=== PATIENT | female | born 1930 | race Caucasian/White ===

== ENCOUNTER 2016-11-25 15:43 | Inpatient (IN) | payer MEDICARE, OTHER ==
[2016-11-25 15:44] VITALS: BMI 23.8
--- NOTE | 2016-11-25 17:04 | C.PDOC ---
History Of Present Illness 86 y/o female wit PMHx of Anemia, HTN, DM, Myelodysplastic disease and mild dementia presents to ED sent by Dr. Kayla Hernández for blood transfusion. Last blood transfusion for patient was on 08/2016. At ED Patient complaints of onset general weakness and difficulty walking for 2 days. Patient denies fever, sob, N /V/D or any other complaints at this time. REFERRED DR Kayla HERNÁNDEZ FOR TRANSFUSION. HO PRIOR ANEMIA, LAST TRANSFUSION 08/2016. + GEN WEAKNESS, DIFF WALKING X 2 DAYS. NO OTHER ASSOC SX PMH of HTN, DM, myelodysplastic disease, mild dementia EXAM MILD DIST NONTOXIC +PALLOR REMAINDER NEG Time Seen by Provider: 11/25/16 16:51 Chief Complaint (Nursing): Abnormal Labs History Per: Patient History/Exam Limitations: no limitations Onset/Duration Of Symptoms: Days Current Symptoms Are (Timing): Still Present Past Medical History Vital Signs: Last Vital Signs Temp 98 F 11/25/16 15:57 Pulse 82 11/25/16 15:57 Resp 20 11/25/16 15:57 BP 111/70 11/25/16 15:57 Pulse Ox 100 11/25/16 17:30 - Medical History PMH: Alzheimer's Disease, Anemia, Bronchitis, Dementia Surgical History: Tonsillectomy - [facility] Procedures INTRODUCE OF OTH THERAP SUBST INTO RESP TRACT, VIA OPENING (08/14/16) TRANSFUSE NONAUT RED BLOOD CELLS IN PERIPH VEIN, PERC (08/14/16) Family History: States: No Known Family Hx - Social History Hx Alcohol Use: No Hx Substance Use: No - Immunization History Hx Tetanus Toxoid Vaccination: No Hx Influenza Vaccination: No Hx Pneumococcal Vaccination: No Review Of Systems Except As Marked, All Systems Reviewed And Found Negative. Constitutional: Negative for: Fever, Chills Cardiovascular: Negative for: Chest Pain Gastrointestinal: Negative for: Nausea, Vomiting, Diarrhea Neurological: Positive for: Weakness Physical Exam - Physical Exam Appears: Non-toxic, Other (Mild Distress) Skin: Pale Head: Atraumatic, Normacephalic Oral Mucosa: Moist Neck: Normal ROM Cardiovascular: Rhythm Regular, No Murmur Respiratory: Normal Breath Sounds, No Rales, No Rhonchi, No Wheezing Gastrointestinal/Abdominal: Soft, No Tenderness, No Guarding, No Rebound Extremity: Normal ROM Neurological/Psych: Oriented x3, Normal Speech, Normal Cognition ED Course And Treatment - Laboratory Results Result Diagrams: 11/25/16 17:28 11/25/16 17:28 O2 Sat by Pulse Oximetry: 100 (RA) Pulse Ox Interpretation: Normal - Radiology CXR: Interpreted by Me CXR Interpretation: Yes: Other (VASC COLIN VS INTERSTIT INFIL) Progress - Re-Evaluation Re-evaluation Note: 11/25/16 17:59 D/W PMD WILL ADMIT - Data Reviewed Data Reviewed: Lab, Diagnostic imaging, EKG, Old records - Continuity of Care Discussed patient case with:: Patient, Family-HIPPA compliant, PMD Disposition Counseled Patient/Family Regarding: Studies Performed, Diagnosis - Disposition Disposition: HOSPITALIZED Disposition Time: 17:59 Condition: STABLE - POA Present On Arrival: None - Clinical Impression Clinical Impression: Symptomatic anemia, Myelodysplastic syndrome - 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 MD/DO has examined the patient and agrees with the treatment plan. - Scribe Statement The provider has reviewed the documentation as recorded by the Keaton Justice All medical record entries made by the Keaton were at my direction and personally dictated by me. I have reviewed the chart and agree that the record accurately reflects my personal performance of the history, physical exam, medical decision making, and the department course for this patient. I have also personally directed, reviewed, and agree with the discharge instructions and disposition. Decision To Admit - Pt Status Changed To: Hospital Disposition Of: Observation - . Bed Request Type: Regular Admitting Physician: Gamal Ly Patient Diagnosis: Symptomatic anemia, Myelodysplastic syndrome
[2016-11-25 17:40] LABS: BASO # 0.2 K/uL (0.0-0.2); BASO % 2.1 % (0.0-2.0); EOS # 0.5 K/uL (0.0-0.7); EOS % 6.5 % (0.0-4.0); LYMPH # 1.4 K/uL (1.0-4.3); MEAN CELL VOLUME 123.1 fL (81.0-99.0); MEAN CORPUSCULAR HEMOGLOBIN 41.8 pg (27.0-31.0); MEAN CORPUSCULAR HGB CONC 33.9 g/dL (33.0-37.0); MEAN PLATELET VOLUME 9.5 fL (7.2-11.7); MONO # 0.5 K/uL (0.0-0.8); MONO % 6.2 % (0.0-10.0); RED CELL DISTRIBUTION WIDTH 13.8 % (11.5-14.5); WHITE BLOOD COUNT 7.9 K/uL (4.8-10.8)
[2016-11-25 17:47] LABS: POTASSIUM 4.9 mmol/L (3.6-5.2)
[2016-11-25 17:51] LABS: CALCIUM 8.8 mg/dl (8.6-10.4)
--- NOTE | 2016-11-25 18:54 | RAD ---
HISTORY: ANEMIA COMPARISON: None available. TECHNIQUE: Chest, one view. FINDINGS: Examination limited by habitus and patient obliquity. LUNGS: Interstitial prominence may reflect infection or edema. Biapical pleural thickening. Please note that chest x-ray has limited sensitivity for the detection of pulmonary masses. PLEURA: No significant pleural effusion identified. No definite pneumothorax . CARDIOVASCULAR: Cardiomegaly. Atherosclerotic calcifications. OSSEOUS STRUCTURES: Degenerative changes. Evidence of calcific tendinitis, right shoulder. VISUALIZED UPPER ABDOMEN: Unremarkable. OTHER FINDINGS: None. IMPRESSION: Prominent interstitial markings may reflect infection or edema.
[2016-11-25] MEDS ORDERED: Insulin Detemir 100 units/ml Vial (Levemir) SC ONE (22:14)
[2016-11-25] MEDS ORDERED: (Novolog) Insulin Aspart, Recombinant 100 u/ml 10 ml vial ONE (22:16)
[2016-11-25] MEDS: (Novolog) Insulin Aspart, Recombinant 100 u/ml 10 ml vial SC SCH (22:21)
[2016-11-26 06:17] LABS: HEMATOCRIT 22.7 % (34.0-47.0); MEAN CELL VOLUME 110.8 fL (81.0-99.0); MEAN CORPUSCULAR HEMOGLOBIN 39.9 pg (27.0-31.0); MEAN CORPUSCULAR HGB CONC 36.1 g/dL (33.0-37.0); MEAN PLATELET VOLUME 9.5 fL (7.2-11.7); RED CELL DISTRIBUTION WIDTH 24.6 % (11.5-14.5); WHITE BLOOD COUNT 6.8 K/uL (4.8-10.8)
[2016-11-26 06:34] LABS: POTASSIUM 4.2 mmol/L (3.6-5.2)
[2016-11-26 06:37] LABS: BILIRUBIN,TOTAL 1.3 mg/dL (0.2-1.3); TOTAL PROTEIN 6.9 g/dL (6.3-8.3)
[2016-11-26 06:38] LABS: CALCIUM 8.4 mg/dl (8.6-10.4)
[2016-11-26] MEDS: (Novolog) Insulin Aspart, Recombinant 100 u/ml 10 ml vial SC SCH ×4 (08:22→21:57)
[2016-11-26] MEDS ORDERED: Home Med 1 UNIT (Ferrous Sulfate [Iron] 325 MG) PO SCH (10:00)
--- NOTE | 2016-11-26 10:26 | CP.PCM.PN ---
Subjective - Date & Time of Evaluation Date of Evaluation: 11/26/16 Time of Evaluation: 10:24 - Subjective Subjective: Medicine Progress Note- Dr Ly's service Patient seen and examined. Patient states that she feels well with no complaints. Patient received 1u pRBCs yesterday and is scheduled to receive another unit today per Dr Ly's request. Denies fever, chills, nausea, vomiting, abdominal pain, chest pain, and shortness of breath. Objective - Vital Signs/Intake and Output Vital Signs (last 24 hours): Temp Pulse Resp BP Pulse Ox 97.9 F 79 20 166/73 H 98 11/26/16 07:38 11/26/16 07:38 11/26/16 07:38 11/26/16 07:38 11/26/16 07:38 Intake and Output: 11/26/16 11/26/16 06:59 18:59 Intake Total 565 Balance 565 - Medications Medications: Current Medications Aspirin (Aspirin Chewable) 81 mg PO DAILY [facility] Ferrous Sulfate (Feosol) 325 mg PO DAILY [facility] Insulin Aspart (Novolog) 0 unit SC ACHS [facility] PRN Reason: Protocol Last Admin: 11/26/16 08:22 Dose: Not Given Insulin Detemir (Levemir) 10 unit SC [facility] Last Admin: 11/25/16 22:21 Dose: 10 unit Lisinopril (Zestril) 2.5 mg PO DAILY [facility] Pneumococcal Polyvalent Vaccine (Pneumovax 23 Vaccine) 0.5 ml IM .ONCE ONE Stop: 11/28/16 10:01 - Labs Labs: 11/26/16 06:06 11/26/16 06:06 - Constitutional Appears: Non-toxic, No Acute Distress - Head Exam Head Exam: ATRAUMATIC, NORMOCEPHALIC - Eye Exam Eye Exam: EOMI, Normal appearance Pupil Exam: NORMAL ACCOMODATION - ENT Exam ENT Exam: Mucous Membranes Moist - Neck Exam Neck Exam: Normal Inspection - Respiratory Exam Respiratory Exam: Clear to Ausculation Bilateral, NORMAL BREATHING PATTERN. absent: Rhonchi, Wheezes - Cardiovascular Exam Cardiovascular Exam: REGULAR RHYTHM, +S1, +S2 - GI/Abdominal Exam GI & Abdominal Exam: Soft, Normal Bowel Sounds. absent: Tenderness - Extremities Exam Extremities Exam: Normal Inspection. absent: Pedal Edema - Neurological Exam Neurological Exam: Alert, Awake, Oriented x3 - Psychiatric Exam Psychiatric exam: Normal Affect, Normal Mood - Skin Skin Exam: Dry, Intact, Normal Color, Warm Assessment and Plan - Assessment and Plan (Free Text) Assessment: (1) Myelodysplastic disease Hgb 7.1 on admission Sent in by Dr Adames for transfusion s/p 1u pRBCs yday --> Hgb 8.2 Transfuse another 1 unit today (2) DM Levemir 10u SC HS on hold due to hypoglycemia this morning ISS Accuchecks f/u HgA1C (3) Prophylactic measures SCD Discussed with Dr Ly
--- NOTE | 2016-11-26 12:09 | CP.PCM.CON ---
History of Present Illness - History of Present Illness History of Present Illness: 86 year old female with a history of untreated MDS admitted with anemia. The patient was seen in my office Tuesday for discussion of treatment options for her MDS. Her daughter noted she was more fatigued and was concerned she was anemic. She has required PRBC transfusion support in the past. Yesterday she was found to have a hgb of 7 and I told her daughter to bring her to the ER for PRBC transfusion. She is currently s/p 1 unit of PRBC and reports to feeling better. She denies abnormal bleeding and bruising. Past medical history: MDS Past surgical history: None Family history: Denies hematologic and oncologic problems Social history: Denies tobacco, alcohol, and illicit drug use. Allergies: Amoxicillin Review of systems: All remaining review of systems including HEENT, cardiovascular, respiratory, gastrointestinal, genitourinary, musculoskeletal, dermatologic, neurologic, and psychiatric are negative unless mentioned in the HPI. Past Patient History - Infectious Disease Hx of Infectious Diseases: None - Tetanus Immunizations Tetanus Immunization: Unknown - Past Medical History & Family History Past Medical History?: Yes - Past Social History Smoking Status: Never Smoked - CARDIAC Hx Cardiac Disorders: No Hx Hypertension: No - PULMONARY Hx Respiratory Disorders: Yes Hx Bronchitis: Yes - NEUROLOGICAL Hx Neurological Disorder: Yes Hx Alzheimer's Disease: Yes Hx Dementia: Yes - HEENT Hx HEENT Problems: Yes Hx Cataracts: Yes (had surgery. doesn't remember what eye) - RENAL Hx Chronic Kidney Disease: No - ENDOCRINE/METABOLIC Hx Endocrine Disorders: Yes Hx Diabetes Mellitus Type 2: Yes (IDDM) - HEMATOLOGICAL/ONCOLOGICAL Hx Blood Disorders: Yes Hx Anemia: Yes - INTEGUMENTARY Hx Dermatological Problems: No - MUSCULOSKELETAL/RHEUMATOLOGICAL Hx Musculoskeletal Disorders: No Hx Falls: No - GASTROINTESTINAL Hx Gastrointestinal Disorders: No - GENITOURINARY/GYNECOLOGICAL Hx Genitourinary Disorders: No - PSYCHIATRIC Hx Substance Use: No - SURGICAL HISTORY Hx Surgeries: Yes Hx Tonsillectomy: Yes - ANESTHESIA Hx Anesthesia: Yes Hx Anesthesia Reactions: No Hx Malignant Hyperthermia: No Meds Allergies/Adverse Reactions: Allergies Allergy/AdvReac Type Severity Reaction Status Date / Time amoxicillin Allergy RASH Verified 11/25/16 21:59 - Medications Medications: Current Medications Aspirin (Aspirin Chewable) 81 mg PO DAILY [facility] Last Admin: 11/26/16 10:44 Dose: 81 mg Ferrous Sulfate (Feosol) 325 mg PO DAILY [facility] Last Admin: 11/26/16 10:44 Dose: 325 mg Insulin Aspart (Novolog) [address] [facility] PRN Reason: Protocol Last Admin: 11/26/16 08:22 Dose: Not Given Insulin Detemir (Levemir) 10 unit SC [facility] Last Admin: 11/25/16 22:21 Dose: 10 unit Lisinopril (Zestril) 2.5 mg PO DAILY [facility] Last Admin: 11/26/16 10:44 Dose: 2.5 mg Pneumococcal Polyvalent Vaccine (Pneumovax 23 Vaccine) 0.5 ml IM .ONCE ONE Stop: 11/28/16 10:01 Physical Exam - Head Exam Head Exam: ATRAUMATIC - Eye Exam Eye Exam: Normal appearance - ENT Exam ENT Exam: Mucous Membranes Dry - Respiratory Exam Respiratory Exam: NORMAL BREATHING PATTERN - Cardiovascular Exam Cardiovascular Exam: +S1, +S2 - GI/Abdominal Exam GI & Abdominal Exam: Normal Bowel Sounds - Extremities Exam Extremities exam: Positive for: normal inspection - Neurological Exam Neurological exam: Oriented x3 - Psychiatric Exam Psychiatric exam: Normal Affect, Normal Mood - Skin Skin Exam: Warm Results - Vital Signs Recent Vital Signs: Last Vital Signs Temp 97.9 F 11/26/16 07:38 Pulse 79 11/26/16 07:38 Resp 20 11/26/16 07:38 BP 166/73 H 11/26/16 07:38 Pulse Ox 98 11/26/16 07:38 - Labs Result Diagrams: 11/26/16 19:48 11/26/16 06:06 Labs: Laboratory Results - last 24 hr 11/25/16 11/26/16 11/26/16 22:09 06:06 06:06 WBC 6.8 RBC 2.05 L Hgb 8.2 L Hct 22.7 L MCV 110.8 H D MCH 39.9 H MCHC 36.1 RDW 24.6 H Plt Count 251 MPV 9.5 Sodium 137 Potassium 4.2 Chloride 103 Carbon Dioxide 25 Anion Gap 13 BUN 26 H Creatinine 1.1 Est GFR ( Amer) 57 Est GFR (Non-Af Amer) 47 POC Glucose (mg/dL) 306 H Random Glucose 58 L Calcium 8.4 L Total Bilirubin 1.3 AST 27 ALT 16 Alkaline Phosphatase 73 Total Protein 6.9 Albumin 3.5 Globulin 3.4 Albumin/Globulin Ratio 1.0 11/26/16 11/26/16 11/26/16 07:08 07:38 11:22 WBC RBC Hgb Hct MCV MCH MCHC RDW Plt Count MPV Sodium Potassium Chloride Carbon Dioxide Anion Gap BUN Creatinine Est GFR ( Amer) Est GFR (Non-Af Amer) POC Glucose (mg/dL) 65 104 315 H Random Glucose Calcium Total Bilirubin AST ALT Alkaline Phosphatase Total Protein Albumin Globulin Albumin/Globulin Ratio Assessment & Plan (1) Myelodysplastic syndrome Assessment and Plan: diagnosed in [place] and untreated she is 5q- s/p 1 unit PRBC and for 1 additional unit today she has poor IV access and may require future transfusions and IV treatments; I will consult surgery for portacath placement Thank you for this interesting consult. Status: Acute
--- NOTE | 2016-11-26 13:41 | CP.PCM.CON ---
History of Present Illness - History of Present Illness History of Present Illness: for porttuesday Past Patient History - Infectious Disease Hx of Infectious Diseases: None - Tetanus Immunizations Tetanus Immunization: Unknown - Past Medical History & Family History Past Medical History?: Yes - Past Social History Smoking Status: Never Smoked - CARDIAC Hx Cardiac Disorders: No Hx Hypertension: No - PULMONARY Hx Respiratory Disorders: Yes Hx Bronchitis: Yes - NEUROLOGICAL Hx Neurological Disorder: Yes Hx Alzheimer's Disease: Yes Hx Dementia: Yes - HEENT Hx HEENT Problems: Yes Hx Cataracts: Yes (had surgery. doesn't remember what eye) - RENAL Hx Chronic Kidney Disease: No - ENDOCRINE/METABOLIC Hx Endocrine Disorders: Yes Hx Diabetes Mellitus Type 2: Yes (IDDM) - HEMATOLOGICAL/ONCOLOGICAL Hx Blood Disorders: Yes Hx Anemia: Yes - INTEGUMENTARY Hx Dermatological Problems: No - MUSCULOSKELETAL/RHEUMATOLOGICAL Hx Musculoskeletal Disorders: No Hx Falls: No - GASTROINTESTINAL Hx Gastrointestinal Disorders: No - GENITOURINARY/GYNECOLOGICAL Hx Genitourinary Disorders: No - PSYCHIATRIC Hx Substance Use: No - SURGICAL HISTORY Hx Surgeries: Yes Hx Tonsillectomy: Yes - ANESTHESIA Hx Anesthesia: Yes Hx Anesthesia Reactions: No Hx Malignant Hyperthermia: No Meds Allergies/Adverse Reactions: Allergies Allergy/AdvReac Type Severity Reaction Status Date / Time amoxicillin Allergy RASH Verified 11/25/16 21:59 - Medications Medications: Current Medications Aspirin (Aspirin Chewable) 81 mg PO DAILY [facility] Last Admin: 11/26/16 10:44 Dose: 81 mg Ferrous Sulfate (Feosol) 325 mg PO DAILY [facility] Last Admin: 11/26/16 10:44 Dose: 325 mg Insulin Aspart (Novolog) 0 unit SC [facility] PRN Reason: Protocol Last Admin: 11/26/16 12:28 Dose: 4 unit Insulin Detemir (Levemir) 10 unit SC [facility] Last Admin: 11/25/16 22:21 Dose: 10 unit Lisinopril (Zestril) 2.5 mg PO DAILY [facility] Last Admin: 11/26/16 10:44 Dose: 2.5 mg Pneumococcal Polyvalent Vaccine (Pneumovax 23 Vaccine) 0.5 ml IM .ONCE ONE Stop: 11/28/16 10:01 Results - Vital Signs Recent Vital Signs: Last Vital Signs Temp 97.9 F 11/26/16 07:38 Pulse 79 11/26/16 07:38 Resp 20 11/26/16 07:38 BP 166/73 H 11/26/16 07:38 Pulse Ox 98 11/26/16 07:38 - Labs Result Diagrams: 11/26/16 06:06 11/26/16 06:06 Labs: Laboratory Results - last 24 hr 11/25/16 11/26/16 11/26/16 22:09 06:06 06:06 WBC 6.8 RBC 2.05 L Hgb 8.2 L Hct 22.7 L MCV 110.8 H D MCH 39.9 H MCHC 36.1 RDW 24.6 H Plt Count 251 MPV 9.5 Sodium 137 Potassium 4.2 Chloride 103 Carbon Dioxide 25 Anion Gap 13 BUN 26 H Creatinine 1.1 Est GFR ( Amer) 57 Est GFR (Non-Af Amer) 47 POC Glucose (mg/dL) 306 H Random Glucose 58 L Calcium 8.4 L Total Bilirubin 1.3 AST 27 ALT 16 Alkaline Phosphatase 73 Total Protein 6.9 Albumin 3.5 Globulin 3.4 Albumin/Globulin Ratio 1.0 11/26/16 11/26/16 11/26/16 07:08 07:38 11:22 WBC RBC Hgb Hct MCV MCH MCHC RDW Plt Count MPV Sodium Potassium Chloride Carbon Dioxide Anion Gap BUN Creatinine Est GFR ( Amer) Est GFR (Non-Af Amer) POC Glucose (mg/dL) 65 104 315 H Random Glucose Calcium Total Bilirubin AST ALT Alkaline Phosphatase Total Protein Albumin Globulin Albumin/Globulin Ratio
--- NOTE | 2016-11-26 17:32 | CARD ---
APPROVED REPORT EKG Measurement Heart [id number] <Conclusion> Normal sinus rhythm ST & T wave abnormality, consider lateral ischemia Abnormal ECG
[2016-11-26 20:08] LABS: MEAN CELL VOLUME 105.2 fL (81.0-99.0); MEAN CORPUSCULAR HEMOGLOBIN 36.4 pg (27.0-31.0); MEAN CORPUSCULAR HGB CONC 34.6 g/dL (33.0-37.0); MEAN PLATELET VOLUME 10.1 fL (7.2-11.7); RED CELL DISTRIBUTION WIDTH 27.8 % (11.5-14.5); WHITE BLOOD COUNT 10.7 K/uL (4.8-10.8)
[2016-11-26] MEDS ORDERED: Insulin Detemir 100 units/ml Vial (Levemir) SC SCH (22:00)
[2016-11-27] MEDS: (Novolog) Insulin Aspart, Recombinant 100 u/ml 10 ml vial SC SCH ×4 (08:31→22:01)
--- NOTE | 2016-11-27 20:28 | CP.PCM.PN ---
Subjective - Date & Time of Evaluation Date of Evaluation: 11/27/16 Time of Evaluation: 19:10 - Subjective Subjective: Feeling better s/p 2U PRBC for tuesday Objective - Vital Signs/Intake and Output Vital Signs (last 24 hours): Temp Pulse Resp BP Pulse Ox 98.6 F 81 20 111/62 97 11/27/16 15:00 11/27/16 15:00 11/27/16 15:00 11/27/16 15:00 11/27/16 15:00 Intake and Output: 11/27/16 11/28/16 18:59 06:59 Intake Total 240 Balance 240 - Medications Medications: Current Medications Aspirin (Aspirin Chewable) 81 mg PO DAILY [facility] Last Admin: 11/27/16 10:49 Dose: 81 mg Ferrous Sulfate (Feosol) 325 mg PO DAILY [facility] Last Admin: 11/27/16 10:49 Dose: 325 mg Insulin Aspart (Novolog) 0 unit SC ACHS [facility] PRN Reason: Protocol Last Admin: 11/27/16 16:30 Dose: 3 unit Insulin Detemir (Levemir) 10 unit SC HS [facility] Last Admin: 11/25/16 22:21 Dose: 10 unit Lisinopril (Zestril) 2.5 mg PO DAILY [facility] Last Admin: 11/27/16 10:49 Dose: 2.5 mg Pneumococcal Polyvalent Vaccine (Pneumovax 23 Vaccine) 0.5 ml IM .ONCE ONE Stop: 11/28/16 10:01 - Labs Labs: 11/26/16 19:48 11/26/16 06:06 - Head Exam Head Exam: ATRAUMATIC - Eye Exam Eye Exam: Normal appearance - ENT Exam ENT Exam: Mucous Membranes Dry - Respiratory Exam Respiratory Exam: NORMAL BREATHING PATTERN - Cardiovascular Exam Cardiovascular Exam: +S1, +S2 - GI/Abdominal Exam GI & Abdominal Exam: Normal Bowel Sounds Assessment and Plan (1) Myelodysplastic syndrome Status: Acute
--- NOTE | 2016-11-28 07:43 | CP.PCM.PN ---
Subjective - Date & Time of Evaluation Date of Evaluation: 11/28/16 Time of Evaluation: 07:41 - Subjective Subjective: Vasx Sx: Dr Peralta Pt S&E. NAEO. No complaints. For soraya-cath tomorrow. NPO @[facility] Objective - Vital Signs/Intake and Output Vital Signs (last 24 hours): Temp Pulse Resp BP Pulse Ox 99.1 F 82 20 131/64 94 L 11/28/16 00:00 11/28/16 00:00 11/28/16 00:00 11/28/16 00:00 11/28/16 00:00 Intake and Output: 11/28/16 11/28/16 06:59 18:59 Intake Total 340 Balance 340 - Medications Medications: Current Medications Aspirin (Aspirin Chewable) 81 mg PO DAILY [facility] Last Admin: 11/27/16 10:49 Dose: 81 mg Ferrous Sulfate (Feosol) 325 mg PO DAILY [facility] Last Admin: 11/27/16 10:49 Dose: 325 mg Insulin Aspart (Novolog) 0 unit SC [facility] PRN Reason: Protocol Last Admin: 11/27/16 22:01 Dose: Not Given Insulin Detemir (Levemir) 10 unit SC HS [facility] Last Admin: 11/25/16 22:21 Dose: 10 unit Lisinopril (Zestril) 2.5 mg PO DAILY [facility] Last Admin: 11/27/16 10:49 Dose: 2.5 mg Pneumococcal Polyvalent Vaccine (Pneumovax 23 Vaccine) 0.5 ml IM .ONCE ONE Stop: 11/28/16 10:01 - Labs Labs: 11/26/16 19:48 11/26/16 06:06 - Constitutional Appears: Non-toxic, No Acute Distress - Respiratory Exam Respiratory Exam: absent: Accessory Muscle Use, Respiratory Distress - Cardiovascular Exam Cardiovascular Exam: REGULAR RHYTHM. absent: Tachycardia - GI/Abdominal Exam GI & Abdominal Exam: Soft. absent: Distended - Neurological Exam Neurological Exam: Awake - Psychiatric Exam Psychiatric exam: Normal Affect, Normal Mood - Skin Skin Exam: Normal Color, Warm Assessment and Plan - Assessment and Plan (Free Text) Assessment: 86F with myelodysplastic anemia Plan: For soraya-cath tomorrow w/ Dr Peralta NPO @ [facility] Bob Mckeon, PGY2
[2016-11-28] MEDS: (Novolog) Insulin Aspart, Recombinant 100 u/ml 10 ml vial SC SCH ×4 (08:28→21:00)
[2016-11-28] MEDS ORDERED: Pneumococcal 23-Valent Vaccine IM ONE (10:00)
[2016-11-28] MEDS ORDERED: Insulin Detemir 100 units/ml Vial (Levemir) SC ONE (11:40)
[2016-11-28] MEDS ORDERED: (Novolog) Insulin Aspart, Recombinant 100 u/ml 10 ml vial SC ONE (11:40)
[2016-11-29] MEDS: (Novolog) Insulin Aspart, Recombinant 100 u/ml 10 ml vial SC SCH ×4 (07:41→21:16)
--- NOTE | 2016-11-29 08:46 | PN ---
DATE: 11/27/2016 She is improving, hemoglobin improved. Port-A-Cath Tuesday. Gamal Peterson MD cc: [id number] TT: 11/27/2016 18:26:54 Confirmation # [id number] Dictation # [id number] 11/29/2016 07:45:35
--- NOTE | 2016-11-29 09:29 | CP.PCM.PN ---
Subjective - Date & Time of Evaluation Date of Evaluation: 11/29/16 Time of Evaluation: 11:00 - Subjective Subjective: Dr. Ly's service: Patient seen in room. She has no complaints of pain fatigue, weakness, shortness of breath, chest pain, diarrhea, blood in stool, nausea, vomiting, or dysuria. Objective - Vital Signs/Intake and Output Vital Signs (last 24 hours): Temp Pulse Resp BP Pulse Ox 99.2 F 68 20 100/52 L 97 11/29/16 07:59 11/29/16 07:59 11/29/16 07:59 11/29/16 07:59 11/29/16 07:59 - Medications Medications: Current Medications Aspirin (Aspirin Chewable) 81 mg PO DAILY [facility] Last Admin: 11/29/16 08:57 Dose: 81 mg Ferrous Sulfate (Feosol) 325 mg PO DAILY [facility] Last Admin: 11/29/16 08:58 Dose: 325 mg Insulin Aspart (Novolog) 0 unit SC ACHS [facility] PRN Reason: Protocol Last Admin: 11/29/16 07:41 Dose: Not Given Insulin Detemir (Levemir) 10 unit SC [facility] Last Admin: 11/25/16 22:21 Dose: 10 unit Lisinopril (Zestril) 2.5 mg PO DAILY [facility] Last Admin: 11/29/16 08:51 Dose: 2.5 mg - Labs Labs: 11/26/16 19:48 11/26/16 06:06 - Constitutional Appears: Non-toxic, No Acute Distress - Head Exam Head Exam: NORMAL INSPECTION - Eye Exam Eye Exam: Normal appearance Pupil Exam: NORMAL ACCOMODATION Additional comments: conjunctival pallor - ENT Exam ENT Exam: Normal Exam - Respiratory Exam Respiratory Exam: Clear to Ausculation Bilateral. absent: Rales, Rhonchi, Wheezes - Cardiovascular Exam Cardiovascular Exam: REGULAR RHYTHM, RRR, +S1, +S2. absent: Gallop, Rubs - GI/Abdominal Exam GI & Abdominal Exam: Soft, Normal Bowel Sounds. absent: Tenderness - Extremities Exam Extremities Exam: Normal Inspection. absent: Pedal Edema - Back Exam Back Exam: NORMAL INSPECTION - Psychiatric Exam Psychiatric exam: Normal Affect, Normal Mood - Skin Skin Exam: Normal Color, Warm Assessment and Plan - Assessment and Plan (Free Text) Assessment: (1) Myelodysplastic disease 11/29: Hbg today is 11.1, she went today for soraya cath with Dr. Saini. Hgb 7.1 on admission Sent in by Dr Adames for transfusion s/p 1u pRBCs yday --> Hgb 8.2 Transfuse another 1 unit today (2) DM Levemir 10u SC HS on hold due to hypoglycemia this morning ISS Accuchecks f/u HgA1C (3) Prophylactic measures SCD Discussed with Dr Ly
[2016-11-29 14:01] LABS: BASO # 0.1 K/uL (0.0-0.2); BASO % 1.8 % (0.0-2.0); EOS # 0.5 K/uL (0.0-0.7); EOS % 6.5 % (0.0-4.0); HEMATOCRIT 32.5 % (34.0-47.0); LYMPH # 1.1 K/uL (1.0-4.3); LYMPH % 16.1 % (20.0-40.0); MEAN CELL VOLUME 106.9 fL (81.0-99.0); MEAN CORPUSCULAR HEMOGLOBIN 36.4 pg (27.0-31.0); MEAN CORPUSCULAR HGB CONC 34.1 g/dL (33.0-37.0); MEAN PLATELET VOLUME 9.8 fL (7.2-11.7); MONO # 0.4 K/uL (0.0-0.8); MONO % 5.9 % (0.0-10.0); RED CELL DISTRIBUTION WIDTH 25.8 % (11.5-14.5)
[2016-11-29 14:10] LABS: POTASSIUM 4.8 mmol/L (3.6-5.2)
[2016-11-29 14:12] LABS: BILIRUBIN,TOTAL 0.8 mg/dL (0.2-1.3)
[2016-11-29 14:13] LABS: CALCIUM 9.4 mg/dl (8.6-10.4)
[2016-11-29] MEDS ORDERED: Lidocaine 1% Inj (20ml) ONE (14:21)
[2016-11-29] MEDS ORDERED: HEPARIN-NS 5,000 UNITS/500 ML 5,000 UNIT/500 ML BAG IV ONE (14:21)
[2016-11-29] MEDS ORDERED: ceFAZolin IV 1 gm in Dextrose 0 GM/0 ML BAG IVPB ONE (14:21)
[2016-11-29] MEDS ORDERED: Sodium Chloride 0.9% 500 ML IV ONE (14:30)
[2016-11-29] MEDS ORDERED: Lactated Ringer's 1,000 ML IV ONE (14:30)
[2016-11-29] MEDS ORDERED: Midazolam 2 MG/2 ML VIAL ONE (14:48)
[2016-11-29] MEDS ORDERED: Propofol 10 mg/ml Inj (20 ML) ONE (14:48)
[2016-11-29] MEDS ORDERED: Sodium Chloride 0.9% 1,000 ML IV ONE (15:34)
[2016-11-29] MEDS ORDERED: HYDROmorphone 0.5 mg/0.5 ml ISec IVP PRN (15:34)
--- NOTE | 2016-11-29 15:35 | PCM.SURG1 ---
Surgeon's Initial Post Op Note - Surgeon's Notes Surgeon: tisha Vacuum Plastic Forming Machine Operator: samantha Type of Anesthesia: IV Sedation Anesthesia Administered By: diego Pre-Operative Diagnosis: avenia Operative Findings: to svc Post-Operative Diagnosis: " Operation Performed: portacath right jugular Specimen/Specimens Removed: 0 Estimated Blood Loss: EBL {In ML}: 50 Blood Products Given: N/A Drains Used: No Drains Post-Op Condition: Good Date of Surgery/Procedure: 11/29/16 Time of Surgery/Procedure: 15:35
[2016-11-29] MEDS ORDERED: Sodium Chloride 0.9% 1,000 ML IV SCH (15:45)
--- NOTE | 2016-11-29 16:13 | RAD ---
HISTORY: portacath COMPARISON: 11/23/2016 FINDINGS: The right Port-A-Cath terminates at the cavoatrial junction. LUNGS: There is mild pulmonary venous congestion. No lobar pneumonia. PLEURA: No significant pleural effusion identified, no pneumothorax apparent. CARDIOVASCULAR: Normal. OSSEOUS STRUCTURES: No significant abnormalities. VISUALIZED UPPER ABDOMEN: Normal. OTHER FINDINGS: None. IMPRESSION: The right Port-A-Cath terminates at the cavoatrial junction. Mild pulmonary venous congestion. No acute findings
--- NOTE | 2016-11-29 20:04 | OP ---
PROCEDURE DATE: 11/29/2016 PREOPERATIVE DIAGNOSIS: Myeloproliferative disease. PROCEDURE CARRIED OUT: Placement of Port-A-Cath, right jugular vein with C-arm fluoroscopy and ultra sound-guided puncture. SURGEON: Hao Peralta Jr., MD CHEMICAL LAB SUPERVISOR: Dr. Ochoa. ANESTHESIOLOGIST: Dr. Alberto. ANESTHESIA: General anesthesia. INDICATIONS: The patient is an elderly woman with a variety of medical problems, who requires a port for administration of medications, treatments, and transfusions. PROCEDURE: The patient was given local anesthesia. Using ultrasound guidance and micropuncture tech nique, the right jugular vein was cannulated. Under fluoroscopic control, the guidewire was advanced . A sheath dilator was passed over this and the catheter was positioned in the appropriate location with excellent return. It was subsequently exchanged for a larger wire, found to be in good position . The catheter was then brought out on the chest wall and tunneled and placed in the pocket on the c hest wall. Blood loss of the procedure was less than 50 mL. OPERATION CARRIED OUT: Placement of Port-A-Cath, right jugular vein with C-arm fluoroscopy and ultra sound-guided puncture. Ultrasound image of the neck showed the vein was 13 mm in diameter with normal compressibility and no evidence of intraluminal thrombosis. The catheter was flushed with heparinized saline at the end of the procedure. Hao Peralta Jr., MD cc: 56 TT: 11/29/2016 20:04:33 tn
[2016-11-29 20:39] VITALS: RESP 20
--- NOTE | 2016-11-30 07:17 | CP.PCM.PN ---
Subjective - Date & Time of Evaluation Date of Evaluation: 11/30/16 Time of Evaluation: 07:14 - Subjective Subjective: SURGERY PROGRESS NOTE FOR DR. MADISON 86F seen and examined at bedside. No pain at site of portacath. dressing CDI. Objective - Vital Signs/Intake and Output Vital Signs (last 24 hours): Temp Pulse Resp BP Pulse Ox 98.3 F 86 20 130/71 98 11/30/16 00:00 11/30/16 00:00 11/30/16 00:00 11/30/16 00:00 11/30/16 00:00 - Medications Medications: Current Medications Aspirin (Aspirin Chewable) 81 mg PO DAILY [facility] Last Admin: 11/29/16 12:00 Dose: Not Given Ferrous Sulfate (Feosol) 325 mg PO DAILY [facility] Last Admin: 11/29/16 12:01 Dose: Not Given Insulin Aspart (Novolog) 0 unit SC ACHS [facility] PRN Reason: Protocol Last Admin: 11/29/16 21:16 Dose: Not Given Insulin Detemir (Levemir) 10 unit SC HS [facility] Last Admin: 11/25/16 22:21 Dose: 10 unit Lisinopril (Zestril) 2.5 mg PO DAILY [facility] Last Admin: 11/29/16 12:02 Dose: Not Given - Labs Labs: 11/29/16 13:57 11/29/16 13:50 - Constitutional Appears: Non-toxic, No Acute Distress - Neck Exam Additional comments: catheter in place. Dressing CDI - Respiratory Exam Respiratory Exam: Clear to Ausculation Bilateral, NORMAL BREATHING PATTERN - Cardiovascular Exam Cardiovascular Exam: REGULAR RHYTHM, +S1, +S2 - Neurological Exam Neurological Exam: Alert, Awake Assessment and Plan - Assessment and Plan (Free Text) Assessment: 86F s/p right IJ portacath POD1 - dressing management - no further surgical intervention at this time Further recs discuss with Dr. Fabian East, PGY1
[2016-11-30] MEDS: (Novolog) Insulin Aspart, Recombinant 100 u/ml 10 ml vial SC SCH ×2 (08:08→12:32)
[2016-11-30 08:39] VITALS: BP 119/66; PULSE 76; TEMP 98.1
[2016-11-30 09:25] VITALS: O2SAT 98
[2016-11-30] MEDS ORDERED: Pneumococcal 23-Valent Vaccine IM ONE (11:51)
--- NOTE | 2016-11-30 17:36 | RAD ---
PROCEDURE: Intraoperative Fluoroscopy. HISTORY: PORTACATH INSERT FINDINGS: Fluoroscopic assistance was provided. Approximately 36.1 seconds fluoroscopy time utilized for this procedure. Radiation dose = 6.3 mGy
--- NOTE | 2016-11-30 20:02 | CP.PCM.PN ---
Subjective - Date & Time of Evaluation Date of Evaluation: 11/30/16 Time of Evaluation: 09:00 - Subjective Subjective: Dr. Ly service: Patient is seen in room. She has no complaints of pain, fever, chills, nausea, vomiting. Objective - Vital Signs/Intake and Output Vital Signs (last 24 hours): Temp Pulse Resp BP Pulse Ox 98.1 F 76 20 119/66 98 11/30/16 08:35 11/30/16 08:35 11/30/16 08:35 11/30/16 08:35 11/30/16 08:35 - Labs Labs: 11/29/16 13:57 11/29/16 13:50 - Constitutional Appears: Non-toxic, No Acute Distress - Head Exam Head Exam: NORMAL INSPECTION - Eye Exam Eye Exam: Normal appearance - Respiratory Exam Respiratory Exam: Clear to Ausculation Bilateral. absent: Rales, Rhonchi, Wheezes - Cardiovascular Exam Cardiovascular Exam: REGULAR RHYTHM, RRR, +S1, +S2. absent: Gallop, Rubs - GI/Abdominal Exam GI & Abdominal Exam: Soft, Normal Bowel Sounds. absent: Tenderness - Extremities Exam Extremities Exam: Normal Inspection. absent: Pedal Edema - Back Exam Back Exam: NORMAL INSPECTION - Psychiatric Exam Psychiatric exam: Normal Affect, Normal Mood - Skin Skin Exam: Normal Color Assessment and Plan - Assessment and Plan (Free Text) Assessment: Patient discharged home with home health and home PT and walking cane.
== END 2016-11-30 13:30 | disposition home health service (06) | DRG 812 ==
LOC: C.ER 15:43 → C.9E 17:59 → C.3T 22:14
PROVIDERS: ADMIT Internal Medicine Pulmonary Disease; ATTEND Internal Medicine Pulmonary Disease
PROC: 30233N1 Transfusion of Nonautologous Red Blood Cells into Peripheral Vein, Percutaneous Approach (ICD-10-PCS; 2016-11-25)
PROC: 05HM33Z Insertion of Infusion Device into Right Internal Jugular Vein, Percutaneous Approach (ICD-10-PCS; 2016-11-29)
PROC: 0JH60XZ Insertion of Tunneled Vascular Access Device into Chest Subcutaneous Tissue and Fascia, Open Approach (ICD-10-PCS; principal; 2016-11-29 14:30)
DX: D46.9 Myelodysplastic syndrome, unspecified (principal); E11.649 Type 2 diabetes mellitus with hypoglycemia without coma; G30.9 Alzheimer's disease, unspecified; F02.80 Dementia in other diseases classified elsewhere, unspecified severity, without behavioral disturbance, psychotic disturbance, mood disturbance, and anxiety; E11.9 Type 2 diabetes mellitus without complications; I10 Essential (primary) hypertension; Z79.4 Long term (current) use of insulin; Z98.49 Cataract extraction status, unspecified eye

== ENCOUNTER 2016-12-24 20:18 | Observation (INO) | payer MEDICARE ==
[2016-12-24 20:18] VITALS: BMI 23.8
--- NOTE | 2016-12-24 20:59 | C.PDOC ---
History Of Present Illness 86 yo female, hx of anemia, myelodyspastic syndrome, presetns after syncope. as per daughter bedside. pt was at [facility], where pt "lost consciousness for a short time". as per daughter, during episode, pt vomited and had non bloody bowel movement. as per daughter, pt gets transfusions for myelodyspastic syndrome. pt denies any pain upon inital assessment. no fevers, cough, n/v/d, urinary changes. Time Seen by Provider: 12/24/16 20:26 Chief Complaint (Nursing): Syncope Past Medical History Reviewed: Historical Data, Nursing Documentation, Vital Signs Vital Signs: Last Vital Signs Temp 97.8 F 12/24/16 20:36 Pulse 74 12/24/16 20:36 Resp 20 12/24/16 20:36 BP 110/75 12/24/16 20:36 Pulse Ox 96 12/24/16 21:09 - Medical History PMH: Alzheimer's Disease, Anemia, Bronchitis, Dementia, Pneumonia Denies: HTN, Chronic Kidney Disease Surgical History: Tonsillectomy - [facility] Procedures INSERT INFUSION DEV IN R INT JUGULAR VEIN, PERC (11/25/16) INSERTION OF VAD INTO CHEST SUBCU/FASCIA, OPEN APPROACH (11/25/16) INTRODUCE OF OTH THERAP SUBST INTO RESP TRACT, VIA OPENING (08/14/16) TRANSFUSE NONAUT RED BLOOD CELLS IN PERIPH VEIN, PERC (11/25/16) Family History: States: Unknown Family Hx - Social History Hx Alcohol Use: No Hx Substance Use: No - Immunization History Hx Tetanus Toxoid Vaccination: Yes Hx Influenza Vaccination: Yes Hx Pneumococcal Vaccination: Yes Review Of Systems Except As Marked, All Systems Reviewed And Found Negative. Physical Exam - Physical Exam Appears: Well, No Acute Distress, Other (smiling in nad) Skin: Warm, Dry, Pale Eye(s): bilateral: Normal Inspection, PERRL, EOMI Nose: Normal Throat: Normal Neck: Normal Cardiovascular: Rhythm Regular Respiratory: Normal Breath Sounds Gastrointestinal/Abdominal: Normal Exam Back: Normal Inspection Extremity: Normal ROM Neurological/Psych: Oriented x3, Normal Speech, Normal Cognition, Normal Cranial Nerves, No Cerebellar Signs, Normal Motor, Normal Sensation, Other ( steady gait) Gait: Steady ED Course And Treatment - Laboratory Results Result Diagrams: 12/24/16 21:27 12/24/16 21:27 O2 Sat by Pulse Oximetry: 96 Medical Decision Making Medical Decision Making: r/o anemia, cardiac, metabolic, intracranial etiology - labs imaging pendign. [id number] [address] t wave chagne lateral. no interval changes from 12/04 cxr neg as read by me Disposition - Disposition Disposition: HOSPITALIZED Disposition Time: 23:00 Condition: FAIR - Clinical Impression Clinical Impression: Syncope, Anemia Decision To Admit - Pt Status Changed To: Hospital Disposition Of: Inpatient - Admit Certification Admit to Inpatient:: After my assessment, the patient will require hospitalization for at least two midnights. This is because of the severity of symptoms shown, intensity of services needed, and/or the medical risk in this patient being treated as an outpatient. - InPatient: Physician Admission Certification: I certify that this patient requires 2 or more midnights of care for the following reason:: pt with symptomatic anemia and syncope - . Bed Request Type: Telemetry Admitting Physician: Gamal Ly Patient Diagnosis: Syncope, Anemia
[2016-12-24 21:32] LABS: BASO % 0.7 % (0.0-2.0); EOS # 0.3 K/uL (0.0-0.7); EOS % 5.5 % (0.0-4.0); HEMATOCRIT 24.1 % (34.0-47.0); LYMPH # 0.9 K/uL (1.0-4.3); LYMPH % 18.2 % (20.0-40.0); MEAN CELL VOLUME 107.4 fL (81.0-99.0); MEAN CORPUSCULAR HEMOGLOBIN 36.6 pg (27.0-31.0); MEAN CORPUSCULAR HGB CONC 34.1 g/dL (33.0-37.0); MEAN PLATELET VOLUME 10.2 fL (7.2-11.7); MONO # 0.1 K/uL (0.0-0.8); MONO % 2.8 % (0.0-10.0); RED CELL DISTRIBUTION WIDTH 23.3 % (11.5-14.5)
[2016-12-24 21:40] LABS: CHLORIDE 102 mmol/L (98-107); POTASSIUM 3.8 mmol/L (3.6-5.2); SODIUM 135 mmol/L (132-148)
[2016-12-24 21:42] LABS: ALB/GLOB RATIO 1.1 (1.0-2.1); ALKALINE PHOSPHATASE 77 U/L (38-126); AST/SGOT 18 U/L (14-36); BILIRUBIN,TOTAL 0.7 mg/dL (0.2-1.3); CARBON DIOXIDE 24 mmol/L (22-30); GFR AFRICAN-AMERICAN 51; TOTAL PROTEIN 7.2 g/dL (6.3-8.3)
[2016-12-24 21:43] LABS: ALT/SGPT 22 U/L (9-52); BLOOD UREA NITROGEN 35 mg/dL (7-17); CALCIUM 8.9 mg/dl (8.6-10.4); GLUCOSE,RANDOM 98 mg/dL (65-105)
[2016-12-24 21:44] LABS: INR 1.1
--- NOTE | 2016-12-24 22:07 | CT ---
EXAM: CT Head Without Intravenous Contrast CLINICAL HISTORY: 86 years old, female; Signs and symptoms; Syncope and collapse TECHNIQUE: Axial computed tomography images of the head/brain without intravenous contrast. This CT exam was performed using one or more of the following dose reduction techniques: automated exposure control, adjustment of the mA and/or kV according to patient size, and/or use of iterative reconstruction technique. COMPARISON: No relevant prior studies available. FINDINGS: Brain: Hypodensity in the white matter consistent with chronic small vessel disease. Atrophy. No intracranial mass, mass effect, or midline shift. No hemorrhage. Ventricles: No hydrocephalus. Bones/joints: Unremarkable. No acute fracture. Soft tissues: Unremarkable. Sinuses: Unremarkable as visualized. No acute sinusitis. Mastoid air cells: Unremarkable as visualized. No mastoid effusion. IMPRESSION: No acute intracranial abnormality.
--- NOTE | 2016-12-25 08:22 | RAD ---
PROCEDURE: CHEST RADIOGRAPH, 1 VIEW HISTORY: chest pain COMPARISON: 11/25/2016 FINDINGS: LUNGS: Right central venous catheter tip extending to the cavoatrial junction. Diffuse increased interstitial lung markings. Patchy increased markings at the lung bases. Some nodular areas of consolidation at the lung bases with more focal consolidative opacity at the lateral aspect of the right lower lung zone. Biapical pleural thickening with upper lobe granulomatous changes. PLEURA: As above. CARDIOVASCULAR: Calcification at the aortic knob. Tortuous aorta. Mild cardiomegaly. OSSEOUS STRUCTURES: Degenerative changes in the spine and shoulders. VISUALIZED UPPER ABDOMEN: Normal. OTHER FINDINGS: None. IMPRESSION: Right central venous catheter tip extending to the cavoatrial junction. Diffuse increased interstitial lung markings. Patchy increased markings at the lung bases. Some nodular areas of consolidation at the lung bases with more focal consolidative opacity at the lateral aspect of the right lower lung zone. Biapical pleural thickening with upper lobe granulomatous changes.
[2016-12-25] MEDS: (Novolog) Insulin Aspart, Recombinant 100 u/ml 10 ml vial SC SCH ×4 (08:30→22:04)
[2016-12-25] MEDS ORDERED: Home Med 1 UNIT (Ferrous Sulfate [Iron] 325 MG) PO SCH (10:00)
[2016-12-25 10:12] LABS: BASO # 0.1 K/uL (0.0-0.2); EOS # 0.2 K/uL (0.0-0.7); LYMPH # 1.1 K/uL (1.0-4.3); MONO # 0.1 K/uL (0.0-0.8); NRBC % 0.1 % (0.0-2.0); WHITE BLOOD COUNT 4.1 K/uL (4.8-10.8)
[2016-12-25 10:20] LABS: BASO % 1.3 % (0.0-2.0); EOS % 4.3 % (0.0-4.0); LYMPH % 27.6 % (20.0-40.0); MEAN CORPUSCULAR HEMOGLOBIN 36.1 pg (27.0-31.0); MEAN CORPUSCULAR HGB CONC 34.6 g/dL (33.0-37.0); MEAN PLATELET VOLUME 10.7 fL (7.2-11.7); MONO % 2.9 % (0.0-10.0)
[2016-12-25 10:24] LABS: MEAN CELL VOLUME 104.3 fL (81.0-99.0)
[2016-12-25] MEDS: Insulin Detemir 100 units/ml Vial (Levemir) SC SCH (22:04)
[2016-12-26] MEDS: (Novolog) Insulin Aspart, Recombinant 100 u/ml 10 ml vial SC SCH ×4 (07:40→22:16)
[2016-12-26 20:44] LABS: RBC URINE 1 /hpf (0-3); URINE BACTERIA RARE (<OCC); URINE BILIRUBIN NEGATIVE (NEGATIVE); URINE BLOOD NEGATIVE (NEGATIVE); URINE COLOR Yellow (YELLOW); URINE GLUCOSE (UA) NORMAL (Normal); URINE KETONE NEGATIVE (NEGATIVE); URINE LEUKOCYTE ESTERASE TRACE Leu/uL (Negative); URINE PROTEIN NEGATIVE (NEGATIVE); URINE UROBILINOGEN NORMAL mg/dL (0.2-1.0); WBC URINE 4 /hpf (0-5)
[2016-12-26] MEDS: Insulin Detemir 100 units/ml Vial (Levemir) SC SCH (22:19)
[2016-12-27 01:33] VITALS: RESP 20
--- NOTE | 2016-12-27 07:59 | CP.PCM.PN ---
Subjective - Date & Time of Evaluation Date of Evaluation: 12/27/16 Time of Evaluation: 08:55 - Subjective Subjective: PGY 2 Medicine Note- Dr. Ly's service Pt seen and examined in no acute distress. Patient states that she was at [employer] with daughter when she felt lightheaded and dizzy. Patient was thus brought to the hospital for further evaluation. Pt denies headaches, subjective fevers or chills, nausea, vomiting, diarrhea at this time. Objective - Vital Signs/Intake and Output Vital Signs (last 24 hours): Temp Pulse Resp BP Pulse Ox 98.1 F 71 20 99/51 L 95 12/27/16 00:00 12/27/16 00:00 12/27/16 00:00 12/27/16 00:00 12/27/16 00:00 - Medications Medications: Current Medications Aspirin (Aspirin Chewable) 81 mg PO DAILY [facility] Last Admin: 12/26/16 11:50 Dose: 81 mg Ferrous Sulfate (Feosol) 325 mg PO DAILY [facility] Last Admin: 12/26/16 11:50 Dose: 325 mg Insulin Aspart (Novolog) 0 unit SC [facility] PRN Reason: Protocol Last Admin: 12/26/16 22:16 Dose: Not Given Insulin Detemir (Levemir) 10 unit SC HS [facility] Last Admin: 12/26/16 22:19 Dose: 10 unit Lisinopril (Zestril) 2.5 mg PO DAILY [facility] Last Admin: 12/26/16 14:17 Dose: 2.5 mg - Labs Labs: 12/25/16 09:52 PT 12.7 SECONDS (9.7-12.2) H 12/24/16 21:27 INR 1.1 12/24/16 21:27 APTT 22 SECONDS (21-34) 12/24/16 21:27 - Constitutional Appears: Non-toxic, No Acute Distress - Head Exam Head Exam: ATRAUMATIC, NORMAL INSPECTION, NORMOCEPHALIC - Eye Exam Eye Exam: EOMI Additional comments: conjunctival pallor - ENT Exam ENT Exam: Mucous Membranes Moist - Neck Exam Neck Exam: Full ROM - Respiratory Exam Respiratory Exam: Clear to Ausculation Bilateral, NORMAL BREATHING PATTERN - Cardiovascular Exam Cardiovascular Exam: +S1, +S2 - GI/Abdominal Exam GI & Abdominal Exam: Soft, Normal Bowel Sounds - Extremities Exam Extremities Exam: Full ROM, Normal Capillary Refill - Back Exam Back Exam: Full ROM - Neurological Exam Neurological Exam: Alert, Awake, CN II-XII Intact, Oriented x3 - Psychiatric Exam Psychiatric exam: Normal Affect, Normal Mood - Skin Skin Exam: Pallor Assessment and Plan - Assessment and Plan (Free Text) Assessment: 1) Myelodysplastic syndrome Hgb 8.2 on admission but increased to 9.2 s/p one unit PRBC administered on 12/25 Patient improved Continue to monitor 2) Prophylactic measures SCDs Patient to follow up with primary medical doctor within one week. If symptoms return, go to emergency room. Instructions explained to patient who is aware. Management per Dr Ly
[2016-12-27] MEDS: (Novolog) Insulin Aspart, Recombinant 100 u/ml 10 ml vial SC SCH ×3 (08:41→16:51)
[2016-12-27 10:13] LABS: BASO # 0.1 K/uL (0.0-0.2); BASO % 2.2 % (0.0-2.0); EOS # 0.2 K/uL (0.0-0.7); HEMATOCRIT 26.8 % (34.0-47.0); LYMPH # 1.2 K/uL (1.0-4.3); LYMPH % 36.9 % (20.0-40.0); MEAN CORPUSCULAR HEMOGLOBIN 35.8 pg (27.0-31.0); MEAN CORPUSCULAR HGB CONC 34.4 g/dL (33.0-37.0); MEAN PLATELET VOLUME 9.8 fL (7.2-11.7); MONO # 0.1 K/uL (0.0-0.8); MONO % 3.8 % (0.0-10.0); RED CELL DISTRIBUTION WIDTH 23.5 % (11.5-14.5); WHITE BLOOD COUNT 3.3 K/uL (4.8-10.8)
[2016-12-27 10:22] LABS: POTASSIUM 4.2 mmol/L (3.6-5.2)
[2016-12-27 10:25] LABS: CALCIUM 8.8 mg/dl (8.6-10.4)
--- NOTE | 2016-12-27 10:47 | CARD ---
APPROVED REPORT EKG Measurement Heart [id number] [id number] <Conclusion> Normal sinus rhythm Right axis deviation Nonspecific T wave abnormality Abnormal ECG
[2016-12-27 16:05] VITALS: BP 113/62; PULSE 71; TEMP 98.2; O2SAT 95
--- NOTE | 2017-01-08 03:51 | HP ---
HISTORY OF PRESENT ILLNESS: The patient complaints of weakness, fatigue, tiredness. The patient came to the hospital for admission. PHYSICAL EXAMINATION: GENERAL: Patient is awake, alert and oriented. VITAL SIGNS: Temperature 98, pulse 90. HEENT: Within normal limits. NECK: Supple. CHEST: Symmetrical. HEART: Regular. ABDOMEN: Soft. EXTREMITIES: No edema. IMPRESSION. The patient advised supportive care. Gamal Ly MD
--- NOTE | 2017-01-08 03:53 | DS ---
HISTORY OF PRESENT ILLNESS: The patient advised supportive care, IV fluid. The patient improved and discharged to follow up as outpatient. Gamal Ly MD
== END 2016-12-27 17:10 | disposition home or self-care (01) ==
LOC: C.ER 20:18 → INTOOBSV 22:10 → C.9E 22:10 → C.5T 22:10
PROVIDERS: ADMIT Internal Medicine Pulmonary Disease; ATTEND Internal Medicine Pulmonary Disease
PROC: 30233N1 Transfusion of Nonautologous Red Blood Cells into Peripheral Vein, Percutaneous Approach (ICD-10-PCS; principal; 2016-12-25)
DX: D46.9 Myelodysplastic syndrome, unspecified (principal); R55 Syncope and collapse; E11.9 Type 2 diabetes mellitus without complications; G30.9 Alzheimer's disease, unspecified; D64.9 Anemia, unspecified; F02.80 Dementia in other diseases classified elsewhere, unspecified severity, without behavioral disturbance, psychotic disturbance, mood disturbance, and anxiety; Z87.01 Personal history of pneumonia (recurrent); Z79.4 Long term (current) use of insulin
CPT/HCPCS: 36415; 36430; 70450; 71010; 80048; 80053; 81001; 82948; 84484; 85025; 85610; 85730; 86850; 86870; 86880; 86900; 86905; 86920; 86922; 93005; 97116; 97161; 99285; G0378; G8978; G8979; P9051

== ENCOUNTER 2017-01-11 14:00 | Observation (INO) | payer MEDICARE ==
[2017-01-11 14:00] VITALS: BMI 23.8
--- NOTE | 2017-01-11 15:41 | C.PDOC ---
History Of Present Illness Pt was sent in by Dr. Dann Adames for blood transfusion due to anemia that developed while on chemotherapy. Time Seen by Provider: 01/11/17 14:43 Chief Complaint (Nursing): Abnormal Labs History Per: Patient, Family Onset/Duration Of Symptoms: Days (few) Current Symptoms Are (Timing): Still Present Severity: Moderate Context: On chemotherapy for Myelodysplastic syndrome Quality: Anemia Reports Recently: Seen In ED, Treated By A Physician Additional History Per: Prior Records Past Medical History Reviewed: Historical Data, Nursing Documentation, Vital Signs Vital Signs: Last Vital Signs Temp 97.3 F L 01/11/17 14:04 Pulse 79 01/11/17 14:04 Resp 20 01/11/17 14:04 BP 100/61 01/11/17 14:04 Pulse Ox 98 01/11/17 15:41 - Medical History PMH: Alzheimer's Disease, Anemia, Bronchitis, Dementia, Malignancy ( Myelodysplastic), Pneumonia Surgical History: Tonsillectomy - [facility] Procedures INSERT INFUSION DEV IN R INT JUGULAR VEIN, PERC (11/25/16) INSERTION OF VAD INTO CHEST SUBCU/FASCIA, OPEN APPROACH (11/25/16) INTRODUCE OF OTH THERAP SUBST INTO RESP TRACT, VIA OPENING (08/14/16) TRANSFUSE NONAUT RED BLOOD CELLS IN PERIPH VEIN, PERC (12/24/16) Family History: States: Unknown Family Hx - Social History Hx Alcohol Use: No Hx Substance Use: No - Immunization History Hx Tetanus Toxoid Vaccination: Yes Hx Influenza Vaccination: Yes Hx Pneumococcal Vaccination: Yes Review Of Systems Except As Marked, All Systems Reviewed And Found Negative. Constitutional: Positive for: Malaise. Negative for: Fever Cardiovascular: Negative for: Chest Pain Respiratory: Negative for: Shortness of Breath Gastrointestinal: Negative for: Vomiting, Abdominal Pain, Melena, Hematochezia, Hematemesis Genitourinary: Negative for: Vaginal Bleeding Musculoskeletal: Negative for: Neck Pain Neurological: Negative for: Weakness, Numbness, Seizures, Altered Mental Status Physical Exam - Physical Exam Appears: No Acute Distress, Chronically Ill Skin: Warm, Dry, Pale Head: Atraumatic, Normacephalic Eye(s): bilateral: PERRL, EOMI, Conjunctiva Pale Neck: Normal ROM, Supple Cardiovascular: Rhythm Regular Respiratory: Normal Breath Sounds, No Accessory Muscle Use Gastrointestinal/Abdominal: Soft, No Tenderness Back: No CVA Tenderness Extremity: Normal ROM Neurological/Psych: Oriented x3, Normal Motor, Normal Sensation ED Course And Treatment - Laboratory Results Result Diagrams: 01/11/17 15:46 01/11/17 15:46 Lab Interpretation: Abnormal Interpretation Of Abnormal: Anemia O2 Sat by Pulse Oximetry: 98 Pulse Ox Interpretation: Normal - Radiology CXR: Viewed By Me, Read By Radiologist CXR Interpretation: Yes: No Acute Disease - Physician Consult Information Physician Contacted: Dann Adames (Heme/Onc.) Outcome Of Conversation: He wants pt to be placed on Dr. Ly's service and transfused 2 units of pRBCs. Progress - Interventions Interventions:: Observation - Data Reviewed Data Reviewed: Lab, Diagnostic imaging, Old records - Continuity of Care Discussed patient case with:: Patient, Family-HIPPA compliant, ED Nurse, PMD Discussed pt. case with python consultant/specialty: Hematology, Oncology Disposition Discussed With : Gamal Ly Comment: He accepted pt on his service. Doctor Will See Patient In The: Hospital Counseled Patient/Family Regarding: Studies Performed, Diagnosis - Disposition Disposition: HOSPITALIZED Disposition Time: 17:28 Condition: FAIR - Clinical Impression Clinical Impression: Anemia, Myelodysplastic syndrome
[2017-01-11 16:03] LABS: RBC URINE 1 /hpf (0-3); URINE BILIRUBIN NEGATIVE (NEGATIVE); URINE BLOOD NEGATIVE (NEGATIVE); URINE COLOR Yellow (YELLOW); URINE GLUCOSE (UA) 3+ mg/dL (Normal); URINE KETONE NEGATIVE (NEGATIVE); URINE LEUKOCYTE ESTERASE TRACE Leu/uL (Negative); URINE PROTEIN NEGATIVE (NEGATIVE); URINE UROBILINOGEN NORMAL mg/dL (0.2-1.0); WBC URINE 29 /hpf (0-5)
[2017-01-11 16:06] LABS: BASO % 0.5 % (0.0-2.0); EOS % 0.5 % (0.0-4.0); HEMATOCRIT 22.1 % (34.0-47.0); LYMPH # 0.4 K/uL (1.0-4.3); LYMPH % 5.7 % (20.0-40.0); MEAN CORPUSCULAR HEMOGLOBIN 36.7 pg (27.0-31.0); MEAN CORPUSCULAR HGB CONC 33.9 g/dL (33.0-37.0); MEAN PLATELET VOLUME 9.8 fL (7.2-11.7); MONO # 0.3 K/uL (0.0-0.8); MONO % 3.8 % (0.0-10.0); NRBC % 0.1 % (0.0-2.0); RED CELL DISTRIBUTION WIDTH 23.9 % (11.5-14.5); WHITE BLOOD COUNT 7.8 K/uL (4.8-10.8)
[2017-01-11 16:13] LABS: ALB/GLOB RATIO 1.1 (1.0-2.1); BILIRUBIN,TOTAL 0.5 mg/dL (0.2-1.3); CALCIUM 8.3 mg/dl (8.6-10.4); MEAN CELL VOLUME 108.1 fL (81.0-99.0); PLATELET COUNT 440 K/uL (130-400); TOTAL PROTEIN 6.6 g/dL (6.3-8.3)
[2017-01-11 16:19] LABS: INR 1.2
--- NOTE | 2017-01-11 16:20 | RAD ---
PROCEDURE: CHEST RADIOGRAPH, 1 VIEW HISTORY: [place] COMPARISON: 12/24/2016 FINDINGS: LUNGS: Right chest wall port with tip extending into the right atrium. Mild venous congestion. Patchy increased markings at the lung bases with a somewhat nodular consolidative change in the right lung base. PLEURA: No pneumothorax or pleural fluid seen. CARDIOVASCULAR: Tortuous aorta. OSSEOUS STRUCTURES: Degenerative changes in the spine and shoulders. VISUALIZED UPPER ABDOMEN: Normal. OTHER FINDINGS: None. IMPRESSION: Right chest wall port with tip extending into the right atrium. Mild venous congestion. Patchy increased markings at the lung bases with a somewhat nodular consolidative change in the right lung base.
[2017-01-11 21:22] VITALS: RESP 20
[2017-01-11] MEDS ORDERED: Insulin Detemir 100 units/ml Vial (Levemir) SC SCH (22:00)
[2017-01-11] MEDS ORDERED: (Novolog) Insulin Aspart, Recombinant 100 u/ml 10 ml vial SC ONE (22:21)
[2017-01-11 23:08] LABS: NEUTROPHIL 83 % (50-75); TOTAL CELLS COUNTED 100
[2017-01-11 23:09] LABS: LARGE PLATELETS PRESENT; SMUDGE CELLS PRESENT
[2017-01-12] MEDS: (Novolog) Insulin Aspart, Recombinant 100 u/ml 10 ml vial SC SCH ×5 (08:17→17:01)
[2017-01-12 14:44] LABS: BASO # 0.1 K/uL (0.0-0.2); BASO % 0.9 % (0.0-2.0); EOS # 0.2 K/uL (0.0-0.7); EOS % 2.3 % (0.0-4.0); HEMATOCRIT 28.3 % (34.0-47.0); LYMPH % 14.5 % (20.0-40.0); MEAN CORPUSCULAR HEMOGLOBIN 33.9 pg (27.0-31.0); MEAN CORPUSCULAR HGB CONC 34.8 g/dL (33.0-37.0); MEAN PLATELET VOLUME 9.8 fL (7.2-11.7); MONO # 0.3 K/uL (0.0-0.8); MONO % 4.3 % (0.0-10.0); RED CELL DISTRIBUTION WIDTH 26.8 % (11.5-14.5); WHITE BLOOD COUNT 7.2 K/uL (4.8-10.8)
[2017-01-12 14:50] LABS: MEAN CELL VOLUME 97.4 fL (81.0-99.0)
--- NOTE | 2017-01-12 15:17 | CP.PCM.PN ---
Subjective - Date & Time of Evaluation Date of Evaluation: 01/12/17 Time of Evaluation: 15:14 - Subjective Subjective: PGY2 progress note per Dr. Ly 86 year old female with past medical history of IDDM, HTN, myelodysplastic syndrome daignosed in 04/2016 s/p previous 6 transfusions in last 8 weeks, HLD, dementia was sent to hospital by Heme/Onc doctor after developing anemia following chemo therapy. Pt is seen and examined at bedside. She is resting comfortably. Denies having any abd pain, N/V/D/C. Patient is s/p 2 units of PRBC transfusions. 12 point ROS are negative except for the above mentioned. Objective - Vital Signs/Intake and Output Vital Signs (last 24 hours): Temp Pulse Resp BP Pulse Ox 97.3 F L 73 20 131/66 95 01/12/17 09:26 01/12/17 09:26 01/12/17 09:26 01/12/17 09:26 01/12/17 09:26 Intake and Output: 01/12/17 01/12/17 06:59 18:59 Intake Total 790 240 Balance 790 240 - Medications Medications: Current Medications Aspirin (Ecotrin) 81 mg PO DAILY [facility] Last Admin: 01/12/17 11:14 Dose: 81 mg Ferrous Sulfate (Feosol) 325 mg PO DAILY [facility] Last Admin: 01/12/17 11:14 Dose: 325 mg Insulin Aspart (Novolog) 8 unit SC ACTID [facility] Last Admin: 01/12/17 12:40 Dose: 8 unit Insulin Aspart (Novolog) 0 unit SC ACHS [facility] PRN Reason: Protocol Last Admin: 01/12/17 12:41 Dose: 4 unit Insulin Detemir (Levemir) 10 unit SC HS [facility] Last Admin: 01/11/17 22:11 Dose: 10 unit Lisinopril (Zestril) 2.5 mg PO DAILY [facility] Last Admin: 01/12/17 11:14 Dose: 2.5 mg - Labs Labs: 01/12/17 14:29 PT 13.6 SECONDS (9.7-12.2) H 01/11/17 15:46 INR 1.2 01/11/17 15:46 APTT 26 SECONDS (21-34) 01/11/17 15:46 - Constitutional Appears: Non-toxic, No Acute Distress - Head Exam Head Exam: ATRAUMATIC - Eye Exam Eye Exam: EOMI - ENT Exam ENT Exam: Mucous Membranes Moist - Respiratory Exam Respiratory Exam: Clear to Ausculation Bilateral. absent: Accessory Muscle Use , Rales, Rhonchi, Wheezes, Respiratory Distress - Cardiovascular Exam Cardiovascular Exam: REGULAR RHYTHM, +S1, +S2 - GI/Abdominal Exam GI & Abdominal Exam: Soft, Normal Bowel Sounds. absent: Firm, Guarding, Rigid, Tenderness, Organomegaly - Extremities Exam Extremities Exam: absent: Pedal Edema, Tenderness - Neurological Exam Neurological Exam: Alert, Awake, Oriented x3 - Psychiatric Exam Psychiatric exam: Normal Affect, Normal Mood - Skin Skin Exam: Dry, Intact, Normal Color, Warm Assessment and Plan - Assessment and Plan (Free Text) Assessment: Anemia secondary to myelodysplastic syndrome - Currently on chemotherapy - Hgb on admission was 7.5 - Transfused 2 units and no Hgb is 9.8 - Feosol IDDM - Accuchecks - ISS - Novolog 8 units ACTID - Diabetic diet HTN - Zestril Prophylaxis - Pepcid - SCDs Orders and management per Dr. Ly Patient is stable for discharge home per Dr. Ly Patient is to follow up with PMD upon discharge Patient is to follow up with Heme/onc specialist, Dr. Adames tomorrow (01/13/17) to restart chemo therapy. Patient is to continue home medications as prescribed. Patient is given script for the following medications: Aspirin 81 mg po qd, Zestril 2.5 mg po qd, Levemir 10 units SC HS, Novolog Flexpen 8 units SC TID, Ferrous sulfate 325 mg po qd If symptoms worsen please return to ED.
[2017-01-12 15:19] LABS: POTASSIUM 4.8 mmol/L (3.6-5.2)
[2017-01-12 15:22] LABS: CALCIUM 8.2 mg/dl (8.6-10.4)
[2017-01-12 16:18] VITALS: BP 132/66; PULSE 69; TEMP 97.8; O2SAT 93
--- NOTE | 2017-02-22 08:40 | HP ---
HISTORY OF PRESENT ILLNESS: The patient received supportive care. The patient presented to the hospital complaining of . The patient comes to the ER, advised admission. PHYSICAL EXAMINATION: GENERAL: The patient is awake, alert, and oriented. VITAL SIGNS: Temperature 98 and pulse 90. HEENT: Within normal limits. NECK: Supple. CHEST: Symmetrical. HEART: Regular. ABDOMEN: Soft. EXTREMITIES: No edema. IMPRESSION: The patient advised bedrest, supportive care. Gamal Ly MD
== END 2017-01-12 20:00 | disposition home or self-care (01) ==
LOC: C.ER 14:00 → C.3T 17:29
PROVIDERS: ADMIT Internal Medicine Pulmonary Disease; ATTEND Internal Medicine Pulmonary Disease
DX: D46.9 Myelodysplastic syndrome, unspecified (principal); D63.8 Anemia in other chronic diseases classified elsewhere; E11.9 Type 2 diabetes mellitus without complications; Z79.4 Long term (current) use of insulin; E78.5 Hyperlipidemia, unspecified; I10 Essential (primary) hypertension; G30.9 Alzheimer's disease, unspecified; F02.80 Dementia in other diseases classified elsewhere, unspecified severity, without behavioral disturbance, psychotic disturbance, mood disturbance, and anxiety; Z87.01 Personal history of pneumonia (recurrent)
CPT/HCPCS: 36415; 36430; 71010; 80048; 80053; 81001; 82948; 83615; 85025; 85044; 85610; 85730; 86850; 86870; 86880; 86900; 86905; 86920; 86922; 99283; G0378; J1642; P9051

== ENCOUNTER 2017-03-31 06:44 | Inpatient (IN) | payer MEDICARE ==
[2017-03-31 06:44] VITALS: BMI 23.8
--- NOTE | 2017-03-31 08:04 | C.PDOC ---
History Of Present Illness 86 y/o female with hx iddm and leukemia, currently getting chemotherapy, brought to ED by daugter after pt fell out of bed this morning. Daughter sts pt felt lightheaded, and rolled out of bed onto floor, unclear if she hit head, with no loc. pt c/o mild neck pain. daughter sts pt lightheaded and feeling off balance for the last week, had hgb 8 last tues. pt has received multiple blood transfusions in the past. pt denies cp, sob. Time Seen by Provider: 03/31/17 07:14 Chief Complaint (Nursing): Dizziness/Lightheaded History Per: Patient, Family History/Exam Limitations: no limitations Onset/Duration Of Symptoms: Days Current Symptoms Are (Timing): Still Present Activity At Onset Of Symptoms: Other (getting out of bed) Associated Symptoms Preceding Syncopal Episode: Lightheadedness Seizure Or Post-ictal Symptoms: None Fall Associated With With Symptoms: Yes - Symptoms Of CVA Associated Symptoms: denies: Impaired Speech, Seizure Activity, Decreased Ability To Walk, New Confusion Past Medical History Reviewed: Historical Data, Nursing Documentation, Vital Signs Vital Signs: Last Vital Signs Temp 98.3 F 03/31/17 06:59 Pulse 80 03/31/17 06:59 Resp 16 03/31/17 06:59 BP 101/63 03/31/17 06:59 Pulse Ox 98 03/31/17 11:10 - Medical History PMH: Alzheimer's Disease, Anemia, Bronchitis, Dementia, Diabetes, Malignancy ( Myelodysplastic), Pneumonia Denies: HTN, Chronic Kidney Disease Surgical History: Tonsillectomy Other Surgeries: chemo port right chest wall - [facility] Procedures INSERT INFUSION DEV IN R INT JUGULAR VEIN, PERC (11/25/16) INSERTION OF VAD INTO CHEST SUBCU/FASCIA, OPEN APPROACH (11/25/16) INTRODUCE OF OTH THERAP SUBST INTO RESP TRACT, VIA OPENING (08/14/16) TRANSFUSE NONAUT RED BLOOD CELLS IN PERIPH VEIN, PERC (12/24/16) Family History: States: Unknown Family Hx - Social History Hx Alcohol Use: No Hx Substance Use: No - Immunization History Hx Tetanus Toxoid Vaccination: Yes Hx Influenza Vaccination: Yes Hx Pneumococcal Vaccination: Yes Review Of Systems Constitutional: Negative for: Fever, Chills Cardiovascular: Positive for: Light Headedness. Negative for: Chest Pain Respiratory: Negative for: Cough, Shortness of Breath Gastrointestinal: Negative for: Nausea, Vomiting, Abdominal Pain Musculoskeletal: Positive for: Neck Pain Skin: Positive for: Other (scabbed scratches to left forearm, 0. 5 mm pustule to left nipple) Neurological: Negative for: Weakness, Numbness, Headache Physical Exam - Physical Exam Appears: Non-toxic, No Acute Distress Skin: Pale, Other (0.5 cm pustule left nipple) Head: Atraumatic, Normacephalic, Other (no tony sign b/l) Eye(s): bilateral: Normal Inspection, PERRL, EOMI, Conjunctiva Pale Ear(s): Bilateral: Normal Oral Mucosa: Dry Neck: Paracervical Tenderness Chest: Symmetrical, No Deformity, No Tenderness, Other (chemo port right chest wall) Cardiovascular: Rhythm Regular, No Murmur Respiratory: Normal Breath Sounds, No Rales, No Rhonchi, No Stridor, No Wheezing Gastrointestinal/Abdominal: Bowel Sounds, Soft, No Tenderness Back: Normal Inspection, No Vertebral Tenderness Extremity: No Pedal Edema Neurological/Psych: Normal Speech, Normal Cranial Nerves, Normal Motor, Normal Sensation ED Course And Treatment - Laboratory Results Result Diagrams: 03/31/17 08:11 03/31/17 08:11 ECG: Interpreted By Dc ECG Rhythm: Sinus Rhythm Rate From EC (bpm) O2 Sat by Pulse Oximetry: 98 (RA) Pulse Ox Interpretation: Normal - CT Scan/US CT Head Other Rad Studies (CT/US): Read By Radiologist, Radiology Report Reviewed CT/US Interpretation: FINDINGS: HEMORRHAGE: No intracranial hemorrhage. BRAIN : No mass effect or edema. Scattered focal lucencies in the subcortical and periventricular white matter suggestive for chronic microvascular ischemic change. Persistent more confluent low attenuationin the posterior right parietal subcortical white matter suggestive for chronic ischemic change. Persistent scattered calcifications in the posterior cerebellum and transverse sinuses. Focal hypodensity in the right basal ganglia suggestive for a chronic lacunar infarct. VENTRICLES: Unremarkable. No hydrocephalus. CALVARIUM: Unremarkable. PARANASAL SINUSES: Unremarkable as visualized. No significant inflammatory changes. MASTOID AIR CELLS: Unremarkable as visualized. No inflammatory changes. OTHER FINDINGS: None. IMPRESSION: No acute intracranial abnormality. Chronic microvascular ischemic changes. Additional findings as above. If focal neurologic deficit persists, consider MRI. CT Cervical Spine Other Rad Studies (CT/US): Read By Radiologist, Radiology Report Reviewed CT/US Interpretation: Findings: Mild anterolisthesis of C7 on T1. Prominent disc space narrowing at the C5-6 and C6-7 levels with endplate sclerosis, subchondral cyst formation, and Schmorl's node formation. Large posterior disc osteophyte complex at the C6-7 level with moderate posterior disc osteophyte complexes at the C4-5 and C5-6 levels. Multilevel anterior osteophytosis from the C4 through T1 levels. Multilevel uncovertebral joint and facet hypertrophy. Horizontally oriented lucency through the left transverse process of the T4 vertebral body on series 3, image 79 which may represent streak artifact. Additional questionable lucency and or cortical productive change at the anterior cortex of the left transverse process of the T5 vertebral body. Clinical correlation. Correlation with MRI may be helpful if clinically indicated. No significant prevertebral soft tissue swelling. Partial opacification of the left mastoid air cells. Biapical pleural thickening in the lung bowen. 3 millimeter nodular density at the right lung apex. Calcification in the aorta. Left thyroid nodule. Impression: 1. Prominent disc space narrowing at the C5-6 and C6-7 levels with endplate sclerosis, subchondral cyst formation, and Schmorl's node formation. Large posterior disc osteophyte complex at the C6-7 level with moderate posterior disc osteophyte complexes at the C4-5 and C5-6 levels. Multilevel anterior osteophytosis from the C4 through T1 levels. 2. Mild anterolisthesis of C7 on T1. 3. Horizontally oriented lucency through the left transverse process of the T4 vertebral body on series 3, image 79 which may represent streak artifact. Additional questionable lucency and or cortical productive change at the anterior cortex of the left transverse process of the T5 vertebral body. Clinical correlation. Correlation with MRI may be helpful if clinically indicated. 4. Partial opacification of the left mastoid air cells. 5. Calcification in the aorta. 6. Left thyroid nodule. Correlation with thyroid ultrasound may be helpful if clinically indicated. Medical Decision Making Medical Decision Makin86 y/o female with leukemia on chemo, hx anemia in past, with lightheadedness x 1 week, fall out of bed to day 2.2 lightheaded, check labs, head and cervical spine ct, ekg, re-eval. 12 [address] Elamir; will admit pt for observation for lighteadedness, unsteadiness Disposition Discussed With : Gamal Ly - Disposition Disposition Time: 13:03 Condition: STABLE Forms: [facility] (Mexican) - Clinical Impression Clinical Impression: Lightheaded, Unsteady
[2017-03-31 08:19] LABS: BASO # 0.1 K/uL (0.0-0.2); BASO % 2.8 % (0.0-2.0); EOS # 0.2 K/uL (0.0-0.7); EOS % 6.2 % (0.0-4.0); HEMATOCRIT 25.5 % (34.0-47.0); LYMPH # 0.3 K/uL (1.0-4.3); LYMPH % 10.3 % (20.0-40.0); MEAN CORPUSCULAR HEMOGLOBIN 38.6 pg (27.0-31.0); MEAN CORPUSCULAR HGB CONC 34.9 g/dL (33.0-37.0); MEAN PLATELET VOLUME 9.6 fL (7.2-11.7); MONO # 0.1 K/uL (0.0-0.8); MONO % 4.3 % (0.0-10.0); RED CELL DISTRIBUTION WIDTH 21.2 % (11.5-14.5)
[2017-03-31 08:25] LABS: MEAN CELL VOLUME 110.8 fL (81.0-99.0); WHITE BLOOD COUNT 3.4 K/uL (4.8-10.8)
[2017-03-31 08:35] LABS: POTASSIUM 5.4 mmol/L (3.6-5.2)
[2017-03-31 08:37] LABS: ALB/GLOB RATIO 1.2 (1.0-2.1); BILIRUBIN,TOTAL 0.6 mg/dL (0.2-1.3); TOTAL PROTEIN 6.8 g/dL (6.3-8.3)
[2017-03-31 08:38] LABS: CALCIUM 8.5 mg/dl (8.6-10.4)
[2017-03-31 08:48] LABS: TROPONIN I 0.017 ng/mL (0.00-0.120)
[2017-03-31 09:06] LABS: RBC URINE 1 /hpf (0-3); URINE BILIRUBIN NEGATIVE (NEGATIVE); URINE BLOOD NEGATIVE (NEGATIVE); URINE COLOR Yellow (YELLOW); URINE GLUCOSE (UA) NORMAL (Normal); URINE KETONE NEGATIVE (NEGATIVE); URINE LEUKOCYTE ESTERASE NEG Leu/uL (Negative); URINE PROTEIN NEGATIVE (NEGATIVE); URINE UROBILINOGEN NORMAL mg/dL (0.2-1.0); WBC URINE < 1 /hpf (0-5)
--- NOTE | 2017-03-31 09:10 | CT ---
PROCEDURE: CT HEAD WITHOUT CONTRAST. HISTORY: Injury. Fall. Evaluate for hemorrhage. COMPARISON: 12/24/2016 TECHNIQUE: Axial computed tomography images were obtained through the head/brain without intravenous contrast. Radiation dose: Total exam DLP = 662 mGy-cm. This CT exam was performed using one or more of the following dose reduction techniques: Automated exposure control, adjustment of the mA and/or kV according to patient size, and/or use of iterative reconstruction technique. FINDINGS: HEMORRHAGE: No intracranial hemorrhage. BRAIN: No mass effect or edema. Scattered focal lucencies in the subcortical and periventricular white matter suggestive for chronic microvascular ischemic change. Persistent more confluent low attenuationin the posterior right parietal subcortical white matter suggestive for chronic ischemic change. Persistent scattered calcifications in the posterior cerebellum and transverse sinuses. Focal hypodensity in the right basal ganglia suggestive for a chronic lacunar infarct. VENTRICLES: Unremarkable. No hydrocephalus. CALVARIUM: Unremarkable. PARANASAL SINUSES: Unremarkable as visualized. No significant inflammatory changes. MASTOID AIR CELLS: Unremarkable as visualized. No inflammatory changes. OTHER FINDINGS: None. IMPRESSION: No acute intracranial abnormality. Chronic microvascular ischemic changes. Additional findings as above. If focal neurologic deficit persists, consider MRI.
--- NOTE | 2017-03-31 10:46 | CT ---
CT cervical spine History: Neck pain. Comparison: None available. Technique: Multiple contiguous axial images were performed through the cervical spine without the use of intravenous contrast. Subsequently, sagittal and coronal reformatted images were obtained. This CT exam was performed using one or more of the following dose reduction techniques: Automated exposure control, adjustment of the mA and/or kV according to patient size, and/or use of iterative reconstruction technique. Findings: Mild anterolisthesis of C7 on T1. Prominent disc space narrowing at the C5-6 and C6-7 levels with endplate sclerosis, subchondral cyst formation, and Schmorl's node formation. Large posterior disc osteophyte complex at the C6-7 level with moderate posterior disc osteophyte complexes at the C4-5 and C5-6 levels. Multilevel anterior osteophytosis from the C4 through T1 levels. Multilevel uncovertebral joint and facet hypertrophy. Horizontally oriented lucency through the left transverse process of the T4 vertebral body on series 3, image 79 which may represent streak artifact. Additional questionable lucency and or cortical productive change at the anterior cortex of the left transverse process of the T5 vertebral body. Clinical correlation. Correlation with MRI may be helpful if clinically indicated. No significant prevertebral soft tissue swelling. Partial opacification of the left mastoid air cells. Biapical pleural thickening in the lung bowen. 3 millimeter nodular density at the right lung apex. Calcification in the aorta. Left thyroid nodule. Impression: 1. Prominent disc space narrowing at the C5-6 and C6-7 levels with endplate sclerosis, subchondral cyst formation, and Schmorl's node formation. Large posterior disc osteophyte complex at the C6-7 level with moderate posterior disc osteophyte complexes at the C4-5 and C5-6 levels. Multilevel anterior osteophytosis from the C4 through T1 levels. 2. Mild anterolisthesis of C7 on T1. 3. Horizontally oriented lucency through the left transverse process of the T4 vertebral body on series 3, image 79 which may represent streak artifact. Additional questionable lucency and or cortical productive change at the anterior cortex of the left transverse process of the T5 vertebral body. Clinical correlation. Correlation with MRI may be helpful if clinically indicated. 4. Partial opacification of the left mastoid air cells. 5. Calcification in the aorta. 6. Left thyroid nodule. Correlation with thyroid ultrasound may be helpful if clinically indicated.
[2017-03-31] MEDS: (Novolin R) Insulin Human Regular 100 units/ml vial SC SCH ×2 (16:30→22:10)
[2017-03-31] MEDS: Sodium Chloride 0.9% 1,000 ML IV SCH (16:46)
[2017-04-01] MEDS: Sodium Chloride 0.9% 1,000 ML IV SCH ×3 (04:53→20:05)
[2017-04-01 07:52] VITALS: RESP 20
[2017-04-01] MEDS: (Novolin R) Insulin Human Regular 100 units/ml vial SC SCH ×4 (08:24→21:34)
[2017-04-01] MEDS ORDERED: Dextrose 50% SYRINGE Inj (50 ml) IV PRN (12:03)
[2017-04-01] MEDS ORDERED: Glucagon Recombinant 1 mg Inj IM PRN (12:03)
--- NOTE | 2017-04-01 12:05 | CP.PCM.PN ---
Subjective - Date & Time of Evaluation Date of Evaluation: 04/01/17 Time of Evaluation: 12:11 - Subjective Subjective: Patient seen and examined at bedside this AM; denies any acute complaints or overnight events; states she has no pain and slept well. Denies fevers/chills, BALLESTEROS, CP, SOB, abdominal pain, N/V/D, dysuria/freq/urg or lower extremity pain. Objective - Vital Signs/Intake and Output Vital Signs (last 24 hours): Temp Pulse Resp BP Pulse Ox 99.9 F H 89 20 126/63 95 04/01/17 07:50 04/01/17 07:50 04/01/17 07:50 04/01/17 07:50 04/01/17 07:50 Intake and Output: 04/01/17 04/01/17 06:59 18:59 Intake Total 1350 Balance 1350 - Medications Medications: Current Medications Acetaminophen (Tylenol 325mg Tab) 975 mg PO Q6 PRN PRN Reason: Fever >100.4 F Aspirin (Ecotrin) 81 mg PO DAILY [facility] Last Admin: 04/01/17 10:59 Dose: 81 mg Heparin Sodium (Porcine) (Heparin) 5,000 units SC Q12 [facility] Last Admin: 04/01/17 10:58 Dose: 5,000 units Sodium Chloride (Sodium Chloride 0.9%) 1,000 mls @ 80 mls/hr IV .[id number] [facility] Last Admin: 04/01/17 04:53 Dose: Not Given Insulin Human Regular (Novolin R) 0 unit SC ACHS [facility] PRN Reason: Protocol Last Admin: 04/01/17 08:24 Dose: 3 unit Lisinopril (Zestril) 2.5 mg PO DAILY [facility] Last Admin: 04/01/17 10:58 Dose: 2.5 mg Ondansetron HCl (Zofran Inj) 4 mg IVP Q6H PRN PRN Reason: Nausea/Vomiting - Labs Labs: 03/31/17 08:11 03/31/17 08:11 - Constitutional Appears: Non-toxic - Head Exam Head Exam: NORMAL INSPECTION - Eye Exam Eye Exam: EOMI - ENT Exam ENT Exam: Mucous Membranes Moist - Neck Exam Neck Exam: Full ROM - Respiratory Exam Respiratory Exam: Clear to Ausculation Bilateral - Cardiovascular Exam Cardiovascular Exam: REGULAR RHYTHM - GI/Abdominal Exam GI & Abdominal Exam: Soft - Rectal Exam Rectal Exam: Deferred - Extremities Exam Extremities Exam: Full ROM. absent: Calf Tenderness - Back Exam Back Exam: absent: CVA tenderness (L), CVA tenderness (R) - Neurological Exam Neurological Exam: Alert, Awake - Psychiatric Exam Psychiatric exam: Normal Affect - Skin Skin Exam: Warm Assessment and Plan - Assessment and Plan (Free Text) Assessment: 86yo F admitted for AMS/Fall AMS/Fall -Head CT negative for stroke or fracture -patient is comfortable; denies any pain -pending PT Eval/Treat; appreciate recs -patient is on 1:1 currently for fall precautions DM -RISS -Hypoglycemia protocol -c/w lisinopril CAD -aspirin Patient has myelodysplastic sydrome; currently undergoing chemotherapy and tx; if becomes neutropenic needs to be put on neutropenia precuations. Not currently neutropenic. -Goals of care; Palliative Care Consult Placed; appreciate recs Prophylaxis -Pepcid -Lovenox All management as per Dr. Ly
[2017-04-02] MEDS: Sodium Chloride 0.9% 1,000 ML IV SCH ×3 (06:29→17:30)
[2017-04-02 07:53] LABS: EOS # 0.2 K/uL (0.0-0.7); LYMPH # 0.6 K/uL (1.0-4.3); LYMPH % 20.9 % (20.0-40.0); MONO # 0.1 K/uL (0.0-0.8)
[2017-04-02 08:11] LABS: CHLORIDE 102 mmol/L (98-107)
[2017-04-02 08:12] LABS: POTASSIUM 4.4 mmol/L (3.6-5.2); SODIUM 130 mmol/L (132-148)
[2017-04-02 08:14] LABS: ALB/GLOB RATIO 0.9 (1.0-2.1); ALKALINE PHOSPHATASE 53 U/L (38-126); ALT/SGPT 39 U/L (9-52); AST/SGOT 20 U/L (14-36); BILIRUBIN,TOTAL 0.4 mg/dL (0.2-1.3); BLOOD UREA NITROGEN 16 mg/dL (7-17); CARBON DIOXIDE 18 mmol/L (22-30); GFR AFRICAN-AMERICAN > 60; TOTAL PROTEIN 6.1 g/dL (6.3-8.3)
[2017-04-02 08:15] LABS: GLUCOSE,RANDOM 177 mg/dL (65-105)
[2017-04-02 08:39] LABS: BASO % 1.5 % (0.0-2.0); EOS % 8.2 % (0.0-4.0); HEMATOCRIT 22.8 % (34.0-47.0); MEAN CELL VOLUME 112.1 fL (81.0-99.0); MEAN CORPUSCULAR HEMOGLOBIN 38.5 pg (27.0-31.0); MEAN CORPUSCULAR HGB CONC 34.3 g/dL (33.0-37.0); MEAN PLATELET VOLUME 10.2 fL (7.2-11.7); MONO % 3.3 % (0.0-10.0); NRBC % 0.2 % (0.0-2.0); RED CELL DISTRIBUTION WIDTH 20.7 % (11.5-14.5); WHITE BLOOD COUNT 2.8 K/uL (4.8-10.8)
[2017-04-02] MEDS: (Novolin R) Insulin Human Regular 100 units/ml vial SC SCH ×4 (08:54→22:19)
--- NOTE | 2017-04-02 21:47 | CP.PCM.CON ---
History of Present Illness - History of Present Illness History of Present Illness: 86 year old female with a history of MDS on decitabine, admitted after falling out of bed. The patient apparently became dizzy which led to her fall. She denies headaches. She notes she is no longer dizzy and feels well. She denies abnormal bleeding and bruising. Past medical history: MDS Past surgical history: None Family history: Denies hematologic and oncologic problems Social history: Denies tobacco, alcohol, and illicit drug use. Allergies: Amoxicillin Review of systems: All remaining review of systems including HEENT, cardiovascular, respiratory, gastrointestinal, genitourinary, musculoskeletal, dermatologic, neurologic, and psychiatric are negative unless mentioned in the HPI. Past Patient History - Infectious Disease Hx of Infectious Diseases: None - Tetanus Immunizations Tetanus Immunization: Unknown - Past Medical History & Family History Past Medical History?: Yes - Past Social History Smoking Status: Never Smoked - CARDIAC Hx Hypertension: No - PULMONARY Hx Bronchitis: Yes Hx Pneumonia: Yes - NEUROLOGICAL Hx Alzheimer's Disease: Yes Hx Dementia: Yes - HEENT Hx HEENT Problems: Yes Hx Cataracts: Yes (had surgery. doesn't remember what eye) - RENAL Hx Chronic Kidney Disease: No - ENDOCRINE/METABOLIC Hx Diabetes Mellitus Type 2: Yes (IDDM) - HEMATOLOGICAL/ONCOLOGICAL Hx Anemia: Yes - INTEGUMENTARY Hx Dermatological Problems: No - MUSCULOSKELETAL/RHEUMATOLOGICAL Hx Arthritis: Yes (KNEE; BACK PAIN) - GASTROINTESTINAL Hx Gastrointestinal Disorders: No - GENITOURINARY/GYNECOLOGICAL Hx Genitourinary Disorders: No - PSYCHIATRIC Hx Substance Use: No - SURGICAL HISTORY Hx Tonsillectomy: Yes - ANESTHESIA Hx Anesthesia: Yes Hx Anesthesia Reactions: No Hx Malignant Hyperthermia: No Meds Allergies/Adverse Reactions: Allergies Allergy/AdvReac Type Severity Reaction Status Date / Time amoxicillin Allergy RASH Verified 01/11/17 14:08 - Medications Medications: Current Medications Acetaminophen (Tylenol 325mg Tab) 975 mg PO Q6 PRN PRN Reason: Fever >100.4 F Aspirin (Ecotrin) 81 mg PO DAILY [facility] Last Admin: 04/02/17 09:57 Dose: 81 mg Dextrose (Dextrose 50% Inj) 0 ml IV STAT PRN; Protocol PRN Reason: Hyglycemia Protocol Dextrose (Glutose 15) 0 gm PO ONCE PRN; Protocol PRN Reason: Hypoglycemia Protocol Glucagon (Glucagen Diagnostic Kit) 0 mg IM STAT PRN; Protocol PRN Reason: Hypoglycemia Protocol Heparin Sodium (Porcine) (Heparin) 5,000 units SC Q12 [facility] Last Admin: 04/02/17 09:57 Dose: 5,000 units Sodium Chloride (Sodium Chloride 0.9%) 1,000 mls @ 80 mls/hr IV .[id number] [facility] Last Admin: 04/02/17 07:45 Dose: 80 mls/hr Dextrose (Dextrose 5% In Water 1000 Ml) 1,000 mls @ 0 mls/hr IV .Q0M PRN; Protocol; Per Protocol PRN Reason: Hypoglycemia Protocol Insulin Human Regular (Novolin R) 0 unit SC ACHS [facility] PRN Reason: Protocol Last Admin: 04/02/17 12:43 Dose: 4 unit Lisinopril (Zestril) 2.5 mg PO DAILY [facility] Last Admin: 04/02/17 09:57 Dose: 2.5 mg Ondansetron HCl (Zofran Inj) 4 mg IVP Q6H PRN PRN Reason: Nausea/Vomiting Physical Exam - Head Exam Head Exam: ATRAUMATIC - Eye Exam Eye Exam: Normal appearance - ENT Exam ENT Exam: Mucous Membranes Dry - Respiratory Exam Respiratory Exam: NORMAL BREATHING PATTERN - Cardiovascular Exam Cardiovascular Exam: +S1, +S2 - GI/Abdominal Exam GI & Abdominal Exam: Normal Bowel Sounds - Extremities Exam Extremities exam: Positive for: normal inspection Results - Vital Signs Recent Vital Signs: Last Vital Signs Temp 97.7 F 04/02/17 16:00 Pulse 78 04/02/17 16:00 Resp 20 04/02/17 16:00 BP 103/53 L 04/02/17 16:00 Pulse Ox 98 04/02/17 16:00 - Labs Result Diagrams: 04/02/17 07:43 04/02/17 07:43 Labs: Laboratory Results - last 24 hr 04/02/17 04/02/17 04/02/17 02:01 07:43 07:43 WBC 2.8 L RBC 2.04 L Hgb 7.8 L Hct 22.8 L MCV 112.1 H MCH 38.5 H MCHC 34.3 RDW 20.7 H Plt Count 171 D MPV 10.2 Neut % (Auto) 66.1 Lymph % (Auto) 20.9 Titus % (Auto) 3.3 Eos % (Auto) 8.2 H Baso % (Auto) 1.5 Neut # 1.8 Lymph # 0.6 L Titus # 0.1 Eos # 0.2 Baso # 0.0 Differential Comment Sodium 130 L Potassium 4.4 Chloride 102 Carbon Dioxide 18 L Anion Gap 14 BUN 16 Creatinine 1.0 Est GFR ( Amer) > 60 Est GFR (Non-Af Amer) 52 POC Glucose (mg/dL) 223 H Random Glucose 177 H Calcium 8.0 L Total Bilirubin 0.4 AST 20 ALT 39 Alkaline Phosphatase 53 Total Protein 6.1 L Albumin 2.9 L D Globulin 3.2 Albumin/Globulin Ratio 0.9 L 04/02/17 04/02/17 04/02/17 08:39 11:21 16:35 WBC RBC Hgb Hct MCV MCH MCHC RDW Plt Count MPV Neut % (Auto) Lymph % (Auto) Titus % (Auto) Eos % (Auto) Baso % (Auto) Neut # Lymph # Titus # Eos # Baso # Differential Comment Sodium Potassium Chloride Carbon Dioxide Anion Gap BUN Creatinine Est GFR ( Amer) Est GFR (Non-Af Amer) POC Glucose (mg/dL) 305 H 317 H 219 H Random Glucose Calcium Total Bilirubin AST ALT Alkaline Phosphatase Total Protein Albumin Globulin Albumin/Globulin Ratio 04/02/17 21:01 WBC RBC Hgb Hct MCV MCH MCHC RDW Plt Count MPV Neut % (Auto) Lymph % (Auto) Titus % (Auto) Eos % (Auto) Baso % (Auto) Neut # Lymph # Titus # Eos # Baso # Differential Comment Sodium Potassium Chloride Carbon Dioxide Anion Gap BUN Creatinine Est GFR ( Amer) Est GFR (Non-Af Amer) POC Glucose (mg/dL) 261 H Random Glucose Calcium Total Bilirubin AST ALT Alkaline Phosphatase Total Protein Albumin Globulin Albumin/Globulin Ratio Assessment & Plan (1) Myelodysplastic syndrome Assessment and Plan: 5q- MDS; deferred Revlimid due to potential clotting side effect on hypomethylating agent monthly doing well overall but does require intermittent PRBC transfusions recommend PRBC transfusion if hgb < 8 Status: Acute (2) Anemia Assessment and Plan: secondary to 5q- MDS transfusion support PRN Status: Acute (3) Leukopenia Assessment and Plan: mild no neutropenia Status: Acute
--- NOTE | 2017-04-02 21:50 | CP.PCM.PN ---
Subjective - Date & Time of Evaluation Date of Evaluation: 04/02/17 Time of Evaluation: 18:00 - Subjective Subjective: No complaints. Objective - Vital Signs/Intake and Output Vital Signs (last 24 hours): Temp Pulse Resp BP Pulse Ox 97.7 F 78 20 103/53 L 98 04/02/17 16:00 04/02/17 16:00 04/02/17 16:00 04/02/17 16:00 04/02/17 16:00 Intake and Output: 04/02/17 04/03/17 18:59 06:59 Intake Total 1390 Balance 1390 - Medications Medications: Current Medications Acetaminophen (Tylenol 325mg Tab) 975 mg PO Q6 PRN PRN Reason: Fever >100.4 F Aspirin (Ecotrin) 81 mg PO DAILY [facility] Last Admin: 04/02/17 09:57 Dose: 81 mg Dextrose (Dextrose 50% Inj) 0 ml IV STAT PRN; Protocol PRN Reason: Hyglycemia Protocol Dextrose (Glutose 15) 0 gm PO ONCE PRN; Protocol PRN Reason: Hypoglycemia Protocol Glucagon (Glucagen Diagnostic Kit) 0 mg IM STAT PRN; Protocol PRN Reason: Hypoglycemia Protocol Heparin Sodium (Porcine) (Heparin) 5,000 units SC Q12 [facility] Last Admin: 04/02/17 09:57 Dose: 5,000 units Sodium Chloride (Sodium Chloride 0.9%) 1,000 mls @ 80 mls/hr IV .[id number] [facility] Last Admin: 04/02/17 07:45 Dose: 80 mls/hr Dextrose (Dextrose 5% In Water 1000 Ml) 1,000 mls @ 0 mls/hr IV .Q0M PRN; Protocol; Per Protocol PRN Reason: Hypoglycemia Protocol Insulin Human Regular (Novolin R) 0 unit SC ACHS [facility] PRN Reason: Protocol Last Admin: 04/02/17 12:43 Dose: 4 unit Lisinopril (Zestril) 2.5 mg PO DAILY [facility] Last Admin: 04/02/17 09:57 Dose: 2.5 mg Ondansetron HCl (Zofran Inj) 4 mg IVP Q6H PRN PRN Reason: Nausea/Vomiting - Labs Labs: 04/02/17 07:43 04/02/17 07:43 - Head Exam Head Exam: ATRAUMATIC - Eye Exam Eye Exam: Normal appearance - ENT Exam ENT Exam: Mucous Membranes Dry - Respiratory Exam Respiratory Exam: NORMAL BREATHING PATTERN - Cardiovascular Exam Cardiovascular Exam: +S1, +S2 - GI/Abdominal Exam GI & Abdominal Exam: Normal Bowel Sounds - Extremities Exam Extremities Exam: Normal Inspection Assessment and Plan (1) Myelodysplastic syndrome Assessment & Plan: outpatient treatment transfuse if hgb < 8; will repeat CBC in AM Status: Acute (2) Anemia Status: Acute (3) Leukopenia Status: Acute
[2017-04-03] MEDS: Sodium Chloride 0.9% 1,000 ML IV SCH ×2 (07:02→08:24)
[2017-04-03 07:32] LABS: BASO % 1.9 % (0.0-2.0); EOS # 0.2 K/uL (0.0-0.7); EOS % 9.1 % (0.0-4.0); HEMATOCRIT 20.9 % (34.0-47.0); LYMPH # 0.8 K/uL (1.0-4.3); MEAN CELL VOLUME 111.8 fL (81.0-99.0); MEAN CORPUSCULAR HEMOGLOBIN 38.8 pg (27.0-31.0); MEAN CORPUSCULAR HGB CONC 34.7 g/dL (33.0-37.0); MEAN PLATELET VOLUME 10.1 fL (7.2-11.7); MONO # 0.1 K/uL (0.0-0.8); MONO % 4.3 % (0.0-10.0); NRBC % 0.2 % (0.0-2.0); WHITE BLOOD COUNT 2.3 K/uL (4.8-10.8)
[2017-04-03] MEDS: (Novolin R) Insulin Human Regular 100 units/ml vial SC SCH ×4 (08:20→22:14)
--- NOTE | 2017-04-03 18:38 | CARD ---
APPROVED REPORT EKG Measurement Heart [id number] <Conclusion> Normal sinus rhythm T wave abnormality, consider lateral ischemia Abnormal ECG
[2017-04-04] MEDS: (Novolin R) Insulin Human Regular 100 units/ml vial SC SCH ×4 (08:06→22:11)
--- NOTE | 2017-04-04 10:21 | HP ---
HISTORY OF PRESENT ILLNESS: Ms. Mccarty is an 86-year-old female with multiple complaints, possible fall at home. The patient has a history of myelodysplastic syndrome, was not getting treatment, diabetes, deconditioning, arthritis. The patient reports to the hospital for admission. PHYSICAL EXAMINATION: GENERAL: The patient is awake, alert, oriented, a bit weak. VITAL SIGNS: Temperature 98.6, pulse is 74, blood pressure 120/70. HEENT: Within normal limits. NECK: Supple. CHEST: Symmetrical. HEART: Regular. ABDOMEN: Soft. EXTREMITIES: No edema. IMPRESSION AND PLAN: Fall, deconditioning, myelodysplastic syndrome. The patient on bedrest. Neuro check. Gamal Ly MD
[2017-04-04 10:45] LABS: BASO # 0.1 K/uL (0.0-0.2); BASO % 2.1 % (0.0-2.0); EOS # 0.3 K/uL (0.0-0.7); EOS % 10.9 % (0.0-4.0); HEMATOCRIT 30.6 % (34.0-47.0); LYMPH # 0.5 K/uL (1.0-4.3); LYMPH % 19.2 % (20.0-40.0); MEAN CORPUSCULAR HEMOGLOBIN 33.9 pg (27.0-31.0); MEAN CORPUSCULAR HGB CONC 33.6 g/dL (33.0-37.0); MEAN PLATELET VOLUME 9.3 fL (7.2-11.7); MONO # 0.1 K/uL (0.0-0.8); MONO % 3.2 % (0.0-10.0); NRBC % 0.2 % (0.0-2.0); RED CELL DISTRIBUTION WIDTH 27.8 % (11.5-14.5); WHITE BLOOD COUNT 2.4 K/uL (4.8-10.8)
[2017-04-04 10:48] LABS: MEAN CELL VOLUME 101.1 fL (81.0-99.0)
--- NOTE | 2017-04-04 11:34 | CP.PCM.PN ---
Subjective - Date & Time of Evaluation Date of Evaluation: 04/04/17 Time of Evaluation: 11:33 - Subjective Subjective: The patient is stable for d/c as per Dr. Ly. She has no complaints today. She denies any fevers/chills, BALLESTEROS, CP, SOb, abdominal pain, N/V/D, dysuria/freq/ urg, or lower extremity pain/swelling. Objective - Vital Signs/Intake and Output Vital Signs (last 24 hours): Temp Pulse Resp BP Pulse Ox 98.4 F 76 20 154/67 H 97 04/04/17 08:28 04/04/17 08:28 04/04/17 08:28 04/04/17 08:28 04/04/17 08:28 Intake and Output: 04/04/17 04/04/17 06:59 18:59 Intake Total 2575 Balance 2575 - Medications Medications: Current Medications Acetaminophen (Tylenol 325mg Tab) 975 mg PO Q6 PRN PRN Reason: Fever >100.4 F Aspirin (Ecotrin) 81 mg PO DAILY [facility] Last Admin: 04/04/17 09:53 Dose: 81 mg Dextrose (Dextrose 50% Inj) 0 ml IV STAT PRN; Protocol PRN Reason: Hyglycemia Protocol Dextrose (Glutose 15) 0 gm PO ONCE PRN; Protocol PRN Reason: Hypoglycemia Protocol Glucagon (Glucagen Diagnostic Kit) 0 mg IM STAT PRN; Protocol PRN Reason: Hypoglycemia Protocol Dextrose (Dextrose 5% In Water 1000 Ml) 1,000 mls @ 0 mls/hr IV .Q0M PRN; Protocol; Per Protocol PRN Reason: Hypoglycemia Protocol Insulin Human Regular (Novolin R) 0 unit SC ACHS [facility] PRN Reason: Protocol Last Admin: 04/04/17 08:06 Dose: 1 unit Lisinopril (Zestril) 2.5 mg PO DAILY [facility] Last Admin: 04/04/17 09:53 Dose: 2.5 mg Ondansetron HCl (Zofran Inj) 4 mg IVP Q6H PRN PRN Reason: Nausea/Vomiting - Labs Labs: 04/04/17 10:27 04/02/17 07:43 - Constitutional Appears: Non-toxic - Head Exam Head Exam: NORMAL INSPECTION - Eye Exam Eye Exam: EOMI - ENT Exam ENT Exam: Mucous Membranes Moist - Neck Exam Neck Exam: Full ROM. absent: Lymphadenopathy - Respiratory Exam Respiratory Exam: Clear to Ausculation Bilateral - Cardiovascular Exam Cardiovascular Exam: REGULAR RHYTHM - GI/Abdominal Exam GI & Abdominal Exam: Soft, Normal Bowel Sounds - Back Exam Back Exam: NORMAL INSPECTION. absent: CVA tenderness (L), CVA tenderness (R) - Neurological Exam Neurological Exam: Alert, Awake - Psychiatric Exam Psychiatric exam: Normal Affect - Skin Skin Exam: Warm Assessment and Plan - Assessment and Plan (Free Text) Assessment: 86yo F admitted for AMS/Fall AMS/Fall -Head CT negative for stroke or fracture -patient is comfortable; denies any pain -pending PT Eval/Treat; appreciate recs -patient is on 1:1 currently for fall precautions -patient became acutely anemia; s/p hemoglobin tranfusion over the weekend with stabilized hgb the patient is stable for d/c as per Dr. Ly DM -RISS -Hypoglycemia protocol -c/w lisinopril CAD -aspirin Patient has myelodysplastic sydrome; currently undergoing chemotherapy and tx; if becomes neutropenic needs to be put on neutropenia precuations. Not currently neutropenic. -Goals of care; Palliative Care Consult Placed; appreciate recs Prophylaxis -Pepcid -Lovenox All management as per Dr. Ly
--- NOTE | 2017-04-05 07:38 | CP.PCM.PN ---
Objective - Vital Signs/Intake and Output Vital Signs (last 24 hours): Temp Pulse Resp BP Pulse Ox 98.3 F 75 20 135/64 95 04/04/17 23:34 04/04/17 23:34 04/04/17 23:34 04/04/17 23:34 04/04/17 23:34 Intake and Output: 04/05/17 04/05/17 06:59 18:59 Intake Total 650 Balance 650 - Medications Medications: Current Medications Acetaminophen (Tylenol 325mg Tab) 975 mg PO Q6 PRN PRN Reason: Fever >100.4 F Aspirin (Ecotrin) 81 mg PO DAILY [facility] Last Admin: 04/04/17 09:53 Dose: 81 mg Dextrose (Dextrose 50% Inj) 0 ml IV STAT PRN; Protocol PRN Reason: Hyglycemia Protocol Dextrose (Glutose 15) 0 gm PO ONCE PRN; Protocol PRN Reason: Hypoglycemia Protocol Glucagon (Glucagen Diagnostic Kit) 0 mg IM STAT PRN; Protocol PRN Reason: Hypoglycemia Protocol Dextrose (Dextrose 5% In Water 1000 Ml) 1,000 mls @ 0 mls/hr IV .Q0M PRN; Protocol; Per Protocol PRN Reason: Hypoglycemia Protocol Insulin Human Regular (Novolin R) 0 unit SC ACHS [facility] PRN Reason: Protocol Last Admin: 04/04/17 22:11 Dose: Not Given Lisinopril (Zestril) 2.5 mg PO DAILY [facility] Last Admin: 04/04/17 09:53 Dose: 2.5 mg Ondansetron HCl (Zofran Inj) 4 mg IVP Q6H PRN PRN Reason: Nausea/Vomiting - Labs Labs: 04/04/17 10:27 04/02/17 07:43
--- NOTE | 2017-04-05 08:28 | CP.PCM.CON ---
History of Present Illness - History of Present Illness History of Present Illness: palliative consult Requested by Altagracia WILLSON Reason: Code status discussion Patient is a 86 yo admitted from home after fall. patient denied LOC. Patient had similar falls in the past. As per daughter, patient is anemic, secondary to leukemia and her Hb often drops low. patient gets ligh headed and falls. The same thing happened just prior to this admission. Patient complained being light headed for 3 days before the fall. Hb 8.0 on admission. Blood Tf administered. Head CT was negative acute findings, Doctor Rosangela, oncologist on board. Hb control was advised. PMH: Leukemia, on chemo Tx 7 days per month, Alzheimer's, Dementia, DM, pneumonia Soc. Hx: lives at home with daughter, , from some form of cancer fam. Hx: from cancer Review of Systems - Review of Systems All systems: reviewed and no additional remarkable complaints except (ROS obtained from daughter at bed side. As per daughter, patient did not have any acute events since the admission) Past Patient History - Infectious Disease Hx of Infectious Diseases: None - Tetanus Immunizations Tetanus Immunization: Unknown - Past Medical History & Family History Past Medical History?: Yes - Past Social History Smoking Status: Never Smoked - CARDIAC Hx Hypertension: No - PULMONARY Hx Bronchitis: Yes Hx Pneumonia: Yes - NEUROLOGICAL Hx Alzheimer's Disease: Yes Hx Dementia: Yes - HEENT Hx HEENT Problems: Yes Hx Cataracts: Yes (had surgery. doesn't remember what eye) - RENAL Hx Chronic Kidney Disease: No - ENDOCRINE/METABOLIC Hx Diabetes Mellitus Type 2: Yes (IDDM) - HEMATOLOGICAL/ONCOLOGICAL Hx Anemia: Yes - INTEGUMENTARY Hx Dermatological Problems: No - MUSCULOSKELETAL/RHEUMATOLOGICAL Hx Arthritis: Yes (KNEE; BACK PAIN) - GASTROINTESTINAL Hx Gastrointestinal Disorders: No - GENITOURINARY/GYNECOLOGICAL Hx Genitourinary Disorders: No - PSYCHIATRIC Hx Substance Use: No - SURGICAL HISTORY Hx Tonsillectomy: Yes - ANESTHESIA Hx Anesthesia: Yes Hx Anesthesia Reactions: No Hx Malignant Hyperthermia: No Meds Allergies/Adverse Reactions: Allergies Allergy/AdvReac Type Severity Reaction Status Date / Time amoxicillin Allergy RASH Verified 01/11/17 14:08 - Medications Medications: Current Medications Acetaminophen (Tylenol 325mg Tab) 975 mg PO Q6 PRN PRN Reason: Fever >100.4 F Aspirin (Ecotrin) 81 mg PO DAILY [facility] Last Admin: 04/04/17 09:53 Dose: 81 mg Dextrose (Dextrose 50% Inj) 0 ml IV STAT PRN; Protocol PRN Reason: Hyglycemia Protocol Dextrose (Glutose 15) 0 gm PO ONCE PRN; Protocol PRN Reason: Hypoglycemia Protocol Glucagon (Glucagen Diagnostic Kit) 0 mg IM STAT PRN; Protocol PRN Reason: Hypoglycemia Protocol Dextrose (Dextrose 5% In Water 1000 Ml) 1,000 mls @ 0 mls/hr IV .Q0M PRN; Protocol; Per Protocol PRN Reason: Hypoglycemia Protocol Insulin Human Regular (Novolin R) 0 unit SC ACHS [facility] PRN Reason: Protocol Last Admin: 04/04/17 22:11 Dose: Not Given Lisinopril (Zestril) 2.5 mg PO DAILY [facility] Last Admin: 04/04/17 09:53 Dose: 2.5 mg Ondansetron HCl (Zofran Inj) 4 mg IVP Q6H PRN PRN Reason: Nausea/Vomiting Physical Exam - Constitutional Appears: No Acute Distress - Head Exam Head Exam: ATRAUMATIC, NORMAL INSPECTION, NORMOCEPHALIC - Eye Exam Eye Exam: EOMI, Normal appearance, PERRL Pupil Exam: NORMAL ACCOMODATION, PERRL - ENT Exam ENT Exam: Mucous Membranes Moist, Normal Exam - Neck Exam Neck exam: Positive for: Normal Inspection - Respiratory Exam Respiratory Exam: Clear to Auscultation Bilateral, NORMAL BREATHING PATTERN - Cardiovascular Exam Cardiovascular Exam: REGULAR RHYTHM - GI/Abdominal Exam GI & Abdominal Exam: Normal Bowel Sounds, Soft - Rectal Exam Rectal Exam: Deferred - Exam Exam: NORMAL INSPECTION - Extremities Exam Extremities exam: Positive for: normal inspection - Back Exam Back exam: NORMAL INSPECTION - Neurological Exam Neurological exam: Alert, Altered - Psychiatric Exam Psychiatric exam: Flat Affect - Skin Skin Exam: Dry, Intact, Pallor, Warm Results - Vital Signs Recent Vital Signs: Last Vital Signs Temp 98.3 F 04/04/17 23:34 Pulse 75 04/04/17 23:34 Resp 20 04/04/17 23:34 BP 135/64 04/04/17 23:34 Pulse Ox 95 04/04/17 23:34 - Labs Result Diagrams: 04/04/17 10:27 04/02/17 07:43 Labs: Laboratory Results - last 24 hr 1004/04/17 04/04/17 07:12 10:27 11:24 WBC 2.4 L RBC 3.03 L Hgb 10.3 L D Hct 30.6 L MCV 101.1 H D MCH 33.9 H MCHC 33.6 RDW 27.8 H Plt Count 142 MPV 9.3 Neut % (Auto) 64.6 Lymph % (Auto) 19.2 L [place] % (Auto) 3.2 Eos % (Auto) 10.9 H Baso % (Auto) 2.1 H Neut # 1.5 L Lymph # 0.5 L [place] # 0.1 Eos # 0.3 Baso # 0.1 POC Glucose (mg/dL) 312 H Erythropoietin 251.7 H 04/04/17 04/04/17 04/05/17 16:25 21:01 07:17 WBC RBC Hgb Hct MCV MCH MCHC RDW Plt Count MPV Neut % (Auto) Lymph % (Auto) [place] % (Auto) Eos % (Auto) Baso % (Auto) Neut # Lymph # [place] # Eos # Baso # POC Glucose (mg/dL) 272 H 275 H 294 H Erythropoietin Assessment & Plan - Assessment and Plan (Free Text) Assessment: Palliative consult Code status prior consult was Full Code, no Advance Directive/Living Will on chart, PPS 20% I reviewed medical records, all diagnostic studies, examined patient in the bed and discussed goals of care with her daughter Alondra at bed side. Patient is alert, mildly confused in no acute distress. patient knew her daughter's name and that she was at the hospital, but was not sure what date it was. Skin pale, intact. Breath sounds normal. Abdomen soft with active bowel sounds. Extremities mobile. Denies pain. Asking to go home. Hb 7.3, WBC 2.3. BP 154/67, O2Sat 97 % RA, afebrile Goals of care discussed with daughter Alondra. She is a primary patient centered care specialist . I reviewed with Alondra patient's clinical presentation and most recent blood results. I elicited her perception of her mother's condition and values regarding quality of life. Alondra is very pleased with her mother responses to treatment and is looking forward to take her home. Alondra sees her mother as a very happy person with fulfilled life. Alondra would want her mother to have natural when it comes. Code status discussed. I review meaning and purpose of POLST. Alondra stated understanding and choose DNR/DNI. Alondra would like to continue chemo Tx for her mother and all necessary treatments to improve her mother's comfort level. If condition becomes terminal regardless of all prudent measures implemented, she would want her mother to be allowed natural . I shared this with Doctor O' Luther and he asked me to put DNR/DNI order in, what I did. Impression * This is chronically ill patient with acute drop in Hb due to Hx of Leukemia * Patient is with mild confusion and unable to advocate for her elf * Daughter Alondra, the primary patient centered care specialist advocates for patient * DNR/DNI chosen Suggestion * Monitor and correct Hb * DNR/DNI * Discharge home when stable Thank you for consulting Palliative Care
[2017-04-05] MEDS: (Novolin R) Insulin Human Regular 100 units/ml vial SC SCH ×2 (08:30→12:30)
[2017-04-05 08:40] VITALS: TEMP 97.4
[2017-04-05 15:23] VITALS: BP 139/78; PULSE 75; O2SAT 98
== END 2017-04-05 14:35 | disposition home or self-care (01) | DRG 811 ==
LOC: C.ER 06:44 → C.9E 12:58 → C.3T 13:21 → OBSVTOIN 04-02 14:24
PROVIDERS: ADMIT Internal Medicine Pulmonary Disease; ATTEND Internal Medicine Pulmonary Disease
DX: D46.C Myelodysplastic syndrome with isolated del(5q) chromosomal abnormality (principal); J18.9 Pneumonia, unspecified organism; E11.9 Type 2 diabetes mellitus without complications; G30.9 Alzheimer's disease, unspecified; E87.1 Hypo-osmolality and hyponatremia; F02.80 Dementia in other diseases classified elsewhere, unspecified severity, without behavioral disturbance, psychotic disturbance, mood disturbance, and anxiety; D72.819 Decreased white blood cell count, unspecified; C95.90 Leukemia, unspecified not having achieved remission; H26.9 Unspecified cataract; I25.10 Atherosclerotic heart disease of native coronary artery without angina pectoris; Z51.5 Encounter for palliative care; Z66 Do not resuscitate; Z79.4 Long term (current) use of insulin; Z87.01 Personal history of pneumonia (recurrent); M17.0 Bilateral primary osteoarthritis of knee; M54.2 Cervicalgia

== ENCOUNTER 2017-05-30 19:29 | Emergency (ER) | payer MEDICARE ==
[2017-05-30 19:29] VITALS: BMI 23.8
[2017-05-30 20:59] LABS: BASO # 0.1 K/uL (0.0-0.2); BASO % 2.1 % (0.0-2.0); EOS # 0.5 K/uL (0.0-0.7); EOS % 10.3 % (0.0-4.0); HEMATOCRIT 28.2 % (34.0-47.0); LYMPH # 1.5 K/uL (1.0-4.3); LYMPH % 27.7 % (20.0-40.0); MEAN CORPUSCULAR HEMOGLOBIN 36.4 pg (27.0-31.0); MEAN CORPUSCULAR HGB CONC 34.6 g/dL (33.0-37.0); MEAN PLATELET VOLUME 10.2 fL (7.2-11.7); MONO # 0.2 K/uL (0.0-0.8); MONO % 4.5 % (0.0-10.0); NRBC % 0.1 % (0.0-2.0); RED CELL DISTRIBUTION WIDTH 23.1 % (11.5-14.5)
[2017-05-30 21:03] LABS: INR 1.1
[2017-05-30 21:08] LABS: ALKALINE PHOSPHATASE 76 U/L (38-126); ALT/SGPT 38 U/L (9-52); AST/SGOT 20 U/L (14-36); BILIRUBIN,TOTAL 0.5 mg/dL (0.2-1.3); BLOOD UREA NITROGEN 38 mg/dL (7-17); CALCIUM 8.2 mg/dl (8.6-10.4); CARBON DIOXIDE 30 mmol/L (22-30); CHLORIDE 98 mmol/L (98-107); GFR AFRICAN-AMERICAN 51; GLUCOSE,RANDOM 106 mg/dL (65-105); MAGNESIUM 1.9 mg/dL (1.6-2.3); POTASSIUM 4.6 mmol/L (3.6-5.2); SODIUM 133 mmol/L (132-148); TOTAL PROTEIN 7.2 g/dL (6.3-8.3)
[2017-05-30 21:09] LABS: MEAN CELL VOLUME 105.2 fL (81.0-99.0); WHITE BLOOD COUNT 5.3 K/uL (4.8-10.8)
--- NOTE | 2017-05-30 21:22 | C.PDOC ---
History Of Present Illness 86 year old female with a Hx of myelodysplastic syndrome and leukemia presents to the ER after she syncopized at approximately 19:00 today while in the shower , as per daughter. Denies chest pain, SOB, or dizziness. Daughter states patient "started snoring" while she was bathing her and syncopized, daughter states she caught patient. Daughter reports patient has had 16 transfusion this past year, last one was approximately 1 month ago. Patient recently had chemo Tuesday-Tuesday. Patient was seen on 04/02/17 for anemia and was admitted for a blood transfusion and on 04/05/17 for a complaint of weakness, fatigue, and tiredness and was also admitted to the hospital at that time. Chief Complaint (Nursing): Medical Clearance History Per: Patient, Family History/Exam Limitations: no limitations Onset/Duration Of Symptoms: Hrs Current Symptoms Are (Timing): Still Present Severity: Mild Pain Scale Rating Of: 3 Recent travel outside of the [place]: No Past Medical History Reviewed: Historical Data, Nursing Documentation, Vital Signs Vital Signs: Last Vital Signs Temp 98.0 F 05/30/17 22:55 Pulse 75 05/30/17 22:55 Resp 18 05/30/17 22:55 BP 138/77 05/30/17 22:55 Pulse Ox 96 05/31/17 02:04 - Medical History PMH: Alzheimer's Disease, Anemia, Arthritis (KNEE; BACK PAIN), Bronchitis, Dementia, Diabetes, Malignancy (Myelodysplastic), Pneumonia Surgical History: Tonsillectomy - [facility] Procedures INSERT INFUSION DEV IN R INT JUGULAR VEIN, PERC (11/25/16) INSERTION OF VAD INTO CHEST SUBCU/FASCIA, OPEN APPROACH (11/25/16) INTRODUCE OF OTH THERAP SUBST INTO RESP TRACT, VIA OPENING (08/14/16) TRANSFUSE NONAUT RED BLOOD CELLS IN PERIPH VEIN, PERC (12/24/16) Family History: States: Unknown Family Hx - Social History Hx Alcohol Use: No Hx Substance Use: No - Immunization History Hx Tetanus Toxoid Vaccination: No Hx Influenza Vaccination: Yes Hx Pneumococcal Vaccination: No Review Of Systems Constitutional: Negative for: Fever, Chills Cardiovascular: Negative for: Chest Pain Respiratory: Negative for: Cough, Shortness of Breath Gastrointestinal: Negative for: Nausea, Vomiting Genitourinary: Negative for: Dysuria, Hematuria Musculoskeletal: Negative for: Neck Pain, Shoulder Pain, Back Pain Neurological: Positive for: Other (Syncope). Negative for: Weakness, Confusion , Dizziness Physical Exam - Physical Exam Appears: Non-toxic, No Acute Distress Skin: Warm, Dry Head: Atraumatic, Normacephalic Eye(s): bilateral: Conjunctiva Pale Oral Mucosa: Moist Tongue: Normal Appearing Lips: Normal Appearing Teeth: Edentulous Neck: Normal, Supple Chest: Symmetrical, No Tenderness Cardiovascular: Rhythm Regular Respiratory: Normal Breath Sounds, No Rales, No Rhonchi, No Wheezing Gastrointestinal/Abdominal: Soft, No Tenderness Extremity: Normal ROM Neurological/Psych: Oriented x3, Normal Speech ED Course And Treatment - Laboratory Results Result Diagrams: 05/30/17 20:51 05/30/17 20:51 ECG: Interpreted By Me, Viewed By Me ECG Rhythm: Sinus Rhythm ECG Interpretation: Normal Interpretation Of ECG: Nonspecific ST/T wave abnormality Rate From EC O2 Sat by Pulse Oximetry: 96 (Room air) Pulse Ox Interpretation: Normal Medical Decision Making Medical Decision Making: Plan: * EKG * BNP * CMP * Mag * Trop I * CBC * PTT * PT * CXR * UA * * ct head and ct cervical spine neg for acute pathology. * labs are unremarkable. * [facility] Disposition - Disposition Disposition: HOME/ ROUTINE Disposition Time: 12:00 Condition: STABLE Additional Instructions: follow up with pmd in am Instructions: Weakness (ED), Weakness (GEN), Near Syncope (ED) Forms: Gen Discharge Inst Hong [place]er, General Discharge Instructions, [facility] (Martiniquais) - Clinical Impression Clinical Impression: Fall, Head injury - Scribe Statement The provider has reviewed the documentation as recorded by the Scribjeanette Kline All medical record entries made by the Scribe were at my direction and personally dictated by me. I have reviewed the chart and agree that the record accurately reflects my personal performance of the history, physical exam, medical decision making, and the department course for this patient. I have also personally directed, reviewed, and agree with the discharge instructions and disposition.
[2017-05-30 21:25] LABS: RBC URINE < 1 /hpf (0-3); URINE BILIRUBIN NEGATIVE (NEGATIVE); URINE BLOOD NEGATIVE (NEGATIVE); URINE COLOR Yellow (YELLOW); URINE GLUCOSE (UA) NORMAL (Normal); URINE KETONE NEGATIVE (NEGATIVE); URINE LEUKOCYTE ESTERASE 1+ Leu/uL (Negative); URINE PROTEIN NEGATIVE (NEGATIVE); URINE UROBILINOGEN NORMAL mg/dL (0.2-1.0); WBC URINE 11 /hpf (0-5)
[2017-05-30 22:56] VITALS: BP 138/77; PULSE 75; RESP 18; TEMP 98
[2017-05-30 23:01] VITALS: O2SAT 96
--- NOTE | 2017-05-31 08:13 | RAD ---
PROCEDURE: CHEST RADIOGRAPH, 1 VIEW HISTORY: Shortness of breath COMPARISON: 01/11/2017 FINDINGS: LUNGS: Right central venous catheter tip extending to the cavoatrial junction. Biapical pleural thickening with upper lobe granulomatous changes. Nodular opacity projecting over the right midlung zone may represent external tubing. Mild patchy increased markings at the lung bases. Bibasilar breast and nipple shadows. PLEURA: No pneumothorax or pleural fluid seen. CARDIOVASCULAR: Calcification at the aortic knob. OSSEOUS STRUCTURES: No significant abnormalities. VISUALIZED UPPER ABDOMEN: Normal. OTHER FINDINGS: None. IMPRESSION: Right central venous catheter tip extending to the cavoatrial junction. Biapical pleural thickening with upper lobe granulomatous changes. Nodular opacity projecting over the right midlung zone may represent external tubing. Mild patchy increased markings at the lung bases. Bibasilar breast and nipple shadows.
--- NOTE | 2017-05-31 20:56 | CARD ---
APPROVED REPORT EKG Measurement Heart [id number] <Conclusion> Normal sinus rhythm Nonspecific ST and T wave abnormality Abnormal ECG
== END 2017-05-30 23:41 | disposition home or self-care (01) ==
LOC: C.ER 19:29
DX: S09.90XA Unspecified injury of head, initial encounter (principal); W18.39XA Other fall on same level, initial encounter; Y93.E1 Activity, personal bathing and showering; Y92.002 Bathroom of unspecified non-institutional (private) residence as the place of occurrence of the external cause; D46.9 Myelodysplastic syndrome, unspecified; G30.9 Alzheimer's disease, unspecified; F02.80 Dementia in other diseases classified elsewhere, unspecified severity, without behavioral disturbance, psychotic disturbance, mood disturbance, and anxiety; Z92.3 Personal history of irradiation

== ENCOUNTER 2017-06-18 12:34 | Observation (INO) | payer MEDICARE ==
[2017-06-18 12:36] VITALS: BMI 23.8
--- NOTE | 2017-06-18 13:05 | C.PDOC ---
History Of Present Illness Patient is an 86 y/o female with PMHx of myelodysplastic syndrome, leukemia, DM , HTN and "many" transfusions in the past year; presents to the ED with her daughter for low HGB. Patient reports to have seen Dr. Adames yesterday for weakness; patient had labs drawn and was given Iron. Daughter reports that her mother is weak and reports "snoring" and spitting up food. When asked, pt states she feels "good", has no complaints or pain. Time Seen by Provider: 06/18/17 12:57 Chief Complaint (Nursing): Abnormal Labs History Per: Patient, Family History/Exam Limitations: no limitations Onset/Duration Of Symptoms: Days Current Symptoms Are (Timing): Better Recent travel outside of the [place]: No Past Medical History Reviewed: Historical Data, Nursing Documentation, Vital Signs Vital Signs: Last Vital Signs Temp 97.8 F 06/18/17 12:39 Pulse 94 H 06/18/17 15:27 Resp 16 06/18/17 15:27 BP 116/50 L 06/18/17 15:27 Pulse Ox 100 06/18/17 15:27 - Medical History PMH: Alzheimer's Disease, Anemia, Arthritis (KNEE; BACK PAIN), Bronchitis, Dementia, Diabetes, Malignancy (Myelodysplastic), Pneumonia Denies: HTN, Chronic Kidney Disease Other PMH: Myelodysplastic syndrome, leukemia Surgical History: Tonsillectomy Other Surgeries: cataract - [facility] Procedures INSERT INFUSION DEV IN R INT JUGULAR VEIN, PERC (11/25/16) INSERTION OF VAD INTO CHEST SUBCU/FASCIA, OPEN APPROACH (11/25/16) INTRODUCE OF OTH THERAP SUBST INTO RESP TRACT, VIA OPENING (08/14/16) TRANSFUSE NONAUT RED BLOOD CELLS IN PERIPH VEIN, PERC (12/24/16) Family History: States: Unknown Family Hx - Social History Hx Alcohol Use: No Hx Substance Use: No - Immunization History Hx Tetanus Toxoid Vaccination: No Hx Influenza Vaccination: Yes Hx Pneumococcal Vaccination: No Review Of Systems Except As Marked, All Systems Reviewed And Found Negative. Constitutional: Positive for: Weakness Respiratory: Positive for: Cough Gastrointestinal: Positive for: Other ("spit up food") Physical Exam - Physical Exam Appears: Well, Non-toxic, No Acute Distress Skin: Warm, Dry, Pale Head: Atraumatic, Normacephalic Eye(s): bilateral: Conjunctiva Pale Nose: Normal Oral Mucosa: Moist Neck: Normal, Normal ROM, Supple Chest: Symmetrical Cardiovascular: Rhythm Regular Respiratory: Normal Breath Sounds, No Accessory Muscle Use Gastrointestinal/Abdominal: Soft, No Tenderness Neurological/Psych: Oriented x3, Normal Speech, Other (no focal deficits) Gait: Steady ED Course And Treatment - Laboratory Results Result Diagrams: 06/18/17 13:22 06/18/17 13:22 O2 Sat by Pulse Oximetry: 97 Progress Note: CXR, EKG, UA, and blood work ordered. Dr. Adames was consulted with at 2:07pm; instructs to type and cross 2 units and agrees to admission of patient. Dr. Jacob Peterson answering service called at 2:40pm; reported to be away and referred to Hospitalist. Dr. Rasheed called at 3:10 pm; agreed to admission of patient. Disposition - Disposition Disposition: HOSPITALIZED Disposition Time: 16:01 Condition: STABLE - Clinical Impression Clinical Impression: Anemia, Leukopenia - Scribe Statement The provider has reviewed the documentation as recorded by the Scribjeanette Perez All medical record entries made by the Amauriibjeanette were at my direction and personally dictated by me. I have reviewed the chart and agree that the record accurately reflects my personal performance of the history, physical exam, medical decision making, and the department course for this patient. I have also personally directed, reviewed, and agree with the discharge instructions and disposition.
[2017-06-18 13:41] LABS: BASO # 0.1 K/uL (0.0-0.2); EOS # 0.1 K/uL (0.0-0.7); HEMOGLOBIN 7.4 g/dL (11.0-16.0); LYMPH # 0.6 K/uL (1.0-4.3); LYMPH % 23.8 % (20.0-40.0); MEAN CELL VOLUME 109.8 fL (81.0-99.0); MEAN CORPUSCULAR HGB CONC 35.5 g/dL (33.0-37.0); MEAN PLATELET VOLUME 9.9 fL (7.2-11.7); MONO # 0.1 K/uL (0.0-0.8); MONO % 5.2 % (0.0-10.0); NEUT # 1.6 K/uL (1.8-7.0); NRBC % 0.2 % (0.0-2.0); RBC 1.91 Mil/uL (3.80-5.20); RED CELL DISTRIBUTION WIDTH 21.4 % (11.5-14.5); WHITE BLOOD COUNT 2.5 K/uL (4.8-10.8)
[2017-06-18 13:48] LABS: ALB/GLOB RATIO 1.1 (1.0-2.1); ALBUMIN 3.9 g/dL (3.5-5.0); ALT/SGPT 25 U/L (9-52); AST/SGOT 17 U/L (14-36); BLOOD UREA NITROGEN 17 mg/dL (7-17); CALCIUM 8.8 mg/dl (8.6-10.4); GFR AFRICAN-AMERICAN > 60; GFR NON-AFRICAN AMERICAN 52
[2017-06-18 13:51] LABS: INR 1.3; PROTHROMBIN TIME 14.6 SECONDS (9.7-12.2)
[2017-06-18 14:15] LABS: CK-MB < 0.22 ng/mL (0.0-3.38)
--- NOTE | 2017-06-18 15:37 | CP.PCM.HP ---
<Nery Altamirano - Last Filed: 06/18/17 16:43> History of Present Illness - History of Present Illness History of Present Illness: CC - "Low hemoglobin" HPI - Patient is 86 yo female with past medical history of IDDM, HTN, myelodysplastic disease, hypercholesterolemia, dementia presenting with chief complaint of low hemoglobin on her labs. She was seen by Dr. Adames yesterday, who suggested the patient go to the ER due to her hemoglobin level being 7. She was also given an epogen shot. Currently the patient is resting comfortably and she denies any fever, chills, chest pain, shortness of breath, N/V, diarrhea/ constipation. Per the family the patient had an episodes yesterday where she was awake but seemed to "zone out" for a bit which she has done before when her hemoglobin was low in the past. She has had blood transfusion in the past for anemia. Patient was due for her next round of chemo this Tuesday. She has been receiving chemo for about 4-5 months in the office of Dr. Dann Adames. PMHx - IDDM, HTN, myelodysplastic disease, hypercholesterolemia, dementia (early ), PRBC transfusions 6 in 8 weeks Surg - right eye cataract extraction, tonsillectomy Famhx - father (hepatitis), brother (myelodysplastic disease, 17 PRBC transfusions), sister (DM), Meds - Novolog Flexipen 8,8,10 units TID, Levemir 20 units HS, ASA 81 mg PO daily, Vasotec 2.5 mg PO daily Allergies - amoxicillin (rash) Social - no smoking, alcohol, or drug abuse history. of cancer as well. PMD: Dr. Ly Patient's family: Michelle [phone] Present on Admission - Present on Admission Any Indicators Present on Admission: No Review of Systems - Constitutional Constitutional: Frequent Falls, Weakness. absent: Chills, Fever - EENT Eyes: absent: Blurred Vision, Change in Vision - Cardiovascular Cardiovascular: absent: Chest Pain, Chest Pain at Rest, Diaphoresis - Respiratory Respiratory: Cough. absent: Dyspnea, Wheezing, Pain on Inspiration, Chest Congestion, Pain with Coughing - Gastrointestinal Gastrointestinal: absent: Abdominal Pain, Constipation, Diarrhea, Nausea, Vomiting - Genitourinary Genitourinary: absent: Change in Urinary Stream, Difficulty Urinating - Musculoskeletal Musculoskeletal: absent: Muscle Weakness, Numbness, Tingling - Neurological Neurological: Dizziness. absent: Numbness - Hematologic/Lymphatic Hematologic: absent: Easy Bleeding, Easy Bruising Past Patient History - Infectious Disease Hx of Infectious Diseases: None - Tetanus Immunizations Tetanus Immunization: Unknown - Past Medical History & Family History Past Medical History?: Yes - Past Social History Smoking Status: Never Smoked - CARDIAC Hx Hypertension: No - PULMONARY Hx Bronchitis: Yes Hx Pneumonia: Yes - NEUROLOGICAL Hx Alzheimer's Disease: Yes Hx Dementia: Yes - HEENT Hx HEENT Problems: Yes Hx Cataracts: Yes (BOTH EYES) - RENAL Hx Chronic Kidney Disease: No - ENDOCRINE/METABOLIC Hx Diabetes Mellitus Type 2: Yes (IDDM) - HEMATOLOGICAL/ONCOLOGICAL Hx Anemia: Yes - INTEGUMENTARY Hx Dermatological Problems: No - MUSCULOSKELETAL/RHEUMATOLOGICAL Hx Arthritis: Yes (KNEE; BACK PAIN) - GASTROINTESTINAL Hx Gastrointestinal Disorders: No - GENITOURINARY/GYNECOLOGICAL Hx Genitourinary Disorders: No - PSYCHIATRIC Hx Substance Use: No - SURGICAL HISTORY Hx Tonsillectomy: Yes - ANESTHESIA Hx Anesthesia: Yes Hx Anesthesia Reactions: No Hx Malignant Hyperthermia: No Meds Allergies/Adverse Reactions: Allergies Allergy/AdvReac Type Severity Reaction Status Date / Time amoxicillin Allergy RASH Verified 05/30/17 19:52 Physical Exam - Constitutional Appears: Non-toxic, No Acute Distress - Head Exam Head Exam: ATRAUMATIC, NORMAL INSPECTION - Eye Exam Eye Exam: EOMI - ENT Exam ENT Exam: Mucous Membranes Moist - Respiratory Exam Respiratory Exam: Clear to Auscultation Bilateral, NORMAL BREATHING PATTERN. absent: Respiratory Distress - Cardiovascular Exam Cardiovascular Exam: REGULAR RHYTHM, +S1, +S2 - GI/Abdominal Exam GI & Abdominal Exam: Normal Bowel Sounds, Soft. absent: Distended, Guarding, Tenderness - Extremities Exam Extremities exam: Positive for: normal inspection - Back Exam Back exam: NORMAL INSPECTION. absent: CVA tenderness (L), CVA tenderness (R), paraspinal tenderness - Neurological Exam Neurological exam: Alert, CN II-XII Intact, Oriented x3 - Psychiatric Exam Psychiatric exam: Normal Affect, Normal Mood - Skin Skin Exam: Dry, Intact, Normal Color, Warm Results - Vital Signs Recent Vital Signs: Last Vital Signs Temp 97.8 F 06/18/17 12:39 Pulse 94 H 06/18/17 15:27 Resp 16 06/18/17 15:27 BP 116/50 L 06/18/17 15:27 Pulse Ox 100 06/18/17 15:27 - Labs Result Diagrams: 06/18/17 13:22 06/18/17 13:22 Labs: Laboratory Results - last 24 hr 06/18/17 06/18/17 06/18/17 13:08 13:22 13:22 WBC 2.5 L D RBC 1.91 L Hgb 7.4 L D Hct 21.0 L MCV 109.8 H D MCH 39.0 H MCHC 35.5 RDW 21.4 H Plt Count 170 D MPV 9.9 Neut % (Auto) 64.0 Lymph % (Auto) 23.8 [place] % (Auto) 5.2 Eos % (Auto) 5.0 H Baso % (Auto) 2.0 Neut # 1.6 L Lymph # 0.6 L [place] # 0.1 Eos # 0.1 Baso # 0.1 Differential Comment PT 14.6 H INR 1.3 APTT 32 Sodium Potassium Chloride Carbon Dioxide Anion Gap BUN Creatinine Est GFR ( Amer) Est GFR (Non-Af Amer) POC Glucose (mg/dL) 75 Random Glucose Calcium Total Bilirubin AST ALT Alkaline Phosphatase Total Creatine Kinase CK-MB (Mass) Troponin I Total Protein Albumin Globulin Albumin/Globulin Ratio Blood Type Antibody Screen 06/18/17 06/18/17 13:22 13:22 WBC RBC Hgb Hct MCV MCH MCHC RDW Plt Count MPV Neut % (Auto) Lymph % (Auto) [place] % (Auto) Eos % (Auto) Baso % (Auto) Neut # Lymph # [place] # Eos # Baso # Differential Comment PT INR APTT Sodium 131 L Potassium 3.9 Chloride 95 L Carbon Dioxide 29 Anion Gap 11 BUN 17 Creatinine 1.0 Est GFR ( Amer) > 60 Est GFR (Non-Af Amer) 52 POC Glucose (mg/dL) Random Glucose 89 Calcium 8.8 Total Bilirubin 0.8 AST 17 ALT 25 Alkaline Phosphatase 77 Total Creatine Kinase 20 L CK-MB (Mass) < 0.22 Troponin I 0.0130 Total Protein 7.4 Albumin 3.9 Globulin 3.6 Albumin/Globulin Ratio 1.1 Blood Type O POSITIVE Antibody Screen Positive Assessment & Plan - Assessment and Plan (Free Text) Assessment: Symptomatic Anemia Hgb - 7.4 Will transfuse 2 U PRBC and recheck Hgb f/u type and screen EKG - NSR, nonspecific changes HR 88 Trop negative f/u am/repeat labs per family was given Iron yesterday in Dr. Adames's office MDS Following with Dr. Adames for chemo Dr. Adames consulted, help appreciated DM Lantus 10 U SC HS Novolog 3 U SC TID [facility] RISS Hypoglycemia protocol Lisionpril 2.5 mg PO daily CAD Aspirin 81 mg PO daily Prophylaxic Measures Pepcid Heparin 5000 U SC Q12 Consistent carb diet Admit to telemetry <RasheedPeter H - Last Filed: 06/19/17 07:41> Results - Vital Signs Recent Vital Signs: Last Vital Signs Temp 98.1 F 06/19/17 04:44 Pulse 87 06/19/17 04:44 Resp 20 06/19/17 04:44 BP 156/81 H 06/19/17 04:44 Pulse Ox 98 06/18/17 16:42 - Labs Result Diagrams: 06/18/17 13:22 06/18/17 13:22 Labs: Laboratory Results - last 24 hr 06/18/17 06/18/17 06/18/17 13:08 13:22 13:22 WBC 2.5 L D RBC 1.91 L Hgb 7.4 L D Hct 21.0 L MCV 109.8 H D MCH 39.0 H MCHC 35.5 RDW 21.4 H Plt Count 170 D MPV 9.9 Neut % (Auto) 64.0 Lymph % (Auto) 23.8 [place] % (Auto) 5.2 Eos % (Auto) 5.0 H Baso % (Auto) 2.0 Neut # 1.6 L Lymph # 0.6 L [place] # 0.1 Eos # 0.1 Baso # 0.1 Differential Comment PT 14.6 H INR 1.3 APTT 32 Sodium Potassium Chloride Carbon Dioxide Anion Gap BUN Creatinine Est GFR ( Amer) Est GFR (Non-Af Amer) POC Glucose (mg/dL) 75 Random Glucose Calcium Total Bilirubin AST ALT Alkaline Phosphatase Total Creatine Kinase CK-MB (Mass) Troponin I Total Protein Albumin Globulin Albumin/Globulin Ratio Urine Color Urine Clarity Urine pH Ur Specific [place] Urine Protein Urine Glucose (UA) Urine Ketones Urine Blood Urine Nitrate Urine Bilirubin Urine Urobilinogen Ur Leukocyte Esterase Urine WBC (Auto) Urine RBC (Auto) Ur Squamous Epith Cells Blood Type Antibody Screen Antibody Identification 06/18/17 06/18/17 06/18/17 13:22 13:22 15:47 WBC RBC Hgb Hct MCV MCH MCHC RDW Plt Count MPV Neut % (Auto) Lymph % (Auto) [place] % (Auto) Eos % (Auto) Baso % (Auto) Neut # Lymph # [place] # Eos # Baso # Differential Comment PT INR APTT Sodium 131 L Potassium 3.9 Chloride 95 L Carbon Dioxide 29 Anion Gap 11 BUN 17 Creatinine 1.0 Est GFR ( Amer) > 60 Est GFR (Non-Af Amer) 52 POC Glucose (mg/dL) Random Glucose 89 Calcium 8.8 Total Bilirubin 0.8 AST 17 ALT 25 Alkaline Phosphatase 77 Total Creatine Kinase 20 L CK-MB (Mass) < 0.22 Troponin I 0.0130 Total Protein 7.4 Albumin 3.9 Globulin 3.6 Albumin/Globulin Ratio 1.1 Urine Color Yellow Urine Clarity Clear Urine pH 6.0 Ur Specific [place] 1.012 Urine Protein Negative Urine Glucose (UA) Normal Urine Ketones Negative Urine Blood Negative Urine Nitrate Negative Urine Bilirubin Negative Urine Urobilinogen Normal Ur Leukocyte Esterase 1+ H Urine WBC (Auto) 4 Urine RBC (Auto) < 1 Ur Squamous Epith Cells 2 Blood Type O POSITIVE Antibody Screen Positive Antibody Identification Non Specific Antibody 06/18/17 06/18/17 06/19/17 17:58 21:32 06:20 WBC RBC Hgb Hct MCV MCH MCHC RDW Plt Count MPV Neut % (Auto) Lymph % (Auto) [place] % (Auto) Eos % (Auto) Baso % (Auto) Neut # Lymph # [place] # Eos # Baso # Differential Comment PT INR APTT Sodium Potassium Chloride Carbon Dioxide Anion Gap BUN Creatinine Est GFR ( Amer) Est GFR (Non-Af Amer) POC Glucose (mg/dL) 198 H 212 H 111 H Random Glucose Calcium Total Bilirubin AST ALT Alkaline Phosphatase Total Creatine Kinase CK-MB (Mass) Troponin I Total Protein Albumin Globulin Albumin/Globulin Ratio Urine Color Urine Clarity Urine pH Ur Specific [place] Urine Protein Urine Glucose (UA) Urine Ketones Urine Blood Urine Nitrate Urine Bilirubin Urine Urobilinogen Ur Leukocyte Esterase Urine WBC (Auto) Urine RBC (Auto) Ur Squamous Epith Cells Blood Type Antibody Screen Antibody Identification Attending/Attestation - Attestation I have personally seen and examined this patient.: Yes I have fully participated in the care of the patient.: Yes I have reviewed all pertinent clinical information: Yes Notes (Text): Medical Attending: Patient was seen and examined by me. Agree with the above note by the resident. The patient is a very pleasant 86 year old female with a history of MDS and maybe leukemia. The patient is getting chemo therapy and was told by her cash office worker/oncologist to come to the hospital after it was found out she has Hgb in 7.0, in the ER a recheck was done and was 7.3. The patient also has a history of DM as well as dementia. The patient has had multiple transfusion in the past. thank you Mio Rasheed
[2017-06-18 15:55] LABS: SQUAMOUS EPITHIAL 2 /hpf (0-5); URINE BILIRUBIN NEGATIVE (NEGATIVE); URINE BLOOD NEGATIVE (NEGATIVE); URINE CLARITY Clear (Clear); URINE COLOR Yellow (YELLOW); URINE GLUCOSE (UA) NORMAL (Normal); URINE LEUKOCYTE ESTERASE 1+ Leu/uL (Negative); URINE NITRATE NEGATIVE (NEGATIVE); URINE PROTEIN NEGATIVE (NEGATIVE); URINE UROBILINOGEN NORMAL mg/dL (0.2-1.0)
[2017-06-18] MEDS ORDERED: Glucagon Recombinant 1 mg Inj IM PRN (16:04)
[2017-06-18] MEDS ORDERED: Dextrose 50% SYRINGE Inj (50 ml) IVP PRN (16:04)
--- NOTE | 2017-06-18 16:58 | RAD ---
PROCEDURE: CHEST RADIOGRAPH, 1 VIEW HISTORY: SOB COMPARISON: Comparison is made to 05/30/2017 FINDINGS: LUNGS: No significant interval change in the lungs noted since the previous exam. PLEURA: No pneumothorax or pleural fluid seen. CARDIOVASCULAR: Normal. OSSEOUS STRUCTURES: No significant abnormalities. VISUALIZED UPPER ABDOMEN: Normal. OTHER FINDINGS: Right-sided Infusaport is seen in place. IMPRESSION: No active disease.
[2017-06-18] MEDS ORDERED: (Novolog) Insulin Aspart, Recombinant 100 u/ml 10 ml vial SC SCH (18:00)
--- NOTE | 2017-06-18 19:11 | CP.PCM.CON ---
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 The patient was brought to my office yesterday by her daughter for increasing fatigue and falling asleep. We abram blood work which revealed a hgb of 7 and told her to come to the hospital for a blood transfusion. She denies abnormal bleeding and bruising She does admit to some fatigue but states she feels okay. Past medical history: MDS Past surgical history: None Family history: Denies hematologic and oncologic problems Social history: Denies tobacco, alcohol, and illicit drug use. Allergies: Amoxicillin Review of systems: All remaining review of systems including HEENT, cardiovascular, respiratory, gastrointestinal, genitourinary, musculoskeletal, dermatologic, neurologic, and psychiatric are negative unless mentioned in the HPI. Past Patient History - Infectious Disease Hx of Infectious Diseases: None - Tetanus Immunizations Tetanus Immunization: Unknown - Past Medical History & Family History Past Medical History?: Yes - Past Social History Smoking Status: Never Smoked - CARDIAC Hx Hypertension: No - PULMONARY Hx Bronchitis: Yes Hx Pneumonia: Yes - NEUROLOGICAL Hx Alzheimer's Disease: Yes Hx Dementia: Yes - HEENT Hx HEENT Problems: Yes Hx Cataracts: Yes (BOTH EYES) - RENAL Hx Chronic Kidney Disease: No - ENDOCRINE/METABOLIC Hx Diabetes Mellitus Type 2: Yes (IDDM) - HEMATOLOGICAL/ONCOLOGICAL Hx Anemia: Yes - INTEGUMENTARY Hx Dermatological Problems: No - MUSCULOSKELETAL/RHEUMATOLOGICAL Hx Arthritis: Yes (KNEE; BACK PAIN) Hx Falls: Yes - GASTROINTESTINAL Hx Gastrointestinal Disorders: No - GENITOURINARY/GYNECOLOGICAL Hx Genitourinary Disorders: No - PSYCHIATRIC Hx Substance Use: No - SURGICAL HISTORY Hx Tonsillectomy: Yes - ANESTHESIA Hx Anesthesia: Yes Hx Anesthesia Reactions: No Hx Malignant Hyperthermia: No Meds Allergies/Adverse Reactions: Allergies Allergy/AdvReac Type Severity Reaction Status Date / Time amoxicillin Allergy RASH Verified 05/30/17 19:52 - Medications Medications: Current Medications Aspirin (Aspirin Chewable) 81 mg PO DAILY [facility] Dextrose (Dextrose 50% Inj) 0 ml IVP .STAT PRN; Protocol PRN Reason: Hypoglycemia Protocol Dextrose (Glutose 15) 0 gm PO .ONCE PRN; Protocol PRN Reason: Hypoglycemia Protocol Famotidine (Pepcid) 20 mg PO BID [facility] Glucagon (Glucagen Diagnostic Kit) 0 mg IM .STAT PRN; Protocol PRN Reason: Hypoglycemia Protocol Heparin Sodium (Porcine) (Heparin) 5,000 units SC Q12 [facility] Dextrose (Dextrose 5% In Water 1000 Ml) 1,000 mls @ 0 mls/hr IV .Q0M PRN; Protocol; Per Protocol PRN Reason: Hypoglycemia Protocol Insulin Aspart (Novolog) 3 unit SC TID [facility] Last Admin: 06/18/17 18:41 Dose: 3 unit Insulin Detemir (Levemir) 10 unit SC HS [facility] Lisinopril (Zestril) 2.5 mg PO DAILY [facility] Physical Exam - Head Exam Head Exam: ATRAUMATIC - Eye Exam Eye Exam: Normal appearance - ENT Exam ENT Exam: Mucous Membranes Dry - Respiratory Exam Respiratory Exam: NORMAL BREATHING PATTERN - Cardiovascular Exam Cardiovascular Exam: +S1, +S2 - GI/Abdominal Exam GI & Abdominal Exam: Normal Bowel Sounds - Extremities Exam Extremities exam: Positive for: normal inspection - Neurological Exam Neurological exam: Oriented x3 - Psychiatric Exam Psychiatric exam: Normal Affect, Normal Mood - Skin Skin Exam: Warm Results - Vital Signs Recent Vital Signs: Last Vital Signs Temp 97.8 F 06/18/17 12:39 Pulse 88 06/18/17 16:42 Resp 16 06/18/17 16:42 BP 117/50 L 06/18/17 16:42 Pulse Ox 98 06/18/17 16:42 - Labs Result Diagrams: 06/18/17 13:22 06/18/17 13:22 Labs: Laboratory Results - last 24 hr 06/18/17 06/18/17 06/18/17 13:08 13:22 13:22 WBC 2.5 L D RBC 1.91 L Hgb 7.4 L D Hct 21.0 L MCV 109.8 H D MCH 39.0 H MCHC 35.5 RDW 21.4 H Plt Count 170 D MPV 9.9 Neut % (Auto) 64.0 Lymph % (Auto) 23.8 [place] % (Auto) 5.2 Eos % (Auto) 5.0 H Baso % (Auto) 2.0 Neut # 1.6 L Lymph # 0.6 L [place] # 0.1 Eos # 0.1 Baso # 0.1 Differential Comment PT 14.6 H INR 1.3 APTT 32 Sodium Potassium Chloride Carbon Dioxide Anion Gap BUN Creatinine Est GFR ( Amer) Est GFR (Non-Af Amer) POC Glucose (mg/dL) 75 Random Glucose Calcium Total Bilirubin AST ALT Alkaline Phosphatase Total Creatine Kinase CK-MB (Mass) Troponin I Total Protein Albumin Globulin Albumin/Globulin Ratio Urine Color Urine Clarity Urine pH Ur Specific [place] Urine Protein Urine Glucose (UA) Urine Ketones Urine Blood Urine Nitrate Urine Bilirubin Urine Urobilinogen Ur Leukocyte Esterase Urine WBC (Auto) Urine RBC (Auto) Ur Squamous Epith Cells Blood Type Antibody Screen Antibody Identification 06/18/17 06/18/17 06/18/17 13:22 13:22 15:47 WBC RBC Hgb Hct MCV MCH MCHC RDW Plt Count MPV Neut % (Auto) Lymph % (Auto) [place] % (Auto) Eos % (Auto) Baso % (Auto) Neut # Lymph # [place] # Eos # Baso # Differential Comment PT INR APTT Sodium 131 L Potassium 3.9 Chloride 95 L Carbon Dioxide 29 Anion Gap 11 BUN 17 Creatinine 1.0 Est GFR ( Amer) > 60 Est GFR (Non-Af Amer) 52 POC Glucose (mg/dL) Random Glucose 89 Calcium 8.8 Total Bilirubin 0.8 AST 17 ALT 25 Alkaline Phosphatase 77 Total Creatine Kinase 20 L CK-MB (Mass) < 0.22 Troponin I 0.0130 Total Protein 7.4 Albumin 3.9 Globulin 3.6 Albumin/Globulin Ratio 1.1 Urine Color Yellow Urine Clarity Clear Urine pH 6.0 Ur Specific [place] 1.012 Urine Protein Negative Urine Glucose (UA) Normal Urine Ketones Negative Urine Blood Negative Urine Nitrate Negative Urine Bilirubin Negative Urine Urobilinogen Normal Ur Leukocyte Esterase 1+ H Urine WBC (Auto) 4 Urine RBC (Auto) < 1 Ur Squamous Epith Cells 2 Blood Type O POSITIVE Antibody Screen Positive Antibody Identification Non Specific Antibody Assessment & Plan (1) Anemia Assessment and Plan: secondary to MDS for 2U PRBC will give 1 dose of procrit 20,000 outpatient hypomethylating agent treatment Status: Acute (2) Leukopenia Assessment and Plan: mild secondary to MDS outpatient f/u Thank you for this interesting consult. Status: Acute
[2017-06-18] MEDS ORDERED: Epoetin Alfa Dialysis 20000 UNIT/ML Inj SC ONE (20:30)
[2017-06-18] MEDS ORDERED: Insulin Detemir 100 units/ml Vial (Levemir) SC SCH (22:00)
--- NOTE | 2017-06-19 08:09 | CP.PCM.PN ---
Subjective - Date & Time of Evaluation Date of Evaluation: 06/19/17 Time of Evaluation: 08:00 - Subjective Subjective: Medicine progress note for Dr. Rasheed: Patient was seen and examined at bedside this morning. Objective - Vital Signs/Intake and Output Vital Signs (last 24 hours): Temp Pulse Resp BP Pulse Ox 98.1 F 87 20 156/81 H 98 06/19/17 04:44 06/19/17 04:44 06/19/17 04:44 06/19/17 04:44 06/18/17 16:42 Intake and Output: 06/19/17 06/19/17 06:59 18:59 Intake Total 1120 Balance 1120 - Medications Medications: Current Medications Aspirin (Aspirin Chewable) 81 mg PO DAILY [facility] Dextrose (Dextrose 50% Inj) 0 ml IVP .STAT PRN; Protocol PRN Reason: Hypoglycemia Protocol Dextrose (Glutose 15) 0 gm PO .ONCE PRN; Protocol PRN Reason: Hypoglycemia Protocol Famotidine (Pepcid) 20 mg PO BID [facility] Last Admin: 06/19/17 00:11 Dose: 20 mg Glucagon (Glucagen Diagnostic Kit) 0 mg IM .STAT PRN; Protocol PRN Reason: Hypoglycemia Protocol Heparin Sodium (Porcine) (Heparin) 5,000 units SC Q12 [facility] Last Admin: 06/18/17 21:15 Dose: 5,000 units Dextrose (Dextrose 5% In Water 1000 Ml) 1,000 mls @ 0 mls/hr IV .Q0M PRN; Protocol; Per Protocol PRN Reason: Hypoglycemia Protocol Insulin Aspart (Novolog) 3 unit SC TID [facility] Last Admin: 06/18/17 18:41 Dose: 3 unit Insulin Detemir (Levemir) 10 unit SC HS [facility] Last Admin: 06/18/17 21:48 Dose: 10 unit Lisinopril (Zestril) 2.5 mg PO DAILY [facility] - Labs Labs: 06/18/17 13:22 06/18/17 13:22 PT 14.6 SECONDS (9.7-12.2) H 06/18/17 13:22 INR 1.3 06/18/17 13:22 APTT 32 SECONDS (21-34) 06/18/17 13:22 - Constitutional Appears: Non-toxic, No Acute Distress - Head Exam Head Exam: ATRAUMATIC, NORMAL INSPECTION - Eye Exam Eye Exam: EOMI - ENT Exam ENT Exam: Mucous Membranes Moist - Neck Exam Neck Exam: Normal Inspection - Respiratory Exam Respiratory Exam: Clear to Ausculation Bilateral, NORMAL BREATHING PATTERN. absent: Respiratory Distress - Cardiovascular Exam Cardiovascular Exam: REGULAR RHYTHM, +S1, +S2 - GI/Abdominal Exam GI & Abdominal Exam: Soft, Normal Bowel Sounds. absent: Distended, Firm, Guarding, Tenderness - Extremities Exam Extremities Exam: Normal Inspection. absent: Calf Tenderness - Back Exam Back Exam: NORMAL INSPECTION - Neurological Exam Neurological Exam: Alert, Awake, CN II-XII Intact, Oriented x3 - Psychiatric Exam Psychiatric exam: Normal Affect, Normal Mood - Skin Skin Exam: Dry, Intact, Normal Color, Warm Assessment and Plan - Assessment and Plan (Free Text) Assessment: Symptomatic Anemia Hgb - 7.4 Will transfuse 2 U PRBC and recheck Hgb f/u type and screen EKG - NSR, nonspecific changes HR 88 Trop negative f/u am/repeat labs per family was given Iron yesterday in Dr. Adames's office MDS Following with Dr. Adames for chemo Dr. Adames consulted, help appreciated DM Lantus 10 U SC HS Novolog 3 U SC TID [facility] RISS Hypoglycemia protocol Lisionpril 2.5 mg PO daily CAD Aspirin 81 mg PO daily Prophylaxic Measures Pepcid Heparin 5000 U SC Q12 Consistent carb diet
[2017-06-19 09:24] LABS: EOS # 0.2 K/uL (0.0-0.7); EOS % 6.5 % (0.0-4.0); MEAN CORPUSCULAR HEMOGLOBIN 35.6 pg (27.0-31.0); MEAN CORPUSCULAR HGB CONC 35.7 g/dL (33.0-37.0); MEAN PLATELET VOLUME 10.1 fL (7.2-11.7); MONO # 0.2 K/uL (0.0-0.8); MONO % 6.4 % (0.0-10.0); NEUT # 1.4 K/uL (1.8-7.0); NEUT % 51.1 % (50.0-75.0); NRBC % 0.1 % (0.0-2.0); RBC 2.99 Mil/uL (3.80-5.20); RED CELL DISTRIBUTION WIDTH 24.6 % (11.5-14.5); WHITE BLOOD COUNT 2.8 K/uL (4.8-10.8)
[2017-06-19 09:31] LABS: HEMOGLOBIN 10.6 g/dL (11.0-16.0); MEAN CELL VOLUME 99.7 fL (81.0-99.0)
[2017-06-19 09:48] LABS: ALB/GLOB RATIO 1.1 (1.0-2.1); ALBUMIN 3.9 g/dL (3.5-5.0); ALT/SGPT 20 U/L (9-52); AST/SGOT 21 U/L (14-36); BLOOD UREA NITROGEN 17 mg/dL (7-17); CALCIUM 8.3 mg/dl (8.6-10.4); GFR AFRICAN-AMERICAN > 60; GFR NON-AFRICAN AMERICAN 52; MAGNESIUM 1.8 mg/dL (1.6-2.3)
[2017-06-19 10:14] LABS: CK-MB < 0.22 ng/mL (0.0-3.38)
--- NOTE | 2017-06-19 11:03 | CP.PCM.DIS ---
<Nery Altamirano - Last Filed: 06/19/17 11:19> Provider - Provider Date of Admission: 06/18/17 15:09 Attending physician: Mio Rasheed DO Primary care physician: Dr. Ly Consults: Dr. Adames - heme/onc Time Spent in preparation of Discharge (in minutes): 35 Diagnosis - Discharge Diagnosis (1) Anemia Status: Acute (2) Myelodysplastic syndrome Status: Acute Hospital Course - Lab Results Lab Results: Most Recent Lab Values WBC 2.8 K/uL (4.8-10.8) L 06/19/17 09:14 RBC 2.99 Mil/uL (3.80-5.20) L 06/19/17 09:14 Hgb 10.6 g/dL (11.0-16.0) L D 06/19/17 09:14 Hct 29.8 % (34.0-47.0) L 06/19/17 09:14 MCV 99.7 fL (81.0-99.0) H D 06/19/17 09:14 MCH 35.6 pg (27.0-31.0) H 06/19/17 09:14 MCHC 35.7 g/dL (33.0-37.0) 06/19/17 09:14 RDW 24.6 % (11.5-14.5) H 06/19/17 09:14 Plt Count 183 K/uL (130-400) 06/19/17 09:14 MPV 10.1 fL (7.2-11.7) 06/19/17 09:14 Neut % (Auto) 51.1 % (50.0-75.0) 06/19/17 09:14 Lymph % (Auto) 35.0 % (20.0-40.0) 06/19/17 09:14 [place] % (Auto) 6.4 % (0.0-10.0) 06/19/17 09:14 Eos % (Auto) 6.5 % (0.0-4.0) H 06/19/17 09:14 Baso % (Auto) 1.0 % (0.0-2.0) 06/19/17 09:14 Neut # 1.4 K/uL (1.8-7.0) L 06/19/17 09:14 Lymph # 1.0 K/uL (1.0-4.3) 06/19/17 09:14 [place] # 0.2 K/uL (0.0-0.8) 06/19/17 09:14 Eos # 0.2 K/uL (0.0-0.7) 06/19/17 09:14 Baso # 0.0 K/uL (0.0-0.2) 06/19/17 09:14 Differential Comment 06/18/17 13:22 PT 14.6 SECONDS (9.7-12.2) H 06/18/17 13:22 INR 1.3 06/18/17 13:22 APTT 32 SECONDS (21-34) 06/18/17 13:22 Sodium 130 mmol/L (132-148) L 06/19/17 09:14 Potassium 4.1 mmol/L (3.6-5.2) 06/19/17 09:14 Chloride 96 mmol/L (98-107) L 06/19/17 09:14 Carbon Dioxide 29 mmol/L (22-30) 06/19/17 09:14 Anion Gap 10 (10-20) 06/19/17 09:14 BUN 17 mg/dL (7-17) 06/19/17 09:14 Creatinine 1.0 mg/dL (0.7-1.2) 06/19/17 09:14 Est GFR ( Amer) > 60 06/19/17 09:14 Est GFR (Non-Af Amer) 52 06/19/17 09:14 POC Glucose (mg/dL) 111 mg/dL (65-110) H 06/19/17 06:20 Random Glucose 162 mg/dL (65-105) H 06/19/17 09:14 Calcium 8.3 mg/dl (8.6-10.4) L 06/19/17 09:14 Phosphorus 3.4 mg/dL (2.5-4.5) 06/19/17 09:14 Magnesium 1.8 mg/dL (1.6-2.3) 06/19/17 09:14 Total Bilirubin 1.4 mg/dL (0.2-1.3) H 06/19/17 09:14 AST 21 U/L (14-36) 06/19/17 09:14 ALT 20 U/L (9-52) 06/19/17 09:14 Alkaline Phosphatase 77 U/L (38-126) 06/19/17 09:14 Total Creatine Kinase 20 U/L (30-135) L 06/19/17 09:14 CK-MB (Mass) < 0.22 ng/mL (0.0-3.38) 06/19/17 09:14 Troponin I < 0.0120 ng/mL (0.00-0.120) 06/19/17 09:14 Total Protein 7.2 g/dL (6.3-8.3) 06/19/17 09:14 Albumin 3.9 g/dL (3.5-5.0) 06/19/17 09:14 Globulin 3.4 gm/dL (2.2-3.9) 06/19/17 09:14 Albumin/Globulin Ratio 1.1 (1.0-2.1) 06/19/17 09:14 Urine Color Yellow (YELLOW) 06/18/17 15:47 Urine Clarity Clear (Clear) 06/18/17 15:47 Urine pH 6.0 (5.0-8.0) 06/18/17 15:47 Ur Specific [place] 1.012 (1.003-1.030) 06/18/17 15:47 Urine Protein Negative mg/dL (NEGATIVE) 06/18/17 15:47 Urine Glucose (UA) Normal mg/dL (Normal) 06/18/17 15:47 Urine Ketones Negative mg/dL (NEGATIVE) 06/18/17 15:47 Urine Blood Negative (NEGATIVE) 06/18/17 15:47 Urine Nitrate Negative (NEGATIVE) 06/18/17 15:47 Urine Bilirubin Negative (NEGATIVE) 06/18/17 15:47 Urine Urobilinogen Normal mg/dL (0.2-1.0) 06/18/17 15:47 Ur Leukocyte Esterase 1+ Sandar/uL (Negative) H 06/18/17 15:47 Urine WBC (Auto) 4 /hpf (0-5) 06/18/17 15:47 Urine RBC (Auto) < 1 /hpf (0-3) 06/18/17 15:47 Ur Squamous Epith Cells 2 /hpf (0-5) 06/18/17 15:47 Blood Type O POSITIVE 06/18/17 13:22 Antibody Screen Positive 06/18/17 13:22 Antibody Identification Non Specific Antibody 06/18/17 13:22 - Hospital Course Hospital Course: On admission: Patient is 86 yo female with past medical history of IDDM , HTN, myelodysplastic disease, hypercholesterolemia, dementia presenting with chief complaint of low hemoglobin on her labs. She was seen by Dr. Adames yesterday, who suggested the patient go to the ER due to her hemoglobin level being 7. She was also given an epogen shot. Currently the patient is resting comfortably and she denies any fever, chills, chest pain, shortness of breath, N /V, diarrhea/constipation. Per the family the patient had an episodes yesterday where she was awake but seemed to "zone out" for a bit which she has done before when her hemoglobin was low in the past. She has had blood transfusion in the past for anemia. Patient was due for her next round of chemo this Tuesday. She has been receiving chemo for about 4-5 months in the office of Dr. Dann Adames. During hospital stay: Patient hgb was 7.4. Patient was admitted to telemetry and was given 2 units of PRBC. Hgb improved to 10.6 and patient was asymptomatic. Dr. Adames saw the patient and gave her a dose of procrit. She is to follow up outpatient. Patient is stable for discharge home today. Patient is to follow up with her primary care doctor and with Dr. Adames within one week of discharge. She is to resume all of her home medications. No new medications were prescribed during her hospital stay. Patient is to take over the counter cough medicine as needed for cough. Patient is to return to the emergency room if symptoms return. All instructions explained to the patient and her daughter and they agree. Discharge Exam - Head Exam Head Exam: ATRAUMATIC - Eye Exam Eye Exam: EOMI, Normal appearance Pupil Exam: NORMAL ACCOMODATION - ENT Exam ENT Exam: Mucous Membranes Moist - Respiratory Exam Respiratory Exam: Clear to PA & Lateral, NORMAL BREATHING PATTERN. absent: Respiratory Distress - Cardiovascular Exam Cardiovascular Exam: REGULAR RHYTHM, +S1, +S2 - GI/Abdominal Exam GI & Abdominal Exam: Normal Bowel Sounds, Soft, Unremarkable. absent: Tenderness - Extremities Exam Extremities exam: normal inspection - Back Exam Back exam: NORMAL INSPECTION - Neurological Exam Neurological exam: Alert, CN II-XII Intact, Oriented x3 - Psychiatric Exam Psychiatric exam: Normal Affect, Normal Mood - Skin Skin Exam: Dry, Intact, Normal Color, Warm Discharge Plan - Follow Up Plan Condition: STABLE Disposition: HOME/ ROUTINE Instructions: Iron Rich Diet (DC), Anemia (DC) Additional Instructions: Patient is stable for discharge home today. Patient is to follow up with her primary care doctor and with Dr. Adames within one week of discharge. She is to resume all of her home medications. No new medications were prescribed during her hospital stay. Patient is to take over the counter cough medicine as needed for cough. Patient is to return to the emergency room if symptoms return. All instructions explained to the patient and her daughter and they agree. Referrals: Dann Adames MD [Staff Provider] - <Mio Rasheed - Last Filed: 06/19/17 15:10> Provider - Provider Date of Admission: 06/18/17 15:09 Attending physician: Mio Rasheed DO Hospital Course - Lab Results Lab Results: Most Recent Lab Values WBC 2.8 K/uL (4.8-10.8) L 06/19/17 09:14 RBC 2.99 Mil/uL (3.80-5.20) L 06/19/17 09:14 Hgb 10.6 g/dL (11.0-16.0) L D 06/19/17 09:14 Hct 29.8 % (34.0-47.0) L 06/19/17 09:14 MCV 99.7 fL (81.0-99.0) H D 06/19/17 09:14 MCH 35.6 pg (27.0-31.0) H 06/19/17 09:14 MCHC 35.7 g/dL (33.0-37.0) 06/19/17 09:14 RDW 24.6 % (11.5-14.5) H 06/19/17 09:14 Plt Count 183 K/uL (130-400) 06/19/17 09:14 MPV 10.1 fL (7.2-11.7) 06/19/17 09:14 Neut % (Auto) 51.1 % (50.0-75.0) 06/19/17 09:14 Lymph % (Auto) 35.0 % (20.0-40.0) 06/19/17 09:14 [place] % (Auto) 6.4 % (0.0-10.0) 06/19/17 09:14 Eos % (Auto) 6.5 % (0.0-4.0) H 06/19/17 09:14 Baso % (Auto) 1.0 % (0.0-2.0) 06/19/17 09:14 Neut # 1.4 K/uL (1.8-7.0) L 06/19/17 09:14 Lymph # 1.0 K/uL (1.0-4.3) 06/19/17 09:14 [place] # 0.2 K/uL (0.0-0.8) 06/19/17 09:14 Eos # 0.2 K/uL (0.0-0.7) 06/19/17 09:14 Baso # 0.0 K/uL (0.0-0.2) 06/19/17 09:14 Differential Comment 06/18/17 13:22 PT 14.6 SECONDS (9.7-12.2) H 06/18/17 13:22 INR 1.3 06/18/17 13:22 APTT 32 SECONDS (21-34) 06/18/17 13:22 Sodium 130 mmol/L (132-148) L 06/19/17 09:14 Potassium 4.1 mmol/L (3.6-5.2) 06/19/17 09:14 Chloride 96 mmol/L (98-107) L 06/19/17 09:14 Carbon Dioxide 29 mmol/L (22-30) 06/19/17 09:14 Anion Gap 10 (10-20) 06/19/17 09:14 BUN 17 mg/dL (7-17) 06/19/17 09:14 Creatinine 1.0 mg/dL (0.7-1.2) 06/19/17 09:14 Est GFR ( Amer) > 60 06/19/17 09:14 Est GFR (Non-Af Amer) 52 06/19/17 09:14 POC Glucose (mg/dL) 240 mg/dL (65-110) H 06/19/17 11:53 Random Glucose 162 mg/dL (65-105) H 06/19/17 09:14 Calcium 8.3 mg/dl (8.6-10.4) L 06/19/17 09:14 Phosphorus 3.4 mg/dL (2.5-4.5) 06/19/17 09:14 Magnesium 1.8 mg/dL (1.6-2.3) 06/19/17 09:14 Total Bilirubin 1.4 mg/dL (0.2-1.3) H 06/19/17 09:14 AST 21 U/L (14-36) 06/19/17 09:14 ALT 20 U/L (9-52) 06/19/17 09:14 Alkaline Phosphatase 77 U/L (38-126) 06/19/17 09:14 Total Creatine Kinase 20 U/L (30-135) L 06/19/17 09:14 CK-MB (Mass) < 0.22 ng/mL (0.0-3.38) 06/19/17 09:14 Troponin I < 0.0120 ng/mL (0.00-0.120) 06/19/17 09:14 Total Protein 7.2 g/dL (6.3-8.3) 06/19/17 09:14 Albumin 3.9 g/dL (3.5-5.0) 06/19/17 09:14 Globulin 3.4 gm/dL (2.2-3.9) 06/19/17 09:14 Albumin/Globulin Ratio 1.1 (1.0-2.1) 06/19/17 09:14 Urine Color Yellow (YELLOW) 06/18/17 15:47 Urine Clarity Clear (Clear) 06/18/17 15:47 Urine pH 6.0 (5.0-8.0) 06/18/17 15:47 Ur Specific [place] 1.012 (1.003-1.030) 06/18/17 15:47 Urine Protein Negative mg/dL (NEGATIVE) 06/18/17 15:47 Urine Glucose (UA) Normal mg/dL (Normal) 06/18/17 15:47 Urine Ketones Negative mg/dL (NEGATIVE) 06/18/17 15:47 Urine Blood Negative (NEGATIVE) 06/18/17 15:47 Urine Nitrate Negative (NEGATIVE) 06/18/17 15:47 Urine Bilirubin Negative (NEGATIVE) 06/18/17 15:47 Urine Urobilinogen Normal mg/dL (0.2-1.0) 06/18/17 15:47 Ur Leukocyte Esterase 1+ Sandra/uL (Negative) H 06/18/17 15:47 Urine WBC (Auto) 4 /hpf (0-5) 06/18/17 15:47 Urine RBC (Auto) < 1 /hpf (0-3) 06/18/17 15:47 Ur Squamous Epith Cells 2 /hpf (0-5) 06/18/17 15:47 Blood Type O POSITIVE 06/18/17 13:22 Antibody Screen Positive 06/18/17 13:22 Antibody Identification Non Specific Antibody 06/18/17 13:22 Attending/Attestation - Attestation I have personally seen and examined this patient.: Yes I have fully participated in the care of the patient.: Yes I have reviewed all pertinent clinical information, including history, physical exam and plan: Yes Notes (Text): 06/19/17 15:10 Medical attending: Patient was seen and examined by me. Agree with the above note by the resident On physical exam we also walked the patient in the hallway. She did quite well she did not need any assistance. She was able to walk from her room all the way up to the nurses station in the back on her own without any assistance. She denied having shortness of breath, denied chest pain, denied palpitations, denied abdominal pain, denied dizziness, denied lightheadedness when she was walking. Her telemetry is stable when she walked out to the nurses station. The heart rate remained in the 80s. The hemoglobin after 2 units of blood increased to 10.6. 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
[2017-06-19] MEDS ORDERED: (Novolog) Insulin Aspart, Recombinant 100 u/ml 10 ml vial SC SCH (12:00)
[2017-06-19 14:41] VITALS: BP 95/53; PULSE 71; RESP 18; TEMP 97.9; O2SAT 95
--- NOTE | 2017-06-21 12:48 | CARD ---
APPROVED REPORT EKG Measurement Heart [id number] <Conclusion> Normal sinus rhythm Nonspecific T wave abnormality Abnormal ECG
--- NOTE | 2017-06-21 12:48 | CARD ---
APPROVED REPORT EKG Measurement Heart [id number] <Conclusion> Normal sinus rhythm Nonspecific T wave abnormality Abnormal ECG
== END 2017-06-19 15:30 | disposition home or self-care (01) ==
LOC: C.ER 12:34 → C.9E 15:09 → C.3T 15:09 → C.6T 18:09
PROVIDERS: ADMIT Hospitalist; ATTEND Hospitalist
DX: D64.9 Anemia, unspecified (principal); E11.9 Type 2 diabetes mellitus without complications; E78.00 Pure hypercholesterolemia, unspecified; G30.9 Alzheimer's disease, unspecified; I10 Essential (primary) hypertension; F02.80 Dementia in other diseases classified elsewhere, unspecified severity, without behavioral disturbance, psychotic disturbance, mood disturbance, and anxiety; Z79.4 Long term (current) use of insulin; Z85.6 Personal history of leukemia; Z87.01 Personal history of pneumonia (recurrent); D46.9 Myelodysplastic syndrome, unspecified
CPT/HCPCS: 36415; 36430; 71010; 80053; 81001; 82550; 82553; 82948; 83735; 84100; 84484; 85025; 85610; 85730; 86850; 86870; 86900; 86905; 86920; 86922; 93005; 99283; G0378; J1642; J1644; P9051; Q4081

== ENCOUNTER 2017-08-26 16:29 | Inpatient (IN) | payer MEDICARE ==
[2017-08-26 16:29] VITALS: BMI 23.8
--- NOTE | 2017-08-26 17:23 | C.PDOC ---
History Of Present Illness 87 year old female with a PMHx of leukemia and myelodysplastic syndrome, brought in to the ER by family after an episode of blanking out. Daughter states this occurs when patient has low hemoglobin. Last chemotherapy was in May. Per family patient is mildly confused at baseline. Patient denies any complaints at this time. Time Seen by Provider: 08/26/17 17:13 Chief Complaint (Nursing): Abnormal Labs History Per: Family History/Exam Limitations: no limitations Past Medical History Reviewed: Historical Data, Nursing Documentation, Vital Signs Vital Signs: Last Vital Signs Temp 97.8 F 08/26/17 19:39 Pulse 86 08/26/17 19:39 Resp 18 08/26/17 19:39 BP 134/63 08/26/17 19:39 Pulse Ox 98 08/26/17 19:39 - Medical History PMH: Alzheimer's Disease, Anemia, Arthritis (KNEE; BACK PAIN), Bronchitis, Dementia, Diabetes, Malignancy (Myelodysplastic), Pneumonia Denies: HTN, Chronic Kidney Disease Surgical History: [facility] Procedures INSERT INFUSION DEV IN R INT JUGULAR VEIN, PERC (11/25/16) INSERTION OF VAD INTO CHEST SUBCU/FASCIA, OPEN APPROACH (11/25/16) INTRODUCE OF OTH THERAP SUBST INTO RESP TRACT, VIA OPENING (08/14/16) TRANSFUSE NONAUT RED BLOOD CELLS IN PERIPH VEIN, PERC (12/24/16) Family History: States: Unknown Family Hx - Social History Hx Alcohol Use: No Hx Substance Use: No - Immunization History Hx Tetanus Toxoid Vaccination: No Hx Influenza Vaccination: Yes Hx Pneumococcal Vaccination: No Review Of Systems Except As Marked, All Systems Reviewed And Found Negative. Constitutional: Negative for: Fever, Chills Cardiovascular: Negative for: Chest Pain Respiratory: Negative for: Shortness of Breath Gastrointestinal: Negative for: Vomiting Neurological: Positive for: Other (episode of blanking out) Physical Exam - Physical Exam Appears: Non-toxic, No Acute Distress Skin: Normal Color, Warm, Dry Head: Atraumatic, Normacephalic Eye(s): bilateral: Normal Inspection, PERRL, EOMI Nose: Normal Oral Mucosa: Moist Neck: Normal ROM, Supple Chest: Symmetrical Cardiovascular: Rhythm Regular, No Murmur Respiratory: Normal Breath Sounds, No Accessory Muscle Use Gastrointestinal/Abdominal: Soft, No Tenderness, No Distention Back: Normal Inspection, No CVA Tenderness, No Vertebral Tenderness Extremity: Bilateral: Atraumatic, Normal Color And Temperature, Normal ROM Neurological/Psych: Oriented x3, Normal Speech ED Course And Treatment - Laboratory Results Result Diagrams: 08/26/17 17:27 08/26/17 17:27 O2 Sat by Pulse Oximetry: 98 (RA) Pulse Ox Interpretation: Normal - Other Rad CXR X-Ray: Viewed By Me, Read By Radiologist Interpretation: FINDINGS: Examination limited by habitus. Right sided central venous catheter extends the expected location of the cavoatrial junction. LUNGS : Mild biapical pleural thickening. Subtle patchy opacity in the right lower lobe may reflect infiltrate. Minimal left basilar atelectasis. Please note that chest x-ray has limited sensitivity for the detection of pulmonary masses. PLEURA: No significant pleural effusion identified. No definite pneumothorax . CARDIOVASCULAR: Mild cardiomegaly. Atherosclerotic calcifications. OSSEOUS STRUCTURES: Degenerative changes. VISUALIZED UPPER ABDOMEN: Unremarkable. OTHER FINDINGS: None. IMPRESSION: Right-sided central venous catheter extends the expected location of the cavoatrial junction. Mild cardiomegaly. Atherosclerotic calcifications. Subtle patchy opacity in the right lower lobe may reflect infiltrate. Minimal left basilar atelectasis. Mild biapical pleural thickening. - CT Scan/US CT Head Other Rad Studies (CT/US): Read By Radiologist, Radiology Report Reviewed CT/US Interpretation: FINDINGS: HEMORRHAGE: No intracranial hemorrhage. BRAIN : Diffuse atrophy with prominence of the ventricles and sulci noted. No mass effect or edema. Dense intracranial atherosclerosis. Moderate scattered periventricular and subcortical white matter hypodensities, which are nonspecific, but often seen with chronic microvascular ischemic disease. Please note that MRI with diffusion imaging is more sensitive in the detection of acute ischemic event. VENTRICLES: No hydrocephalus. CALVARIUM: Unremarkable. PARANASAL SINUSES: Unremarkable as visualized. No significant inflammatory changes. MASTOID AIR CELLS: Unremarkable as visualized. No inflammatory changes. OTHER FINDINGS: None. IMPRESSION: Moderate nonspecific white matter changes. Generalized atrophy. Medical Decision Making Medical Decision Making: Time: 17:19 Initial Plan: * EKG * CMP * Troponin I * CBC * PTT * Prothrombin time * Chest x-ray * Urinalysis * CT Head W/O contrast Labs reviewed: Hemoglobin is 7.9. 18:[address] Ly, patient will be admitted inpatient for anemia and pneumonia Disposition Discussed With : Gamal Ly Doctor Will See Patient In The: Hospital Counseled Patient/Family Regarding: Studies Performed, Diagnosis - Disposition Disposition: HOSPITALIZED Disposition Time: 18:16 Condition: FAIR - Clinical Impression Clinical Impression: Anemia, Pneumonia - Scribe Statement The provider has reviewed the documentation as recorded by the Keaton Hernandez Provider Attestation: All medical record entries made by the Amauriibjeanette were at my direction and personally dictated by me. I have reviewed the chart and agree that the record accurately reflects my personal performance of the history, physical exam, medical decision making, and the department course for this patient. I have also personally directed, reviewed, and agree with the discharge instructions and disposition. Decision To Admit - Pt Status Changed To: Hospital Disposition Of: Inpatient - Admit Certification Admit to Inpatient:: After my assessment, the patient will require hospitalization for at least two midnights. This is because of the severity of symptoms shown, intensity of services needed, and/or the medical risk in this patient being treated as an outpatient. - InPatient: Physician Admission Certification: I certify that this patient requires 2 or more midnights of care for the following reason:: needs admission for pna, iv antbiotics and transfuion - . Bed Request Type: Regular Admitting Physician: Gamal Ly Patient Diagnosis: Anemia, Pneumonia
[2017-08-26 17:30] LABS: BASO # 0.1 K/uL (0.0-0.2); BASO % 1.7 % (0.0-2.0); EOS # 0.3 K/uL (0.0-0.7); EOS % 4.9 % (0.0-4.0); LYMPH # 1.6 K/uL (1.0-4.3); LYMPH % 28.4 % (20.0-40.0); MEAN CORPUSCULAR HEMOGLOBIN 39.3 pg (27.0-31.0); MEAN CORPUSCULAR HGB CONC 34.9 g/dL (33.0-37.0); MEAN PLATELET VOLUME 9.8 fL (7.2-11.7); MONO # 0.3 K/uL (0.0-0.8); NEUT # 3.4 K/uL (1.8-7.0); NRBC % 0.1 % (0.0-2.0); RBC 2.02 Mil/uL (3.80-5.20); RED CELL DISTRIBUTION WIDTH 22.6 % (11.5-14.5)
[2017-08-26 17:32] LABS: HEMOGLOBIN 7.9 g/dL (11.0-16.0); MEAN CELL VOLUME 112.7 fL (81.0-99.0); WHITE BLOOD COUNT 5.7 K/uL (4.8-10.8)
[2017-08-26 17:39] LABS: INR 1.2; PROTHROMBIN TIME 13.2 SECONDS (9.7-12.2)
[2017-08-26 17:49] LABS: ALB/GLOB RATIO 1.1 (1.0-2.1); ALBUMIN 3.9 g/dL (3.5-5.0); ALT/SGPT 37 U/L (9-52); AST/SGOT 27 U/L (14-36); BLOOD UREA NITROGEN 29 mg/dL (7-17); CALCIUM 9.2 mg/dl (8.6-10.4); GFR AFRICAN-AMERICAN 51; GFR NON-AFRICAN AMERICAN 42
--- NOTE | 2017-08-26 18:06 | CT ---
PROCEDURE: CT HEAD WITHOUT CONTRAST. HISTORY: syncope COMPARISON: None available. TECHNIQUE: Axial computed tomography images were obtained through the head/brain without intravenous contrast. Radiation dose: Total exam DLP = 909.03 mGy-cm. This CT exam was performed using one or more of the following dose reduction techniques: Automated exposure control, adjustment of the mA and/or kV according to patient size, and/or use of iterative reconstruction technique. FINDINGS: HEMORRHAGE: No intracranial hemorrhage. BRAIN: Diffuse atrophy with prominence of the ventricles and sulci noted. No mass effect or edema. Dense intracranial atherosclerosis. Moderate scattered periventricular and subcortical white matter hypodensities, which are nonspecific, but often seen with chronic microvascular ischemic disease. Please note that MRI with diffusion imaging is more sensitive in the detection of acute ischemic event. VENTRICLES: No hydrocephalus. CALVARIUM: Unremarkable. PARANASAL SINUSES: Unremarkable as visualized. No significant inflammatory changes. MASTOID AIR CELLS: Unremarkable as visualized. No inflammatory changes. OTHER FINDINGS: None. IMPRESSION: Moderate nonspecific white matter changes. Generalized atrophy.
--- NOTE | 2017-08-26 18:09 | RAD ---
HISTORY: chest pain COMPARISON: Chest x-ray performed 06/18/17 TECHNIQUE: Chest, one view. FINDINGS: Examination limited by habitus. Right sided central venous catheter extends the expected location of the cavoatrial junction. LUNGS: Mild biapical pleural thickening. Subtle patchy opacity in the right lower lobe may reflect infiltrate. Minimal left basilar atelectasis. Please note that chest x-ray has limited sensitivity for the detection of pulmonary masses. PLEURA: No significant pleural effusion identified. No definite pneumothorax . CARDIOVASCULAR: Mild cardiomegaly. Atherosclerotic calcifications. OSSEOUS STRUCTURES: Degenerative changes. VISUALIZED UPPER ABDOMEN: Unremarkable. OTHER FINDINGS: None. IMPRESSION: Right-sided central venous catheter extends the expected location of the cavoatrial junction. Mild cardiomegaly. Atherosclerotic calcifications. Subtle patchy opacity in the right lower lobe may reflect infiltrate. Minimal left basilar atelectasis. Mild biapical pleural thickening.
[2017-08-26] MEDS ORDERED: Ciprofloxacin 400mg/200ml D5W 400 MG/200 ML BAG IVPB STA (18:13)
[2017-08-26] MEDS ORDERED: Ciprofloxacin 400mg/200ml D5W 400 MG/200 ML BAG IVPB ONE (19:18)
[2017-08-26] MEDS ORDERED: Vancomycin 1 gm/NS 200 ml 1 GM/200 ML BAG IVPB STA (19:40)
[2017-08-26 20:21] LABS: SQUAMOUS EPITHIAL 4 /hpf (0-5); URINE BILIRUBIN NEGATIVE (NEGATIVE); URINE BLOOD NEGATIVE (NEGATIVE); URINE CLARITY Clear (Clear); URINE COLOR Yellow (YELLOW); URINE GLUCOSE (UA) NORMAL (Normal); URINE LEUKOCYTE ESTERASE 1+ Leu/uL (Negative); URINE PROTEIN NEGATIVE (NEGATIVE); URINE UROBILINOGEN NORMAL mg/dL (0.2-1.0)
[2017-08-26] MEDS: (Novolog) Insulin Aspart, Recombinant 100 u/ml 10 ml vial SC SCH (22:02)
[2017-08-26] MEDS: Insulin Detemir 100 units/ml Vial (Levemir) SC SCH (22:12)
[2017-08-27] MEDS ORDERED: Pneumococcal 23-Valent Vaccine IM ONE (00:21)
[2017-08-27] MEDS: (Novolog) Insulin Aspart, Recombinant 100 u/ml 10 ml vial SC SCH ×7 (08:22→21:57)
[2017-08-27] MEDS ORDERED: MUPIROCIN 2% EXT SCH (10:00)
[2017-08-27] MEDS: Enoxaparin 40 mg Syringe SC SCH (10:27)
[2017-08-27] MEDS: Multivitamin With Minerals Tab PO SCH (10:27)
--- NOTE | 2017-08-27 18:55 | CP.PCM.CON ---
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 The patient has been off treatment for about 3 months as her daughter reports she was requiring more transfusions while on treatment. She denies abnormal bleeding and bruising She does admit to some fatigue but states she feels okay. She is s/p 2U PRBC and reports to feeling better. Past medical history: MDS Past surgical history: None Family history: Denies hematologic and oncologic problems Social history: Denies tobacco, alcohol, and illicit drug use. Allergies: Amoxicillin Review of systems: All remaining review of systems including HEENT, cardiovascular, respiratory, gastrointestinal, genitourinary, musculoskeletal, dermatologic, neurologic, and psychiatric are negative unless mentioned in the HPI. Past Patient History - Infectious Disease Hx of Infectious Diseases: None - Tetanus Immunizations Tetanus Immunization: Unknown - Past Medical History & Family History Past Medical History?: Yes - Past Social History Smoking Status: Never Smoked - CARDIAC Hx Hypertension: No - PULMONARY Hx Bronchitis: Yes Hx Pneumonia: Yes - NEUROLOGICAL Hx Alzheimer's Disease: Yes Hx Dementia: Yes - HEENT Hx HEENT Problems: Yes Hx Cataracts: Yes (BOTH EYES) - RENAL Hx Chronic Kidney Disease: No - ENDOCRINE/METABOLIC Hx Diabetes Mellitus Type 2: Yes (IDDM) - HEMATOLOGICAL/ONCOLOGICAL Hx Anemia: Yes Hx Blood Transfusions: Yes Hx Leukemia: Yes - INTEGUMENTARY Hx Dermatological Problems: No - MUSCULOSKELETAL/RHEUMATOLOGICAL Hx Arthritis: Yes (KNEE; BACK PAIN) - GASTROINTESTINAL Hx Gastrointestinal Disorders: No - GENITOURINARY/GYNECOLOGICAL Hx Genitourinary Disorders: No - PSYCHIATRIC Hx Substance Use: No - SURGICAL HISTORY Hx Tonsillectomy: Yes Other/Comment: Matias Cath [id number] - ANESTHESIA Hx Anesthesia: Yes Hx Anesthesia Reactions: No Hx Malignant Hyperthermia: No Meds Allergies/Adverse Reactions: Allergies Allergy/AdvReac Type Severity Reaction Status Date / Time amoxicillin Allergy Mild RASH Verified 08/26/17 16:39 - Medications Medications: Current Medications Aspirin (Aspirin Chewable) 81 mg PO DAILY [facility] Last Admin: 08/27/17 10:25 Dose: 81 mg Enoxaparin Sodium (Lovenox) 40 mg SC DAILY [facility] Last Admin: 08/27/17 10:27 Dose: 40 mg Insulin Aspart (Novolog) 8 unit SC TIDAC [facility] Last Admin: 08/27/17 16:55 Dose: Not Given Insulin Aspart (Novolog) 0 unit SC ACHS [facility] PRN Reason: Protocol Last Admin: 08/27/17 16:59 Dose: Not Given Insulin Detemir (Levemir) 10 unit SC HS [facility] Last Admin: 08/26/17 22:12 Dose: 10 unit Lisinopril (Zestril) 2.5 mg PO DAILY [facility] Last Admin: 08/27/17 10:27 Dose: 2.5 mg Moxifloxacin HCl (Avelox) 400 mg PO DAILY [facility] PRN Reason: Protocol Last Admin: 08/27/17 10:25 Dose: 400 mg Multivitamins/Minerals (Therapeutic-M Tab) 1 tab PO DAILY [facility] Last Admin: 08/27/17 10:27 Dose: 1 tab Physical Exam - Head Exam Head Exam: ATRAUMATIC - Eye Exam Eye Exam: Normal appearance - ENT Exam ENT Exam: Mucous Membranes Dry - Respiratory Exam Respiratory Exam: NORMAL BREATHING PATTERN - Cardiovascular Exam Cardiovascular Exam: +S1, +S2 - GI/Abdominal Exam GI & Abdominal Exam: Normal Bowel Sounds Results - Vital Signs Recent Vital Signs: Last Vital Signs Temp 97.9 F 08/27/17 16:00 Pulse 78 08/27/17 16:00 Resp 20 08/27/17 16:00 BP 119/67 08/27/17 16:00 Pulse Ox 98 08/27/17 16:00 - Labs Result Diagrams: 08/26/17 17:27 08/26/17 17:27 Labs: Laboratory Results - last 24 hr 08/26/17 08/26/17 08/26/17 17:55 20:07 21:44 POC Glucose (mg/dL) 113 H Urine Color Yellow Urine Clarity Clear Urine pH 5.0 Ur Specific Elkins 1.014 Urine Protein Negative Urine Glucose (UA) Normal Urine Ketones Negative Urine Blood Negative Urine Nitrate Negative Urine Bilirubin Negative Urine Urobilinogen Normal Ur Leukocyte Esterase 1+ H Urine WBC (Auto) 10 H Urine RBC (Auto) 1 Ur Squamous Epith Cells 4 Blood Type O POSITIVE Antibody Screen Positive Antibody Identification Non Specific Antibody 08/27/17 08/27/17 08/27/17 07:17 11:34 16:36 POC Glucose (mg/dL) 148 H 163 H 95 Urine Color Urine Clarity Urine pH Ur Specific Elkins Urine Protein Urine Glucose (UA) Urine Ketones Urine Blood Urine Nitrate Urine Bilirubin Urine Urobilinogen Ur Leukocyte Esterase Urine WBC (Auto) Urine RBC (Auto) Ur Squamous Epith Cells Blood Type Antibody Screen Antibody Identification Assessment & Plan (1) Anemia Assessment and Plan: secondary to MDS s/p 2U PRBC repeat CBC in AM Status: Acute (2) Myelodysplastic syndrome Assessment and Plan: 5q- deferred Revlimid due to DVT risk on intermittent hypomethylating agent will discuss resuming treatment as outpatient Thank you for this interesting consult. Status: Acute
[2017-08-27] MEDS: Insulin Detemir 100 units/ml Vial (Levemir) SC SCH (22:11)
[2017-08-28 07:18] LABS: BASO # 0.1 K/uL (0.0-0.2); BASO % 1.5 % (0.0-2.0); EOS # 0.6 K/uL (0.0-0.7); EOS % 9.5 % (0.0-4.0); LYMPH # 1.4 K/uL (1.0-4.3); LYMPH % 23.6 % (20.0-40.0); MEAN CORPUSCULAR HEMOGLOBIN 36.8 pg (27.0-31.0); MEAN CORPUSCULAR HGB CONC 36.2 g/dL (33.0-37.0); MONO # 0.5 K/uL (0.0-0.8); MONO % 9.1 % (0.0-10.0); NEUT # 3.3 K/uL (1.8-7.0); NEUT % 56.3 % (50.0-75.0); NRBC % 0.1 % (0.0-2.0); RBC 2.93 Mil/uL (3.80-5.20); WHITE BLOOD COUNT 5.8 K/uL (4.8-10.8)
[2017-08-28 07:24] LABS: HEMOGLOBIN 10.8 g/dL (11.0-16.0); MEAN CELL VOLUME 101.9 fL (81.0-99.0)
[2017-08-28] MEDS: (Novolog) Insulin Aspart, Recombinant 100 u/ml 10 ml vial SC SCH ×7 (08:01→21:57)
[2017-08-28] MEDS: Multivitamin With Minerals Tab PO SCH (09:40)
[2017-08-28] MEDS: Enoxaparin 40 mg Syringe SC SCH (09:40)
--- NOTE | 2017-08-28 21:19 | CP.PCM.PN ---
Subjective - Date & Time of Evaluation Date of Evaluation: 08/28/17 Time of Evaluation: 17:00 - Subjective Subjective: Feeling better s/p 2U PRBC Objective - Vital Signs/Intake and Output Vital Signs (last 24 hours): Temp Pulse Resp BP Pulse Ox 98.2 F 74 20 123/62 97 08/28/17 15:53 08/28/17 15:53 08/28/17 15:53 08/28/17 15:53 08/28/17 15:53 Intake and Output: 08/28/17 08/29/17 18:59 06:59 Intake Total 800 Balance 800 - Medications Medications: Current Medications Aspirin (Aspirin Chewable) 81 mg PO DAILY [facility] Last Admin: 08/28/17 09:39 Dose: 81 mg Enoxaparin Sodium (Lovenox) 40 mg SC DAILY [facility] Last Admin: 08/28/17 09:40 Dose: 40 mg Insulin Aspart (Novolog) 8 unit SC TIDAC [facility] Last Admin: 08/28/17 11:57 Dose: 8 unit Insulin Aspart (Novolog) 0 unit SC ACHS [facility] PRN Reason: Protocol Last Admin: 08/28/17 11:57 Dose: Not Given Insulin Detemir (Levemir) 10 unit SC HS [facility] Last Admin: 08/27/17 22:11 Dose: 10 unit Lisinopril (Zestril) 2.5 mg PO DAILY [facility] Last Admin: 08/28/17 09:40 Dose: 2.5 mg Moxifloxacin HCl (Avelox) 400 mg PO DAILY [facility] PRN Reason: Protocol Last Admin: 08/28/17 09:40 Dose: 400 mg Multivitamins/Minerals (Therapeutic-M Tab) 1 tab PO DAILY [facility] Last Admin: 08/28/17 09:40 Dose: 1 tab - Labs Labs: 08/28/17 07:04 08/26/17 17:27 PT 13.2 SECONDS (9.7-12.2) H 08/26/17 17:27 INR 1.2 08/26/17 17:27 APTT 22 SECONDS (21-34) 08/26/17 17:27 - Head Exam Head Exam: ATRAUMATIC - Eye Exam Eye Exam: Normal appearance - ENT Exam ENT Exam: Mucous Membranes Dry - Respiratory Exam Respiratory Exam: NORMAL BREATHING PATTERN - Cardiovascular Exam Cardiovascular Exam: +S1, +S2 - GI/Abdominal Exam GI & Abdominal Exam: Normal Bowel Sounds Assessment and Plan (1) Anemia Assessment & Plan: secondary to MDS s/p 2U PRBC Status: Acute (2) Myelodysplastic syndrome Assessment & Plan: outpatient treatment Status: Acute
[2017-08-28] MEDS: Insulin Detemir 100 units/ml Vial (Levemir) SC SCH (21:55)
[2017-08-29] MEDS: (Novolog) Insulin Aspart, Recombinant 100 u/ml 10 ml vial SC SCH ×7 (08:12→21:50)
[2017-08-29] MEDS: Multivitamin With Minerals Tab PO SCH (09:58)
[2017-08-29] MEDS: Enoxaparin 40 mg Syringe SC SCH (09:58)
--- NOTE | 2017-08-29 11:06 | HP ---
HISTORY OF PRESENT ILLNESS: An 87 year-old female with history of diabetes, myelodysplastic syndrome, admitted to the hospital with chief complaint of weakness, fatigue, tiredness. The patient is thought to have anemia. PHYSICAL EXAMINATION: GENERAL: The patient is awake, alert and oriented. VITAL SIGNS: Temperature 98 and pulse 90. HEENT: Within normal limits. NECK: Supple. CHEST: Symmetrical. HEART: Regular. ABDOMEN: Soft. EXTREMITIES: No edema. IMPRESSION: The patient has some myelodysplastic syndrome, severe anemia. PLAN: The patient to get bedrest, supportive care. Gamal Ly MD
--- NOTE | 2017-08-29 12:07 | CP.PCM.PN ---
Subjective - Date & Time of Evaluation Date of Evaluation: 08/29/17 Time of Evaluation: 09:45 - Subjective Subjective: PGY-[address] Ly Patient seen and examined at bedside. No acute events reported overnight. Patient is resting in bed comfortably. She reports to be eating and drinking well. Patient denies further syncopal episodes. She also denies having headache , dizziness, shortness of breath, chest pain, nausea, or vomiting. Patient had a code star at 12:28PM. She was sitting on edge of bed and slipped off, landing on her right arm. Patient denies hitting her head or loss of consciousness before or after the fall. Patient denies dizziness or lightheadedness. 08/29/17 15:23 On reassessment, patient now has right sided facial ecchymosis which was not there previously. The ecchymosis is tender to the touch. Patient insists on saying she did not injure her head/face from the fall. Objective - Vital Signs/Intake and Output Vital Signs (last 24 hours): Temp Pulse Resp BP Pulse Ox 98.2 F 81 20 140/73 97 08/29/17 07:48 08/29/17 07:48 08/29/17 07:48 08/29/17 07:48 08/29/17 07:48 Intake and Output: 08/29/17 08/29/17 06:59 18:59 Intake Total 500 Balance 500 - Medications Medications: Current Medications Aspirin (Aspirin Chewable) 81 mg PO DAILY [facility] Last Admin: 08/29/17 09:58 Dose: 81 mg Enoxaparin Sodium (Lovenox) 40 mg SC DAILY [facility] Last Admin: 08/29/17 09:58 Dose: 40 mg Insulin Aspart (Novolog) 8 unit SC TIDAC [facility] Last Admin: 08/29/17 08:13 Dose: Not Given Insulin Aspart (Novolog) 0 unit SC ACHS [facility] PRN Reason: Protocol Last Admin: 08/29/17 08:12 Dose: Not Given Insulin Detemir (Levemir) 10 unit SC HS [facility] Last Admin: 08/28/17 21:55 Dose: 10 unit Lisinopril (Zestril) 2.5 mg PO DAILY [facility] Last Admin: 08/29/17 09:58 Dose: 2.5 mg Moxifloxacin HCl (Avelox) 400 mg PO DAILY [facility] PRN Reason: Protocol Last Admin: 08/29/17 10:01 Dose: 400 mg Multivitamins/Minerals (Therapeutic-M Tab) 1 tab PO DAILY [facility] Last Admin: 08/29/17 09:58 Dose: 1 tab - Labs Labs: 08/28/17 07:04 08/26/17 17:27 PT 13.2 SECONDS (9.7-12.2) H 08/26/17 17:27 INR 1.2 08/26/17 17:27 APTT 22 SECONDS (21-34) 08/26/17 17:27 - Constitutional Appears: Well, No Acute Distress - Head Exam Head Exam: ATRAUMATIC, NORMAL INSPECTION - Eye Exam Eye Exam: EOMI - ENT Exam ENT Exam: Mucous Membranes Moist - Neck Exam Neck Exam: Full ROM, Normal Inspection. absent: Lymphadenopathy - Respiratory Exam Respiratory Exam: Clear to Ausculation Bilateral, NORMAL BREATHING PATTERN - Cardiovascular Exam Cardiovascular Exam: REGULAR RHYTHM, +S1, +S2. absent: Murmur - GI/Abdominal Exam GI & Abdominal Exam: Soft, Normal Bowel Sounds. absent: Tenderness - Extremities Exam Extremities Exam: Normal Inspection, Tenderness (tenderness at mid-humerus). absent: Full ROM (limited range of motion due to pain, no deformity appreciated) , Joint Swelling - Back Exam Back Exam: absent: tenderness - Neurological Exam Neurological Exam: Alert, Awake, CN II-XII Intact, Oriented x3. absent: Motor Sensory Deficit Neuro motor strength exam: Left Upper Extremity: 5, Right Upper Extremity: 5, Left Lower Extremity: 5, Right Lower Extremity: 5 - Psychiatric Exam Psychiatric exam: Normal Affect, Normal Mood - Skin Skin Exam: Dry, Intact, Normal Color, Warm Assessment and Plan - Assessment and Plan (Free Text) Assessment: Symptomatic Anemia -Likely secondary to MDS -S/P 2 units of PRBC -Hgb 10.8 today -Trop negative MDS -Heme/onc consult, Dr. Adames -Following with Dr. Adames further outpatient treatment Mechanical fall -Follow up right humerus x-ray -Follow up Head CT -Motrin po prn DM -Levemir 10 U SC HS -Novolog 8 U SC TIDAC -[facility]ISS -Hypoglycemia protocol -Lisionpril 2.5 mg PO daily -Aspirin 81 mg PO daily Prophylaxic Measures -Protonix 40mg daily -Lovenox 40mg sc daily -Consistent carb diet Case discussed with attending Dr. Ly, all management per Dr. Ly
--- NOTE | 2017-08-29 12:40 | CP.PCM.PN ---
Subjective - Date & Time of Evaluation Date of Evaluation: 08/29/17 Time of Evaluation: 12:38 - Subjective Subjective: CODE [place] House doctor note Patient seen and examined. Patient laying on floor with head on pillow. Per patient, she was sitting on edge of bed and slipped off, landing on right arm. Patient reports pain with motion of right arm and points to mid- humerus. Patient denies hitting her head during fall or loss of consciousness. Blood glucose 280 on fingerstick. Patient denies dizziness or lightheadedness. Patient denies pain anywhere in body besides right arm. Cranial nerve examination normal. Patient does not fully rotate right shoulder due to pain. Patient assisted back to bed where she is resting comfortably. Humerus xray ordered. Attending physician notified. Objective - Vital Signs/Intake and Output Vital Signs (last 24 hours): Temp Pulse Resp BP Pulse Ox 98.2 F 81 20 140/73 97 08/29/17 07:48 08/29/17 07:48 08/29/17 07:48 08/29/17 07:48 08/29/17 07:48 Intake and Output: 08/29/17 08/29/17 06:59 18:59 Intake Total 500 Balance 500 - Medications Medications: Current Medications Aspirin (Aspirin Chewable) 81 mg PO DAILY [facility] Last Admin: 08/29/17 09:58 Dose: 81 mg Enoxaparin Sodium (Lovenox) 40 mg SC DAILY [facility] Last Admin: 08/29/17 09:58 Dose: 40 mg Insulin Aspart (Novolog) 8 unit SC TIDAC [facility] Last Admin: 08/29/17 12:17 Dose: 8 unit Insulin Aspart (Novolog) 0 unit SC ACHS [facility] PRN Reason: Protocol Last Admin: 08/29/17 12:17 Dose: 4 unit Insulin Detemir (Levemir) 10 unit SC HS [facility] Last Admin: 08/28/17 21:55 Dose: 10 unit Lisinopril (Zestril) 2.5 mg PO DAILY [facility] Last Admin: 08/29/17 09:58 Dose: 2.5 mg Moxifloxacin HCl (Avelox) 400 mg PO DAILY [facility] PRN Reason: Protocol Last Admin: 08/29/17 10:01 Dose: 400 mg Multivitamins/Minerals (Therapeutic-M Tab) 1 tab PO DAILY [facility] Last Admin: 08/29/17 09:58 Dose: 1 tab - Labs Labs: 08/28/17 07:04 08/26/17 17:27 PT 13.2 SECONDS (9.7-12.2) H 08/26/17 17:27 INR 1.2 08/26/17 17:27 APTT 22 SECONDS (21-34) 08/26/17 17:27
--- NOTE | 2017-08-29 16:25 | RAD ---
PROCEDURE: Radiographs of the right humerus. . HISTORY: code star, mechanical fall on right shoulder COMPARISON: None. FINDINGS: BONES: Comminuted proximal humeral fracture involving neck and head. Mildly impacted. Minimally angulated no dislocation. SOFT TISSUES: Normal. OTHER FINDINGS: None. IMPRESSION: Comminuted impacted proximal humeral fracture.
--- NOTE | 2017-08-29 16:38 | CARD ---
APPROVED REPORT EKG Measurement Heart [id number] <Conclusion> Normal sinus rhythm ST & T wave abnormality, consider lateral ischemia Abnormal ECG
--- NOTE | 2017-08-29 17:24 | CT ---
PROCEDURE: CT HEAD WITHOUT CONTRAST. HISTORY: S/P Code star, facial trauma COMPARISON: Noncontrast head CT performed 08/26/17 TECHNIQUE: Axial computed tomography images were obtained through the head/brain without intravenous contrast. Radiation dose: Total exam DLP = 758.23 mGy-cm. This CT exam was performed using one or more of the following dose reduction techniques: Automated exposure control, adjustment of the mA and/or kV according to patient size, and/or use of iterative reconstruction technique. FINDINGS: HEMORRHAGE: No intracranial hemorrhage. BRAIN: Diffuse atrophy with prominence of the ventricles and sulci noted. No mass effect or edema. Dense intracranial atherosclerosis. Scattered periventricular and subcortical white matter hypodensities, which are nonspecific, but often seen with chronic microvascular ischemic disease. Please note that MRI with diffusion imaging is more sensitive in the detection of acute ischemic event. VENTRICLES: No hydrocephalus. CALVARIUM: Unremarkable. PARANASAL SINUSES: Unremarkable as visualized. No significant inflammatory changes. MASTOID AIR CELLS: Unremarkable as visualized. No inflammatory changes. OTHER FINDINGS: None. IMPRESSION: Nonspecific white matter changes. Generalized atrophy.
--- NOTE | 2017-08-29 21:18 | CP.PCM.PN ---
Subjective - Date & Time of Evaluation Date of Evaluation: 08/29/17 Time of Evaluation: 20:15 - Subjective Subjective: Has right shoulder pain. Xray reveals humeral fracture Objective - Vital Signs/Intake and Output Vital Signs (last 24 hours): Temp Pulse Resp BP Pulse Ox 97.9 F 79 20 178/79 H 99 08/29/17 16:00 08/29/17 16:00 08/29/17 16:00 08/29/17 16:00 08/29/17 16:00 Intake and Output: 08/29/17 08/30/17 18:59 06:59 Intake Total 400 Balance 400 - Medications Medications: Current Medications Aspirin (Aspirin Chewable) 81 mg PO DAILY [facility] Last Admin: 08/29/17 09:58 Dose: 81 mg Enoxaparin Sodium (Lovenox) 40 mg SC DAILY [facility] Last Admin: 08/29/17 09:58 Dose: 40 mg Ibuprofen (Motrin Tab) 400 mg PO Q6 PRN PRN Reason: Pain, moderate (4-7) Last Admin: 08/29/17 20:28 Dose: 400 mg Insulin Aspart (Novolog) 8 unit SC TIDAC [facility] Last Admin: 08/29/17 18:01 Dose: 8 unit Insulin Aspart (Novolog) 0 unit SC ACHS [facility] PRN Reason: Protocol Last Admin: 08/29/17 18:02 Dose: Not Given Insulin Detemir (Levemir) 10 unit SC HS [facility] Last Admin: 08/28/17 21:55 Dose: 10 unit Lisinopril (Zestril) 2.5 mg PO DAILY [facility] Last Admin: 08/29/17 09:58 Dose: 2.5 mg Moxifloxacin HCl (Avelox) 400 mg PO DAILY [facility] PRN Reason: Protocol Last Admin: 08/29/17 10:01 Dose: 400 mg Multivitamins/Minerals (Therapeutic-M Tab) 1 tab PO DAILY [facility] Last Admin: 08/29/17 09:58 Dose: 1 tab Pantoprazole Sodium (Protonix Ec Tab) 40 mg PO DAILY [facility] - Labs Labs: 08/28/17 07:04 08/26/17 17:27 PT 13.2 SECONDS (9.7-12.2) H 08/26/17 17:27 INR 1.2 08/26/17 17:27 APTT 22 SECONDS (21-34) 08/26/17 17:27 - Head Exam Head Exam: ATRAUMATIC - Eye Exam Eye Exam: Normal appearance - ENT Exam ENT Exam: Mucous Membranes Dry - Respiratory Exam Respiratory Exam: NORMAL BREATHING PATTERN - Cardiovascular Exam Cardiovascular Exam: +S1, +S2 - GI/Abdominal Exam GI & Abdominal Exam: Normal Bowel Sounds Assessment and Plan (1) Anemia Assessment & Plan: secondary to MDS s/p PRBC transfusion outpatient treatment Status: Acute (2) Myelodysplastic syndrome Assessment & Plan: outpatient treatment Status: Acute
[2017-08-29] MEDS: Insulin Detemir 100 units/ml Vial (Levemir) SC SCH (21:48)
[2017-08-30 08:12] LABS: BASO # 0.1 K/uL (0.0-0.2); BASO % 1.2 % (0.0-2.0); EOS # 0.3 K/uL (0.0-0.7); EOS % 4.4 % (0.0-4.0); HEMOGLOBIN 11.1 g/dL (11.0-16.0); LYMPH # 1.1 K/uL (1.0-4.3); LYMPH % 14.6 % (20.0-40.0); MEAN CELL VOLUME 103.8 fL (81.0-99.0); MEAN CORPUSCULAR HEMOGLOBIN 36.4 pg (27.0-31.0); MEAN PLATELET VOLUME 10.4 fL (7.2-11.7); MONO # 0.5 K/uL (0.0-0.8); MONO % 7.5 % (0.0-10.0); NEUT # 5.3 K/uL (1.8-7.0); NEUT % 72.3 % (50.0-75.0); RBC 3.05 Mil/uL (3.80-5.20); RED CELL DISTRIBUTION WIDTH 23.4 % (11.5-14.5); WHITE BLOOD COUNT 7.3 K/uL (4.8-10.8)
[2017-08-30 08:17] LABS: ALB/GLOB RATIO 1.1 (1.0-2.1); ALBUMIN 3.8 g/dL (3.5-5.0); CALCIUM 8.7 mg/dl (8.6-10.4)
[2017-08-30] MEDS: (Novolog) Insulin Aspart, Recombinant 100 u/ml 10 ml vial SC SCH ×7 (08:31→21:57)
[2017-08-30] MEDS: Multivitamin With Minerals Tab PO SCH (10:47)
[2017-08-30] MEDS: Enoxaparin 40 mg Syringe SC SCH (10:47)
[2017-08-30] MEDS: Pantoprazole 40 mg EC Tab PO SCH (10:47)
--- NOTE | 2017-08-30 13:44 | CP.PCM.PN ---
Subjective - Date & Time of Evaluation Date of Evaluation: 08/30/17 Time of Evaluation: 09:20 - Subjective Subjective: Medicine progress note for Dr. Ly's service Patient seen and examined this morning and again in the afternoon. Patient fell yesterday resulting in right comminuted impacted proximal humeral fracture. Patient states right arm is painful but denies pain on face or right knee where ecchymosis is present. Patient reports good appetite. Patient's daughter at bedside in the afternoon. Objective - Vital Signs/Intake and Output Vital Signs (last 24 hours): Temp Pulse Resp BP Pulse Ox 97.9 F 79 20 174/79 H 95 08/30/17 08:21 08/30/17 08:21 08/30/17 08:21 08/30/17 08:21 08/30/17 08:21 Intake and Output: 08/30/17 08/30/17 06:59 18:59 Intake Total 400 Balance 400 - Medications Medications: Current Medications Aspirin (Aspirin Chewable) 81 mg PO DAILY [facility] Last Admin: 08/30/17 10:47 Dose: 81 mg Enoxaparin Sodium (Lovenox) 40 mg SC DAILY [facility] Last Admin: 08/30/17 10:47 Dose: 40 mg Ibuprofen (Motrin Tab) 400 mg PO Q6 PRN PRN Reason: Pain, Mild (1-3) Insulin Aspart (Novolog) 8 unit SC TIDAC [facility] Last Admin: 08/30/17 13:21 Dose: 8 unit Insulin Aspart (Novolog) 0 unit SC ACHS [facility] PRN Reason: Protocol Last Admin: 08/30/17 13:22 Dose: 3 unit Insulin Detemir (Levemir) 10 unit SC HS [facility] Last Admin: 08/29/17 21:48 Dose: 10 unit Ketorolac Tromethamine (Toradol) 30 mg IVP Q6 PRN PRN Reason: Pain, severe (8-10) Lisinopril (Zestril) 2.5 mg PO DAILY [facility] Last Admin: 08/30/17 10:48 Dose: 2.5 mg Moxifloxacin HCl (Avelox) 400 mg PO DAILY [facility] PRN Reason: Protocol Last Admin: 08/30/17 10:47 Dose: 400 mg Multivitamins/Minerals (Therapeutic-M Tab) 1 tab PO DAILY [facility] Last Admin: 08/30/17 10:47 Dose: 1 tab Pantoprazole Sodium (Protonix Ec Tab) 40 mg PO DAILY [facility] Last Admin: 08/30/17 10:47 Dose: 40 mg Tramadol HCl (Ultram) 25 mg PO TID PRN PRN Reason: Pain, moderate (4-7) - Labs Labs: 08/30/17 07:46 08/30/17 07:46 PT 13.2 SECONDS (9.7-12.2) H 08/26/17 17:27 INR 1.2 08/26/17 17:27 APTT 22 SECONDS (21-34) 08/26/17 17:27 - Constitutional Appears: Non-toxic, No Acute Distress - Head Exam Additional comments: right side of face ecchymotic - Eye Exam Eye Exam: EOMI - ENT Exam ENT Exam: Mucous Membranes Moist - Respiratory Exam Respiratory Exam: Clear to Ausculation Bilateral, NORMAL BREATHING PATTERN - Cardiovascular Exam Cardiovascular Exam: +S1, +S2 Additional comments: right chest port - GI/Abdominal Exam GI & Abdominal Exam: Soft. absent: Tenderness - Extremities Exam Additional comments: right arm held at side, right knee ecchymotic - Neurological Exam Neurological Exam: Alert, Awake - Psychiatric Exam Psychiatric exam: Normal Affect - Skin Skin Exam: Warm Assessment and Plan - Assessment and Plan (Free Text) Assessment: Mechanical fall xray right humerus shows comminuted impacted proximal humeral fracture CT head negative for bleed Dr. Blackman, orthopedics, consulted- help appreciated Symptomatic Anemia -secondary to myelodysplastic syndrome -S/P 2 units of PRBC on 08/27/17 -08/30: Hgb 11.1 today Myelodysplastic syndrome -Heme/onc consult, Dr. Adames -Following with Dr. Adames, further treatment to be done as outpatient Pneumonia patient on Avelox for empiric coverage chest xray 08/26/17 shows subtle patch opacity in right lower lobe which may reflect infiltrate. DM -Levemir 10 U SC HS -Novolog 8 U SC TIDAC -[facility] -Hypoglycemia protocol -Lisionpril 2.5 mg PO daily -Aspirin 81 mg PO daily Prophylaxic Measures -Protonix 40mg daily -Lovenox 40mg sc daily -Consistent carb diet -fall precautions Case discussed with attending Dr. Ly, all management per Dr. Ly
[2017-08-30] MEDS ORDERED: Tramadol 25 mg PO PRN (13:48)
--- NOTE | 2017-08-30 17:11 | CP.PCM.CON ---
Past Patient History - Infectious Disease Hx of Infectious Diseases: None - Tetanus Immunizations Tetanus Immunization: Unknown - Past Medical History & Family History Past Medical History?: Yes - Past Social History Smoking Status: Never Smoked - CARDIAC Hx Hypertension: No - PULMONARY Hx Bronchitis: Yes Hx Pneumonia: Yes - NEUROLOGICAL Hx Alzheimer's Disease: Yes Hx Dementia: Yes - HEENT Hx HEENT Problems: Yes Hx Cataracts: Yes (BOTH EYES) - RENAL Hx Chronic Kidney Disease: No - ENDOCRINE/METABOLIC Hx Diabetes Mellitus Type 2: Yes (IDDM) - HEMATOLOGICAL/ONCOLOGICAL Hx Anemia: Yes Hx Blood Transfusions: Yes Hx Leukemia: Yes - INTEGUMENTARY Hx Dermatological Problems: No - MUSCULOSKELETAL/RHEUMATOLOGICAL Hx Arthritis: Yes (KNEE; BACK PAIN) - GASTROINTESTINAL Hx Gastrointestinal Disorders: No - GENITOURINARY/GYNECOLOGICAL Hx Genitourinary Disorders: No - PSYCHIATRIC Hx Substance Use: No - SURGICAL HISTORY Hx Tonsillectomy: Yes Other/Comment: Matias Cath [id number] - ANESTHESIA Hx Anesthesia: Yes Hx Anesthesia Reactions: No Hx Malignant Hyperthermia: No Meds Home Medications: Home Medication List Medication Instructions Recorded Confirmed Type Multivitamin/Iron/Folic Acid 1 each PO DAILY #14 tablet 08/29/17 Rx [Multi Complete-Iron Tablet] Allergies/Adverse Reactions: Allergies Allergy/AdvReac Type Severity Reaction Status Date / Time amoxicillin Allergy Mild RASH Verified 08/26/17 16:39 - Medications Medications: Current Medications Aspirin (Aspirin Chewable) 81 mg PO DAILY [facility] Last Admin: 08/30/17 10:47 Dose: 81 mg Enoxaparin Sodium (Lovenox) 40 mg SC DAILY [facility] Last Admin: 08/30/17 10:47 Dose: 40 mg Ibuprofen (Motrin Tab) 400 mg PO Q6 PRN PRN Reason: Pain, Mild (1-3) Insulin Aspart (Novolog) 8 unit SC TIDAC [facility] Last Admin: 08/30/17 13:21 Dose: 8 unit Insulin Aspart (Novolog) 0 unit SC ACHS [facility] PRN Reason: Protocol Last Admin: 08/30/17 13:22 Dose: 3 unit Insulin Detemir (Levemir) 10 unit SC HS [facility] Last Admin: 08/29/17 21:48 Dose: 10 unit Ketorolac Tromethamine (Toradol) 30 mg IVP Q6 PRN PRN Reason: Pain, severe (8-10) Last Admin: 08/30/17 14:40 Dose: 30 mg Lisinopril (Zestril) 2.5 mg PO DAILY [facility] Last Admin: 08/30/17 10:48 Dose: 2.5 mg Moxifloxacin HCl (Avelox) 400 mg PO DAILY [facility] PRN Reason: Protocol Last Admin: 08/30/17 10:47 Dose: 400 mg Multivitamins/Minerals (Therapeutic-M Tab) 1 tab PO DAILY [facility] Last Admin: 08/30/17 10:47 Dose: 1 tab Pantoprazole Sodium (Protonix Ec Tab) 40 mg PO DAILY [facility] Last Admin: 08/30/17 10:47 Dose: 40 mg Tramadol HCl (Ultram) 25 mg PO TID PRN PRN Reason: Pain, moderate (4-7) Results - Vital Signs Recent Vital Signs: Last Vital Signs Temp 98.5 F 08/30/17 16:00 Pulse 83 08/30/17 16:00 Resp 20 08/30/17 16:00 BP 116/62 08/30/17 16:00 Pulse Ox 95 08/30/17 16:00 - Labs Result Diagrams: 08/30/17 07:46 08/30/17 07:46 Labs: Laboratory Results - last 24 hr 08/29/17 08/30/17 08/30/17 21:14 02:08 07:12 WBC RBC Hgb Hct MCV MCH MCHC RDW Plt Count MPV Neut % (Auto) Lymph % (Auto) [place] % (Auto) Eos % (Auto) Baso % (Auto) Neut # (Auto) Lymph # (Auto) [place] # (Auto) Eos # (Auto) Baso # (Auto) Sodium Potassium Chloride Carbon Dioxide Anion Gap BUN Creatinine Est GFR ( Amer) Est GFR (Non-Af Amer) POC Glucose (mg/dL) 421 H* 265 H 217 H Random Glucose Calcium Total Bilirubin AST ALT Alkaline Phosphatase Total Protein Albumin Globulin Albumin/Globulin Ratio 08/30/17 08/30/17 08/30/17 07:46 07:46 11:02 WBC 7.3 RBC 3.05 L Hgb 11.1 Hct 31.6 L MCV 103.8 H MCH 36.4 H MCHC 35.0 RDW 23.4 H Plt Count 175 MPV 10.4 Neut % (Auto) 72.3 Lymph % (Auto) 14.6 L [place] % (Auto) 7.5 Eos % (Auto) 4.4 H Baso % (Auto) 1.2 Neut # (Auto) 5.3 Lymph # (Auto) 1.1 [place] # (Auto) 0.5 Eos # (Auto) 0.3 Baso # (Auto) 0.1 Sodium 136 Potassium 4.1 Chloride 100 Carbon Dioxide 22 Anion Gap 18 BUN 27 H Creatinine 1.1 Est GFR ( Amer) 57 Est GFR (Non-Af Amer) 47 POC Glucose (mg/dL) 284 H Random Glucose 207 H Calcium 8.7 Total Bilirubin 0.7 AST 36 D ALT 39 Alkaline Phosphatase 88 Total Protein 7.3 Albumin 3.8 Globulin 3.5 Albumin/Globulin Ratio 1.1 08/30/17 16:20 WBC RBC Hgb Hct MCV MCH MCHC RDW Plt Count MPV Neut % (Auto) Lymph % (Auto) [place] % (Auto) Eos % (Auto) Baso % (Auto) Neut # (Auto) Lymph # (Auto) [place] # (Auto) Eos # (Auto) Baso # (Auto) Sodium Potassium Chloride Carbon Dioxide Anion Gap BUN Creatinine Est GFR ( Amer) Est GFR (Non-Af Amer) POC Glucose (mg/dL) 217 H Random Glucose Calcium Total Bilirubin AST ALT Alkaline Phosphatase Total Protein Albumin Globulin Albumin/Globulin Ratio Assessment & Plan (1) Closed fracture of right proximal humerus Assessment and Plan: non operative as per Dr. Blackman sling to RUE ice to right shoulder pain medication prn d/w Dr. Blackman,jermaine bacon with above NWB RUE PT/OT f/u in office 7-10 days after discharge, call for appt Status: Acute
--- NOTE | 2017-08-30 18:09 | CP.PCM.PN ---
Subjective - Date & Time of Evaluation Date of Evaluation: 08/30/17 Time of Evaluation: 16:10 - Subjective Subjective: Has right shoulder pain. Objective - Vital Signs/Intake and Output Vital Signs (last 24 hours): Temp Pulse Resp BP Pulse Ox 98.5 F 83 20 116/62 95 08/30/17 16:00 08/30/17 16:00 08/30/17 16:00 08/30/17 16:00 08/30/17 16:00 Intake and Output: 08/30/17 08/30/17 06:59 18:59 Intake Total 400 Balance 400 - Medications Medications: Current Medications Aspirin (Aspirin Chewable) 81 mg PO DAILY [facility] Last Admin: 08/30/17 10:47 Dose: 81 mg Enoxaparin Sodium (Lovenox) 40 mg SC DAILY [facility] Last Admin: 08/30/17 10:47 Dose: 40 mg Ibuprofen (Motrin Tab) 400 mg PO Q6 PRN PRN Reason: Pain, Mild (1-3) Insulin Aspart (Novolog) 8 unit SC TIDAC [facility] Last Admin: 08/30/17 17:10 Dose: 8 unit Insulin Aspart (Novolog) 0 unit SC ACHS [facility] PRN Reason: Protocol Last Admin: 08/30/17 17:12 Dose: 2 unit Insulin Detemir (Levemir) 10 unit SC HS [facility] Last Admin: 08/29/17 21:48 Dose: 10 unit Ketorolac Tromethamine (Toradol) 30 mg IVP Q6 PRN PRN Reason: Pain, severe (8-10) Last Admin: 08/30/17 14:40 Dose: 30 mg Lisinopril (Zestril) 2.5 mg PO DAILY [facility] Last Admin: 08/30/17 10:48 Dose: 2.5 mg Moxifloxacin HCl (Avelox) 400 mg PO DAILY [facility] PRN Reason: Protocol Last Admin: 08/30/17 10:47 Dose: 400 mg Multivitamins/Minerals (Therapeutic-M Tab) 1 tab PO DAILY [facility] Last Admin: 08/30/17 10:47 Dose: 1 tab Pantoprazole Sodium (Protonix Ec Tab) 40 mg PO DAILY [facility] Last Admin: 08/30/17 10:47 Dose: 40 mg Tramadol HCl (Ultram) 25 mg PO TID PRN PRN Reason: Pain, moderate (4-7) - Labs Labs: 08/30/17 07:46 08/30/17 07:46 PT 13.2 SECONDS (9.7-12.2) H 08/26/17 17:27 INR 1.2 08/26/17 17:27 APTT 22 SECONDS (21-34) 08/26/17 17:27 - Head Exam Head Exam: ATRAUMATIC - Eye Exam Eye Exam: Normal appearance - ENT Exam ENT Exam: Mucous Membranes Dry - Respiratory Exam Respiratory Exam: NORMAL BREATHING PATTERN - Cardiovascular Exam Cardiovascular Exam: +S1, +S2 - GI/Abdominal Exam GI & Abdominal Exam: Normal Bowel Sounds Assessment and Plan (1) Anemia Assessment & Plan: secondary to 5q- MDS s/p transfusion support Status: Acute (2) Myelodysplastic syndrome Assessment & Plan: outpatient treatment Status: Acute
[2017-08-30] MEDS: Insulin Detemir 100 units/ml Vial (Levemir) SC SCH (22:05)
--- NOTE | 2017-08-31 03:04 | CON ---
DATE: 08/30/2017 CHIEF COMPLAINT: Right proximal humerus fracture. HISTORY OF PRESENT ILLNESS: The patient is an 87-year-old female, right-hand dominant, who had a mechanical fall, landing on to her right shoulder. The patient was brought to the emergency room. The patient reports she had episodes of blacking out. The patient is currently having a history of leukemia and myelodysplastic syndrome with low hemoglobin. The patient reports the pain in her right shoulder along with swelling, denies any paresthesias, border weakness, denies pain in any other extremity joint. Denies any significant previous right shoulder pain. PAST MEDICAL HISTORY: Significant for anemia, myelodysplastic syndrome, diabetes, and leukemia. IMAGING: X-ray of the patient's right shoulder showing a displaced proximal humerus fracture. ASSESSMENT AND PLAN: An 87-year-old female, right hand dominant, with a right proximal humerus fracture. TREATMENT: I had a detailed discussion with the patient and her daughter at bedside. I explained the complex nature of her injury. I presented the treatment option, both operative and nonoperative management. Due to patient's old age and medical comorbidities, they are electing to proceed with nonoperative management. The patient will remain nonweightbearing, keep the right arm in a sling and follow up in my office upon discharge. The patient is stable for discharge from Orthopedics, and followup in my office in 7 to 10 days. Sidney Blackman MD
[2017-08-31 07:01] LABS: BASO # 0.1 K/uL (0.0-0.2); BASO % 1.5 % (0.0-2.0); EOS # 0.5 K/uL (0.0-0.7); EOS % 6.3 % (0.0-4.0); HEMOGLOBIN 10.3 g/dL (11.0-16.0); LYMPH % 25.7 % (20.0-40.0); MEAN CELL VOLUME 104.1 fL (81.0-99.0); MEAN CORPUSCULAR HEMOGLOBIN 36.3 pg (27.0-31.0); MEAN CORPUSCULAR HGB CONC 34.9 g/dL (33.0-37.0); MEAN PLATELET VOLUME 10.4 fL (7.2-11.7); MONO # 0.5 K/uL (0.0-0.8); NEUT # 4.5 K/uL (1.8-7.0); NEUT % 59.5 % (50.0-75.0); NRBC % 0.1 % (0.0-2.0); RBC 2.84 Mil/uL (3.80-5.20); RED CELL DISTRIBUTION WIDTH 23.9 % (11.5-14.5); WHITE BLOOD COUNT 7.6 K/uL (4.8-10.8)
--- NOTE | 2017-08-31 07:22 | CP.PCM.PN ---
Subjective - Date & Time of Evaluation Date of Evaluation: 08/31/17 Time of Evaluation: 07:20 - Subjective Subjective: PGY-[address] Ly's service: Patient seen and examined at bedside. Nursing reports no acute events overnight. Patient reports pain in her shoulder/right arm has decreased from yesterday. She states working with physical therapy. Daughter at bedside is aware of need for follow up with DR. ADAMES, pts HEM/ONC, and DR. BLACKMAN, the patient's orthopedist. Patient denies lightheadedness, SOB, or chest pain. Objective - Vital Signs/Intake and Output Vital Signs (last 24 hours): Temp Pulse Resp BP Pulse Ox 98.3 F 86 20 112/59 L 97 08/31/17 00:00 08/31/17 00:00 08/31/17 00:00 08/31/17 00:00 08/31/17 00:00 Intake and Output: 08/31/17 08/31/17 06:59 18:59 Intake Total 500 Balance 500 - Medications Medications: Current Medications Aspirin (Aspirin Chewable) 81 mg PO DAILY [facility] Last Admin: 08/30/17 10:47 Dose: 81 mg Enoxaparin Sodium (Lovenox) 40 mg SC DAILY [facility] Last Admin: 08/30/17 10:47 Dose: 40 mg Ibuprofen (Motrin Tab) 400 mg PO Q6 PRN PRN Reason: Pain, Mild (1-3) Insulin Aspart (Novolog) 8 unit SC TIDAC [facility] Last Admin: 08/30/17 17:10 Dose: 8 unit Insulin Aspart (Novolog) 0 unit SC ACHS [facility] PRN Reason: Protocol Last Admin: 08/30/17 21:57 Dose: Not Given Insulin Detemir (Levemir) 10 unit SC HS [facility] Last Admin: 08/30/17 22:05 Dose: 10 unit Ketorolac Tromethamine (Toradol) 30 mg IVP Q6 PRN PRN Reason: Pain, severe (8-10) Last Admin: 08/31/17 02:20 Dose: 30 mg Lisinopril (Zestril) 2.5 mg PO DAILY [facility] Last Admin: 08/30/17 10:48 Dose: 2.5 mg Moxifloxacin HCl (Avelox) 400 mg PO DAILY [facility] PRN Reason: Protocol Last Admin: 08/30/17 10:47 Dose: 400 mg Multivitamins/Minerals (Therapeutic-M Tab) 1 tab PO DAILY [facility] Last Admin: 08/30/17 10:47 Dose: 1 tab Pantoprazole Sodium (Protonix Ec Tab) 40 mg PO DAILY [facility] Last Admin: 08/30/17 10:47 Dose: 40 mg Tramadol HCl (Ultram) 25 mg PO TID PRN PRN Reason: Pain, moderate (4-7) - Labs Labs: 08/31/17 06:43 08/30/17 07:46 PT 13.2 SECONDS (9.7-12.2) H 08/26/17 17:27 INR 1.2 08/26/17 17:27 APTT 22 SECONDS (21-34) 08/26/17 17:27 - Additional Findings Additional findings: - Constitutional Appears: Non-toxic, No Acute Distress - Head Exam Additional comments: right face- healing ecchymotic - Eye Exam Eye Exam: EOMI - ENT Exam ENT Exam: Mucous Membranes Moist - Respiratory Exam Respiratory Exam: Clear to Ausculation Bilateral, NORMAL BREATHING PATTERN - Cardiovascular Exam Cardiovascular Exam: +S1, +S2 Additional comments: right chest port - GI/Abdominal Exam GI & Abdominal Exam: Soft. absent: Tenderness - Extremities Exam Additional comments: right arm held at side, right knee ecchymotic - Neurological Exam Neurological Exam: Alert, Awake - Psychiatric Exam Psychiatric exam: Normal Affect - Skin Skin Exam: Warm Assessment and Plan - Assessment and Plan (Free Text) Plan: Mechanical fall xray right humerus shows comminuted impacted proximal humeral fracture CT head negative for bleed Dr. Blackman, orthopedics, consulted- help appreciated - pt to follow up in office in 7-10 days following discharge Symptomatic Anemia -secondary to myelodysplastic syndrome -S/P 2 units of PRBC on 08/27/17 -08/31: Hgb 10.3 today Myelodysplastic syndrome -Heme/onc consult, Dr. Adames -Following with Dr. Adames, further treatment to be done as outpatient Pneumonia patient on Avelox for empiric coverage chest xray 08/26/17 shows subtle patch opacity in right lower lobe which may reflect infiltrate. DM -Levemir 10 U SC HS -Novolog 8 U SC TIDAC -[facility]ISS -Hypoglycemia protocol -Lisionpril 2.5 mg PO daily -Aspirin 81 mg PO daily Prophylaxic Measures -Protonix 40mg daily -Lovenox 40mg sc daily -Consistent carb diet -fall precautions Disposition: Pt for discharge today. Cleared by Ortho and Hem/Onc. Daughter/ Patient aware of need to follow up with both as outpatient. Case discussed with attending Dr. Ly, all management per Dr. Ly
[2017-08-31 07:30] LABS: ALBUMIN 3.5 g/dL (3.5-5.0); CALCIUM 8.7 mg/dl (8.6-10.4)
[2017-08-31] MEDS: (Novolog) Insulin Aspart, Recombinant 100 u/ml 10 ml vial SC SCH ×4 (08:30→12:43)
[2017-08-31] MEDS: Multivitamin With Minerals Tab PO SCH (09:59)
[2017-08-31] MEDS: Enoxaparin 40 mg Syringe SC SCH (09:59)
[2017-08-31] MEDS: Pantoprazole 40 mg EC Tab PO SCH (10:00)
--- NOTE | 2017-08-31 13:07 | CP.PCM.PN ---
Subjective - Date & Time of Evaluation Date of Evaluation: 08/31/17 Time of Evaluation: 12:00 - Subjective Subjective: Ortho f/u Dr. Blackman Patient states that pain in her shoulder continues, but is controlled. TOlerated PT well. When asked if she has pain in other extremities, she denies pain. When asked about bruise on knee she said that is from the fall but that it doesn't hurt. Denies numbness/tingling. Review of Systems - Review of Systems All systems: reviewed and no additional remarkable complaints except - Musculoskeletal Musculoskeletal: As Par HPI - Integumentary Integumentary: As Per HPI - Neurological Neurological: As Per HPI Objective - Vital Signs/Intake and Output Vital Signs (last 24 hours): Temp Pulse Resp BP Pulse Ox 97.5 F L 78 20 132/70 98 08/31/17 08:27 08/31/17 08:27 08/31/17 08:27 08/31/17 08:27 08/31/17 08:27 Intake and Output: 08/31/17 08/31/17 06:59 18:59 Intake Total 500 Balance 500 - Medications Medications: Current Medications Aspirin (Aspirin Chewable) 81 mg PO DAILY [facility] Last Admin: 08/31/17 09:59 Dose: 81 mg Enoxaparin Sodium (Lovenox) 40 mg SC DAILY [facility] Last Admin: 08/31/17 09:59 Dose: 40 mg Ibuprofen (Motrin Tab) 400 mg PO Q6 PRN PRN Reason: Pain, Mild (1-3) Insulin Aspart (Novolog) 8 unit SC TIDAC [facility] Last Admin: 08/31/17 12:43 Dose: 8 unit Insulin Aspart (Novolog) 0 unit SC ACHS [facility] PRN Reason: Protocol Last Admin: 08/31/17 12:43 Dose: 1 unit Insulin Detemir (Levemir) 10 unit SC HS [facility] Last Admin: 08/30/17 22:05 Dose: 10 unit Ketorolac Tromethamine (Toradol) 30 mg IVP Q6 PRN PRN Reason: Pain, severe (8-10) Last Admin: 08/31/17 02:20 Dose: 30 mg Lisinopril (Zestril) 2.5 mg PO DAILY [facility] Last Admin: 08/31/17 09:59 Dose: 2.5 mg Moxifloxacin HCl (Avelox) 400 mg PO DAILY [facility] PRN Reason: Protocol Last Admin: 08/31/17 09:59 Dose: 400 mg Multivitamins/Minerals (Therapeutic-M Tab) 1 tab PO DAILY [facility] Last Admin: 08/31/17 09:59 Dose: 1 tab Pantoprazole Sodium (Protonix Ec Tab) 40 mg PO DAILY [facility] Last Admin: 08/31/17 10:00 Dose: 40 mg Tramadol HCl (Ultram) 25 mg PO TID PRN PRN Reason: Pain, moderate (4-7) - Labs Labs: 08/31/17 06:43 08/31/17 06:43 PT 13.2 SECONDS (9.7-12.2) H 08/26/17 17:27 INR 1.2 08/26/17 17:27 APTT 22 SECONDS (21-34) 08/26/17 17:27 - Constitutional Appears: Well, No Acute Distress - Head Exam Head Exam: ATRAUMATIC - Respiratory Exam Respiratory Exam: NORMAL BREATHING PATTERN - Cardiovascular Exam Additional comments: +radial pulse R R +DP/PT pulses - Extremities Exam Additional comments: Right shoulder in sling +swelling and tenderness skin intact - Neurological Exam Neurological Exam: Alert, Awake, Oriented x3 Neuro motor strength exam: Right Upper Extremity: 5 (to wrist/fingers/thumb), Right Lower Extremity: 5 (ankle DF/PF, knee flex/ext, painfree) - Psychiatric Exam Psychiatric exam: Normal Affect, Normal Mood - Skin Skin Exam: Dry, Intact, Warm Additional comments: 1cm bruise to anterior knee skin intact no joint effusion non tender No laxity to varus/valgus/mayra/ant/post drawer. Assessment and Plan (1) Closed fracture of right proximal humerus Assessment & Plan: non operative sling ice PT/OT NWB ortho stable, f/u in office upon d/c D/w Dr. Blackman, agrees with above Status: Acute
[2017-08-31 16:23] VITALS: BP 100/62; PULSE 84; RESP 18; TEMP 98; O2SAT 96
--- NOTE | 2017-09-01 14:34 | CP.PCM.PN ---
Subjective - Date & Time of Evaluation Date of Evaluation: 08/31/17 Time of Evaluation: 12:00 - Subjective Subjective: Has right shoulder pain. Objective - Vital Signs/Intake and Output Vital Signs (last 24 hours): Temp Pulse Resp BP Pulse Ox 98.0 F 84 18 100/62 96 08/31/17 16:21 08/31/17 16:21 08/31/17 16:21 08/31/17 16:21 08/31/17 16:21 - Labs Labs: 08/31/17 06:43 08/31/17 06:43 PT 13.2 SECONDS (9.7-12.2) H 08/26/17 17:27 INR 1.2 08/26/17 17:27 APTT 22 SECONDS (21-34) 08/26/17 17:27 - Head Exam Head Exam: ATRAUMATIC - Eye Exam Eye Exam: Normal appearance - ENT Exam ENT Exam: Mucous Membranes Dry - Respiratory Exam Respiratory Exam: NORMAL BREATHING PATTERN - Cardiovascular Exam Cardiovascular Exam: +S1, +S2 - GI/Abdominal Exam GI & Abdominal Exam: Normal Bowel Sounds Assessment and Plan (1) Anemia Assessment & Plan: secondary to MDS outpatient f/u Status: Acute (2) Myelodysplastic syndrome Assessment & Plan: outpatient treatment Status: Acute
== END 2017-08-31 17:30 | disposition home or self-care (01) | DRG 811 ==
LOC: C.ER 16:29 → C.9E 18:16 → C.3T 19:19
PROVIDERS: ADMIT Internal Medicine Pulmonary Disease; ATTEND Internal Medicine Pulmonary Disease
DX: D46.9 Myelodysplastic syndrome, unspecified (principal); J18.9 Pneumonia, unspecified organism; E11.9 Type 2 diabetes mellitus without complications; D63.8 Anemia in other chronic diseases classified elsewhere; G30.9 Alzheimer's disease, unspecified; F02.80 Dementia in other diseases classified elsewhere, unspecified severity, without behavioral disturbance, psychotic disturbance, mood disturbance, and anxiety; H26.9 Unspecified cataract; S42.201A Unspecified fracture of upper end of right humerus, initial encounter for closed fracture; W18.30XA Fall on same level, unspecified, initial encounter; Z79.4 Long term (current) use of insulin; Z79.82 Long term (current) use of aspirin; Z85.6 Personal history of leukemia; Z87.01 Personal history of pneumonia (recurrent); Z92.21 Personal history of antineoplastic chemotherapy

== ENCOUNTER 2017-09-26 19:19 | Inpatient (IN) | payer MEDICARE ==
[2017-09-26 19:19] VITALS: BMI 23.8
--- NOTE | 2017-09-26 19:54 | C.PDOC ---
History Of Present Illness The patient presents to the ED for evaluation of weakness, dizziness and a near- syncopal episode which occurred earlier today. 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 Patient denies chest pain, shortness of breath, and palpitations. Time Seen by Provider: 09/26/17 19:53 Chief Complaint (Nursing): Abnormal Labs History Per: Patient History/Exam Limitations: no limitations Onset/Duration Of Symptoms: Hrs Current Symptoms Are (Timing): Still Present Severity: None Pain Scale Rating Of: 0 Reports Recently: Seen In ED, Treated By A Physician, Hospitalized Recent travel outside of the [place]: No Additional History Per: Patient Past Medical History Reviewed: Historical Data, Nursing Documentation, Vital Signs Vital Signs: Last Vital Signs Temp 98.6 F 09/26/17 21:20 Pulse 77 09/26/17 21:20 Resp 20 09/26/17 21:20 BP 120/67 09/26/17 21:20 Pulse Ox 97 09/26/17 21:20 - Medical History PMH: Alzheimer's Disease, Anemia, Arthritis (KNEE; BACK PAIN), Bronchitis, Dementia, Diabetes, Malignancy (Myelodysplastic), Pneumonia Denies: HTN, Chronic Kidney Disease Surgical History: Tonsillectomy - [facility] Procedures INSERT INFUSION DEV IN R INT JUGULAR VEIN, PERC (11/25/16) INSERTION OF VAD INTO CHEST SUBCU/FASCIA, OPEN APPROACH (11/25/16) INTRODUCE OF OTH THERAP SUBST INTO RESP TRACT, VIA OPENING (08/14/16) TRANSFUSE NONAUT RED BLOOD CELLS IN PERIPH VEIN, PERC (12/24/16) Family History: States: Unknown Family Hx - Social History Hx Alcohol Use: No Hx Substance Use: No - Immunization History Hx Tetanus Toxoid Vaccination: No Hx Influenza Vaccination: Yes Hx Pneumococcal Vaccination: No Review Of Systems Constitutional: Negative for: Fever, Chills Cardiovascular: Negative for: Chest Pain Respiratory: Negative for: Cough, Shortness of Breath Gastrointestinal: Negative for: Nausea, Vomiting, Abdominal Pain, Diarrhea Skin: Negative for: Rash, Lesions, Jaundice, Bruising Neurological: Positive for: Weakness, Dizziness, Other (near-syncopal episode ) . Negative for: Change in Speech, Confusion, Altered Mental Status, Headache Psych: Negative for: Anxiety Physical Exam - Physical Exam Appears: Non-toxic, No Acute Distress Skin: Warm, Dry, Pale Head: Normacephalic Eye(s): bilateral: Other (pale conjunctiva) Oral Mucosa: Moist Neck: Supple Chest: Symmetrical, No Deformity, No Tenderness, Other (Port-a-Cath to right chest wall ) Cardiovascular: Rhythm Regular, No Murmur Respiratory: No Rales, No Rhonchi, No Wheezing Gastrointestinal/Abdominal: Soft, No Tenderness, No Distention Back: Normal Inspection Extremity: Normal ROM, Capillary Refill (less than 2 seconds ) Extremity: Bilateral: Atraumatic Pulses: Left Dorsalis Pedis: Normal, Right Dorsalis Pedis: Normal Neurological/Psych: Oriented x3 Gait: Steady ED Course And Treatment - Laboratory Results Result Diagrams: 09/26/17 20:29 04 20:29 ECG: Interpreted By Me, Viewed By Me ECG Rhythm: Sinus Rhythm (92), Nonspecific Changes O2 Sat by Pulse Oximetry: 97 (on RA) Pulse Ox Interpretation: Normal - Radiology CXR: Interpreted by Me, Viewed By Me CXR Interpretation: Yes: Other (port r chest). No: Infiltrates, Fracture, Pnemothorax Progress Note: Bloodwork, UA, CXR, EKG ordered and reviewed. Patient given IV Fluids. Disposition Discussed With : Gamal Ly Comment: accepted the patient onhis service and took over the care at 10:58PM Doctor Will See Patient In The: Hospital Counseled Patient/Family Regarding: Studies Performed, Diagnosis - Disposition Disposition: HOSPITALIZED Disposition Time: 19:54 Condition: FAIR Forms: [facility] ([place]) - POA Present On Arrival: None - Clinical Impression Clinical Impression: Anemia, UTI (urinary tract infection) - Scribe Statement The provider has reviewed the documentation as recorded by the Scribe ([place] De) Provider Attestation: All medical record entries made by the Scribe were at my direction and personally dictated by me. I have reviewed the chart and agree that the record accurately reflects my personal performance of the history, physical exam, medical decision making, and the department course for this patient. I have also personally directed, reviewed, and agree with the discharge instructions and disposition. Decision To Admit - Pt Status Changed To: Hospital Disposition Of: Inpatient - Admit Certification Admit to Inpatient:: After my assessment, the patient will require hospitalization for at least two midnights. This is because of the severity of symptoms shown, intensity of services needed, and/or the medical risk in this patient being treated as an outpatient. - InPatient: Physician Admission Certification: I certify that this patient requires 2 or more midnights of care for the following reason:: After my assessment, the patient will require hospitalization for at least two midnights. This is because of the severity of symptoms shown, intensity of services needed, and/or the medical risk in this patient being treated as an outpatient. - . Bed Request Type: Regular Admitting Physician: Gamal Ly Patient Diagnosis: Anemia, UTI (urinary tract infection)
[2017-09-26 20:09] LABS: SQUAMOUS EPITHIAL 3 /hpf (0-5); URINE BACTERIA MOD (<OCC); URINE BILIRUBIN NEGATIVE (NEGATIVE); URINE BLOOD 1+ (NEGATIVE); URINE CLARITY Turbid (Clear); URINE COLOR Yellow (YELLOW); URINE GLUCOSE (UA) NORMAL (Normal); URINE LEUKOCYTE ESTERASE 3+ Leu/uL (Negative); URINE PROTEIN 2+ mg/dL (NEGATIVE); URINE UROBILINOGEN NORMAL mg/dL (0.2-1.0); WBC CLUMPS MANY /hpf
[2017-09-26] MEDS ORDERED: Moxifloxacin IV 400mg/250ml NS 400 MG/250 ML BAG IVPB ONE (20:11)
[2017-09-26] MEDS: Sodium Chloride 0.9% 1,000 ML IV SCH (20:30)
[2017-09-26 20:33] LABS: BASO # 0.1 K/uL (0.0-0.2); EOS # 0.3 K/uL (0.0-0.7); EOS % 3.2 % (0.0-4.0); LYMPH # 1.6 K/uL (1.0-4.3); LYMPH % 18.5 % (20.0-40.0); MEAN CELL VOLUME 105.9 fL (81.0-99.0); MEAN CORPUSCULAR HEMOGLOBIN 37.2 pg (27.0-31.0); MEAN CORPUSCULAR HGB CONC 35.1 g/dL (33.0-37.0); MEAN PLATELET VOLUME 9.7 fL (7.2-11.7); MONO # 0.6 K/uL (0.0-0.8); MONO % 6.6 % (0.0-10.0); NEUT % 70.7 % (50.0-75.0); NRBC % 0.1 % (0.0-2.0); RBC 2.11 Mil/uL (3.80-5.20); RED CELL DISTRIBUTION WIDTH 24.2 % (11.5-14.5); WHITE BLOOD COUNT 8.5 K/uL (4.8-10.8)
[2017-09-26 20:44] LABS: HEMOGLOBIN 7.9 g/dL (11.0-16.0)
[2017-09-26 20:49] LABS: INR 1.3; PROTHROMBIN TIME 15.1 SECONDS (9.7-12.2)
[2017-09-26 20:52] LABS: ALB/GLOB RATIO 0.8 (1.0-2.1); ALBUMIN 3.6 g/dL (3.5-5.0)
[2017-09-26] MEDS ORDERED: Sodium Chloride 0.9% 1,000 ML ONE (21:49)
[2017-09-26] MEDS ORDERED: Ciprofloxacin 400mg/200ml D5W 400 MG/200 ML BAG IVPB STA (21:53)
[2017-09-26] MEDS ORDERED: Ciprofloxacin 400mg/200ml D5W 400 MG/200 ML BAG IVPB ONE (21:58)
[2017-09-27] MEDS: Sodium Chloride 0.9% 1,000 ML IV SCH ×2 (06:00→17:40)
[2017-09-27] MEDS: (Novolog) Insulin Aspart, Recombinant 100 u/ml 10 ml vial SC SCH ×3 (08:17→17:39)
--- NOTE | 2017-09-27 09:24 | CP.PCM.PN ---
Subjective - Date & Time of Evaluation Date of Evaluation: 09/27/17 Time of Evaluation: 09:18 - Subjective Subjective: Medicine Progress Note- Dr. Ly's service 87 year old female with past medical history significant for DM, HTN, myelodysplastic disease, hypercholesterolemia , anemia, proximal humerus fracture, and dementia presents following an unwitnessed fall at home a day earlier. Patient could not recall much of the details of the event. She states that she did not hit her head. Patient at present has no complaints. She responds yes and no to a review of systems. She denies headaches, chest pain, paresthesias, or dizziness at this time. Per nursing, patient received a blood transfusion overnight. she initially had a low grade fever which darryl to 100.9. Patietn responded to tylenol. Medical history had to be obtained from prior hospitalizations as patient is a poor historian. 06/18/17 admission PMHx- as stated above Surg - right eye cataract extraction, tonsillectomy Fam Hx - father (hepatitis), brother (myelodysplastic disease, 17 PRBC transfusions), sister (DM), Meds - Novolog Flexipen 8,8,10 units TID, Levemir 20 units HS, ASA 81 mg PO daily, Vasotec 2.5 mg PO daily Allergies - amoxicillin (rash) Social - no smoking, alcohol, or drug abuse history. of cancer as well.Surg - right eye cataract extraction, tonsillectomy Objective - Vital Signs/Intake and Output Vital Signs (last 24 hours): Temp Pulse Resp BP Pulse Ox 99.8 F H 110 H 20 113/65 96 09/27/17 08:00 09/27/17 08:00 09/27/17 08:00 09/27/17 08:00 09/27/17 08:00 Intake and Output: 09/27/17 09/27/17 06:59 18:59 Intake Total 925 425 Balance 925 425 - Medications Medications: Current Medications Acetaminophen (Tylenol 325mg Tab) 650 mg PO Q6 PRN PRN Reason: Fever >100.4 F Last Admin: 09/27/17 00:35 Dose: 650 mg Aspirin (Aspirin Chewable) 81 mg PO DAILY [facility] Ciprofloxacin (Cipro) 500 mg PO BID [facility] PRN Reason: Protocol Home Med (Multivitamin/Iron/Folic Acid [Multi Complete-Iron Tablet]) 1 each PO DAILY [facility] Home Med (Mupirocin 2% Cream [Bactroban Cream]) 30 gm EXT BID [facility] Sodium Chloride (Sodium Chloride 0.9%) 1,000 mls @ 100 mls/hr IV .Q10H [facility] Last Admin: 09/26/17 20:30 Dose: 100 mls/hr Insulin Aspart (Novolog) 0 unit SC ACHS [facility] PRN Reason: Protocol Last Admin: 09/27/17 08:17 Dose: 2 unit Insulin Detemir (Levemir) 10 unit SC HS [facility] Lisinopril (Zestril) 2.5 mg PO DAILY [facility] Tramadol HCl (Ultram) 25 mg PO Q8H PRN PRN Reason: Pain, moderate (4-7) - Labs Labs: 09/26/17 20:29 09/26/17 20:29 PT 15.1 SECONDS (9.7-12.2) H 09/26/17 20:29 INR 1.3 09/26/17 20:29 APTT 29 SECONDS (21-34) 09/26/17 20:29 - Constitutional Appears: Non-toxic, No Acute Distress - Head Exam Head Exam: ATRAUMATIC, NORMAL INSPECTION, NORMOCEPHALIC - ENT Exam ENT Exam: Mucous Membranes Moist - Neck Exam Neck Exam: Full ROM - Respiratory Exam Respiratory Exam: NORMAL BREATHING PATTERN. absent: Wheezes - Cardiovascular Exam Cardiovascular Exam: +S1, +S2 - GI/Abdominal Exam GI & Abdominal Exam: Soft, Normal Bowel Sounds. absent: Tenderness - Extremities Exam Extremities Exam: Full ROM, Normal Capillary Refill. absent: Pedal Edema, Tenderness - Back Exam Back Exam: Full ROM - Neurological Exam Neurological Exam: Awake - Psychiatric Exam Psychiatric exam: Flat Affect - Skin Skin Exam: Dry, Intact, Warm Assessment and Plan - Assessment and Plan (Free Text) Assessment: Symptomatic Anemia Hgb - 7.9 on 09/26 prior to transfusion. Will transfuse 2 U PRBC and recheck Hgb afterwards f/u type and screen EKG - NSR, with no significant changes when compared to prior EKG obtained one month prior 2017. per family was given Iron yesterday in Dr. Adames's office Tylenol for fever Dr. Adames on board- F/U recommendations Monitor temp. MDS Following with Dr. Adames for treatment Dr. Adames, Program Rep-Oncologist- F/U recommendations DM Levemir 10 U SC HS RISS Lisinopril 2.5 mg PO daily Accuchecks CAD Aspirin 81 mg PO daily [facility]RE Normal saline at 100 mls/hr Baseline Creatinine 0.9/1.0 Monitor Prophylactic Measure VTE contraindicated in light of symptomatic anemia PT eval and treat Discussed with attending. All management and planning per Dr. Ly.
[2017-09-27] MEDS ORDERED: IRON PO SCH (10:00)
[2017-09-27] MEDS ORDERED: MUPIROCIN 2% EXT SCH (10:00)
[2017-09-27] MEDS ORDERED: MULTIVITAMIN PO SCH (10:00)
[2017-09-27] MEDS ORDERED: FOLIC ACID PO SCH (10:00)
[2017-09-27] MEDS: Multivitamin With Minerals Tab PO SCH (10:53)
--- NOTE | 2017-09-27 11:22 | RAD ---
PROCEDURE: CHEST RADIOGRAPH, 1 VIEW HISTORY: SOB COMPARISON: 08/26/2017. FINDINGS: LUNGS: Clear. PLEURA: No pneumothorax or pleural fluid seen. CARDIOVASCULAR: No radiographic findings to suggest acute or significant cardiovascular disease. Venous access catheter in stable, satisfactory position. OSSEOUS STRUCTURES: No significant abnormalities. VISUALIZED UPPER ABDOMEN: Normal. OTHER FINDINGS: None. IMPRESSION: No active disease. No acute/significant interval changes. Concordant results with the preliminary interpretation rendered by the emergency department physician procedure.
[2017-09-27] MEDS ORDERED: Tramadol 25 mg PO PRN (12:30)
--- NOTE | 2017-09-27 17:05 | CARD ---
APPROVED REPORT EKG Measurement Heart [id number] <Conclusion> Normal sinus rhythm Abnormal QRS-T angle, consider primary T wave abnormality Abnormal ECG
--- NOTE | 2017-09-27 17:28 | CP.PCM.CON ---
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 The patient has been off treatment for about 4 months as her daughter reports she was requiring more transfusions while on treatment. She denies abnormal bleeding and bruising She does admit to some fatigue but states she feels okay. Past medical history: MDS Past surgical history: None Family history: Denies hematologic and oncologic problems Social history: Denies tobacco, alcohol, and illicit drug use. Allergies: Amoxicillin Review of systems: All remaining review of systems including HEENT, cardiovascular, respiratory, gastrointestinal, genitourinary, musculoskeletal, dermatologic, neurologic, and psychiatric are negative unless mentioned in the HPI. Past Patient History - Infectious Disease Hx of Infectious Diseases: None - Tetanus Immunizations Tetanus Immunization: Unknown - Past Medical History & Family History Past Medical History?: Yes - Past Social History Smoking Status: Former Smoker - CARDIAC Hx Hypertension: No - PULMONARY Hx Respiratory Disorders: Yes Hx Bronchitis: Yes Hx Pneumonia: Yes - NEUROLOGICAL Hx Neurological Disorder: Yes Hx Alzheimer's Disease: Yes Hx Dementia: Yes - HEENT Hx HEENT Problems: Yes Hx Cataracts: Yes (BOTH EYES) - RENAL Hx Chronic Kidney Disease: No - ENDOCRINE/METABOLIC Hx Diabetes Mellitus Type 2: Yes (IDDM) - HEMATOLOGICAL/ONCOLOGICAL Hx Blood Disorders: Yes Hx Anemia: Yes Hx Blood Transfusions: Yes Hx Chemotherapy: Yes Hx Leukemia: Yes - INTEGUMENTARY Hx Dermatological Problems: No - MUSCULOSKELETAL/RHEUMATOLOGICAL Hx Arthritis: Yes (KNEE; BACK PAIN) - GASTROINTESTINAL Hx Gastrointestinal Disorders: No - GENITOURINARY/GYNECOLOGICAL Hx Genitourinary Disorders: No - PSYCHIATRIC Hx Psychophysiologic Disorder: No Hx Substance Use: No - SURGICAL HISTORY Hx Surgeries: Yes Hx Tonsillectomy: Yes Other/Comment: HX:RIGHT SUBCLAVIAN PORTACATH INSERTION 11/29/16 - ANESTHESIA Hx Anesthesia: Yes Hx Anesthesia Reactions: No Hx Malignant Hyperthermia: No Meds Allergies/Adverse Reactions: Allergies Allergy/AdvReac Type Severity Reaction Status Date / Time amoxicillin Allergy Mild RASH Verified 09/26/17 19:42 - Medications Medications: Current Medications Acetaminophen (Tylenol 325mg Tab) 650 mg PO Q6 PRN PRN Reason: Fever >100.4 F Last Admin: 09/27/17 00:35 Dose: 650 mg Aspirin (Aspirin Chewable) 81 mg PO DAILY [facility] Last Admin: 09/27/17 10:40 Dose: 81 mg Ciprofloxacin (Cipro) 500 mg PO BID [facility] PRN Reason: Protocol Last Admin: 09/27/17 10:40 Dose: 500 mg Sodium Chloride (Sodium Chloride 0.9%) 1,000 mls @ 100 mls/hr IV .Q10H [facility] Last Admin: 09/26/17 20:30 Dose: 100 mls/hr Insulin Aspart (Novolog) 0 unit SC ACHS [facility] PRN Reason: Protocol Last Admin: 09/27/17 12:13 Dose: 4 unit Insulin Detemir (Levemir) 10 unit SC HS [facility] Lisinopril (Zestril) 2.5 mg PO DAILY [facility] Last Admin: 09/27/17 10:53 Dose: 2.5 mg Multivitamins/Minerals (Therapeutic-M Tab) 1 tab PO DAILY [facility] Last Admin: 09/27/17 10:53 Dose: 1 tab Mupirocin (Bactroban Ointment) 22 gm EXT BID [facility] Last Admin: 09/27/17 10:54 Dose: 1 appl Tramadol HCl (Ultram) 25 mg PO Q8H PRN PRN Reason: Pain, moderate (4-7) Physical Exam - Head Exam Head Exam: ATRAUMATIC - Eye Exam Eye Exam: Normal appearance - ENT Exam ENT Exam: Mucous Membranes Dry - Respiratory Exam Respiratory Exam: NORMAL BREATHING PATTERN - Cardiovascular Exam Cardiovascular Exam: +S1, +S2 - GI/Abdominal Exam GI & Abdominal Exam: Normal Bowel Sounds - Extremities Exam Extremities exam: Positive for: normal inspection Results - Vital Signs Recent Vital Signs: Last Vital Signs Temp 98 F 09/27/17 16:00 Pulse 85 09/27/17 16:00 Resp 20 09/27/17 16:00 BP 88/52 L 09/27/17 16:00 Pulse Ox 98 09/27/17 16:00 - Labs Result Diagrams: 09/29/17 06:15 09/29/17 06:15 Labs: Laboratory Results - last 24 hr 09/26/17 09/26/17 09/26/17 20:01 20:29 20:29 WBC 8.5 RBC 2.11 L Hgb 7.9 L D Hct 22.4 L MCV 105.9 H MCH 37.2 H MCHC 35.1 RDW 24.2 H Plt Count 213 MPV 9.7 Neut % (Auto) 70.7 Lymph % (Auto) 18.5 L [place] % (Auto) 6.6 Eos % (Auto) 3.2 Baso % (Auto) 1.0 Neut # (Auto) 6.0 Lymph # (Auto) 1.6 [place] # (Auto) 0.6 Eos # (Auto) 0.3 Baso # (Auto) 0.1 PT 15.1 H INR 1.3 APTT 29 Sodium Potassium Chloride Carbon Dioxide Anion Gap BUN Creatinine Est GFR ( Amer) Est GFR (Non-Af Amer) POC Glucose (mg/dL) Random Glucose Calcium Magnesium Total Bilirubin AST ALT Alkaline Phosphatase Total Protein Albumin Globulin Albumin/Globulin Ratio Lipase Urine Color Yellow Urine Clarity Turbid Urine pH 5.0 Ur Specific [place] 1.012 Urine Protein 2+ H Urine Glucose (UA) Normal Urine Ketones Negative Urine Blood 1+ H Urine Nitrate Negative Urine Bilirubin Negative Urine Urobilinogen Normal Ur Leukocyte Esterase 3+ H Urine WBC (Auto) 4669 H Urine RBC (Auto) 12 H Urine WBC Clumps (Auto) Many H Ur Squamous Epith Cells 3 Urine Bacteria Mod H Blood Type Antibody Screen Antibody Identification 09/26/17 09/26/17 09/27/17 20:29 20:29 07:14 WBC RBC Hgb Hct MCV MCH MCHC RDW Plt Count MPV Neut % (Auto) Lymph % (Auto) [place] % (Auto) Eos % (Auto) Baso % (Auto) Neut # (Auto) Lymph # (Auto) [place] # (Auto) Eos # (Auto) Baso # (Auto) PT INR APTT Sodium 139 Potassium 3.8 Chloride 101 Carbon Dioxide 26 Anion Gap 16 BUN 28 H Creatinine 1.3 H Est GFR ( Amer) 47 Est GFR (Non-Af Amer) 39 POC Glucose (mg/dL) 242 H Random Glucose 104 Calcium 9.0 Magnesium 2.0 Total Bilirubin 0.4 AST 16 ALT 11 Alkaline Phosphatase 77 Total Protein 8.0 Albumin 3.6 Globulin 4.3 H Albumin/Globulin Ratio 0.8 L Lipase 65 Urine Color Urine Clarity Urine pH Ur Specific [place] Urine Protein Urine Glucose (UA) Urine Ketones Urine Blood Urine Nitrate Urine Bilirubin Urine Urobilinogen Ur Leukocyte Esterase Urine WBC (Auto) Urine RBC (Auto) Urine WBC Clumps (Auto) Ur Squamous Epith Cells Urine Bacteria Blood Type O POSITIVE Antibody Screen Positive Antibody Identification Anti E 09/27/17 09/27/17 11:05 16:21 WBC RBC Hgb Hct MCV MCH MCHC RDW Plt Count MPV Neut % (Auto) Lymph % (Auto) [place] % (Auto) Eos % (Auto) Baso % (Auto) Neut # (Auto) Lymph # (Auto) [place] # (Auto) Eos # (Auto) Baso # (Auto) PT INR APTT Sodium Potassium Chloride Carbon Dioxide Anion Gap BUN Creatinine Est GFR ( Amer) Est GFR (Non-Af Amer) POC Glucose (mg/dL) 306 H 310 H Random Glucose Calcium Magnesium Total Bilirubin AST ALT Alkaline Phosphatase Total Protein Albumin Globulin Albumin/Globulin Ratio Lipase Urine Color Urine Clarity Urine pH Ur Specific [place] Urine Protein Urine Glucose (UA) Urine Ketones Urine Blood Urine Nitrate Urine Bilirubin Urine Urobilinogen Ur Leukocyte Esterase Urine WBC (Auto) Urine RBC (Auto) Urine WBC Clumps (Auto) Ur Squamous Epith Cells Urine Bacteria Blood Type Antibody Screen Antibody Identification Assessment & Plan (1) Anemia Assessment and Plan: secondary to MDS transfusion support PRN Status: Acute (2) Myelodysplastic syndrome Assessment and Plan: with 5q- decitabine on hold per families wishes outpatient f/u and treatment Thank you for this interesting consult. Status: Acute
[2017-09-27 20:36] LABS: BASO % 0.8 % (0.0-2.0); EOS # 0.1 K/uL (0.0-0.7); EOS % 3.3 % (0.0-4.0); HEMOGLOBIN 11.3 g/dL (11.0-16.0); LYMPH # 0.3 K/uL (1.0-4.3); LYMPH % 7.3 % (20.0-40.0); MEAN CELL VOLUME 96.9 fL (81.0-99.0); MEAN CORPUSCULAR HEMOGLOBIN 34.5 pg (27.0-31.0); MEAN CORPUSCULAR HGB CONC 35.6 g/dL (33.0-37.0); MEAN PLATELET VOLUME 9.3 fL (7.2-11.7); MONO # 0.1 K/uL (0.0-0.8); MONO % 1.2 % (0.0-10.0); NEUT # 3.6 K/uL (1.8-7.0); NEUT % 87.4 % (50.0-75.0); PLATELET COUNT 176 K/uL (130-400); RBC 3.28 Mil/uL (3.80-5.20); RED CELL DISTRIBUTION WIDTH 23.6 % (11.5-14.5); WHITE BLOOD COUNT 4.1 K/uL (4.8-10.8)
[2017-09-28 01:03] LABS: BANDS 5 % (0-2); EOSINOPHIL 6 % (0-4); LYMPHOCYTE 8 % (20-40); MONOCYTE 1 % (0-10); NEUTROPHIL 80 % (50-75); TOTAL CELLS COUNTED 100
[2017-09-28 01:04] LABS: ANISOCYTOSIS SLIGHT; POIKILOCYTOSIS SLIGHT
[2017-09-28] MEDS: Sodium Chloride 0.9% 1,000 ML IV SCH ×3 (03:10→22:06)
--- NOTE | 2017-09-28 07:12 | CP.PCM.PN ---
Subjective - Date & Time of Evaluation Date of Evaluation: 09/28/17 Time of Evaluation: 07:05 - Subjective Subjective: PGY-[address] Ly's service: Pt seen and examined at bedside. Nursing reports patient febrile overnight ( Tmax 103 F). Patient found lying in bed comfortably. She denies acute concerns and denies subjective fever, chills, dysuria, cough, SOB, chest pain. Objective - Vital Signs/Intake and Output Vital Signs (last 24 hours): Temp Pulse Resp BP Pulse Ox 98.3 F 90 18 101/56 L 95 09/28/17 06:00 09/28/17 06:00 09/28/17 06:00 09/28/17 06:00 09/28/17 06:00 Intake and Output: 09/28/17 09/28/17 06:59 18:59 Intake Total 1050 Balance 1050 - Medications Medications: Current Medications Acetaminophen (Tylenol 325mg Tab) 650 mg PO Q6 PRN PRN Reason: Fever >100.4 F Last Admin: 09/27/17 19:35 Dose: 650 mg Aspirin (Aspirin Chewable) 81 mg PO DAILY [facility] Last Admin: 09/27/17 10:40 Dose: 81 mg Sodium Chloride (Sodium Chloride 0.9%) 1,000 mls @ 100 mls/hr IV .Q10H [facility] Last Admin: 09/28/17 03:10 Dose: Not Given Cefepime HCl 1 gm/ Dextrose 50 mls @ 100 mls/hr IVPB Q12H [facility] PRN Reason: Protocol Last Admin: 09/27/17 20:47 Dose: 100 mls/hr Insulin Aspart (Novolog) 0 unit SC ACHS [facility] PRN Reason: Protocol Last Admin: 09/27/17 17:39 Dose: 4 unit Insulin Detemir (Levemir) 10 unit SC HS [facility] Lisinopril (Zestril) 2.5 mg PO DAILY [facility] Last Admin: 09/27/17 10:53 Dose: 2.5 mg Multivitamins/Minerals (Therapeutic-M Tab) 1 tab PO DAILY [facility] Last Admin: 09/27/17 10:53 Dose: 1 tab Mupirocin (Bactroban Ointment) 22 gm EXT BID [facility] Last Admin: 09/27/17 20:48 Dose: Not Given Tramadol HCl (Ultram) 25 mg PO Q8H PRN PRN Reason: Pain, moderate (4-7) - Labs Labs: 09/27/17 20:32 09/26/17 20:29 PT 15.1 SECONDS (9.7-12.2) H 09/26/17 20:29 INR 1.3 09/26/17 20:29 APTT 29 SECONDS (21-34) 09/26/17 20:29 - Additional Findings Additional findings: - Constitutional Appears: Non-toxic, No Acute Distress - Head Exam Head Exam: ATRAUMATIC, NORMAL INSPECTION, NORMOCEPHALIC - ENT Exam ENT Exam: Mucous Membranes Moist - Neck Exam Neck Exam: Full ROM - Respiratory Exam Respiratory Exam: NORMAL BREATHING PATTERN. absent: Wheezes - Cardiovascular Exam Cardiovascular Exam: +S1, +S2 - GI/Abdominal Exam GI & Abdominal Exam: Soft, Normal Bowel Sounds. absent: Tenderness - Extremities Exam Extremities Exam: Full ROM, Normal Capillary Refill. absent: Pedal Edema, Tenderness - Back Exam Back Exam: Full ROM - Neurological Exam Neurological Exam: Awake - Psychiatric Exam Psychiatric exam: Flat Affect - Skin Skin Exam: Dry, Intact, Warm - port-a-cath in right chest wall, no erythema/edema/tenderness surrounding area Assessment and Plan - Assessment and Plan (Free Text) Plan: Sepsis secondary to UTI [place]: Febrile (Tmax 103F), WBC 13.5, 19 bands UA (09/26/17): 3+ LE, 4669 WBC, Many WBC clumps, moderate bacteria Urine Culture (09/26/17): [facility] ID regional engagement consultant, Dr. Solorio, help appreciated - Start Merrem 500mg Q8H IV (start 09/27/17) - Discontinued cefepime - pt with allergy (rash to penicillins) so will monitor Q15min vitals for 1 hr following administration for possible cross-reaction w/ carbapenems - Benadryl 25 mg IV PRN Q8H for pruritus, rash following carbapenem administration Tylenol for fever NS @ 100cc/hr f/u STAT VBG, CMP, Mg, Phos Symptomatic Anemia Hgb 9.8 on AM labs, 7.9 on 09/26 EKG - NSR, with no significant changes when compared to prior EKG obtained one month prior 2017. Dr. Adames on board- F/U recommendations Monitor temp. MDS Following with Dr. Adames for treatment Dr. Adames, Operations And Intelligence Assistant-Oncologist- F/U recommendations DM Levemir 10 U SC HS [facility] Lisinopril 2.5 mg PO daily Accuchecks CAD Aspirin 81 mg PO daily [facility] Normal saline at 100 mls/hr Baseline Creatinine 0.9/1.0 - Cr 1.2 on AM labs Monitor Prophylactic Measure VTE contraindicated in light of symptomatic anemia PT eval and treat Discussed with attending. All management and planning per Dr. Ly.
[2017-09-28 07:34] VITALS: RESP 20
[2017-09-28] MEDS: (Novolog) Insulin Aspart, Recombinant 100 u/ml 10 ml vial SC SCH ×4 (07:47→22:00)
[2017-09-28 08:16] LABS: BASO # 0.1 K/uL (0.0-0.2); BASO % 0.7 % (0.0-2.0); EOS # 0.3 K/uL (0.0-0.7); EOS % 2.2 % (0.0-4.0); HEMOGLOBIN 9.8 g/dL (11.0-16.0); LYMPH # 1.2 K/uL (1.0-4.3); MEAN CELL VOLUME 97.2 fL (81.0-99.0); MEAN CORPUSCULAR HEMOGLOBIN 34.6 pg (27.0-31.0); MEAN CORPUSCULAR HGB CONC 35.6 g/dL (33.0-37.0); MEAN PLATELET VOLUME 9.9 fL (7.2-11.7); MONO # 0.5 K/uL (0.0-0.8); MONO % 3.9 % (0.0-10.0); NEUT # 11.3 K/uL (1.8-7.0); NEUT % 84.2 % (50.0-75.0); PLATELET COUNT 147 K/uL (130-400); RBC 2.82 Mil/uL (3.80-5.20); RED CELL DISTRIBUTION WIDTH 23.2 % (11.5-14.5)
[2017-09-28 08:24] LABS: WHITE BLOOD COUNT 13.5 K/uL (4.8-10.8)
[2017-09-28 09:22] LABS: BANDS 19 % (0-2); EOSINOPHIL 4 % (0-4); NEUTROPHIL 65 % (50-75); TOTAL CELLS COUNTED 100
[2017-09-28 09:23] LABS: HYPOCHROMIC SLIGHT; LARGE PLATELETS PRESENT; LYMPHOCYTE 9 % (20-40); MONOCYTE 3 % (0-10); PLATELET ESTIMATE NORMAL (NORMAL)
[2017-09-28 10:16] LABS: VENOUS BLOOD GAS BASE EXCESS -1.3 mmol/L (0.0-2.0); VENOUS BLOOD GAS PCO2 35 mmHg (40-60); VENOUS BLOOD GAS PO2 32 mm/Hg (30-55); VENOUS BLOOD PH 7.42 (7.32-7.43)
[2017-09-28] MEDS: Multivitamin With Minerals Tab PO SCH (10:38)
[2017-09-28 10:50] LABS: ALB/GLOB RATIO 0.8 (1.0-2.1); ALBUMIN 2.8 g/dL (3.5-5.0); CALCIUM 7.7 mg/dl (8.6-10.4)
[2017-09-28 11:35] LABS: PLATELET ESTIMATE NORMAL (NORMAL)
[2017-09-28] MEDS: Meropenem 500 MG in Sodium Chloride 0.9% 100 ML IVPB SCH ×2 (11:55→18:09)
[2017-09-28] MEDS ORDERED: Meropenem 500 MG in Sodium Chloride 0.9% 100 ML IVPB SCH (14:00)
[2017-09-28] MEDS ORDERED: DiphenhydrAMINE 50 mg/ml Inj IVP PRN (14:00)
--- NOTE | 2017-09-28 17:40 | CP.PCM.CON ---
History of Present Illness - History of Present Illness History of Present Illness: The patient presents to the ED for evaluation of weakness, dizziness and a near- syncopal episode which occurred earlier today. 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 Patient denies chest pain, shortness of breath, and palpitations. admitted with urosepsis - started on Merrem for ESBL UTI/ sepsis consider eval - Medical History PMH: Alzheimer's Disease, Anemia, Arthritis (KNEE; BACK PAIN), Bronchitis, Dementia, Diabetes, Malignancy (Myelodysplastic), Pneumonia Denies: HTN, Chronic Kidney Disease Surgical History: Tonsillectomy - [facility] Procedures INSERT INFUSION DEV IN R INT JUGULAR VEIN, PERC (11/25/16) INSERTION OF VAD INTO CHEST SUBCU/FASCIA, OPEN APPROACH (11/25/16) INTRODUCE OF OTH THERAP SUBST INTO RESP TRACT, VIA OPENING (08/14/16) TRANSFUSE NONAUT RED BLOOD CELLS IN PERIPH VEIN, PERC (12/24/16) Review of Systems - Constitutional Constitutional: As Per HPI - EENT Eyes: absent: As Per HPI, Blind Spots, Blurred Vision, Change in Vision, Decreased Night Vision, Diplopia, Discharge, Dry Eye, Exophthalmos, Floaters, Irritation, Itchy Eyes, Loss of Peripheral Vision, Pain, Photophobia, Requires Corrective Lenses, Sees Flashes, Spots in Vision, Tunnel Vision, Other Visual Disturbances, Loss of Vision, Other Ears: absent: As Per HPI, Decreased Hearing, Ear Discharge, Ear Pain, Tinnitus, Abnormal Hearing, Disequilibrium, Dizziness, Other Nose/Mouth/Throat: absent: As Per HPI, Epistaxis, Nasal Congestion, Nasal Discharge, Nasal Obstruction, Nasal Trauma, Nose Pain, Post Nasal Drip, Sinus Pain, Sinus Pressure, Bleeding Gums, Change in Voice, Dental Pain, Dry Mouth, Dysphagia, Halitosis, Hoarsness, Lip Swelling, Mouth Lesions, Mouth Pain, Odynophagia, Sore Throat, Throat Swelling, Tongue Swelling, Facial Pain, Neck Pain, Neck Mass, Other - Breasts Breasts: absent: As Per HPI, Change in Shape, Mass, Pain, Nipple Discharge, Nipple Inversion, Skin Changes, Swelling, Other - Cardiovascular Cardiovascular: absent: As Per HPI, Acrocyanosis, Chest Pain, Chest Pain at Rest , Chest Pain with Activity, Claudication, Diaphoresis, Dyspnea, Dyspnea on Exertion, Edema, Irregular Heart Rhythm, Pain Radiating to Arm/Neck/Jaw, Leg Edema, Leg Ulcers, Lightheadedness, Orthopnea, Palpitations, Paroxysmal Nocturnal Dyspnea, Pedal Edema, Radiating Pain, Rapid Heart Rate, Slow Heart Rate, Syncope, Other - Respiratory Respiratory: absent: As Per HPI, Cough, Dyspnea, Hemoptysis, Dyspnea on Exertion , Wheezing, Snoring, Stridor, Pain on Inspiration, Chest Congestion, Excessive Mucous Production, Change in Mucous Color, Pain with Coughing, Other - Gastrointestinal Gastrointestinal: absent: As Per HPI, Abdominal Pain, Belching, Bloating, Change in Bowel Habits, Change in Stool Character, Coffee Ground Emesis, Constipation, Cramping, Diarrhea, Dyspepsia, Dysphagia, Early Satiety, Excessive Flatus, Fecal Incontinence, Heartburn, Hematemesis, Hematochezia, Loose Stools, Melena, Nausea, Odynophagia, Temesmus, Vomiting, Other - Genitourinary Genitourinary: As Per HPI - Reproductive: Female Reproductive:Female: absent: As Per HPI, Amenorrhea, Amenorrhea/ Control, Currently Menstual, Cycle <21 Days, Cycle >35 Days, Cycle Variable, Menses 1-7 Days, Menses >/= 8 Days, Menses Variable, Cycle > 4 Weeks Between, No Menses for 6 Months, Heavy Menses, Light Menses, Normal Menses, Spotting Between Cycles , S/P Hysterectomy, Menopausal, Post Menopausal, Premenarche, Abnormal Vaginal Bleeding, Dysmenorrhea, Dyspareunia, Genital Lesions, Genital Pruritis, Pelvic Pain, Prolapse Symptoms, Sexual Dysfunction, Vaginal Discharge, Vaginal Dryness , Vaginal Odor, Vaginal Pruritis, Other - Menstruation Menstruation: absent: As Per HPI, Amenorrhea, Amenorrhea/ Control, Currently Menstual, Cycle <21 Days, Cycle >35 Days, Cycle Variable, Menses 1-7 Days, Menses >/= 8 Days, Menses Variable, Cycle > 4 Weeks Between, No Menses for 6 Months, Heavy Menses, Light Menses, Normal Menses, Spotting Between Cycles , S/P Hysterectomy, Menopausal, Post Menopausal, Premenarche, Abnormal Vaginal Bleeding, Dysmenorrhea, Other - Musculoskeletal Musculoskeletal: absent: As Per HPI, Abnormal Gait, Arthralgias, Atrophy, Back Pain, Deformity, Joint Swelling, Limited Range of Motion, Loss of Height, Muscle Cramps, Muscle Weakness, Myalgias, Neck Pain, Numbness, Radiating Pain into Limb, Stiffness, Tingling, Other - Integumentary Integumentary: absent: As Per HPI, Acne, Alopecia, Bleeding Lesions, Change in Hair, Change in Nails, Change in Pigmentation, Changing Lesions, Dry Skin, Erythema, Furuncle, Hirsutism, Lesions, New Lesions, Non-Healing Lesions, Photosensitivity, Pruritus, Rash, Skin Pain, Skin Ulcer, Sores, Striae, Swelling , Unusual Bruising, Wounds, Jaundice, Other - Neurological Neurological: absent: As Per HPI, Abnormal Gait, Abnormal Hearing, Abnormal Movements, Abnormal Speech, Behavioral Changes, Burning Sensations, Confusion, Convulsions, Disequilibrium, Dizziness, Numbness, Focal Weakness, Frequent Falls , Headaches, Lack of Coordination, Loss of Vision, Memory Loss, Paresthesias, Radicular Pain, Restless Legs, Sensory Deficit, Syncope, Tingling, Tremor, Vertigo, Weakness, Other Visual Disturbances, Other - Psychiatric Psychiatric: absent: As Per HPI, Abnormal Sleep Pattern, Anhedonia, Anxiety, Auditory Hallucinations, Behavioral Changes, Change in Appetite, Change in Libido, Confusion, Depression, Difficulty Concentrating, Hallucinations, Homicidal Ideation, Hopelessness, Irritability, Memory Loss, Mood Swings, Panic Attacks, Paranoia, Suicidal Ideation, Visual Hallucinations, Tactile Hallucinations, Other - Endocrine Endocrine: absent: As Per HPI, Change in Body Appearance, Change in Libido, Cold Intolorance, Deepening of Voice, Excessive Sweating, Fatigue, Flushing, Heat Intolorance, Increase in Ring/Shoe/Hat Size, Palpitations, Polydipsia, Polyphagia, Polyuria, Other - Hematologic/Lymphatic Hematologic: As Per HPI Past Patient History - Infectious Disease Hx of Infectious Diseases: None - Tetanus Immunizations Tetanus Immunization: Unknown - Past Medical History & Family History Past Medical History?: Yes - Past Social History Smoking Status: Former Smoker - CARDIAC Hx Hypertension: No - PULMONARY Hx Respiratory Disorders: Yes Hx Bronchitis: Yes Hx Pneumonia: Yes - NEUROLOGICAL Hx Neurological Disorder: Yes Hx Alzheimer's Disease: Yes Hx Dementia: Yes - HEENT Hx HEENT Problems: Yes Hx Cataracts: Yes (BOTH EYES) - RENAL Hx Chronic Kidney Disease: No - ENDOCRINE/METABOLIC Hx Diabetes Mellitus Type 2: Yes (IDDM) - HEMATOLOGICAL/ONCOLOGICAL Hx Blood Disorders: Yes Hx Anemia: Yes Hx Blood Transfusions: Yes Hx Chemotherapy: Yes Hx Leukemia: Yes - INTEGUMENTARY Hx Dermatological Problems: No - MUSCULOSKELETAL/RHEUMATOLOGICAL Hx Arthritis: Yes (KNEE; BACK PAIN) - GASTROINTESTINAL Hx Gastrointestinal Disorders: No - GENITOURINARY/GYNECOLOGICAL Hx Genitourinary Disorders: No - PSYCHIATRIC Hx Psychophysiologic Disorder: No Hx Substance Use: No - SURGICAL HISTORY Hx Surgeries: Yes Hx Tonsillectomy: Yes Other/Comment: HX:RIGHT SUBCLAVIAN PORTACATH INSERTION 11/29/16 - ANESTHESIA Hx Anesthesia: Yes Hx Anesthesia Reactions: No Hx Malignant Hyperthermia: No Meds Allergies/Adverse Reactions: Allergies Allergy/AdvReac Type Severity Reaction Status Date / Time amoxicillin Allergy Mild RASH Verified 09/26/17 19:42 - Medications Medications: Current Medications Acetaminophen (Tylenol 325mg Tab) 650 mg PO Q6 PRN PRN Reason: Fever >100.4 F Last Admin: 09/27/17 19:35 Dose: 650 mg Aspirin (Aspirin Chewable) 81 mg PO DAILY [facility] Last Admin: 09/28/17 10:39 Dose: 81 mg Diphenhydramine HCl (Benadryl) 25 mg IVP Q8 PRN PRN Reason: Allergy symptoms Sodium Chloride (Sodium Chloride 0.9%) 1,000 mls @ 100 mls/hr IV .Q10H [facility] Last Admin: 09/28/17 12:20 Dose: 100 mls/hr Meropenem 500 mg/ Sodium (Chloride) 100 mls @ 100 mls/hr IVPB Q8H [facility] PRN Reason: Protocol Last Admin: 09/28/17 11:55 Dose: 100 mls/hr Insulin Aspart (Novolog) 0 unit SC ACHS [facility] PRN Reason: Protocol Last Admin: 09/28/17 11:56 Dose: 1 unit Insulin Detemir (Levemir) 10 unit SC HS [facility] Lisinopril (Zestril) 2.5 mg PO DAILY [facility] Last Admin: 09/28/17 10:39 Dose: 2.5 mg Multivitamins/Minerals (Therapeutic-M Tab) 1 tab PO DAILY [facility] Last Admin: 09/28/17 10:38 Dose: 1 tab Mupirocin (Bactroban Ointment) 22 gm EXT BID [facility] Last Admin: 09/28/17 10:39 Dose: 1 appl Tramadol HCl (Ultram) 25 mg PO Q8H PRN PRN Reason: Pain, moderate (4-7) Physical Exam - Constitutional Appears: Toxic, Confused, Chronically Ill - Head Exam Head Exam: ATRAUMATIC, NORMAL INSPECTION, NORMOCEPHALIC - Eye Exam Eye Exam: EOMI, PERRL. absent: Periorbital swelling, Periorbital tenderness, Scleral icterus - ENT Exam ENT Exam: Mucous Membranes Dry, Normal External Ear Exam, Normal Oropharynx - Neck Exam Neck exam: Negative for: Lymphadenopathy, Thyromegaly - Respiratory Exam Respiratory Exam: Decreased Breath Sounds, Clear to Auscultation Bilateral - Cardiovascular Exam Cardiovascular Exam: REGULAR RHYTHM, +S1, +S2 - GI/Abdominal Exam GI & Abdominal Exam: Diminished Bowel Sounds, Soft. absent: Tenderness - Rectal Exam Rectal Exam: Deferred - Exam Exam: NORMAL INSPECTION - Extremities Exam Extremities exam: Positive for: pedal pulses present. Negative for: calf tenderness, pedal edema, tenderness - Back Exam Back exam: absent: CVA tenderness (L), CVA tenderness (R), paraspinal tenderness - Neurological Exam Neurological exam: Alert, CN II-XII Intact, Reflexes Normal - Psychiatric Exam Psychiatric exam: Depressed - Skin Skin Exam: Dry Results - Vital Signs Recent Vital Signs: Last Vital Signs Temp 98.3 F 09/28/17 07:32 Pulse 95 H 09/28/17 14:33 Resp 20 09/28/17 07:32 BP 108/59 L 09/28/17 14:33 Pulse Ox 95 09/28/17 14:33 - Labs Result Diagrams: 09/28/17 08:03 09/28/17 10:20 Labs: Laboratory Results - last 24 hr 09/27/17 09/27/17 09/28/17 20:32 20:55 07:09 WBC 4.1 L D RBC 3.28 L Hgb 11.3 D Hct 31.8 L MCV 96.9 D MCH 34.5 H MCHC 35.6 RDW 23.6 H Plt Count 176 MPV 9.3 Neut % (Auto) 87.4 H Lymph % (Auto) 7.3 L [place] % (Auto) 1.2 Eos % (Auto) 3.3 Baso % (Auto) 0.8 Neut # (Auto) 3.6 Lymph # (Auto) 0.3 L [place] # (Auto) 0.1 Eos # (Auto) 0.1 Baso # (Auto) 0.0 Neutrophils % (Manual) 80 H Band Neutrophils % 5 H Lymphocytes % (Manual) 8 L Monocytes % (Manual) 1 Eosinophils % (Manual) 6 H Platelet Estimate Normal Large Platelets Hypochromasia (manual) Poikilocytosis (manual Slight Anisocytosis (manual) Slight pO2 VBG pH VBG pCO2 VBG HCO3 VBG Total CO2 VBG O2 Sat (Calc) VBG Base Excess VBG Potassium Sodium Chloride Glucose Lactate Potassium Carbon Dioxide Anion Gap BUN Creatinine Est GFR ( Amer) Est GFR (Non-Af Amer) POC Glucose (mg/dL) 213 H 94 Random Glucose Calcium Phosphorus Magnesium Total Bilirubin AST ALT Alkaline Phosphatase Total Protein Albumin Globulin Albumin/Globulin Ratio Venous Blood Potassium 09/28/17 09/28/17 09/28/17 08:03 10:13 10:20 WBC 13.5 H D RBC 2.82 L Hgb 9.8 L Hct 27.4 L MCV 97.2 MCH 34.6 H MCHC 35.6 RDW 23.2 H Plt Count 147 MPV 9.9 Neut % (Auto) 84.2 H Lymph % (Auto) 9.0 L [place] % (Auto) 3.9 Eos % (Auto) 2.2 Baso % (Auto) 0.7 Neut # (Auto) 11.3 H Lymph # (Auto) 1.2 [place] # (Auto) 0.5 Eos # (Auto) 0.3 Baso # (Auto) 0.1 Neutrophils % (Manual) 65 Band Neutrophils % 19 H* Lymphocytes % (Manual) 9 L Monocytes % (Manual) 3 Eosinophils % (Manual) 4 Platelet Estimate Normal Large Platelets Present Hypochromasia (manual) Slight Poikilocytosis (manual Anisocytosis (manual) pO2 32 VBG pH 7.42 VBG pCO2 35 L VBG HCO3 23.0 VBG Total CO2 23.8 VBG O2 Sat (Calc) 73.6 H VBG Base Excess -1.3 L VBG Potassium 4.1 Sodium 137.0 136 Chloride 108.0 H 105 Glucose 161 H Lactate 0.8 Potassium 4.3 Carbon Dioxide 23 Anion Gap 13 BUN 28 H Creatinine 1.2 Est GFR ( Amer) 51 Est GFR (Non-Af Amer) 42 POC Glucose (mg/dL) Random Glucose 158 H Calcium 7.7 L Phosphorus 2.6 Magnesium 1.8 Total Bilirubin 0.8 AST 30 ALT 15 Alkaline Phosphatase 68 Total Protein 6.5 Albumin 2.8 L D Globulin 3.7 Albumin/Globulin Ratio 0.8 L Venous Blood Potassium 4.1 09/28/17 09/28/17 10:56 16:54 WBC RBC Hgb Hct MCV MCH MCHC RDW Plt Count MPV Neut % (Auto) Lymph % (Auto) [place] % (Auto) Eos % (Auto) Baso % (Auto) Neut # (Auto) Lymph # (Auto) [place] # (Auto) Eos # (Auto) Baso # (Auto) Neutrophils % (Manual) Band Neutrophils % Lymphocytes % (Manual) Monocytes % (Manual) Eosinophils % (Manual) Platelet Estimate Large Platelets Hypochromasia (manual) Poikilocytosis (manual Anisocytosis (manual) pO2 VBG pH VBG pCO2 VBG HCO3 VBG Total CO2 VBG O2 Sat (Calc) VBG Base Excess VBG Potassium Sodium Chloride Glucose Lactate Potassium Carbon Dioxide Anion Gap BUN Creatinine Est GFR ( Amer) Est GFR (Non-Af Amer) POC Glucose (mg/dL) 154 H 167 H Random Glucose Calcium Phosphorus Magnesium Total Bilirubin AST ALT Alkaline Phosphatase Total Protein Albumin Globulin Albumin/Globulin Ratio Venous Blood Potassium Assessment & Plan (1) Anemia Status: Acute (2) UTI (urinary tract infection) Status: Acute (3) Closed fracture of right proximal humerus Status: Acute (4) Myelodysplastic syndrome Status: Acute - Assessment and Plan (Free Text) Assessment: cont merrem for min 14 days consider eval
[2017-09-28] MEDS: Insulin Detemir 100 units/ml Vial (Levemir) SC SCH (22:01)
[2017-09-29] MEDS: Meropenem 500 MG in Sodium Chloride 0.9% 100 ML IVPB SCH ×3 (03:07→19:18)
[2017-09-29 06:25] LABS: BASO # 0.1 K/uL (0.0-0.2); BASO % 0.6 % (0.0-2.0); EOS # 0.4 K/uL (0.0-0.7); HEMOGLOBIN 9.7 g/dL (11.0-16.0); LYMPH # 1.1 K/uL (1.0-4.3); MEAN CELL VOLUME 97.4 fL (81.0-99.0); MEAN CORPUSCULAR HEMOGLOBIN 34.9 pg (27.0-31.0); MEAN CORPUSCULAR HGB CONC 35.9 g/dL (33.0-37.0); MEAN PLATELET VOLUME 9.5 fL (7.2-11.7); MONO # 0.6 K/uL (0.0-0.8); MONO % 6.8 % (0.0-10.0); NEUT # 6.9 K/uL (1.8-7.0); NEUT % 76.6 % (50.0-75.0); RBC 2.77 Mil/uL (3.80-5.20); RED CELL DISTRIBUTION WIDTH 23.2 % (11.5-14.5)
[2017-09-29 06:40] LABS: ALB/GLOB RATIO 0.7 (1.0-2.1); ALBUMIN 2.8 g/dL (3.5-5.0); ALT/SGPT 24 U/L (9-52); AST/SGOT 25 U/L (14-36); BLOOD UREA NITROGEN 19 mg/dL (7-17); CALCIUM 7.9 mg/dl (8.6-10.4); GFR AFRICAN-AMERICAN > 60; GFR NON-AFRICAN AMERICAN 52
[2017-09-29] MEDS: (Novolog) Insulin Aspart, Recombinant 100 u/ml 10 ml vial SC SCH ×4 (08:45→22:36)
[2017-09-29] MEDS: Sodium Chloride 0.9% 1,000 ML IV SCH ×3 (08:46→22:37)
[2017-09-29] MEDS: Multivitamin With Minerals Tab PO SCH (09:31)
--- NOTE | 2017-09-29 12:51 | CP.PCM.PN ---
Subjective - Date & Time of Evaluation Date of Evaluation: 09/29/17 Time of Evaluation: 08:00 - Subjective Subjective: PGY-[address] Ly's service: Pt seen and examined at bedside. Patient has been afebrile for 24 hours. Patient found lying in bed comfortably. She denies acute concerns and denies subjective fever, chills, dysuria, cough, SOB, chest pain. No changes from yesterday. Objective - Vital Signs/Intake and Output Vital Signs (last 24 hours): Temp Pulse Resp BP Pulse Ox 98.8 F 94 H 20 155/75 H 95 09/29/17 07:50 09/29/17 07:50 09/29/17 07:50 09/29/17 07:50 09/29/17 07:50 Intake and Output: 09/29/17 09/29/17 06:59 18:59 Intake Total 1000 Output Total 600 Balance 400 - Medications Medications: Current Medications Acetaminophen (Tylenol 325mg Tab) 650 mg PO Q6 PRN PRN Reason: Fever >100.4 F Last Admin: 09/27/17 19:35 Dose: 650 mg Aspirin (Aspirin Chewable) 81 mg PO DAILY [facility] Last Admin: 09/29/17 09:31 Dose: 81 mg Diphenhydramine HCl (Benadryl) 25 mg IVP Q8 PRN PRN Reason: Allergy symptoms Sodium Chloride (Sodium Chloride 0.9%) 1,000 mls @ 100 mls/hr IV .Q10H [facility] Last Admin: 09/29/17 09:30 Dose: 100 mls/hr Meropenem 500 mg/ Sodium (Chloride) 100 mls @ 100 mls/hr IVPB Q8H [facility] PRN Reason: Protocol Last Admin: 09/29/17 03:07 Dose: 100 mls/hr Insulin Aspart (Novolog) 0 unit SC ACHS [facility] PRN Reason: Protocol Last Admin: 09/29/17 08:45 Dose: 1 unit Insulin Detemir (Levemir) 10 unit SC HS [facility] Last Admin: 09/28/17 22:01 Dose: Not Given Lisinopril (Zestril) 2.5 mg PO DAILY [facility] Last Admin: 09/29/17 09:31 Dose: 2.5 mg Multivitamins/Minerals (Therapeutic-M Tab) 1 tab PO DAILY [facility] Last Admin: 09/29/17 09:31 Dose: 1 tab Mupirocin (Bactroban Ointment) 22 gm EXT BID [facility] Last Admin: 09/29/17 12:38 Dose: Not Given Tramadol HCl (Ultram) 25 mg PO Q8H PRN PRN Reason: Pain, moderate (4-7) - Labs Labs: 09/29/17 06:15 09/29/17 06:15 PT 15.1 SECONDS (9.7-12.2) H 09/26/17 20:29 INR 1.3 09/26/17 20:29 APTT 29 SECONDS (21-34) 09/26/17 20:29 - Constitutional Appears: Non-toxic, No Acute Distress - Head Exam Head Exam: ATRAUMATIC - Eye Exam Eye Exam: EOMI - Respiratory Exam Respiratory Exam: Clear to Ausculation Bilateral, NORMAL BREATHING PATTERN. absent: Respiratory Distress - Cardiovascular Exam Cardiovascular Exam: REGULAR RHYTHM, +S1, +S2 - GI/Abdominal Exam GI & Abdominal Exam: Soft, Normal Bowel Sounds. absent: Distended, Firm, Guarding, Tenderness - Extremities Exam Extremities Exam: Normal Inspection - Back Exam Back Exam: NORMAL INSPECTION - Neurological Exam Neurological Exam: Alert, Awake, CN II-XII Intact, Oriented x3 - Psychiatric Exam Psychiatric exam: Normal Affect, Normal Mood - Skin Skin Exam: Dry, Intact Additional comments: - port-a-cath in right chest wall, no erythema/edema/tenderness surrounding area Assessment and Plan - Assessment and Plan (Free Text) Assessment: Sepsis secondary to UTI [place]: Febrile (Tmax 103F), WBC 13.5, 19 bands UA (09/26/17): 3+ LE, 4669 WBC, Many WBC clumps, moderate bacteria Urine Culture (09/26/17): ESBL B/C: gram negative rods ID 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 Solorio, help appreciated - Merrem 500mg Q8H IV (start 09/27/17) - Discontinued cefepime - pt with allergy (rash to penicillins) so will monitor Q15min vitals for 1 hr following administration for possible cross-reaction w/ carbapenems - Benadryl 25 mg IV PRN Q8H for pruritus, rash following carbapenem administration Symptomatic Anemia Improving Hgb 9.7, stable EKG - NSR, with no significant changes when compared to prior EKG obtained one month prior 3/ 2018. Patient had 2 units of prbc on 09/27 Dr. Adames on board- F/U recommendations Monitor temp. MDS Following with Dr. Adames for treatment Dr. Adames, Diabetes Specialist-Oncologist- F/U recommendations DM Levemir 10 U SC HS [facility] Lisinopril 2.5 mg PO daily Accuchecks CAD Aspirin 81 mg PO daily [facility] Normal saline at 100 mls/hr Baseline Creatinine 0.9/1.0 Monitor Prophylactic Measure VTE contraindicated in light of symptomatic anemia PT eval and treat Discussed with attending. All management and planning per Dr. Ly.
--- NOTE | 2017-09-29 19:12 | CP.PCM.PN ---
Subjective - Date & Time of Evaluation Date of Evaluation: 09/29/17 Time of Evaluation: 09:00 - Subjective Subjective: improving on iv rx Objective - Vital Signs/Intake and Output Vital Signs (last 24 hours): Temp Pulse Resp BP Pulse Ox 97.3 F L 96 H 20 170/75 H 96 09/29/17 15:00 09/29/17 15:00 09/29/17 15:00 09/29/17 15:00 09/29/17 15:00 - Medications Medications: Current Medications Acetaminophen (Tylenol 325mg Tab) 650 mg PO Q6 PRN PRN Reason: Fever >100.4 F Last Admin: 09/27/17 19:35 Dose: 650 mg Aspirin (Aspirin Chewable) 81 mg PO DAILY [facility] Last Admin: 09/29/17 09:31 Dose: 81 mg Diphenhydramine HCl (Benadryl) 25 mg IVP Q8 PRN PRN Reason: Allergy symptoms Sodium Chloride (Sodium Chloride 0.9%) 1,000 mls @ 100 mls/hr IV .Q10H [facility] Last Admin: 09/29/17 09:30 Dose: 100 mls/hr Meropenem 500 mg/ Sodium (Chloride) 100 mls @ 100 mls/hr IVPB Q8H [facility] PRN Reason: Protocol Last Admin: 09/29/17 12:00 Dose: 100 mls/hr Insulin Aspart (Novolog) 0 unit SC ACHS [facility] PRN Reason: Protocol Last Admin: 09/29/17 17:30 Dose: 2 unit Insulin Detemir (Levemir) 10 unit SC HS [facility] Last Admin: 09/28/17 22:01 Dose: Not Given Lisinopril (Zestril) 2.5 mg PO DAILY [facility] Last Admin: 09/29/17 09:31 Dose: 2.5 mg Multivitamins/Minerals (Therapeutic-M Tab) 1 tab PO DAILY [facility] Last Admin: 09/29/17 09:31 Dose: 1 tab Mupirocin (Bactroban Ointment) 22 gm EXT BID [facility] Last Admin: 09/29/17 17:36 Dose: Not Given Tramadol HCl (Ultram) 25 mg PO Q8H PRN PRN Reason: Pain, moderate (4-7) - Labs Labs: 09/29/17 06:15 09/29/17 06:15 PT 15.1 SECONDS (9.7-12.2) H 09/26/17 20:29 INR 1.3 09/26/17 20:29 APTT 29 SECONDS (21-34) 09/26/17 20:29 - Constitutional Appears: Non-toxic, Chronically Ill - Head Exam Head Exam: NORMOCEPHALIC - Eye Exam Eye Exam: PERRL - ENT Exam ENT Exam: Mucous Membranes Dry - Neck Exam Neck Exam: absent: Lymphadenopathy - Respiratory Exam Respiratory Exam: Decreased Breath Sounds - Cardiovascular Exam Cardiovascular Exam: REGULAR RHYTHM - GI/Abdominal Exam GI & Abdominal Exam: Distended - Rectal Exam Rectal Exam: Deferred - Exam Exam: NORMAL INSPECTION - Extremities Exam Extremities Exam: absent: Pedal Edema - Back Exam Back Exam: absent: CVA tenderness (L), CVA tenderness (R) - Neurological Exam Neurological Exam: Alert, Awake, Motor Sensory Deficit, Oriented x3 - Psychiatric Exam Psychiatric exam: Normal Mood - Skin Skin Exam: Dry Assessment and Plan (1) Anemia Status: Acute (2) UTI (urinary tract infection) Status: Acute (3) Closed fracture of right proximal humerus Status: Acute (4) Myelodysplastic syndrome Status: Acute
[2017-09-29] MEDS: Insulin Detemir 100 units/ml Vial (Levemir) SC SCH (22:36)
--- NOTE | 2017-09-30 00:33 | CP.PCM.PN ---
Subjective - Date & Time of Evaluation Date of Evaluation: 09/28/17 Time of Evaluation: 12:00 - Subjective Subjective: Feeling better Objective - Vital Signs/Intake and Output Vital Signs (last 24 hours): Temp Pulse Resp BP Pulse Ox 97.3 F L 96 H 20 170/75 H 96 09/29/17 15:00 09/29/17 15:00 09/29/17 15:00 09/29/17 15:00 09/29/17 15:00 - Medications Medications: Current Medications Acetaminophen (Tylenol 325mg Tab) 650 mg PO Q6 PRN PRN Reason: Fever >100.4 F Last Admin: 09/27/17 19:35 Dose: 650 mg Aspirin (Aspirin Chewable) 81 mg PO DAILY [facility] Last Admin: 09/29/17 09:31 Dose: 81 mg Diphenhydramine HCl (Benadryl) 25 mg IVP Q8 PRN PRN Reason: Allergy symptoms Meropenem 500 mg/ Sodium (Chloride) 100 mls @ 100 mls/hr IVPB Q8H [facility] PRN Reason: Protocol Last Admin: 09/29/17 19:18 Dose: 100 mls/hr Insulin Aspart (Novolog) 0 unit SC ACHS [facility] PRN Reason: Protocol Last Admin: 09/29/17 22:36 Dose: Not Given Insulin Detemir (Levemir) 10 unit SC HS [facility] Last Admin: 09/29/17 22:36 Dose: Not Given Lisinopril (Zestril) 2.5 mg PO DAILY [facility] Last Admin: 09/29/17 09:31 Dose: 2.5 mg Multivitamins/Minerals (Therapeutic-M Tab) 1 tab PO DAILY [facility] Last Admin: 09/29/17 09:31 Dose: 1 tab Mupirocin (Bactroban Ointment) 22 gm EXT BID [facility] Last Admin: 09/29/17 17:36 Dose: Not Given Tramadol HCl (Ultram) 25 mg PO Q8H PRN PRN Reason: Pain, moderate (4-7) - Labs Labs: 09/29/17 06:15 09/29/17 06:15 PT 15.1 SECONDS (9.7-12.2) H 09/26/17 20:29 INR 1.3 09/26/17 20:29 APTT 29 SECONDS (21-34) 09/26/17 20:29 - Head Exam Head Exam: ATRAUMATIC - Eye Exam Eye Exam: Normal appearance - ENT Exam ENT Exam: Mucous Membranes Dry - Respiratory Exam Respiratory Exam: NORMAL BREATHING PATTERN - Cardiovascular Exam Cardiovascular Exam: +S1, +S2 - GI/Abdominal Exam GI & Abdominal Exam: Normal Bowel Sounds Assessment and Plan (1) Anemia Assessment & Plan: secondary to MDS transfusion support PRN Status: Acute (2) Myelodysplastic syndrome Assessment & Plan: outpatient treatment Status: Acute
--- NOTE | 2017-09-30 00:34 | CP.PCM.PN ---
Subjective - Date & Time of Evaluation Date of Evaluation: 09/29/17 Time of Evaluation: 18:00 - Subjective Subjective: Feeling better. Objective - Vital Signs/Intake and Output Vital Signs (last 24 hours): Temp Pulse Resp BP Pulse Ox 97.3 F L 96 H 20 170/75 H 96 09/29/17 15:00 09/29/17 15:00 09/29/17 15:00 09/29/17 15:00 09/29/17 15:00 - Medications Medications: Current Medications Acetaminophen (Tylenol 325mg Tab) 650 mg PO Q6 PRN PRN Reason: Fever >100.4 F Last Admin: 09/27/17 19:35 Dose: 650 mg Aspirin (Aspirin Chewable) 81 mg PO DAILY [facility] Last Admin: 09/29/17 09:31 Dose: 81 mg Diphenhydramine HCl (Benadryl) 25 mg IVP Q8 PRN PRN Reason: Allergy symptoms Meropenem 500 mg/ Sodium (Chloride) 100 mls @ 100 mls/hr IVPB Q8H CHRISTPOHE PRN Reason: Protocol Last Admin: 09/29/17 19:18 Dose: 100 mls/hr Insulin Aspart (Novolog) 0 unit SC ACHS CHRISTOPHE PRN Reason: Protocol Last Admin: 09/29/17 22:36 Dose: Not Given Insulin Detemir (Levemir) 10 unit SC HS [facility] Last Admin: 09/29/17 22:36 Dose: Not Given Lisinopril (Zestril) 2.5 mg PO DAILY [facility] Last Admin: 09/29/17 09:31 Dose: 2.5 mg Multivitamins/Minerals (Therapeutic-M Tab) 1 tab PO DAILY [facility] Last Admin: 09/29/17 09:31 Dose: 1 tab Mupirocin (Bactroban Ointment) 22 gm EXT BID [facility] Last Admin: 09/29/17 17:36 Dose: Not Given Tramadol HCl (Ultram) 25 mg PO Q8H PRN PRN Reason: Pain, moderate (4-7) - Labs Labs: 09/29/17 06:15 09/29/17 06:15 PT 15.1 SECONDS (9.7-12.2) H 09/26/17 20:29 INR 1.3 09/26/17 20:29 APTT 29 SECONDS (21-34) 09/26/17 20:29 - Head Exam Head Exam: ATRAUMATIC - Eye Exam Eye Exam: Normal appearance - ENT Exam ENT Exam: Mucous Membranes Dry - Respiratory Exam Respiratory Exam: NORMAL BREATHING PATTERN - Cardiovascular Exam Cardiovascular Exam: +S1, +S2 - GI/Abdominal Exam GI & Abdominal Exam: Normal Bowel Sounds Assessment and Plan (1) Anemia Assessment & Plan: secondary to MDS transfusion support PRN Status: Acute (2) Myelodysplastic syndrome Assessment & Plan: outpatient treatment Status: Acute
[2017-09-30] MEDS: Meropenem 500 MG in Sodium Chloride 0.9% 100 ML IVPB SCH ×3 (02:51→19:34)
[2017-09-30] MEDS: (Novolog) Insulin Aspart, Recombinant 100 u/ml 10 ml vial SC SCH ×4 (08:30→21:47)
--- NOTE | 2017-09-30 09:56 | CP.PCM.PN ---
Subjective - Date & Time of Evaluation Date of Evaluation: 09/30/17 Time of Evaluation: 14:40 - Subjective Subjective: Medicine Progress Note- Dr. Ly's service Patient seen and examined resting comfortably in bed. No acute events overnight. Patient with no complaints at this time. Objective - Vital Signs/Intake and Output Vital Signs (last 24 hours): Temp Pulse Resp BP Pulse Ox 98.5 F 90 20 167/79 H 94 L 09/30/17 00:00 09/30/17 00:00 09/30/17 00:00 09/30/17 00:00 09/30/17 00:00 Intake and Output: 09/30/17 09/30/17 06:59 18:59 Intake Total 1100 300 Balance 1100 300 - Medications Medications: Current Medications Acetaminophen (Tylenol 325mg Tab) 650 mg PO Q6 PRN PRN Reason: Fever >100.4 F Last Admin: 09/27/17 19:35 Dose: 650 mg Aspirin (Aspirin Chewable) 81 mg PO DAILY [facility] Last Admin: 09/29/17 09:31 Dose: 81 mg Diphenhydramine HCl (Benadryl) 25 mg IVP Q8 PRN PRN Reason: Allergy symptoms Meropenem 500 mg/ Sodium (Chloride) 100 mls @ 100 mls/hr IVPB Q8H CHRISTOPHE PRN Reason: Protocol Last Admin: 09/30/17 02:51 Dose: 100 mls/hr Insulin Aspart (Novolog) 0 unit SC ACHS CHRISTOPHE PRN Reason: Protocol Last Admin: 09/30/17 08:30 Dose: 2 unit Insulin Detemir (Levemir) 10 unit SC HS [facility] Last Admin: 09/29/17 22:36 Dose: Not Given Lisinopril (Zestril) 2.5 mg PO DAILY [facility] Last Admin: 09/29/17 09:31 Dose: 2.5 mg Multivitamins/Minerals (Therapeutic-M Tab) 1 tab PO DAILY [facility] Last Admin: 09/29/17 09:31 Dose: 1 tab Mupirocin (Bactroban Ointment) 22 gm EXT BID [facility] Last Admin: 09/29/17 17:36 Dose: Not Given Tramadol HCl (Ultram) 25 mg PO Q8H PRN PRN Reason: Pain, moderate (4-7) Last Admin: 09/30/17 06:41 Dose: 25 mg - Labs Labs: 09/29/17 06:15 09/29/17 06:15 PT 15.1 SECONDS (9.7-12.2) H 09/26/17 20:29 INR 1.3 09/26/17 20:29 APTT 29 SECONDS (21-34) 09/26/17 20:29 - Constitutional Appears: Non-toxic, No Acute Distress - Head Exam Head Exam: ATRAUMATIC, NORMAL INSPECTION - Eye Exam Eye Exam: EOMI, PERRL Pupil Exam: NORMAL ACCOMODATION - ENT Exam ENT Exam: Mucous Membranes Moist - Respiratory Exam Respiratory Exam: NORMAL BREATHING PATTERN - Cardiovascular Exam Cardiovascular Exam: +S1, +S2 - GI/Abdominal Exam GI & Abdominal Exam: Soft, Normal Bowel Sounds - Extremities Exam Extremities Exam: Full ROM - Back Exam Back Exam: NORMAL INSPECTION - Neurological Exam Neurological Exam: Alert, Awake, Oriented x3 - Psychiatric Exam Psychiatric exam: Normal Affect, Normal Mood - Skin Skin Exam: Dry, Warm Assessment and Plan - Assessment and Plan (Free Text) Assessment: UTI Sepsis secondary to UTI Initial Criteria: Febrile (Tmax 103F), WBC 13.5, 19 bands UA (09/26/17): 3+ LE, 4669 WBC, Many WBC clumps, moderate bacteria Urine Culture (09/26/17): ESBL B/C: E.coli. Sensitive to Merrem ID [employer] enterprise portal consultant, Dr. Solorio, help appreciated - Merrem 500mg Q8H IV (start 09/27/17) - Benadryl 25 mg IV PRN Q8H for pruritus, rash following carbapenem administration Symptomatic Anemia Improving Hgb stable EKG - NSR, with no significant changes when compared to prior EKG obtained one month prior 2017. Patient had 2 units of prbc on 09/27 Dr. Adames on board- F/U recommendations Monitor temp. MDS Following with Dr. Adames for treatment Dr. Adames, Ski Patroller-Oncologist- F/U recommendations DM Levemir 10 U SC HS RISS Lisinopril 2.5 mg PO daily Accuchecks CAD Aspirin 81 mg PO daily DEIDRE Resolved Cr 0.9 , back to baseline Normal saline at 100 mls/hr Monitor Prophylactic Measure VTE contraindicated in light of symptomatic anemia PT eval and treat Discussed with attending. All management and planning per Dr. Ly.
[2017-09-30 11:21] LABS: ALB/GLOB RATIO 0.7 (1.0-2.1); ALT/SGPT 17 U/L (9-52); AST/SGOT 25 U/L (14-36); BLOOD UREA NITROGEN 13 mg/dL (7-17); CALCIUM 8.3 mg/dl (8.6-10.4); GFR AFRICAN-AMERICAN > 60; GFR NON-AFRICAN AMERICAN 59
[2017-09-30 11:24] LABS: BASO # 0.1 K/uL (0.0-0.2); BASO % 1.1 % (0.0-2.0); EOS # 0.4 K/uL (0.0-0.7); EOS % 6.1 % (0.0-4.0); HEMOGLOBIN 10.1 g/dL (11.0-16.0); LYMPH # 1.1 K/uL (1.0-4.3); LYMPH % 17.5 % (20.0-40.0); MEAN CELL VOLUME 97.7 fL (81.0-99.0); MEAN CORPUSCULAR HEMOGLOBIN 34.2 pg (27.0-31.0); MONO # 0.4 K/uL (0.0-0.8); MONO % 6.7 % (0.0-10.0); NEUT # 4.5 K/uL (1.8-7.0); NEUT % 68.6 % (50.0-75.0); RBC 2.96 Mil/uL (3.80-5.20); RED CELL DISTRIBUTION WIDTH 23.7 % (11.5-14.5); WHITE BLOOD COUNT 6.5 K/uL (4.8-10.8)
[2017-09-30] MEDS: Multivitamin With Minerals Tab PO SCH (11:54)
--- NOTE | 2017-09-30 12:05 | US ---
PROCEDURE: Ultrasound of the Kidneys HISTORY: r/o pyelonephritis COMPARISON: None available. TECHNIQUE: Sonogram of the kidneys. FINDINGS: RIGHT KIDNEY: Measures: 10.6 x 3.5 x 4.7 cm. Normal in size, contour and echogenicity. No stone, solid mass lesion or hydronephrosis visualized. LEFT KIDNEY: Measures: 10.7 x 4.6 x 3.6 cm. Normal in size, contour and echogenicity. No stone, solid mass lesion or hydronephrosis visualized. OTHER FINDINGS: None. IMPRESSION: Unremarkable renal sonogram.
--- NOTE | 2017-09-30 14:57 | CP.PCM.PN ---
Subjective - Date & Time of Evaluation Date of Evaluation: 09/30/17 Time of Evaluation: 08:00 - Subjective Subjective: no fever or chills denies abd pain alert and oriented Objective - Vital Signs/Intake and Output Vital Signs (last 24 hours): Temp Pulse Resp BP Pulse Ox 98.4 F 87 20 166/82 H 95 09/30/17 08:00 09/30/17 08:00 09/30/17 08:00 09/30/17 08:00 09/30/17 08:00 Intake and Output: 09/30/17 09/30/17 06:59 18:59 Intake Total 1100 300 Balance 1100 300 - Medications Medications: Current Medications Acetaminophen (Tylenol 325mg Tab) 650 mg PO Q6 PRN PRN Reason: Fever >100.4 F Last Admin: 09/27/17 19:35 Dose: 650 mg Aspirin (Aspirin Chewable) 81 mg PO DAILY [facility] Last Admin: 09/30/17 11:54 Dose: 81 mg Diphenhydramine HCl (Benadryl) 25 mg IVP Q8 PRN PRN Reason: Allergy symptoms Meropenem 500 mg/ Sodium (Chloride) 100 mls @ 100 mls/hr IVPB Q8H CHRISTOPHE PRN Reason: Protocol Last Admin: 09/30/17 11:53 Dose: 100 mls/hr Insulin Aspart (Novolog) 0 unit SC ACHS CHRISTOPHE PRN Reason: Protocol Last Admin: 09/30/17 12:31 Dose: 1 unit Insulin Detemir (Levemir) 10 unit SC HS [facility] Last Admin: 09/29/17 22:36 Dose: Not Given Lisinopril (Zestril) 2.5 mg PO DAILY [facility] Last Admin: 09/30/17 11:54 Dose: 2.5 mg Multivitamins/Minerals (Therapeutic-M Tab) 1 tab PO DAILY [facility] Last Admin: 09/30/17 11:54 Dose: 1 tab Tramadol HCl (Ultram) 25 mg PO Q8H PRN PRN Reason: Pain, moderate (4-7) Last Admin: 09/30/17 06:41 Dose: 25 mg - Labs Labs: 09/30/17 10:53 09/30/17 10:53 PT 15.1 SECONDS (9.7-12.2) H 09/26/17 20:29 INR 1.3 09/26/17 20:29 APTT 29 SECONDS (21-34) 09/26/17 20:29 - Constitutional Appears: Non-toxic, Chronically Ill - Head Exam Head Exam: NORMOCEPHALIC - Eye Exam Eye Exam: PERRL - ENT Exam ENT Exam: Mucous Membranes Dry - Neck Exam Neck Exam: absent: Lymphadenopathy - Respiratory Exam Respiratory Exam: Decreased Breath Sounds - Cardiovascular Exam Cardiovascular Exam: REGULAR RHYTHM - GI/Abdominal Exam GI & Abdominal Exam: Distended, Soft - Rectal Exam Rectal Exam: Deferred - Exam Exam: NORMAL INSPECTION - Extremities Exam Extremities Exam: absent: Pedal Edema - Back Exam Back Exam: absent: CVA tenderness (L), CVA tenderness (R) - Neurological Exam Neurological Exam: Alert, Awake, Normal Gait, Oriented x3 Neuro motor strength exam: Left Upper Extremity: 4, Right Upper Extremity: 4, Left Lower Extremity: 4, Right Lower Extremity: 4 - Psychiatric Exam Psychiatric exam: Normal Mood - Skin Skin Exam: Dry Assessment and Plan (1) Anemia Status: Acute (2) UTI (urinary tract infection) Status: Acute (3) Closed fracture of right proximal humerus Status: Acute (4) Myelodysplastic syndrome Status: Acute - Assessment and Plan (Free Text) Assessment: cont iv rx for esbl bacteremia/ sepsis
[2017-09-30] MEDS: Insulin Detemir 100 units/ml Vial (Levemir) SC SCH (21:47)
--- NOTE | 2017-09-30 22:04 | CP.PCM.PN ---
Subjective - Date & Time of Evaluation Date of Evaluation: 09/30/17 Time of Evaluation: 19:00 - Subjective Subjective: No complaints. Objective - Vital Signs/Intake and Output Vital Signs (last 24 hours): Temp Pulse Resp BP Pulse Ox 97.2 F L 88 20 154/61 H 96 09/30/17 16:00 09/30/17 16:00 09/30/17 16:00 09/30/17 16:00 09/30/17 16:00 Intake and Output: 09/30/17 10/01/17 18:59 06:59 Intake Total 300 Balance 300 - Medications Medications: Current Medications Acetaminophen (Tylenol 325mg Tab) 650 mg PO Q6 PRN PRN Reason: Fever >100.4 F Last Admin: 09/27/17 19:35 Dose: 650 mg Aspirin (Aspirin Chewable) 81 mg PO DAILY [facility] Last Admin: 09/30/17 11:54 Dose: 81 mg Diphenhydramine HCl (Benadryl) 25 mg IVP Q8 PRN PRN Reason: Allergy symptoms Meropenem 500 mg/ Sodium (Chloride) 100 mls @ 100 mls/hr IVPB Q8H CHRISTOPHE PRN Reason: Protocol Last Admin: 09/30/17 19:34 Dose: 100 mls/hr Insulin Aspart (Novolog) 0 unit SC ACHS CHRISTOPHE PRN Reason: Protocol Last Admin: 09/30/17 21:47 Dose: Not Given Insulin Detemir (Levemir) 10 unit SC HS [facility] Last Admin: 09/30/17 21:47 Dose: 10 unit Lisinopril (Zestril) 2.5 mg PO DAILY [facility] Last Admin: 09/30/17 11:54 Dose: 2.5 mg Multivitamins/Minerals (Therapeutic-M Tab) 1 tab PO DAILY [facility] Last Admin: 09/30/17 11:54 Dose: 1 tab Tramadol HCl (Ultram) 25 mg PO Q8H PRN PRN Reason: Pain, moderate (4-7) Last Admin: 09/30/17 06:41 Dose: 25 mg - Labs Labs: 09/30/17 10:53 09/30/17 10:53 PT 15.1 SECONDS (9.7-12.2) H 09/26/17 20:29 INR 1.3 09/26/17 20:29 APTT 29 SECONDS (21-34) 09/26/17 20:29 - Head Exam Head Exam: ATRAUMATIC - Eye Exam Eye Exam: Normal appearance - ENT Exam ENT Exam: Mucous Membranes Dry - Respiratory Exam Respiratory Exam: NORMAL BREATHING PATTERN - Cardiovascular Exam Cardiovascular Exam: +S1, +S2 - GI/Abdominal Exam GI & Abdominal Exam: Normal Bowel Sounds Assessment and Plan (1) Anemia Assessment & Plan: secondary to MDS transfusion support PRN Status: Acute (2) Myelodysplastic syndrome Assessment & Plan: outpatient treatment Status: Acute
[2017-10-01] MEDS: Meropenem 500 MG in Sodium Chloride 0.9% 100 ML IVPB SCH ×3 (03:04→18:30)
[2017-10-01] MEDS: (Novolog) Insulin Aspart, Recombinant 100 u/ml 10 ml vial SC SCH ×4 (07:46→21:56)
[2017-10-01] MEDS: Multivitamin With Minerals Tab PO SCH (09:40)
[2017-10-01] MEDS: Insulin Detemir 100 units/ml Vial (Levemir) SC SCH (21:57)
[2017-10-02] MEDS ORDERED: Vancomycin 1 gm/NS 200 ml 1 GM/200 ML BAG IVPB ONE
[2017-10-02] MEDS: Meropenem 500 MG in Sodium Chloride 0.9% 100 ML IVPB SCH ×3 (02:08→19:00)
--- NOTE | 2017-10-02 03:29 | CP.PCM.PN ---
Subjective - Date & Time of Evaluation Date of Evaluation: 10/01/17 Time of Evaluation: 18:00 - Subjective Subjective: No complaints. Objective - Vital Signs/Intake and Output Vital Signs (last 24 hours): Temp Pulse Resp BP Pulse Ox 98 F 85 20 134/67 94 L 10/02/17 00:00 10/02/17 00:00 10/02/17 00:00 10/02/17 00:00 10/02/17 00:00 Intake and Output: 10/01/17 10/02/17 18:59 06:59 Intake Total 250 Balance 250 - Medications Medications: Current Medications Acetaminophen (Tylenol 325mg Tab) 650 mg PO Q6 PRN PRN Reason: Fever >100.4 F Last Admin: 09/27/17 19:35 Dose: 650 mg Aspirin (Aspirin Chewable) 81 mg PO DAILY [facility] Last Admin: 10/01/17 09:40 Dose: 81 mg Diphenhydramine HCl (Benadryl) 25 mg IVP Q8 PRN PRN Reason: Allergy symptoms Meropenem 500 mg/ Sodium (Chloride) 100 mls @ 100 mls/hr IVPB Q8H CHRISTOPHE PRN Reason: Protocol Last Admin: 10/02/17 02:08 Dose: 100 mls/hr Insulin Aspart (Novolog) 0 unit SC ACHS CHRISTOPHE PRN Reason: Protocol Last Admin: 10/01/17 21:56 Dose: Not Given Insulin Detemir (Levemir) 10 unit SC HS [facility] Last Admin: 10/01/17 21:57 Dose: 10 unit Lisinopril (Zestril) 2.5 mg PO DAILY [facility] Last Admin: 10/01/17 09:40 Dose: 2.5 mg Multivitamins/Minerals (Therapeutic-M Tab) 1 tab PO DAILY [facility] Last Admin: 10/01/17 09:40 Dose: 1 tab Tramadol HCl (Ultram) 25 mg PO Q8H PRN PRN Reason: Pain, moderate (4-7) Last Admin: 09/30/17 06:41 Dose: 25 mg - Labs Labs: 09/30/17 10:53 09/30/17 10:53 PT 15.1 SECONDS (9.7-12.2) H 09/26/17 20:29 INR 1.3 09/26/17 20:29 APTT 29 SECONDS (21-34) 09/26/17 20:29 - Head Exam Head Exam: ATRAUMATIC - Eye Exam Eye Exam: Normal appearance - ENT Exam ENT Exam: Mucous Membranes Dry - Respiratory Exam Respiratory Exam: NORMAL BREATHING PATTERN - Cardiovascular Exam Cardiovascular Exam: +S1, +S2 - GI/Abdominal Exam GI & Abdominal Exam: Normal Bowel Sounds Assessment and Plan (1) Anemia Assessment & Plan: secondary to MDS s/p PRBC transfusion Status: Acute (2) Myelodysplastic syndrome Assessment & Plan: 5q- outpatient treatment Status: Acute
[2017-10-02] MEDS: (Novolog) Insulin Aspart, Recombinant 100 u/ml 10 ml vial SC SCH ×4 (07:30→21:32)
[2017-10-02] MEDS: Multivitamin With Minerals Tab PO SCH (09:40)
--- NOTE | 2017-10-02 17:07 | CP.PCM.PN ---
Subjective - Date & Time of Evaluation Date of Evaluation: 10/02/17 Time of Evaluation: 16:50 - Subjective Subjective: No complaints. Objective - Vital Signs/Intake and Output Vital Signs (last 24 hours): Temp Pulse Resp BP Pulse Ox 98.3 F 77 20 131/75 96 10/02/17 15:00 10/02/17 15:00 10/02/17 15:00 10/02/17 15:00 10/02/17 15:00 Intake and Output: 10/02/17 10/02/17 06:59 18:59 Intake Total 250 Balance 250 - Medications Medications: Current Medications Acetaminophen (Tylenol 325mg Tab) 650 mg PO Q6 PRN PRN Reason: Fever >100.4 F Last Admin: 09/27/17 19:35 Dose: 650 mg Aspirin (Aspirin Chewable) 81 mg PO DAILY [facility] Last Admin: 10/02/17 09:38 Dose: 81 mg Diphenhydramine HCl (Benadryl) 25 mg IVP Q8 PRN PRN Reason: Allergy symptoms Meropenem 500 mg/ Sodium (Chloride) 100 mls @ 100 mls/hr IVPB Q8H CHRISTOPHE PRN Reason: Protocol Last Admin: 10/02/17 11:00 Dose: 100 mls/hr Insulin Aspart (Novolog) 0 unit SC ACHS CHRISTOPHE PRN Reason: Protocol Last Admin: 10/02/17 11:30 Dose: 1 unit Insulin Detemir (Levemir) 10 unit SC HS [facility] Last Admin: 10/01/17 21:57 Dose: 10 unit Lisinopril (Zestril) 2.5 mg PO DAILY [facility] Last Admin: 10/02/17 09:39 Dose: 2.5 mg Multivitamins/Minerals (Therapeutic-M Tab) 1 tab PO DAILY [facility] Last Admin: 10/02/17 09:40 Dose: 1 tab Tramadol HCl (Ultram) 25 mg PO Q8H PRN PRN Reason: Pain, moderate (4-7) Last Admin: 09/30/17 06:41 Dose: 25 mg - Labs Labs: 09/30/17 10:53 09/30/17 10:53 PT 15.1 SECONDS (9.7-12.2) H 09/26/17 20:29 INR 1.3 09/26/17 20:29 APTT 29 SECONDS (21-34) 09/26/17 20:29 - Head Exam Head Exam: ATRAUMATIC - Eye Exam Eye Exam: Normal appearance - ENT Exam ENT Exam: Mucous Membranes Dry - Respiratory Exam Respiratory Exam: NORMAL BREATHING PATTERN - Cardiovascular Exam Cardiovascular Exam: +S1, +S2 - GI/Abdominal Exam GI & Abdominal Exam: Normal Bowel Sounds Assessment and Plan (1) Anemia Assessment & Plan: secondary to MDS transfusion support PRN Status: Acute (2) Myelodysplastic syndrome Assessment & Plan: 5q- outpatient treatment Status: Acute
--- NOTE | 2017-10-02 18:16 | CP.PCM.PN ---
Subjective - Date & Time of Evaluation Date of Evaluation: 10/02/17 Time of Evaluation: 08:00 - Subjective Subjective: blood now growing cocci vanco one dose given will repeat c/s cont merrem Objective - Vital Signs/Intake and Output Vital Signs (last 24 hours): Temp Pulse Resp BP Pulse Ox 98.3 F 77 20 131/75 96 10/02/17 15:00 10/02/17 15:00 10/02/17 15:00 10/02/17 15:00 10/02/17 15:00 Intake and Output: 10/02/17 10/02/17 06:59 18:59 Intake Total 250 Balance 250 - Medications Medications: Current Medications Acetaminophen (Tylenol 325mg Tab) 650 mg PO Q6 PRN PRN Reason: Fever >100.4 F Last Admin: 09/27/17 19:35 Dose: 650 mg Aspirin (Aspirin Chewable) 81 mg PO DAILY [facility] Last Admin: 10/02/17 09:38 Dose: 81 mg Diphenhydramine HCl (Benadryl) 25 mg IVP Q8 PRN PRN Reason: Allergy symptoms Meropenem 500 mg/ Sodium (Chloride) 100 mls @ 100 mls/hr IVPB Q8H CHRISTOPHE PRN Reason: Protocol Last Admin: 10/02/17 11:00 Dose: 100 mls/hr Insulin Aspart (Novolog) 0 unit SC ACHS CHRISTOPHE PRN Reason: Protocol Last Admin: 10/02/17 16:30 Dose: 1 unit Insulin Detemir (Levemir) 10 unit SC HS [facility] Last Admin: 10/01/17 21:57 Dose: 10 unit Lisinopril (Zestril) 2.5 mg PO DAILY [facility] Last Admin: 10/02/17 09:39 Dose: 2.5 mg Multivitamins/Minerals (Therapeutic-M Tab) 1 tab PO DAILY [facility] Last Admin: 10/02/17 09:40 Dose: 1 tab Tramadol HCl (Ultram) 25 mg PO Q8H PRN PRN Reason: Pain, moderate (4-7) Last Admin: 09/30/17 06:41 Dose: 25 mg - Labs Labs: 09/30/17 10:53 09/30/17 10:53 PT 15.1 SECONDS (9.7-12.2) H 09/26/17 20:29 INR 1.3 09/26/17 20:29 APTT 29 SECONDS (21-34) 09/26/17 20:29 - Constitutional Appears: Non-toxic, Chronically Ill - Head Exam Head Exam: NORMOCEPHALIC - Eye Exam Eye Exam: PERRL. absent: Scleral icterus - ENT Exam ENT Exam: Mucous Membranes Dry - Neck Exam Neck Exam: absent: Lymphadenopathy - Respiratory Exam Respiratory Exam: Decreased Breath Sounds - Cardiovascular Exam Cardiovascular Exam: REGULAR RHYTHM - GI/Abdominal Exam GI & Abdominal Exam: Distended, Soft Assessment and Plan (1) Anemia Status: Acute (2) UTI (urinary tract infection) Status: Acute (3) Closed fracture of right proximal humerus Status: Acute (4) Myelodysplastic syndrome Status: Acute
[2017-10-02] MEDS: Insulin Detemir 100 units/ml Vial (Levemir) SC SCH (21:32)
[2017-10-03] MEDS: Meropenem 500 MG in Sodium Chloride 0.9% 100 ML IVPB SCH ×3 (03:15→19:07)
--- NOTE | 2017-10-03 06:27 | CP.PCM.PN ---
Subjective - Date & Time of Evaluation Date of Evaluation: 10/03/17 Time of Evaluation: 09:00 - Subjective Subjective: PGY 2 Med Note- Dr. Ly's service Patient seen and examined in no acute distress. Patient denies subjective fevers or chills, nausea, vomiting, diarrhea, urinary frequency or urgency at this time. Further, patient states that she did not have any urinary symptoms prior to this current hospital admission. Objective - Vital Signs/Intake and Output Vital Signs (last 24 hours): Temp Pulse Resp BP Pulse Ox 98.2 F 75 20 147/70 96 10/03/17 00:00 10/03/17 00:00 10/03/17 00:00 10/03/17 00:00 10/03/17 00:00 Intake and Output: 10/02/17 10/03/17 18:59 06:59 Intake Total 340 Balance 340 - Medications Medications: Current Medications Acetaminophen (Tylenol 325mg Tab) 650 mg PO Q6 PRN PRN Reason: Fever >100.4 F Last Admin: 09/27/17 19:35 Dose: 650 mg Aspirin (Aspirin Chewable) 81 mg PO DAILY [facility] Last Admin: 10/02/17 09:38 Dose: 81 mg Diphenhydramine HCl (Benadryl) 25 mg IVP Q8 PRN PRN Reason: Allergy symptoms Meropenem 500 mg/ Sodium (Chloride) 100 mls @ 100 mls/hr IVPB Q8H CHRISTOPHE PRN Reason: Protocol Last Admin: 10/03/17 03:15 Dose: 100 mls/hr Insulin Aspart (Novolog) 0 unit SC ACHS CHRISTOPHE PRN Reason: Protocol Last Admin: 10/02/17 21:32 Dose: Not Given Insulin Detemir (Levemir) 10 unit SC HS [facility] Last Admin: 10/02/17 21:32 Dose: 10 unit Lisinopril (Zestril) 2.5 mg PO DAILY [facility] Last Admin: 10/02/17 09:39 Dose: 2.5 mg Multivitamins/Minerals (Therapeutic-M Tab) 1 tab PO DAILY [facility] Last Admin: 10/02/17 09:40 Dose: 1 tab Tramadol HCl (Ultram) 25 mg PO Q8H PRN PRN Reason: Pain, moderate (4-7) Last Admin: 09/30/17 06:41 Dose: 25 mg - Labs Labs: 09/30/17 10:53 09/30/17 10:53 PT 15.1 SECONDS (9.7-12.2) H 09/26/17 20:29 INR 1.3 09/26/17 20:29 APTT 29 SECONDS (21-34) 09/26/17 20:29 - Constitutional Appears: Non-toxic, No Acute Distress - Head Exam Head Exam: ATRAUMATIC, NORMAL INSPECTION - Eye Exam Eye Exam: EOMI - ENT Exam ENT Exam: Mucous Membranes Moist - Neck Exam Neck Exam: Full ROM - Respiratory Exam Respiratory Exam: NORMAL BREATHING PATTERN - Cardiovascular Exam Cardiovascular Exam: +S1, +S2, Murmur - GI/Abdominal Exam GI & Abdominal Exam: Soft, Normal Bowel Sounds. absent: Tenderness - Extremities Exam Extremities Exam: Full ROM, Normal Capillary Refill - Back Exam Back Exam: Full ROM - Neurological Exam Neurological Exam: Alert, Awake, Oriented x3 - Psychiatric Exam Psychiatric exam: Normal Affect, Normal Mood - Skin Skin Exam: Normal Color, Warm Assessment and Plan - Assessment and Plan (Free Text) Assessment: UTI Sepsis secondary to UTI Initial Criteria: Febrile (Tmax 103F), WBC 13.5, 19 bands UA (09/26/17): 3+ LE, 4669 WBC, Many WBC clumps, moderate bacteria Urine Culture (09/26/17): ESBL B/C: E.coli. Sensitive to Merrem ID talent consultant, Dr. Solorio, help appreciated - Merrem 500mg Q8H IV (started 09/27/17) Will need coverage for 2 weeks. - Benadryl 25 mg IV PRN Q8H for pruritus, rash following carbapenem administration Renal U/S normal findings. Refer to full report Bacteremia Positive blood cultures noted 09/27 for e.coli. Sensitive to Merrem. Will need coverage for 2 weeks. Repeat cultures positive 09/30 for Coag Neg Staph. - Probable contaminant thus recheck. Other vial negative. Blood cultures 10/02. Currently Negative. F/U Monitor Symptomatic Anemia Improving Hgb stable EKG - NSR, with no significant changes when compared to prior EKG obtained one month prior 2017. Patient had 2 units of prbc on 09/27 Dr. Adames on board- F/U recommendations Monitor temp. MDS Following with Dr. Adames, Province Archivist-Oncologist- for outpatient treatment F/U recommendations DM Levemir 10 U SC HS RISS Lisinopril 2.5 mg PO daily Accuchecks CAD Aspirin 81 mg PO daily DEIDRE Resolved Monitor Prophylactic Measure VTE contraindicated in light of symptomatic anemia PT eval and treat. F/U recommendations Disp: Pending PT recommendations, will begin discharge planning. Considerations for [facility] vs Home services. Discussed with attending. All management and planning per Dr. Ly.
[2017-10-03 07:30] LABS: BASO # 0.1 K/uL (0.0-0.2); BASO % 1.4 % (0.0-2.0); EOS # 0.4 K/uL (0.0-0.7); EOS % 6.1 % (0.0-4.0); HEMOGLOBIN 10.1 g/dL (11.0-16.0); LYMPH # 1.5 K/uL (1.0-4.3); LYMPH % 24.3 % (20.0-40.0); MEAN CELL VOLUME 98.1 fL (81.0-99.0); MEAN CORPUSCULAR HEMOGLOBIN 34.6 pg (27.0-31.0); MEAN CORPUSCULAR HGB CONC 35.3 g/dL (33.0-37.0); MEAN PLATELET VOLUME 10.6 fL (7.2-11.7); MONO # 0.5 K/uL (0.0-0.8); MONO % 8.4 % (0.0-10.0); NEUT # 3.7 K/uL (1.8-7.0); NEUT % 59.8 % (50.0-75.0); NRBC % 0.1 % (0.0-2.0); RBC 2.93 Mil/uL (3.80-5.20); RED CELL DISTRIBUTION WIDTH 22.3 % (11.5-14.5); WHITE BLOOD COUNT 6.2 K/uL (4.8-10.8)
[2017-10-03 07:54] LABS: BLOOD UREA NITROGEN 18 mg/dL (7-17); CALCIUM 8.6 mg/dl (8.6-10.4); GFR AFRICAN-AMERICAN > 60; GFR NON-AFRICAN AMERICAN 52
[2017-10-03] MEDS: (Novolog) Insulin Aspart, Recombinant 100 u/ml 10 ml vial SC SCH ×4 (08:38→21:35)
--- NOTE | 2017-10-03 09:38 | PN ---
DATE: 10/02/2017 The patient on supportive care, antibiotic. Gamal Ly MD [facility] # [id number]
[2017-10-03] MEDS: Multivitamin With Minerals Tab PO SCH (09:44)
--- NOTE | 2017-10-03 12:46 | CP.PCM.PN ---
Subjective - Date & Time of Evaluation Date of Evaluation: 10/03/17 Time of Evaluation: 07:00 - Subjective Subjective: recent blood cultures neg need 14 days for esblk urosepsis Objective - Vital Signs/Intake and Output Vital Signs (last 24 hours): Temp Pulse Resp BP Pulse Ox 97.5 F L 77 20 145/77 96 10/03/17 07:00 10/03/17 07:00 10/03/17 07:00 10/03/17 07:00 10/03/17 07:00 Intake and Output: 10/03/17 10/03/17 06:59 18:59 Intake Total 340 Balance 340 - Medications Medications: Current Medications Acetaminophen (Tylenol 325mg Tab) 650 mg PO Q6 PRN PRN Reason: Fever >100.4 F Last Admin: 09/27/17 19:35 Dose: 650 mg Aspirin (Aspirin Chewable) 81 mg PO DAILY [facility] Last Admin: 10/03/17 09:44 Dose: 81 mg Diphenhydramine HCl (Benadryl) 25 mg IVP Q8 PRN PRN Reason: Allergy symptoms Meropenem 500 mg/ Sodium (Chloride) 100 mls @ 100 mls/hr IVPB Q8H CH[facility]STOPHE PRN Reason: Protocol Last Admin: 10/03/17 10:42 Dose: 100 mls/hr Insulin Aspart (Novolog) 0 unit SC ACHS CHRISTOPHE PRN Reason: Protocol Last Admin: 10/03/17 12:30 Dose: 3 unit Insulin Detemir (Levemir) 10 unit SC HS [facility] Last Admin: 10/02/17 21:32 Dose: 10 unit Lisinopril (Zestril) 2.5 mg PO DAILY [facility] Last Admin: 10/03/17 09:44 Dose: 2.5 mg Multivitamins/Minerals (Therapeutic-M Tab) 1 tab PO DAILY [facility] Last Admin: 10/03/17 09:44 Dose: 1 tab Tramadol HCl (Ultram) 25 mg PO Q8H PRN PRN Reason: Pain, moderate (4-7) Last Admin: 09/30/17 06:41 Dose: 25 mg - Labs Labs: 10/03/17 07:18 10/03/17 07:18 PT 15.1 SECONDS (9.7-12.2) H 09/26/17 20:29 INR 1.3 09/26/17 20:29 APTT 29 SECONDS (21-34) 09/26/17 20:29 - Constitutional Appears: Non-toxic, Chronically Ill - Head Exam Head Exam: NORMOCEPHALIC - Eye Exam Eye Exam: PERRL. absent: Scleral icterus - ENT Exam ENT Exam: Mucous Membranes Dry - Neck Exam Neck Exam: absent: Lymphadenopathy - Respiratory Exam Respiratory Exam: Decreased Breath Sounds, Clear to Ausculation Bilateral - Cardiovascular Exam Cardiovascular Exam: REGULAR RHYTHM - GI/Abdominal Exam GI & Abdominal Exam: Distended, Soft - Rectal Exam Rectal Exam: Deferred - Exam Exam: NORMAL INSPECTION - Extremities Exam Extremities Exam: absent: Pedal Edema - Back Exam Back Exam: absent: CVA tenderness (L), CVA tenderness (R) - Neurological Exam Neurological Exam: Alert, Awake, Oriented x3 - Psychiatric Exam Psychiatric exam: Depressed - Skin Skin Exam: Dry Assessment and Plan (1) Anemia Status: Acute (2) UTI (urinary tract infection) Status: Acute (3) Closed fracture of right proximal humerus Status: Acute (4) Myelodysplastic syndrome Status: Acute
[2017-10-03] MEDS: Insulin Detemir 100 units/ml Vial (Levemir) SC SCH (22:23)
--- NOTE | 2017-10-03 23:27 | CP.PCM.PN ---
Subjective - Date & Time of Evaluation Date of Evaluation: 10/03/17 Time of Evaluation: 20:30 - Subjective Subjective: No complaints. Objective - Vital Signs/Intake and Output Vital Signs (last 24 hours): Temp Pulse Resp BP Pulse Ox 97.9 F 78 20 148/69 96 10/03/17 15:20 10/03/17 15:20 10/03/17 15:20 10/03/17 15:20 10/03/17 15:20 Intake and Output: 10/03/17 10/04/17 18:59 06:59 Intake Total 460 460 Balance 460 460 - Medications Medications: Current Medications Acetaminophen (Tylenol 325mg Tab) 650 mg PO Q6 PRN PRN Reason: Fever >100.4 F Last Admin: 09/27/17 19:35 Dose: 650 mg Aspirin (Aspirin Chewable) 81 mg PO DAILY [facility] Last Admin: 10/03/17 09:44 Dose: 81 mg Diphenhydramine HCl (Benadryl) 25 mg IVP Q8 PRN PRN Reason: Allergy symptoms Meropenem 500 mg/ Sodium (Chloride) 100 mls @ 100 mls/hr IVPB Q8H CHRISTOPHE PRN Reason: Protocol Last Admin: 10/03/17 19:07 Dose: 100 mls/hr Insulin Aspart (Novolog) 0 unit SC ACHS CHRISTOPHE PRN Reason: Protocol Last Admin: 10/03/17 21:35 Dose: Not Given Insulin Detemir (Levemir) 10 unit SC HS [facility] Last Admin: 10/03/17 22:23 Dose: 10 unit Lisinopril (Zestril) 2.5 mg PO DAILY [facility] Last Admin: 10/03/17 09:44 Dose: 2.5 mg Multivitamins/Minerals (Therapeutic-M Tab) 1 tab PO DAILY [facility] Last Admin: 10/03/17 09:44 Dose: 1 tab Tramadol HCl (Ultram) 25 mg PO Q8H PRN PRN Reason: Pain, moderate (4-7) Last Admin: 09/30/17 06:41 Dose: 25 mg - Labs Labs: 10/03/17 07:18 10/03/17 07:18 PT 15.1 SECONDS (9.7-12.2) H 09/26/17 20:29 INR 1.3 09/26/17 20:29 APTT 29 SECONDS (21-34) 09/26/17 20:29 - Head Exam Head Exam: ATRAUMATIC - Eye Exam Eye Exam: Normal appearance - ENT Exam ENT Exam: Mucous Membranes Dry - Respiratory Exam Respiratory Exam: NORMAL BREATHING PATTERN - Cardiovascular Exam Cardiovascular Exam: +S1, +S2 - GI/Abdominal Exam GI & Abdominal Exam: Normal Bowel Sounds Assessment and Plan (1) Anemia Assessment & Plan: secondary to MDS transfusion support PRN Status: Acute (2) Myelodysplastic syndrome Assessment & Plan: 5q- outpatient treatment Status: Acute
[2017-10-04] MEDS: Meropenem 500 MG in Sodium Chloride 0.9% 100 ML IVPB SCH ×3 (03:15→18:36)
[2017-10-04 06:36] LABS: BASO # 0.1 K/uL (0.0-0.2); BASO % 2.1 % (0.0-2.0); EOS # 0.4 K/uL (0.0-0.7); EOS % 6.2 % (0.0-4.0); HEMOGLOBIN 10.4 g/dL (11.0-16.0); LYMPH # 1.6 K/uL (1.0-4.3); LYMPH % 26.3 % (20.0-40.0); MEAN CELL VOLUME 98.1 fL (81.0-99.0); MEAN CORPUSCULAR HEMOGLOBIN 34.5 pg (27.0-31.0); MEAN CORPUSCULAR HGB CONC 35.2 g/dL (33.0-37.0); MEAN PLATELET VOLUME 10.8 fL (7.2-11.7); MONO # 0.5 K/uL (0.0-0.8); MONO % 8.7 % (0.0-10.0); NEUT # 3.5 K/uL (1.8-7.0); NEUT % 56.7 % (50.0-75.0); NRBC % 0.1 % (0.0-2.0); RED CELL DISTRIBUTION WIDTH 22.1 % (11.5-14.5); WHITE BLOOD COUNT 6.2 K/uL (4.8-10.8)
[2017-10-04] MEDS: (Novolog) Insulin Aspart, Recombinant 100 u/ml 10 ml vial SC SCH ×4 (07:30→21:13)
[2017-10-04 08:18] LABS: ALB/GLOB RATIO 0.8 (1.0-2.1); ALBUMIN 3.4 g/dL (3.5-5.0); ALT/SGPT 17 U/L (9-52); AST/SGOT 37 U/L (14-36); BLOOD UREA NITROGEN 21 mg/dL (7-17); CALCIUM 8.7 mg/dl (8.6-10.4); GFR AFRICAN-AMERICAN > 60; GFR NON-AFRICAN AMERICAN 52
[2017-10-04] MEDS: Multivitamin With Minerals Tab PO SCH (09:26)
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
--- NOTE | 2017-10-04 10:48 | CP.PCM.PN ---
Subjective - Date & Time of Evaluation Date of Evaluation: 10/04/17 Time of Evaluation: 08:00 - Subjective Subjective: denies fever or abd pain repeat cultures neg thus far cont rx for 14 days Objective - Vital Signs/Intake and Output Vital Signs (last 24 hours): Temp Pulse Resp BP Pulse Ox 98.8 F 82 20 134/77 97 10/04/17 07:00 10/04/17 07:00 10/04/17 07:00 10/04/17 07:00 10/04/17 07:00 Intake and Output: 10/04/17 10/04/17 06:59 18:59 Intake Total 860 Balance 860 - Medications Medications: Current Medications Acetaminophen (Tylenol 325mg Tab) 650 mg PO Q6 PRN PRN Reason: Fever >100.4 F Last Admin: 09/27/17 19:35 Dose: 650 mg Aspirin (Aspirin Chewable) 81 mg PO DAILY [facility] Last Admin: 10/04/17 09:25 Dose: 81 mg Diphenhydramine HCl (Benadryl) 25 mg IVP Q8 PRN PRN Reason: Allergy symptoms Meropenem 500 mg/ Sodium (Chloride) 100 mls @ 100 mls/hr IVPB Q8H CHRISTOPHE PRN Reason: Protocol Last Admin: 10/04/17 03:15 Dose: 100 mls/hr Insulin Aspart (Novolog) 0 unit SC ACHS CHRISTOPHE PRN Reason: Protocol Last Admin: 10/04/17 07:30 Dose: Not Given Insulin Detemir (Levemir) 10 unit SC HS [facility] Last Admin: 10/03/17 22:23 Dose: 10 unit Lisinopril (Zestril) 2.5 mg PO DAILY [facility] Last Admin: 10/04/17 09:27 Dose: 2.5 mg Multivitamins/Minerals (Therapeutic-M Tab) 1 tab PO DAILY [facility] Last Admin: 10/04/17 09:26 Dose: 1 tab Tramadol HCl (Ultram) 25 mg PO Q8H PRN PRN Reason: Pain, moderate (4-7) Last Admin: 09/30/17 06:41 Dose: 25 mg - Labs Labs: 10/04/17 06:29 10/04/17 06:29 PT 15.1 SECONDS (9.7-12.2) H 09/26/17 20:29 INR 1.3 09/26/17 20:29 APTT 29 SECONDS (21-34) 09/26/17 20:29 - Constitutional Appears: Non-toxic, Chronically Ill - Head Exam Head Exam: NORMOCEPHALIC - Eye Exam Eye Exam: PERRL - ENT Exam ENT Exam: Mucous Membranes Dry - Neck Exam Neck Exam: absent: Lymphadenopathy - Respiratory Exam Respiratory Exam: Decreased Breath Sounds - Cardiovascular Exam Cardiovascular Exam: REGULAR RHYTHM - GI/Abdominal Exam GI & Abdominal Exam: Distended, Soft - Rectal Exam Rectal Exam: Deferred - Exam Exam: NORMAL INSPECTION Assessment and Plan (1) Anemia Status: Acute (2) UTI (urinary tract infection) Status: Acute (3) Closed fracture of right proximal humerus Status: Acute (4) Myelodysplastic syndrome Status: Acute
--- NOTE | 2017-10-04 19:23 | CP.PCM.PN ---
Subjective - Date & Time of Evaluation Date of Evaluation: 10/04/17 Time of Evaluation: 13:00 - Subjective Subjective: No complaints, family at bedside. Objective - Vital Signs/Intake and Output Vital Signs (last 24 hours): Temp Pulse Resp BP Pulse Ox 98.0 F 79 20 149/73 97 10/04/17 15:00 10/04/17 15:00 10/04/17 15:00 10/04/17 15:00 10/04/17 15:00 - Medications Medications: Current Medications Acetaminophen (Tylenol 325mg Tab) 650 mg PO Q6 PRN PRN Reason: Fever >100.4 F Last Admin: 09/27/17 19:35 Dose: 650 mg Aspirin (Aspirin Chewable) 81 mg PO DAILY [facility] Last Admin: 10/04/17 09:25 Dose: 81 mg Diphenhydramine HCl (Benadryl) 25 mg IVP Q8 PRN PRN Reason: Allergy symptoms Meropenem 500 mg/ Sodium (Chloride) 100 mls @ 100 mls/hr IVPB Q8H CHRISTOPHE PRN Reason: Protocol Last Admin: 10/04/17 18:36 Dose: 100 mls/hr Insulin Aspart (Novolog) 0 unit SC ACHS CHRISTOPHE PRN Reason: Protocol Last Admin: 10/04/17 16:30 Dose: 2 unit Insulin Detemir (Levemir) 10 unit SC HS [facility] Last Admin: 10/03/17 22:23 Dose: 10 unit Lisinopril (Zestril) 2.5 mg PO DAILY [facility] Last Admin: 10/04/17 09:27 Dose: 2.5 mg Multivitamins/Minerals (Therapeutic-M Tab) 1 tab PO DAILY [facility] Last Admin: 10/04/17 09:26 Dose: 1 tab Tramadol HCl (Ultram) 25 mg PO Q8H PRN PRN Reason: Pain, moderate (4-7) Last Admin: 09/30/17 06:41 Dose: 25 mg - Labs Labs: 10/04/17 06:29 10/04/17 06:29 PT 15.1 SECONDS (9.7-12.2) H 09/26/17 20:29 INR 1.3 09/26/17 20:29 APTT 29 SECONDS (21-34) 09/26/17 20:29 - Head Exam Head Exam: ATRAUMATIC - Eye Exam Eye Exam: Normal appearance - ENT Exam ENT Exam: Mucous Membranes Dry - Respiratory Exam Respiratory Exam: NORMAL BREATHING PATTERN - Cardiovascular Exam Cardiovascular Exam: +S1, +S2 - GI/Abdominal Exam GI & Abdominal Exam: Normal Bowel Sounds Assessment and Plan (1) Anemia Assessment & Plan: secondary to MDS transfusion support PRN Status: Acute (2) Myelodysplastic syndrome Assessment & Plan: 5q- outpatient treatment Status: Acute
[2017-10-04] MEDS: Insulin Detemir 100 units/ml Vial (Levemir) SC SCH ×2 (21:13→21:14)
[2017-10-05] MEDS: Meropenem 500 MG in Sodium Chloride 0.9% 100 ML IVPB SCH ×2 (03:52→10:43)
[2017-10-05 06:45] LABS: BASO # 0.1 K/uL (0.0-0.2); BASO % 1.8 % (0.0-2.0); EOS # 0.3 K/uL (0.0-0.7); HEMOGLOBIN 10.2 g/dL (11.0-16.0); LYMPH # 1.7 K/uL (1.0-4.3); LYMPH % 29.6 % (20.0-40.0); MEAN CELL VOLUME 98.7 fL (81.0-99.0); MEAN CORPUSCULAR HEMOGLOBIN 34.4 pg (27.0-31.0); MEAN CORPUSCULAR HGB CONC 34.9 g/dL (33.0-37.0); MEAN PLATELET VOLUME 10.6 fL (7.2-11.7); MONO # 0.5 K/uL (0.0-0.8); MONO % 9.7 % (0.0-10.0); NEUT % 52.9 % (50.0-75.0); RBC 2.96 Mil/uL (3.80-5.20); RED CELL DISTRIBUTION WIDTH 22.5 % (11.5-14.5); WHITE BLOOD COUNT 5.7 K/uL (4.8-10.8)
--- NOTE | 2017-10-05 07:03 | CP.PCM.PN ---
Subjective - Date & Time of Evaluation Date of Evaluation: 10/05/17 Time of Evaluation: 07:30 - Subjective Subjective: PGY 2 Medicine Note- Dr. Ly's service Patient seen and examined in no acute distress. Patient denies subjective fevers or chills, nausea, vomiting, headaches, diarrhea, urinary frequency or dysuria. Patient is agreeable to going to going to a rehab at [facility]. Objective - Vital Signs/Intake and Output Vital Signs (last 24 hours): Temp Pulse Resp BP Pulse Ox 97.9 F 80 20 153/74 H 97 10/05/17 00:00 10/05/17 00:00 10/05/17 00:00 10/05/17 00:00 10/05/17 00:00 Intake and Output: 10/05/17 10/05/17 06:59 18:59 Intake Total 400 Balance 400 - Medications Medications: Current Medications Acetaminophen (Tylenol 325mg Tab) 650 mg PO Q6 PRN PRN Reason: Fever >100.4 F Last Admin: 09/27/17 19:35 Dose: 650 mg Aspirin (Aspirin Chewable) 81 mg PO DAILY [facility] Last Admin: 10/04/17 09:25 Dose: 81 mg Diphenhydramine HCl (Benadryl) 25 mg IVP Q8 PRN PRN Reason: Allergy symptoms Meropenem 500 mg/ Sodium (Chloride) 100 mls @ 100 mls/hr IVPB Q8H CHRISTOPHE PRN Reason: Protocol Last Admin: 10/05/17 03:52 Dose: 100 mls/hr Insulin Aspart (Novolog) 0 unit SC ACHS CHRISTOPHE PRN Reason: Protocol Last Admin: 10/04/17 21:13 Dose: Not Given Insulin Detemir (Levemir) 10 unit SC HS [facility] Last Admin: 10/04/17 21:14 Dose: 10 unit Lisinopril (Zestril) 2.5 mg PO DAILY [facility] Last Admin: 10/04/17 09:27 Dose: 2.5 mg Multivitamins/Minerals (Therapeutic-M Tab) 1 tab PO DAILY [facility] Last Admin: 10/04/17 09:26 Dose: 1 tab Tramadol HCl (Ultram) 25 mg PO Q8H PRN PRN Reason: Pain, moderate (4-7) Last Admin: 09/30/17 06:41 Dose: 25 mg - Labs Labs: 10/05/17 06:28 10/04/17 06:29 PT 15.1 SECONDS (9.7-12.2) H 09/26/17 20:29 INR 1.3 09/26/17 20:29 APTT 29 SECONDS (21-34) 09/26/17 20:29 - Constitutional Appears: Non-toxic, No Acute Distress - Head Exam Head Exam: NORMAL INSPECTION - Eye Exam Eye Exam: EOMI, PERRL Pupil Exam: NORMAL ACCOMODATION - ENT Exam ENT Exam: Mucous Membranes Moist - Respiratory Exam Respiratory Exam: Clear to Ausculation Bilateral, NORMAL BREATHING PATTERN. absent: Respiratory Distress - Cardiovascular Exam Cardiovascular Exam: REGULAR RHYTHM, +S1, +S2 - GI/Abdominal Exam GI & Abdominal Exam: Soft, Normal Bowel Sounds. absent: Distended, Firm, Guarding, Tenderness - Extremities Exam Extremities Exam: Normal Inspection. absent: Calf Tenderness, Pedal Edema - Back Exam Back Exam: NORMAL INSPECTION. absent: CVA tenderness (L), CVA tenderness (R), paraspinal tenderness - Neurological Exam Neurological Exam: Alert, Awake, CN II-XII Intact, Oriented x3 - Psychiatric Exam Psychiatric exam: Normal Affect, Normal Mood - Skin Skin Exam: Normal Color Assessment and Plan - Assessment and Plan (Free Text) Assessment: UTI Sepsis secondary to UTI Initial Criteria: Febrile (Tmax 103F), WBC 13.5, 19 bands UA (09/26/17): 3+ LE, 4669 WBC, Many WBC clumps, moderate bacteria Urine Culture (09/26/17): ESBL B/C: E.coli. Sensitive to Merrem ID nurse consultant, Dr. Solorio, help appreciated - Merrem 500mg Q8H IV (started 09/27/17) Will need coverage for 2 weeks. - Benadryl 25 mg IV PRN Q8H for pruritus, rash following carbapenem administration Renal U/S normal findings. Refer to full report Bacteremia Positive blood cultures noted 09/27 for e.coli. Sensitive to Merrem. Will need coverage for 2 weeks. Repeat cultures positive 09/30 for Coag Neg Staph. - Probable contaminant thus recheck. Other vial negative. Blood cultures 10/02. Currently Negative after 48 hours. F/U Monitor Symptomatic Anemia Improving Hgb stable EKG - NSR, with no significant changes when compared to prior EKG obtained one month prior 2017. Patient had 2 units of prbc on 09/27 Dr. Adames on board -5q- outpatient treatment Monitor temp. MDS Following with Dr. Adames, Contour Band Saw Operator Vertical-Oncologist- for outpatient treatment F/U recommendations DM Levemir 10 U SC HS RISS Lisinopril 2.5 mg PO daily Accuchecks CAD Aspirin 81 mg PO daily DEIDRE Resolved Monitor Prophylactic Measure VTE contraindicated in light of symptomatic anemia PT eval and treat. F/U recommendations [facility] to follow up with primary medical doctor within one week of discharge. Continue Merrem antibiotics every 8 hours for 6 more days. If symptoms return, go to the ER. Instruction explained to patient who is aware. Discussed with attending. All management and planning per Dr. Ly.
[2017-10-05 07:13] LABS: BLOOD UREA NITROGEN 24 mg/dL (7-17); CALCIUM 8.7 mg/dl (8.6-10.4); GFR AFRICAN-AMERICAN > 60; GFR NON-AFRICAN AMERICAN 59
[2017-10-05] MEDS: (Novolog) Insulin Aspart, Recombinant 100 u/ml 10 ml vial SC SCH ×3 (07:46→16:50)
[2017-10-05] MEDS: Multivitamin With Minerals Tab PO SCH (09:30)
[2017-10-05 16:15] VITALS: BP 120/61; PULSE 83; TEMP 98; O2SAT 100
--- NOTE | 2017-10-05 17:03 | CP.PCM.PN ---
Subjective - Date & Time of Evaluation Date of Evaluation: 10/05/17 Time of Evaluation: 07:00 - Subjective Subjective: denies fever or abd pain repeat cultures neg thus far cont rx for 14 days Objective - Vital Signs/Intake and Output Vital Signs (last 24 hours): Temp Pulse Resp BP Pulse Ox 98 F 83 20 120/61 100 10/05/17 15:00 10/05/17 15:00 10/05/17 15:00 10/05/17 15:00 10/05/17 15:00 Intake and Output: 10/05/17 10/05/17 06:59 18:59 Intake Total 400 Balance 400 - Medications Medications: Current Medications Acetaminophen (Tylenol 325mg Tab) 650 mg PO Q6 PRN PRN Reason: Fever >100.4 F Last Admin: 09/27/17 19:35 Dose: 650 mg Aspirin (Aspirin Chewable) 81 mg PO DAILY [facility] Last Admin: 10/05/17 09:30 Dose: 81 mg Diphenhydramine HCl (Benadryl) 25 mg IVP Q8 PRN PRN Reason: Allergy symptoms Meropenem 500 mg/ Sodium (Chloride) 100 mls @ 100 mls/hr IVPB Q8H CHRISTOPHE PRN Reason: Protocol Last Admin: 10/05/17 10:43 Dose: 100 mls/hr Insulin Aspart (Novolog) 0 unit SC ACHS CHRISTOPHE PRN Reason: Protocol Last Admin: 10/05/17 12:11 Dose: 1 unit Insulin Detemir (Levemir) 10 unit SC HS [facility] Last Admin: 10/04/17 21:14 Dose: 10 unit Lisinopril (Zestril) 2.5 mg PO DAILY [facility] Last Admin: 10/05/17 09:30 Dose: 2.5 mg Multivitamins/Minerals (Therapeutic-M Tab) 1 tab PO DAILY [facility] Last Admin: 10/05/17 09:30 Dose: 1 tab Tramadol HCl (Ultram) 25 mg PO Q8H PRN PRN Reason: Pain, moderate (4-7) Last Admin: 09/30/17 06:41 Dose: 25 mg - Labs Labs: 10/05/17 06:28 10/05/17 06:28 PT 15.1 SECONDS (9.7-12.2) H 09/26/17 20:29 INR 1.3 09/26/17 20:29 APTT 29 SECONDS (21-34) 09/26/17 20:29 - Constitutional Appears: Non-toxic, Chronically Ill - Head Exam Head Exam: NORMOCEPHALIC - Eye Exam Eye Exam: PERRL - ENT Exam ENT Exam: Mucous Membranes Dry - Neck Exam Neck Exam: absent: Lymphadenopathy - Respiratory Exam Respiratory Exam: Decreased Breath Sounds - Cardiovascular Exam Cardiovascular Exam: REGULAR RHYTHM, +S1, +S2 - GI/Abdominal Exam GI & Abdominal Exam: Distended, Soft. absent: Tenderness - Rectal Exam Rectal Exam: Deferred - Exam Exam: NORMAL INSPECTION - Extremities Exam Extremities Exam: absent: Pedal Edema - Back Exam Back Exam: absent: CVA tenderness (L), CVA tenderness (R) - Neurological Exam Neurological Exam: Alert, Awake, Oriented x3 Neuro motor strength exam: Left Upper Extremity: 3, Right Upper Extremity: 3, Left Lower Extremity: 3, Right Lower Extremity: 3 - Psychiatric Exam Psychiatric exam: Normal Mood Assessment and Plan (1) Anemia Status: Acute (2) UTI (urinary tract infection) Status: Acute (3) Closed fracture of right proximal humerus Status: Acute (4) Myelodysplastic syndrome Status: Acute - Assessment and Plan (Free Text) Assessment: cont iv rx for 14 days
--- NOTE | 2017-10-05 22:45 | CP.PCM.PN ---
Subjective - Date & Time of Evaluation Date of Evaluation: 10/05/17 Time of Evaluation: 13:10 - Subjective Subjective: Feeling better. Objective - Vital Signs/Intake and Output Vital Signs (last 24 hours): Temp Pulse Resp BP Pulse Ox 98 F 83 20 120/61 100 10/05/17 15:00 10/05/17 15:00 10/05/17 15:00 10/05/17 15:00 10/05/17 15:00 Intake and Output: 10/05/17 10/06/17 18:59 06:59 Intake Total 250 Balance 250 - Labs Labs: 10/05/17 06:28 10/05/17 06:28 PT 15.1 SECONDS (9.7-12.2) H 09/26/17 20:29 INR 1.3 09/26/17 20:29 APTT 29 SECONDS (21-34) 09/26/17 20:29 - Head Exam Head Exam: ATRAUMATIC - Eye Exam Eye Exam: Normal appearance - ENT Exam ENT Exam: Mucous Membranes Dry - Respiratory Exam Respiratory Exam: NORMAL BREATHING PATTERN - Cardiovascular Exam Cardiovascular Exam: +S1, +S2 - GI/Abdominal Exam GI & Abdominal Exam: Normal Bowel Sounds Assessment and Plan (1) Anemia Assessment & Plan: secondary to MDS s/p PRBC transfusion Status: Acute (2) Myelodysplastic syndrome Assessment & Plan: 5q- outpatient treatment Status: Acute
== END 2017-10-05 18:00 | disposition home health service (06) | DRG 872 ==
LOC: C.ER 19:19 → C.3T 22:54
PROVIDERS: ADMIT Internal Medicine Pulmonary Disease; ATTEND Internal Medicine Pulmonary Disease
DX: A41.9 Sepsis, unspecified organism (principal); N39.0 Urinary tract infection, site not specified; N17.9 Acute kidney failure, unspecified; D46.9 Myelodysplastic syndrome, unspecified; E11.9 Type 2 diabetes mellitus without complications; F02.80 Dementia in other diseases classified elsewhere, unspecified severity, without behavioral disturbance, psychotic disturbance, mood disturbance, and anxiety; I10 Essential (primary) hypertension; G30.9 Alzheimer's disease, unspecified; I25.10 Atherosclerotic heart disease of native coronary artery without angina pectoris; Z79.4 Long term (current) use of insulin; Z85.6 Personal history of leukemia; Z87.01 Personal history of pneumonia (recurrent); Z87.891 Personal history of nicotine dependence

== ENCOUNTER 2017-10-26 13:49 | Observation (INO) | payer MEDICARE ==
[2017-10-26 13:49] VITALS: BMI 22.4
[2017-10-26 15:33] LABS: BASO # 0.1 K/uL (0.0-0.2); BASO % 1.2 % (0.0-2.0); EOS # 0.3 K/uL (0.0-0.7); EOS % 5.2 % (0.0-4.0); LYMPH # 1.4 K/uL (1.0-4.3); MEAN CELL VOLUME 99.9 fL (81.0-99.0); MEAN CORPUSCULAR HEMOGLOBIN 35.3 pg (27.0-31.0); MEAN CORPUSCULAR HGB CONC 35.3 g/dL (33.0-37.0); MEAN PLATELET VOLUME 9.7 fL (7.2-11.7); MONO # 0.4 K/uL (0.0-0.8); NEUT # 3.1 K/uL (1.8-7.0); NEUT % 59.6 % (50.0-75.0); RBC 2.03 Mil/uL (3.80-5.20); RED CELL DISTRIBUTION WIDTH 23.8 % (11.5-14.5); WHITE BLOOD COUNT 5.2 K/uL (4.8-10.8)
[2017-10-26 15:35] LABS: HEMOGLOBIN 7.2 g/dL (11.0-16.0)
[2017-10-26 15:41] LABS: INR 1.3; PROTHROMBIN TIME 13.8 SECONDS (9.7-12.2)
[2017-10-26 15:49] LABS: ALB/GLOB RATIO 0.9 (1.0-2.1); ALBUMIN 3.7 g/dL (3.5-5.0); ALT/SGPT 17 U/L (9-52); AST/SGOT 21 U/L (14-36); BLOOD UREA NITROGEN 20 mg/dL (7-17); CALCIUM 8.6 mg/dl (8.6-10.4); GFR AFRICAN-AMERICAN 57; GFR NON-AFRICAN AMERICAN 47
--- NOTE | 2017-10-26 15:55 | CP.PCM.PN ---
Subjective - Date & Time of Evaluation Date of Evaluation: 10/26/17 Time of Evaluation: 15:54 - Subjective Subjective: PGY2 progress note for Dr. Ly service: Pt seen and examined at bedside. Daughter at bedside helping give history. Daughter states that over last week pt c/o worsening fatigue and generalized weakness. This morning patient was having difficulty keeping awake during breakfast, and was "paler than usual." Patient has history of MDS and sees Dr. Adames as outpatient. Patient was to see Dr. Adames yesterday per daughter but appointment was missed. Patient denies hematuria, blood in stool, hematemesis, chest pain, or SOB. 87 year old female, with past medical history significant for DM, HTN, myelodysplastic disease, hypercholesterolemia, anemia, proximal humerus fracture , and dementia presents for anemia. Multiple admissions in past for transfusion support. Twenty-two prior transfusions per daughter at bedside. Denies any transfusion reactions. Allergies: amoxicillin - rash Home meds: Objective - Vital Signs/Intake and Output Vital Signs (last 24 hours): Temp Pulse Resp BP Pulse Ox 97.6 F 88 16 163/75 H 100 10/26/17 13:56 10/26/17 13:56 10/26/17 13:56 10/26/17 13:56 10/26/17 13:56 - Labs Labs: 10/26/17 15:29 10/26/17 15:29 PT 13.8 SECONDS (9.7-12.2) H 10/26/17 15:29 INR 1.3 10/26/17 15:29 APTT 27 SECONDS (21-34) 10/26/17 15:29 - Constitutional Appears: Non-toxic, No Acute Distress - Head Exam Head Exam: ATRAUMATIC, NORMAL INSPECTION - Eye Exam Eye Exam: EOMI, Normal appearance Pupil Exam: PERRL Additional comments: Pallor - ENT Exam ENT Exam: Mucous Membranes Moist - Neck Exam Neck Exam: Full ROM - Respiratory Exam Respiratory Exam: Clear to Ausculation Bilateral, NORMAL BREATHING PATTERN - Cardiovascular Exam Cardiovascular Exam: REGULAR RHYTHM, +S1, +S2 - GI/Abdominal Exam GI & Abdominal Exam: Soft, Normal Bowel Sounds. absent: Tenderness - Extremities Exam Extremities Exam: Normal Inspection. absent: Pedal Edema - Back Exam Back Exam: absent: CVA tenderness (L), CVA tenderness (R) - Neurological Exam Neurological Exam: Alert, Awake, Oriented x3 - Psychiatric Exam Psychiatric exam: Normal Affect - Skin Skin Exam: Dry, Pallor, Pallor, Warm. absent: Rash Assessment and Plan - Assessment and Plan (Free Text) Plan: Symptomatic Anemia Observe on med/surg As on previous admission: most likely etiology is MDS Hgb 7.2 on admission Type/Screen - type and cross 2 units f/u AM CBC Troponin negative f/u fecal occult x 3 MDS Hem/Onc [place] Dr. Adames - f/u reccs DM ZOHREH Accuchjordan Hypoglycemia protocol Continue home dosing of insulin - Long acting Detemir 10 units Hs - meals: 8 units Aspart ACTID f/u A1c Lisinopril 2.5 mg PO daily CAD Aspirin 81 mg PO daily HTN Elevated on admission Monitor Consider increasing Zestril dosing if persistent Prophylaxis SCDs VTE c/i due to anemia GI not indicated Nahum Stroud PGY2 Management per Aliyah
--- NOTE | 2017-10-26 16:05 | C.PDOC ---
History Of Present Illness 87-year-old female, presents to the emergency department with complaints of dizziness. Patient has a hx of myelodysplastic leukemia and states that she has been feeling increased light headedness and dizziness x2 days. Patient has a Hx of anemia and has had several transfusions in the past. She denies fever, chest pain, shortness of breath, or any other associated symptoms. No other complaints at this time. Time Seen by Provider: 10/26/17 14:55 Chief Complaint (Nursing): Medical Clearance History Per: Patient History/Exam Limitations: no limitations Past Medical History Reviewed: Historical Data, Nursing Documentation, Vital Signs Vital Signs: Last Vital Signs Temp 97.6 F 10/26/17 13:56 Pulse 88 10/26/17 13:56 Resp 16 10/26/17 13:56 BP 163/75 H 10/26/17 13:56 Pulse Ox 100 10/26/17 17:41 - Medical History PMH: Alzheimer's Disease, Anemia, Arthritis (knees; LBP), Bronchitis, Dementia, Diabetes, HTN, Hypercholesterolemia, Malignancy (Myelodysplastic), Pneumonia, Rheumatoid Arthritis Surgical History: Tonsillectomy - [facility] Procedures GAIT TRAINING/FUNCTIONAL AMBULATION TREATMENT (10/05/17) HOME MANAGEMENT TREATMENT (10/05/17) INSERT INFUSION DEV IN R INT JUGULAR VEIN, PERC (11/25/16) INSERTION OF VAD INTO CHEST SUBCU/FASCIA, OPEN APPROACH (11/25/16) INTRODUCE OF OTH THERAP SUBST INTO RESP TRACT, VIA OPENING (08/14/16) TRANSFUSE NONAUT RED BLOOD CELLS IN PERIPH VEIN, PERC (12/24/16) Family History: States: No Known Family Hx - Social History Hx Alcohol Use: No Hx Substance Use: No - Immunization History Hx Tetanus Toxoid Vaccination: No Hx Influenza Vaccination: Yes Hx Pneumococcal Vaccination: No Review Of Systems Constitutional: Negative for: Fever, Chills Cardiovascular: Negative for: Chest Pain, Palpitations Respiratory: Negative for: Shortness of Breath Gastrointestinal: Negative for: Nausea, Vomiting Musculoskeletal: Negative for: Neck Pain, Back Pain Neurological: Positive for: Dizziness (+light headedness). Negative for: Weakness, Numbness Physical Exam - Physical Exam Appears: Well, Non-toxic, No Acute Distress Skin: Normal Color, Warm, Dry, No Rash Head: Atraumatic, Normacephalic Eye(s): bilateral: Normal Inspection, PERRL, EOMI Nose: Normal Oral Mucosa: Moist Lips: Normal Appearing Neck: Normal ROM Chest: Symmetrical, Other (portacath right upper chest) Cardiovascular: Rhythm Regular, No Murmur Respiratory: Normal Breath Sounds, No Accessory Muscle Use, No Rales, No Rhonchi , No Wheezing Gastrointestinal/Abdominal: Normal Exam, Soft, No Tenderness Back: Normal Inspection, No CVA Tenderness Extremity: Normal ROM, No Deformity, No Swelling Neurological/Psych: Oriented x3, Normal Speech, Normal Motor Gait: Steady ED Course And Treatment - Laboratory Results Result Diagrams: 10/26/17 15:29 10/26/17 15:29 O2 Sat by Pulse Oximetry: 100 (RA) Pulse Ox Interpretation: Normal Medical Decision Making Medical Decision Making: Old records reviewed and the patient has had multiple visits for anemia and has had multiple transfusions. Patient had hemoglobin drop from 8 to 7 in 3 days. Will admit to Dr. Ly service. Disposition - Disposition Disposition: HOSPITALIZED Disposition Time: 16:05 (\) Condition: FAIR - POA Present On Arrival: None - Clinical Impression Clinical Impression: Anemia, Symptomatic anemia, Lightheaded - Scribe Statement The provider has reviewed the documentation as recorded by the Scribe (Amy Blackman) All medical record entries made by the Scribe were at my direction and personally dictated by me. I have reviewed the chart and agree that the record accurately reflects my personal performance of the history, physical exam, medical decision making, and the department course for this patient. I have also personally directed, reviewed, and agree with the discharge instructions and disposition.
[2017-10-26] MEDS ORDERED: Glucagon Recombinant 1 mg Inj IM PRN (17:00)
[2017-10-26] MEDS ORDERED: Dextrose 50% SYRINGE Inj (50 ml) IV PRN (17:00)
[2017-10-26 18:07] LABS: SQUAMOUS EPITHIAL 1 /hpf (0-5); URINE BACTERIA RARE (<OCC); URINE BILIRUBIN NEGATIVE (NEGATIVE); URINE BLOOD NEGATIVE (NEGATIVE); URINE CLARITY Clear (Clear); URINE COLOR Yellow (YELLOW); URINE GLUCOSE (UA) NORMAL (Normal); URINE LEUKOCYTE ESTERASE NEG Leu/uL (Negative); URINE PROTEIN NEGATIVE (NEGATIVE); URINE UROBILINOGEN NORMAL mg/dL (0.2-1.0)
[2017-10-26] MEDS ORDERED: Insulin Detemir 100 units/ml Vial (Levemir) SC SCH (22:00)
[2017-10-27] MEDS: (Novolog) Insulin Aspart, Recombinant 100 u/ml 10 ml vial SC SCH ×2 (08:30→12:19)
[2017-10-27 10:55] LABS: BASO # 0.1 K/uL (0.0-0.2); BASO % 1.3 % (0.0-2.0); EOS # 0.3 K/uL (0.0-0.7); EOS % 4.8 % (0.0-4.0); LYMPH % 17.6 % (20.0-40.0); MEAN CORPUSCULAR HEMOGLOBIN 33.5 pg (27.0-31.0); MEAN CORPUSCULAR HGB CONC 36.2 g/dL (33.0-37.0); MEAN PLATELET VOLUME 9.5 fL (7.2-11.7); MONO # 0.4 K/uL (0.0-0.8); MONO % 7.1 % (0.0-10.0); NEUT # 4.1 K/uL (1.8-7.0); NEUT % 69.2 % (50.0-75.0); RBC 2.96 Mil/uL (3.80-5.20); RED CELL DISTRIBUTION WIDTH 21.8 % (11.5-14.5); WHITE BLOOD COUNT 5.9 K/uL (4.8-10.8)
[2017-10-27 11:01] LABS: HEMOGLOBIN 9.9 g/dL (11.0-16.0); MEAN CELL VOLUME 92.6 fL (81.0-99.0)
[2017-10-27 11:17] LABS: ALB/GLOB RATIO 0.9 (1.0-2.1); ALBUMIN 3.5 g/dL (3.5-5.0); ALT/SGPT 11 U/L (9-52); AST/SGOT 21 U/L (14-36); BLOOD UREA NITROGEN 23 mg/dL (7-17); CALCIUM 8.4 mg/dl (8.6-10.4); GFR AFRICAN-AMERICAN > 60; GFR NON-AFRICAN AMERICAN 52
--- NOTE | 2017-10-27 12:59 | CP.PCM.CON ---
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 The patient has been off treatment for about 5 months as her daughter reports she was requiring more transfusions while on treatment. She denies abnormal bleeding and bruising She does admit to some fatigue but states she feels okay. Past medical history: MDS Past surgical history: None Family history: Denies hematologic and oncologic problems Social history: Denies tobacco, alcohol, and illicit drug use. Allergies: Amoxicillin Review of systems: All remaining review of systems including HEENT, cardiovascular, respiratory, gastrointestinal, genitourinary, musculoskeletal, dermatologic, neurologic, and psychiatric are negative unless mentioned in the HPI. Past Patient History - Infectious Disease Hx of Infectious Diseases: None - Tetanus Immunizations Tetanus Immunization: Unknown - Past Medical History & Family History Past Medical History?: Yes - Past Social History Smoking Status: Former Smoker - CARDIAC Hx Cardiac Disorders: Yes Hx Hypercholesterolemia: Yes Hx Hypertension: Yes - PULMONARY Hx Respiratory Disorders: Yes Hx Bronchitis: Yes Hx Pneumonia: Yes - NEUROLOGICAL Hx Neurological Disorder: Yes Hx Alzheimer's Disease: Yes Hx Dementia: Yes Hx Dizziness: Yes - HEENT Hx HEENT Problems: Yes Hx Cataracts: Yes (BOTH EYES) - RENAL Hx Chronic Kidney Disease: No - ENDOCRINE/METABOLIC Hx Endocrine Disorders: Yes Hx Diabetes Mellitus Type 2: Yes - HEMATOLOGICAL/ONCOLOGICAL Hx Blood Disorders: Yes Hx Anemia: Yes Hx Blood Transfusions: Yes Hx Cancer: Yes Hx Chemotherapy: Yes Hx Leukemia: Yes - INTEGUMENTARY Hx Dermatological Problems: No - MUSCULOSKELETAL/RHEUMATOLOGICAL Hx Musculoskeletal Disorders: Yes Hx Arthritis: Yes Hx Falls: Yes Hx Rheumatoid Arthritis: Yes - GASTROINTESTINAL Hx Gastrointestinal Disorders: No - GENITOURINARY/GYNECOLOGICAL Hx Genitourinary Disorders: Yes (esbl /uti sepsis,SOME INCONTINENCY.WEARS PULLUPS.) Hx Reproductive Disorders: No - PSYCHIATRIC Hx Psychophysiologic Disorder: No Hx Substance Use: No - SURGICAL HISTORY Hx Surgeries: Yes Hx Tonsillectomy: Yes - ANESTHESIA Hx Anesthesia: Yes Hx Anesthesia Reactions: No Hx Malignant Hyperthermia: No Meds Allergies/Adverse Reactions: Allergies Allergy/AdvReac Type Severity Reaction Status Date / Time amoxicillin Allergy Mild RASH Verified 10/26/17 13:59 - Medications Medications: Current Medications Aspirin (Aspirin Chewable) 81 mg PO DAILY [facility] Last Admin: 10/27/17 09:24 Dose: 81 mg Dextrose (Dextrose 50% Inj) 0 ml IV STAT PRN; Protocol PRN Reason: Hypoglycemia Protocol Dextrose (Glutose 15) 0 gm PO ONCE PRN; Protocol PRN Reason: Hypoglycemia Protocol Glucagon (Glucagen Diagnostic Kit) 0 mg IM STAT PRN; Protocol PRN Reason: Hypoglycemia Protocol Dextrose (Dextrose 5% In Water 1000 Ml) 1,000 mls @ 0 mls/hr IV .Q0M PRN; Protocol; Per Protocol PRN Reason: Hypoglycemia Protocol Insulin Aspart (Novolog) 8 unit SC ACTID [facility] Last Admin: 10/27/17 12:19 Dose: 8 unit Insulin Detemir (Levemir) 10 unit SC HS [facility] Lisinopril (Zestril) 2.5 mg PO DAILY [facility] Last Admin: 10/27/17 09:24 Dose: 2.5 mg Pneumococcal Polyvalent Vaccine (Pneumovax 23 Vaccine) 0.5 ml IM .ONCE ONE Stop: 10/30/17 10:01 Physical Exam - Head Exam Head Exam: ATRAUMATIC - Eye Exam Eye Exam: Normal appearance - ENT Exam ENT Exam: Mucous Membranes Dry - Respiratory Exam Respiratory Exam: NORMAL BREATHING PATTERN - Cardiovascular Exam Cardiovascular Exam: +S1, +S2 - GI/Abdominal Exam GI & Abdominal Exam: Normal Bowel Sounds - Extremities Exam Extremities exam: Positive for: normal inspection Results - Vital Signs Recent Vital Signs: Last Vital Signs Temp 98.4 F 10/27/17 08:10 Pulse 87 10/27/17 08:10 Resp 18 10/27/17 08:10 BP 159/72 H 10/27/17 08:10 Pulse Ox 97 10/27/17 08:10 - Labs Result Diagrams: 10/27/17 10:45 10/27/17 10:45 Labs: Laboratory Results - last 24 hr 10/26/17 10/26/17 10/26/17 15:29 15:29 15:29 WBC 5.2 RBC 2.03 L Hgb 7.2 L D Hct 20.3 L MCV 99.9 H MCH 35.3 H MCHC 35.3 RDW 23.8 H Plt Count 155 MPV 9.7 Neut % (Auto) 59.6 Lymph % (Auto) 27.0 [place] % (Auto) 7.0 Eos % (Auto) 5.2 H Baso % (Auto) 1.2 Neut # (Auto) 3.1 Lymph # (Auto) 1.4 [place] # (Auto) 0.4 Eos # (Auto) 0.3 Baso # (Auto) 0.1 PT 13.8 H INR 1.3 APTT 27 Sodium 141 Potassium 4.2 Chloride 104 Carbon Dioxide 26 Anion Gap 15 BUN 20 H Creatinine 1.1 Est GFR ( Amer) 57 Est GFR (Non-Af Amer) 47 POC Glucose (mg/dL) Random Glucose 136 H Hemoglobin A1c Calcium 8.6 Phosphorus Magnesium Total Bilirubin 0.5 AST 21 ALT 17 Alkaline Phosphatase 76 Troponin I < 0.0120 Total Protein 7.7 Albumin 3.7 Globulin 4.0 H Albumin/Globulin Ratio 0.9 L Urine Color Urine Clarity Urine pH Ur Specific [place] Urine Protein Urine Glucose (UA) Urine Ketones Urine Blood Urine Nitrate Urine Bilirubin Urine Urobilinogen Ur Leukocyte Esterase Urine WBC (Auto) Urine RBC (Auto) Ur Squamous Epith Cells Urine Bacteria Blood Type Antibody Screen Antibody Identification LAURIE, Poly Interpret 10/26/17 10/26/17 10/26/17 15:29 16:57 18:01 WBC RBC Hgb Hct MCV MCH MCHC RDW Plt Count MPV Neut % (Auto) Lymph % (Auto) [place] % (Auto) Eos % (Auto) Baso % (Auto) Neut # (Auto) Lymph # (Auto) [place] # (Auto) Eos # (Auto) Baso # (Auto) PT INR APTT Sodium Potassium Chloride Carbon Dioxide Anion Gap BUN Creatinine Est GFR ( Amer) Est GFR (Non-Af Amer) POC Glucose (mg/dL) 108 Random Glucose Hemoglobin A1c Calcium Phosphorus Magnesium Total Bilirubin AST ALT Alkaline Phosphatase Troponin I Total Protein Albumin Globulin Albumin/Globulin Ratio Urine Color Yellow Urine Clarity Clear Urine pH 6.0 Ur Specific [place] 1.012 Urine Protein Negative Urine Glucose (UA) Normal Urine Ketones Negative Urine Blood Negative Urine Nitrate Negative Urine Bilirubin Negative Urine Urobilinogen Normal Ur Leukocyte Esterase Neg Urine WBC (Auto) 1 Urine RBC (Auto) 1 Ur Squamous Epith Cells 1 Urine Bacteria Rare Blood Type O POSITIVE Antibody Screen Positive Antibody Identification Non Specific Antibody LAURIE, Poly Interpret Negative 10/26/17 10/27/17 10/27/17 22:11 05:52 07:34 WBC RBC Hgb Hct MCV MCH MCHC RDW Plt Count MPV Neut % (Auto) Lymph % (Auto) [place] % (Auto) Eos % (Auto) Baso % (Auto) Neut # (Auto) Lymph # (Auto) [place] # (Auto) Eos # (Auto) Baso # (Auto) PT INR APTT Sodium Potassium Chloride Carbon Dioxide Anion Gap BUN Creatinine Est GFR ( Amer) Est GFR (Non-Af Amer) POC Glucose (mg/dL) 272 H 162 H 176 H Random Glucose Hemoglobin A1c Calcium Phosphorus Magnesium Total Bilirubin AST ALT Alkaline Phosphatase Troponin I Total Protein Albumin Globulin Albumin/Globulin Ratio Urine Color Urine Clarity Urine pH Ur Specific [place] Urine Protein Urine Glucose (UA) Urine Ketones Urine Blood Urine Nitrate Urine Bilirubin Urine Urobilinogen Ur Leukocyte Esterase Urine WBC (Auto) Urine RBC (Auto) Ur Squamous Epith Cells Urine Bacteria Blood Type Antibody Screen Antibody Identification LAURIE, Poly Interpret 10/27/17 10/27/17 10/27/17 10:45 10:45 10:45 WBC 5.9 RBC 2.96 L Hgb 9.9 L D Hct 27.4 L MCV 92.6 D MCH 33.5 H MCHC 36.2 RDW 21.8 H Plt Count 138 MPV 9.5 Neut % (Auto) 69.2 Lymph % (Auto) 17.6 L [place] % (Auto) 7.1 Eos % (Auto) 4.8 H Baso % (Auto) 1.3 Neut # (Auto) 4.1 Lymph # (Auto) 1.0 [place] # (Auto) 0.4 Eos # (Auto) 0.3 Baso # (Auto) 0.1 PT INR APTT Sodium 138 Potassium 4.3 Chloride 100 Carbon Dioxide 28 Anion Gap 14 BUN 23 H Creatinine 1.0 Est GFR ( Amer) > 60 Est GFR (Non-Af Amer) 52 POC Glucose (mg/dL) Random Glucose 293 H Hemoglobin A1c 7.2 H D Calcium 8.4 L Phosphorus 3.4 Magnesium 1.7 Total Bilirubin 1.4 H AST 21 ALT 11 Alkaline Phosphatase 74 Troponin I Total Protein 7.4 Albumin 3.5 Globulin 4.0 H Albumin/Globulin Ratio 0.9 L Urine Color Urine Clarity Urine pH Ur Specific [place] Urine Protein Urine Glucose (UA) Urine Ketones Urine Blood Urine Nitrate Urine Bilirubin Urine Urobilinogen Ur Leukocyte Esterase Urine WBC (Auto) Urine RBC (Auto) Ur Squamous Epith Cells Urine Bacteria Blood Type Antibody Screen Antibody Identification LAURIE, Poly Interpret 10/27/17 11:15 WBC RBC Hgb Hct MCV MCH MCHC RDW Plt Count MPV Neut % (Auto) Lymph % (Auto) [place] % (Auto) Eos % (Auto) Baso % (Auto) Neut # (Auto) Lymph # (Auto) [place] # (Auto) Eos # (Auto) Baso # (Auto) PT INR APTT Sodium Potassium Chloride Carbon Dioxide Anion Gap BUN Creatinine Est GFR ( Amer) Est GFR (Non-Af Amer) POC Glucose (mg/dL) 278 H Random Glucose Hemoglobin A1c Calcium Phosphorus Magnesium Total Bilirubin AST ALT Alkaline Phosphatase Troponin I Total Protein Albumin Globulin Albumin/Globulin Ratio Urine Color Urine Clarity Urine pH Ur Specific [place] Urine Protein Urine Glucose (UA) Urine Ketones Urine Blood Urine Nitrate Urine Bilirubin Urine Urobilinogen Ur Leukocyte Esterase Urine WBC (Auto) Urine RBC (Auto) Ur Squamous Epith Cells Urine Bacteria Blood Type Antibody Screen Antibody Identification LAURIE, Poly Interpret Assessment & Plan (1) Anemia Assessment and Plan: secondary to MDS s/p transfusion support Status: Acute (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 Status: Acute
--- NOTE | 2017-10-27 12:59 | CP.PCM.PN ---
Subjective - Date & Time of Evaluation Date of Evaluation: 10/27/17 Time of Evaluation: 10:55 - Subjective Subjective: Progress Note for Dr. Ly Patient seen and examined at bedside. Patient received two units of PRBC overnight. She tolerated transfusion well. Her dizziness and weakness improved. She is currently resting in bed comfortably. Denies fever, chills, headache, shortness of breath, chest pain, abdominal pain, nausea, vomiting, or other complaints. Objective - Vital Signs/Intake and Output Vital Signs (last 24 hours): Temp Pulse Resp BP Pulse Ox 98.4 F 87 18 159/72 H 97 10/27/17 08:10 10/27/17 08:10 10/27/17 08:10 10/27/17 08:10 10/27/17 08:10 Intake and Output: 10/27/17 10/27/17 06:59 18:59 Intake Total 294 Balance 294 - Medications Medications: Current Medications Aspirin (Aspirin Chewable) 81 mg PO DAILY [facility] Last Admin: 10/27/17 09:24 Dose: 81 mg Dextrose (Dextrose 50% Inj) 0 ml IV STAT PRN; Protocol PRN Reason: Hypoglycemia Protocol Dextrose (Glutose 15) 0 gm PO ONCE PRN; Protocol PRN Reason: Hypoglycemia Protocol Glucagon (Glucagen Diagnostic Kit) 0 mg IM STAT PRN; Protocol PRN Reason: Hypoglycemia Protocol Dextrose (Dextrose 5% In Water 1000 Ml) 1,000 mls @ 0 mls/hr IV .Q0M PRN; Protocol; Per Protocol PRN Reason: Hypoglycemia Protocol Insulin Aspart (Novolog) 8 unit SC ACTID [facility] Last Admin: 10/27/17 12:19 Dose: 8 unit Insulin Detemir (Levemir) 10 unit SC [facility] Lisinopril (Zestril) 2.5 mg PO DAILY [facility] Last Admin: 10/27/17 09:24 Dose: 2.5 mg Pneumococcal Polyvalent Vaccine (Pneumovax 23 Vaccine) 0.5 ml IM .ONCE ONE Stop: 10/30/17 10:01 - Labs Labs: 10/27/17 10:45 10/27/17 10:45 PT 13.8 SECONDS (9.7-12.2) H 10/26/17 15:29 INR 1.3 10/26/17 15:29 APTT 27 SECONDS (21-34) 10/26/17 15:29 - Additional Findings Additional findings: - Constitutional Appears: Non-toxic, No Acute Distress - Head Exam Head Exam: ATRAUMATIC, NORMAL INSPECTION - Eye Exam Eye Exam: EOMI, Normal appearance Pupil Exam: PERRL - ENT Exam ENT Exam: Mucous Membranes Moist - Neck Exam Neck Exam: Full ROM - Respiratory Exam Respiratory Exam: Clear to Ausculation Bilateral, NORMAL BREATHING PATTERN - Cardiovascular Exam Cardiovascular Exam: REGULAR RHYTHM, +S1, +S2 - GI/Abdominal Exam GI & Abdominal Exam: Soft, Normal Bowel Sounds. absent: Tenderness - Extremities Exam Extremities Exam: Normal Inspection. absent: Pedal Edema - Back Exam Back Exam: absent: CVA tenderness (L), CVA tenderness (R) - Neurological Exam Neurological Exam: Alert, Awake, Oriented x3 - Psychiatric Exam Psychiatric exam: Normal Affect - Skin Skin Exam: Dry, Warm. absent: Rash Assessment and Plan - Assessment and Plan (Free Text) Assessment: Symptomatic Anemia Observe on med/surg As on previous admission: most likely etiology is MDS Hgb 7.2 on admission s/p 2 units PRBC, Hgb 9.9 this AM Troponin negative f/u fecal occult x 3 MDS Hem/Onc [employer] Dr. Adames - Outpatient follow up DM ZOHREH Cronin Hypoglycemia protocol Continue home dosing of insulin - Long acting Detemir 10 units Hs - meals: 8 units Aspart ACTID - A1c 7.2 Lisinopril 2.5 mg PO daily CAD Aspirin 81 mg PO daily HTN Elevated on admission Monitor Consider increasing Zestril dosing if persistent Prophylaxis SCDs VTE c/i due to anemia GI not indicated Case discussed with attending physician Management per Dr. Ly
[2017-10-27] MEDS ORDERED: Pneumococcal 23-Valent Vaccine IM ONE (15:30)
[2017-10-27 16:12] VITALS: BP 116/64; PULSE 79; RESP 20; TEMP 98.2; O2SAT 96
--- NOTE | 2017-10-28 09:23 | HP ---
HISTORY OF PRESENT ILLNESS: The patient is an 87-year-old female who was admitted to the hospital with chief complaint with anemia. The patient has Myelodysplastic syndrome, came to the ER, advised admission. Diabetes. PHYSICAL EXAMINATION: GENERAL: The patient is awake, alert, and oriented. VITAL SIGNS: Temperature 98 and pulse 90. HEENT: Within normal limits. NECK: Supple. CHEST: Symmetrical. HEART: Regular. ABDOMEN: Soft. EXTREMITIES: No edema. IMPRESSION: The patient suffers from anemia. The patient supportive care. Gamal Ly MD
== END 2017-10-27 16:45 | disposition home or self-care (01) ==
LOC: C.ER 13:49 → INTOOBSV 16:01 → C.9E 16:01 → C.3T 22:04
PROVIDERS: ADMIT Internal Medicine Pulmonary Disease; ATTEND Internal Medicine Pulmonary Disease
DX: D46.9 Myelodysplastic syndrome, unspecified (principal); E11.9 Type 2 diabetes mellitus without complications; E78.00 Pure hypercholesterolemia, unspecified; F02.80 Dementia in other diseases classified elsewhere, unspecified severity, without behavioral disturbance, psychotic disturbance, mood disturbance, and anxiety; G30.9 Alzheimer's disease, unspecified; I10 Essential (primary) hypertension; I25.10 Atherosclerotic heart disease of native coronary artery without angina pectoris; M06.9 Rheumatoid arthritis, unspecified; M17.0 Bilateral primary osteoarthritis of knee; Z87.01 Personal history of pneumonia (recurrent); Z87.891 Personal history of nicotine dependence
CPT/HCPCS: 36415; 36430; 80053; 81001; 82948; 83036; 83735; 84100; 84484; 85025; 85610; 85730; 86850; 86870; 86880; 86900; 86920; 86922; 99285; G0378; J1642; P9051

== ENCOUNTER 2017-12-02 14:22 | Observation (INO) | payer MEDICARE ==
[2017-12-02 14:30] VITALS: BMI 23.6
--- NOTE | 2017-12-02 14:50 | C.PDOC ---
History Of Present Illness 87 Y/O FEMALE WITH HISTORY OF MYELODYSPLASTIC LEUKEMIA AND ANEMIA PRESENTS TO ED WITH C/O RECURRENT ANEMIA X SEV DAYS. PATIENT ADMITS TO BEING PALLOR AND HAVING GEN WEAKNESS. NO ASSOC DIZZY, CP, NV. S/P OUTPT H/H BY DR HERNÁNDEZ, HGB "5" PER FAMILY. PATIENT HAS HISTORYOF SEVERAL TRANSFUSIONS IN THE PAST. ADMITTED FOR SAME EXAM MILD DIST NONTOXIC HEENT +PALE CONJ REMAINDER NEG Time Seen by Provider: 12/02/17 14:48 Chief Complaint (Nursing): Abnormal Labs History Per: Patient History/Exam Limitations: no limitations Onset/Duration Of Symptoms: Days Current Symptoms Are (Timing): Still Present Past Medical History Reviewed: Historical Data, Nursing Documentation, Vital Signs Vital Signs: Last Vital Signs Temp 98.5 F 12/02/17 15:36 Pulse 84 12/02/17 16:00 Resp 18 12/02/17 16:00 BP 124/52 L 12/02/17 16:00 Pulse Ox 99 12/02/17 16:04 - Medical History PMH: Alzheimer's Disease, Anemia, Arthritis, Bronchitis, Dementia, Diabetes, HTN , Hypercholesterolemia, Malignancy (Myelodysplastic), Pneumonia, Rheumatoid Arthritis Surgical History: Tonsillectomy - [facility] Procedures GAIT TRAINING/FUNCTIONAL AMBULATION TREATMENT (10/05/17) HOME MANAGEMENT TREATMENT (10/05/17) INSERT INFUSION DEV IN R INT JUGULAR VEIN, PERC (11/25/16) INSERTION OF VAD INTO CHEST SUBCU/FASCIA, OPEN APPROACH (11/25/16) INTRODUCE OF OTH THERAP SUBST INTO RESP TRACT, VIA OPENING (08/14/16) TRANSFUSE NONAUT RED BLOOD CELLS IN PERIPH VEIN, PERC (12/24/16) Family History: States: No Known Family Hx - Social History Hx Alcohol Use: No Hx Substance Use: No - Immunization History Hx Tetanus Toxoid Vaccination: No Hx Influenza Vaccination: Yes (2016) Hx Pneumococcal Vaccination: Yes (2016) Review Of Systems Constitutional: Negative for: Fever, Chills Cardiovascular: Negative for: Chest Pain Respiratory: Negative for: Shortness of Breath Gastrointestinal: Negative for: Nausea, Vomiting Neurological: Positive for: Weakness. Negative for: Dizziness Physical Exam - Physical Exam Appears: Non-toxic, Other (Mild distress) Skin: Warm, Dry, No Rash Head: Atraumatic, Normacephalic Eye(s): bilateral: PERRL, EOMI, Conjunctiva Pale Oral Mucosa: Moist Neck: Normal ROM, Supple Cardiovascular: Rhythm Regular Respiratory: Normal Breath Sounds, No Rales, No Rhonchi, No Wheezing Gastrointestinal/Abdominal: Soft, No Tenderness, No Guarding, No Rebound Extremity: Normal ROM, Capillary Refill (<2 seconds) Neurological/Psych: Oriented x3, Normal Speech, Normal Cognition ED Course And Treatment - Laboratory Results Result Diagrams: 12/02/17 15:24 12/02/17 15:24 ECG: Interpreted By Me ECG Rhythm: Sinus Rhythm ECG Interpretation: Normal Rate From EC O2 Sat by Pulse Oximetry: 99 (RA) Pulse Ox Interpretation: Normal - Radiology CXR: Interpreted by Me CXR Interpretation: Yes: No Acute Disease Progress - Re-Evaluation Re-evaluation Note: 12/02/17 16:01 EXAM [facility]. D/W DR SCHAEFER WILL ADMIT - Data Reviewed Data Reviewed: Lab, Diagnostic imaging, EKG, Old records Disposition Counseled Patient/Family Regarding: Studies Performed, Diagnosis - Disposition Disposition: HOSPITALIZED Disposition Time: 16:03 Condition: STABLE - POA Present On Arrival: None - Clinical Impression Clinical Impression: Symptomatic anemia, Myelodysplastic syndrome, Generalized weakness - Scribe Statement The provider has reviewed the documentation as recorded by the Amauriibjeanette Justice All medical record entries made by the Scribe were at my direction and personally dictated by me. I have reviewed the chart and agree that the record accurately reflects my personal performance of the history, physical exam, medical decision making, and the department course for this patient. I have also personally directed, reviewed, and agree with the discharge instructions and disposition. Decision To Admit - Pt Status Changed To: Hospital Disposition Of: Observation - . Bed Request Type: Regular Admitting Physician: Gamal Schaefer Patient Diagnosis: Symptomatic anemia, Myelodysplastic syndrome, Generalized weakness
[2017-12-02 15:31] LABS: BASO % 0.8 % (0.0-2.0); EOS # 0.2 K/uL (0.0-0.7); EOS % 4.2 % (0.0-4.0); LYMPH # 1.1 K/uL (1.0-4.3); LYMPH % 23.5 % (20.0-40.0); MEAN CORPUSCULAR HEMOGLOBIN 33.6 pg (27.0-31.0); MEAN CORPUSCULAR HGB CONC 34.6 g/dL (33.0-37.0); MEAN PLATELET VOLUME 9.5 fL (7.2-11.7); MONO # 0.3 K/uL (0.0-0.8); MONO % 6.9 % (0.0-10.0); NEUT # 3.1 K/uL (1.8-7.0); NEUT % 64.6 % (50.0-75.0); NRBC % 0.1 % (0.0-2.0); RBC 1.68 Mil/uL (3.80-5.20); RED CELL DISTRIBUTION WIDTH 26.6 % (11.5-14.5); WHITE BLOOD COUNT 4.7 K/uL (4.8-10.8)
[2017-12-02 15:34] LABS: HEMOGLOBIN 5.7 g/dL (11.0-16.0); MEAN CELL VOLUME 97.3 fL (81.0-99.0)
[2017-12-02 15:39] LABS: SQUAMOUS EPITHIAL 1 /hpf (0-5); URINE BILIRUBIN NEGATIVE (NEGATIVE); URINE BLOOD NEGATIVE (NEGATIVE); URINE CLARITY Hazy (Clear); URINE COLOR Yellow (YELLOW); URINE GLUCOSE (UA) NORMAL (Normal); URINE LEUKOCYTE ESTERASE 1+ Leu/uL (Negative); URINE PROTEIN NEGATIVE (NEGATIVE); URINE UROBILINOGEN NORMAL mg/dL (0.2-1.0)
[2017-12-02 15:41] LABS: CALCIUM 9.2 mg/dl (8.6-10.4)
--- NOTE | 2017-12-02 15:42 | RAD ---
PROCEDURE: CHEST RADIOGRAPH, 1 VIEW HISTORY: MED CLEARANCE COMPARISON: 09/26/2017. FINDINGS: Right-sided central venous catheter terminates at the cavoatrial junction. LUNGS: There is mild patient rotation to the right. The lungs are well inflated and clear. PLEURA: No pneumothorax or pleural fluid seen. CARDIOVASCULAR: Normal. OSSEOUS STRUCTURES: Within normal limits for the patient's age. VISUALIZED UPPER ABDOMEN: Normal. OTHER FINDINGS: None. IMPRESSION: No active pulmonary disease.
[2017-12-02] MEDS: (Novolog) Insulin Aspart, Recombinant 100 u/ml 10 ml vial SC SCH (21:33)
[2017-12-02] MEDS ORDERED: Insulin Detemir 100 units/ml Vial (Levemir) SC SCH (22:00)
[2017-12-03 03:25] VITALS: RESP 20
[2017-12-03] MEDS: (Novolog) Insulin Aspart, Recombinant 100 u/ml 10 ml vial SC SCH ×3 (07:09→17:00)
[2017-12-03 13:22] LABS: MEAN CELL VOLUME 92.4 fL (81.0-99.0); MEAN CORPUSCULAR HGB CONC 35.7 g/dL (33.0-37.0); MEAN PLATELET VOLUME 9.8 fL (7.2-11.7); RBC 2.66 Mil/uL (3.80-5.20); WHITE BLOOD COUNT 4.9 K/uL (4.8-10.8)
[2017-12-03 13:24] LABS: HEMOGLOBIN 8.8 g/dL (11.0-16.0)
--- NOTE | 2017-12-03 16:19 | CP.PCM.PN ---
Subjective - Date & Time of Evaluation Date of Evaluation: 12/03/17 Time of Evaluation: 16:18 Objective - Vital Signs/Intake and Output Vital Signs (last 24 hours): Temp Pulse Resp BP Pulse Ox 98.2 F 82 20 131/71 96 12/03/17 07:31 12/03/17 07:31 12/03/17 07:31 12/03/17 07:31 12/03/17 07:31 Intake and Output: 12/03/17 12/03/17 06:59 18:59 Intake Total 850 450 Output Total 200 Balance 650 450 - Medications Medications: Current Medications Insulin Aspart (Novolog) 0 unit SC ACHS [facility] PRN Reason: Protocol Last Admin: 12/03/17 13:05 Dose: 3 units Insulin Detemir (Levemir) 10 unit SC [facility] Last Admin: 12/02/17 21:38 Dose: 10 units Lisinopril (Zestril) 2.5 mg PO [facility] Last Admin: 12/02/17 21:45 Dose: 2.5 mg - Labs Labs: 12/03/17 13:18 12/02/17 15:24 Assessment and Plan - Assessment and Plan (Free Text) Assessment: FOLLOW UP WITH DR SCHAEFER IN 1-2 WEEK AT HIS OFFICE ---CALL FOR APPOITMENT FOLLOW UP WITH DR HERNÁNDEZ AT HIS OFFICE 1-2 WEEK --CALL FOR APPOINTMENT CONTINUE ALL YOUR HOME ACTIVITY TOLERATED CALL DR SCHAEFER OR DR HERNÁNDEZ OR GO TO THE [facility] ROOM IF SYMPTOMS RETURN OR WORSENING
--- NOTE | 2017-12-03 16:20 | CP.PCM.CON ---
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 The patient has been off treatment for about 6 months as her daughter reports she was requiring more transfusions while on treatment. She denies abnormal bleeding and bruising She does admit to some fatigue but states she feels okay. Past medical history: MDS Past surgical history: None Family history: Denies hematologic and oncologic problems Social history: Denies tobacco, alcohol, and illicit drug use. Allergies: Amoxicillin Review of systems: All remaining review of systems including HEENT, cardiovascular, respiratory, gastrointestinal, genitourinary, musculoskeletal, dermatologic, neurologic, and psychiatric are negative unless mentioned in the HPI. Past Patient History - Infectious Disease Hx of Infectious Diseases: None - Tetanus Immunizations Tetanus Immunization: Unknown - Past Medical History & Family History Past Medical History?: Yes - Past Social History Smoking Status: Former Smoker - CARDIAC Hx Hypercholesterolemia: Yes Hx Hypertension: Yes - PULMONARY Hx Bronchitis: Yes Hx Pneumonia: Yes - NEUROLOGICAL Hx Alzheimer's Disease: Yes Hx Dementia: Yes - HEENT Hx HEENT Problems: Yes Hx Cataracts: Yes (BOTH EYES) - RENAL Hx Chronic Kidney Disease: No - ENDOCRINE/METABOLIC Hx Endocrine Disorders: Yes Hx Diabetes Mellitus Type 2: Yes - HEMATOLOGICAL/ONCOLOGICAL Hx Anemia: Yes - INTEGUMENTARY Hx Dermatological Problems: No - MUSCULOSKELETAL/RHEUMATOLOGICAL Hx Arthritis: Yes Hx Rheumatoid Arthritis: Yes - GASTROINTESTINAL Hx Gastrointestinal Disorders: No - GENITOURINARY/GYNECOLOGICAL Hx Genitourinary Disorders: Yes (esbl /uti sepsis,SOME INCONTINENCY.WEARS PULLUPS.) Hx Reproductive Disorders: No - PSYCHIATRIC Hx Substance Use: No - SURGICAL HISTORY Hx Tonsillectomy: Yes - ANESTHESIA Hx Anesthesia: Yes Hx Anesthesia Reactions: No Hx Malignant Hyperthermia: No Meds Allergies/Adverse Reactions: Allergies Allergy/AdvReac Type Severity Reaction Status Date / Time amoxicillin Allergy Mild RASH Verified 12/02/17 14:30 - Medications Medications: Current Medications Insulin Aspart (Novolog) 0 unit SC ACHS [facility] PRN Reason: Protocol Last Admin: 12/03/17 13:05 Dose: 3 units Insulin Detemir (Levemir) 10 unit SC HS [facility] Last Admin: 12/02/17 21:38 Dose: 10 units Lisinopril (Zestril) 2.5 mg PO HS [facility] Last Admin: 12/02/17 21:45 Dose: 2.5 mg Physical Exam - Head Exam Head Exam: ATRAUMATIC - Eye Exam Eye Exam: Normal appearance - ENT Exam ENT Exam: Mucous Membranes Dry - Respiratory Exam Respiratory Exam: NORMAL BREATHING PATTERN - Cardiovascular Exam Cardiovascular Exam: +S1, +S2 - GI/Abdominal Exam GI & Abdominal Exam: Normal Bowel Sounds - Neurological Exam Neurological exam: Oriented x3 - Psychiatric Exam Psychiatric exam: Normal Affect, Normal Mood - Skin Skin Exam: Warm Results - Vital Signs Recent Vital Signs: Last Vital Signs Temp 98.2 F 12/03/17 07:31 Pulse 82 12/03/17 07:31 Resp 20 12/03/17 07:31 BP 131/71 12/03/17 07:31 Pulse Ox 96 12/03/17 07:31 - Labs Result Diagrams: 12/03/17 13:18 12/02/17 15:24 Labs: Laboratory Results - last 24 hr 12/02/17 12/02/17 12/03/17 15:24 21:31 02:10 WBC RBC Hgb Hct MCV MCH MCHC RDW Plt Count MPV POC Glucose (mg/dL) 152 H 199 H Blood Type O POSITIVE Antibody Screen Positive Antibody Identification Non Specific Antibody LAURIE, Poly Interpret Negative 12/03/17 12/03/17 12/03/17 07:04 11:27 13:18 WBC 4.9 RBC 2.66 L Hgb 8.8 L D Hct 24.6 L MCV 92.4 D MCH 33.0 H MCHC 35.7 RDW 18.0 H Plt Count 171 MPV 9.8 POC Glucose (mg/dL) 93 261 H Blood Type Antibody Screen Antibody Identification LAURIE, Poly Interpret Assessment & Plan (1) Symptomatic anemia Assessment and Plan: secondary to MDS agree with transfusion support Status: Acute (2) Myelodysplastic syndrome Assessment and Plan: currently off treatment transfusion support PRN outpatient f/u Status: Chronic Priority: High
--- NOTE | 2017-12-03 16:22 | CP.PCM.PN ---
Subjective - Date & Time of Evaluation Date of Evaluation: 12/03/17 Time of Evaluation: 16:00 - Subjective Subjective: Feeling better s/p PRBC transfusion. Objective - Vital Signs/Intake and Output Vital Signs (last 24 hours): Temp Pulse Resp BP Pulse Ox 98.2 F 82 20 131/71 96 12/03/17 07:31 12/03/17 07:31 12/03/17 07:31 12/03/17 07:31 12/03/17 07:31 Intake and Output: 12/03/17 12/03/17 06:59 18:59 Intake Total 850 450 Output Total 200 Balance 650 450 - Medications Medications: Current Medications Insulin Aspart (Novolog) 0 unit SC ACHS [facility] PRN Reason: Protocol Last Admin: 12/03/17 13:05 Dose: 3 units Insulin Detemir (Levemir) 10 unit SC HS [facility] Last Admin: 12/02/17 21:38 Dose: 10 units Lisinopril (Zestril) 2.5 mg PO HS [facility] Last Admin: 12/02/17 21:45 Dose: 2.5 mg - Labs Labs: 12/03/17 13:18 12/02/17 15:24 - Head Exam Head Exam: ATRAUMATIC - Eye Exam Eye Exam: Normal appearance - ENT Exam ENT Exam: Mucous Membranes Dry - Respiratory Exam Respiratory Exam: NORMAL BREATHING PATTERN - Cardiovascular Exam Cardiovascular Exam: +S1, +S2 - GI/Abdominal Exam GI & Abdominal Exam: Normal Bowel Sounds Assessment and Plan (1) Symptomatic anemia Assessment & Plan: s/p PRBC transfusion secondary to MDS cleared from heme/onc standpoint for D/C Status: Acute (2) Myelodysplastic syndrome Assessment & Plan: outpatient treatment. Status: Chronic
[2017-12-03 17:21] VITALS: BP 112/69; PULSE 79; TEMP 98; O2SAT 98
--- NOTE | 2017-12-05 08:47 | HP ---
HISTORY OF PRESENT ILLNESS: An 87-year-old female admitted to the hospital with chief complaint of weakness, fatigue, tiredness, shortness of breath. The patient came to the ER, found to have severe anemia, advised admission. The patient has history of myelodysplastic syndrome followed by hematology, history of diabetes. PHYSICAL EXAMINATION: GENERAL: The patient is awake, alert and oriented. VITAL SIGNS: Temperature 98, pulse 90. HEENT: Within normal limits. NECK: Supple. CHEST: Symmetrical. air entry. HEART: Regular. ABDOMEN: Soft. EXTREMITIES: No edema. ASSESSMENT AND PLAN: The patient suffers from anemia. The patient on bed rest, supportive care, blood transfusion. Gamal Ly MD
--- NOTE | 2017-12-05 16:45 | CARD ---
APPROVED REPORT EKG Measurement Heart [id number] <Conclusion> Normal sinus rhythm Nonspecific T wave abnormality Abnormal ECG
== END 2017-12-03 18:00 | disposition home or self-care (01) ==
LOC: C.ER 14:22 → C.9E 16:04 → C.3T 16:36
PROVIDERS: ADMIT Internal Medicine Pulmonary Disease; ATTEND Internal Medicine Pulmonary Disease
DX: C94.6 Myelodysplastic disease, not elsewhere classified (principal); D64.9 Anemia, unspecified; E11.9 Type 2 diabetes mellitus without complications; E78.00 Pure hypercholesterolemia, unspecified
CPT/HCPCS: 36415; 36430; 71045; 80048; 81001; 82948; 85025; 85027; 86850; 86870; 86880; 86900; 86920; 86922; 93005; 99285; G0378; J1642; P9051

== ENCOUNTER 2018-02-28 19:43 | Observation (INO) | payer MEDICARE ==
[2018-02-28 19:44] VITALS: BMI 23.8
--- NOTE | 2018-02-28 20:35 | C.PDOC ---
History Of Present Illness 87-year-old female with PMHx of anemia brought in by family for complaints of dizziness. All history obtained from daughter at bedside. As per daughter, patient has been having lightheadedness and excessive sleepiness for the last 2 days. Today daughter noticed patient walking with an unsteady gait. She reports patient has had similar symptoms in the past when her blood count was significantly low. Last transfusion was 1 month ago at [place]. At that time her hemoglobin was 5. Denies any rectal bleeding, black stools, epistaxis, dental bleeding. Patient's cause of anemia is secondary to history of myelodysplastic syndrome. Patient herself offers no complaints. Family denies any fall, syncope, or related injuries. PMD: Dr. Ly Emergency Services Dispatcher: Dr. Adames Time Seen by Provider: 02/28/18 20:27 Chief Complaint (Nursing): Dizziness/Lightheaded History Per: Family (Daughter) History/Exam Limitations: no limitations Onset/Duration Of Symptoms: Days (x2) Current Symptoms Are (Timing): Still Present Past Medical History Reviewed: Historical Data, Nursing Documentation, Vital Signs Vital Signs: Last Vital Signs Temp 97.9 F 02/28/18 19:53 Pulse 85 02/28/18 19:53 Resp 18 02/28/18 19:53 BP 117/70 02/28/18 19:53 Pulse Ox 99 02/28/18 23:39 - Medical History PMH: Alzheimer's Disease, Anemia, Arthritis, Bronchitis, Dementia, Diabetes, HTN , Hypercholesterolemia, Malignancy (Myelodysplastic), Pneumonia, Rheumatoid Arthritis Denies: Chronic Kidney Disease Other PMH: myelodysplastic syndrome Surgical History: Tonsillectomy - [facility] Procedures GAIT TRAINING/FUNCTIONAL AMBULATION TREATMENT (10/05/17) HOME MANAGEMENT TREATMENT (10/05/17) INSERT INFUSION DEV IN R INT JUGULAR VEIN, PERC (11/25/16) INSERTION OF VAD INTO CHEST SUBCU/FASCIA, OPEN APPROACH (11/25/16) INTRODUCE OF OTH THERAP SUBST INTO RESP TRACT, VIA OPENING (08/14/16) TRANSFUSE NONAUT RED BLOOD CELLS IN PERIPH VEIN, PERC (01/27/18) Family History: States: Unknown Family Hx - Social History Hx Alcohol Use: No Hx Substance Use: No - Immunization History Hx Tetanus Toxoid Vaccination: No Hx Influenza Vaccination: Yes (2016) Hx Pneumococcal Vaccination: Yes (2017) Review Of Systems Except As Marked, All Systems Reviewed And Found Negative. Constitutional: Negative for: Fever, Chills Eyes: Negative for: Vision Change ENT: Negative for: Other (Epistaxis) Cardiovascular: Positive for: Light Headedness. Negative for: Chest Pain Respiratory: Negative for: Shortness of Breath Gastrointestinal: Negative for: Melena, Rectal Pain, Other (rectal bleeding) Neurological: Positive for: Dizziness, Other (Excessive drowsiness). Negative for: Weakness, Numbness, Incoordination, Change in Speech, Confusion, Altered Mental Status Physical Exam - Physical Exam Appears: Non-toxic, No Acute Distress Skin: Warm, Pale Head: Atraumatic, Normacephalic Eye(s): bilateral: PERRL, EOMI Oral Mucosa: Moist Neck: Normal ROM, Trachea Midline Lymphatic: No Adenopathy Chest: Symmetrical Cardiovascular: No Murmur Respiratory: Normal Breath Sounds, No Accessory Muscle Use, No Wheezing Gastrointestinal/Abdominal: Soft, No Tenderness Back: Normal Inspection, No Muscle Spasm Extremity: Normal ROM, No Deformity Neurological/Psych: Oriented x3, Normal Motor, Normal Sensation ED Course And Treatment - Laboratory Results Result Diagrams: 02/28/18 20:46 02/28/18 20:46 ECG: Interpreted By Me, Viewed By Me ECG Rhythm: Sinus Rhythm ECG Interpretation: No Changes From Prior (compared to previous EKG on 01/27/18) Interpretation Of ECG: ST depressions in all precordial leads Rate From EC O2 Sat by Pulse Oximetry: 99 (RA) Pulse Ox Interpretation: Normal Medical Decision Making Medical Decision Making: Impression: Severe anemia Initial Plan: --EKG --Blood type/screen --CMP --Troponin I --CBC --PTT/PT CBC reviewed: hemoglobin 5.6 Labs demonstrate severe anemia. Transfusion ordered. 9:22pm Paged Dr. Ly, patient's primary doctor. 9:53pm Second page placed to Dr. Ly. 10:06pm Received call back from Dr. Ly, who accepts patient for admission. Disposition Counseled Patient/Family Regarding: Studies Performed, Diagnosis - Disposition Disposition: HOSPITALIZED Disposition Time: 10:07 Condition: GUARDED - POA Present On Arrival: None - Clinical Impression Clinical Impression: Anemia, Myelodysplastic syndrome - Scribe Statement The provider has reviewed the documentation as recorded by the Scribe Meredith David Provider Attestation: All medical record entries made by the Keaton were at my direction and personally dictated by me. I have reviewed the chart and agree that the record accurately reflects my personal performance of the history, physical exam, medical decision making, and the department course for this patient. I have also personally directed, reviewed, and agree with the discharge instructions and disposition.
[2018-02-28 20:55] LABS: EOS # 0.2 K/uL (0.0-0.7); EOS % 3.8 % (0.0-4.0); LYMPH # 1.3 K/uL (1.0-4.3); LYMPH % 26.6 % (20.0-40.0); MEAN CELL VOLUME 98.4 fL (81.0-99.0); MEAN CORPUSCULAR HEMOGLOBIN 35.7 pg (27.0-31.0); MEAN CORPUSCULAR HGB CONC 36.2 g/dL (33.0-37.0); MEAN PLATELET VOLUME 9.6 fL (7.2-11.7); MONO # 0.2 K/uL (0.0-0.8); MONO % 4.5 % (0.0-10.0); NEUT # 3.1 K/uL (1.8-7.0); NEUT % 64.1 % (50.0-75.0); NRBC % 0.3 % (0.0-2.0); RBC 1.57 Mil/uL (3.80-5.20); RED CELL DISTRIBUTION WIDTH 27.8 % (11.5-14.5); WHITE BLOOD COUNT 4.8 K/uL (4.8-10.8)
[2018-02-28 20:59] LABS: HEMOGLOBIN 5.6 g/dL (11.0-16.0)
[2018-02-28 21:08] LABS: ALB/GLOB RATIO 1.2 (1.0-2.1); ALT/SGPT 35 U/L (9-52); AST/SGOT 21 U/L (14-36); BLOOD UREA NITROGEN 32 mg/dL (7-17); CALCIUM 8.7 mg/dl (8.6-10.4); GFR NON-AFRICAN AMERICAN 42; INR 1.3; PROTHROMBIN TIME 13.7 SECONDS (9.7-12.2)
[2018-02-28] MEDS ORDERED: Oxycodone/Acetaminophen 5/325 mg Tab PO PRN (22:08)
[2018-03-01] MEDS ORDERED: guaiFENesin DM 100 mg-10 mg/5 ml UD PO ONE (02:53)
[2018-03-01] MEDS: (Novolog) Insulin Aspart, Recombinant 100 u/ml 10 ml vial SC SCH ×4 (08:32→21:18)
[2018-03-01] MEDS: Multiple Vitamins Tab PO SCH (10:17)
[2018-03-01] MEDS: POLYETHYLENE GLYCOL 3350 17 GM/Dose PACKET PO SCH ×2 (10:20→17:24)
--- NOTE | 2018-03-01 11:28 | RAD ---
Date of service: 02/28/2018 PROCEDURE: CHEST RADIOGRAPH, 1 VIEW HISTORY: anemia dizzy COMPARISON: Portable chest 12/02/2017. FINDINGS: LUNGS: Right MediPort unchanged in position. Limited linear atelectasis in the inferior left lung zone with remaining lung bowen otherwise clear bilaterally. PLEURA: No pneumothorax or pleural fluid seen. CARDIOVASCULAR: Stable cardiomediastinal silhouette. No pulmonary vascular congestion. OSSEOUS STRUCTURES: No significant abnormalities. VISUALIZED UPPER ABDOMEN: Normal. OTHER FINDINGS: None. IMPRESSION: Limited linear atelectasis inferior left lung zone. No alveolitis bilaterally, pleural effusion or pneumothorax. MediPort stable in position.
[2018-03-01 12:24] VITALS: RESP 20
--- NOTE | 2018-03-01 16:22 | CP.PCM.PN ---
Subjective - Date & Time of Evaluation Date of Evaluation: 03/01/18 Time of Evaluation: 07:50 - Subjective Subjective: Patient is an 87 year old female with PMHx of DM, HTN, myelodysplastic disease and anemia presents to the ER on 02/28/18 with family with complaint of dizziness and lightheadedness. Patient was seen at PMD's office earlier in the day and advised to go to ER for admission. Patient has had similar presentation in the past due to her myelodysplastic disease. Patient received one unit PRBC overnight and states she currently feels much better and less weak. Patient due to receive second unit of PRBC and have post-transfusion CBC after. Objective - Vital Signs/Intake and Output Vital Signs (last 24 hours): Temp Pulse Resp BP Pulse Ox 98.1 F 90 20 140/77 99 03/01/18 12:23 03/01/18 12:23 03/01/18 12:23 03/01/18 12:23 03/01/18 00:20 Intake and Output: 03/01/18 03/01/18 06:59 18:59 Intake Total 0 650 Balance 0 650 - Medications Medications: Current Medications Aspirin (Aspirin Chewable) 81 mg PO DAILY [facility] Last Admin: 03/01/18 10:17 Dose: 81 mg Insulin Aspart (Novolog) 0 unit SC ACHS [facility] PRN Reason: Protocol Last Admin: 03/01/18 13:51 Dose: 1 unit Insulin Glargine (Lantus) 10 unit SC HS [facility] Lisinopril (Zestril) 2.5 mg PO DAILY [facility] Last Admin: 03/01/18 10:18 Dose: 2.5 mg Multivitamins (Hexavitamin) 1 tab PO DAILY [facility] Last Admin: 03/01/18 10:17 Dose: 1 tab Oxycodone/Acetaminophen (Percocet 5/325 Mg Tab) 1 tab PO Q4H PRN PRN Reason: Pain, moderate (4-7) Stop: 03/03/18 22:09 Last Admin: 03/01/18 00:50 Dose: 1 tab Polyethylene Glycol (Miralax) 17 gm PO BID [facility] Last Admin: 03/01/18 10:20 Dose: Not Given - Labs Labs: 02/28/18 20:46 02/28/18 20:46 PT 13.7 SECONDS (9.7-12.2) H 02/28/18 20:46 INR 1.3 02/28/18 20:46 APTT 24 SECONDS (21-34) 02/28/18 20:46 - Constitutional Appears: No Acute Distress - Head Exam Head Exam: ATRAUMATIC, NORMOCEPHALIC - Eye Exam Eye Exam: EOMI - ENT Exam ENT Exam: Mucous Membranes Moist - Respiratory Exam Respiratory Exam: Rales, NORMAL BREATHING PATTERN - Cardiovascular Exam Cardiovascular Exam: +S1, +S2 - GI/Abdominal Exam GI & Abdominal Exam: Soft, Normal Bowel Sounds. absent: Tenderness - Extremities Exam Extremities Exam: Normal Inspection. absent: Pedal Edema - Neurological Exam Neurological Exam: Alert, Awake - Skin Skin Exam: Pallor, Warm Additional comments: chest port Assessment and Plan - Assessment and Plan (Free Text) Assessment: Symptomatic Anemia likely due to myelodyspastic disease Hgb 5.6 on admission s/p 2 units PRBC, repeat CBC pending Myelodysplastic disease Hem/Onc [employer] Dr. Adames Diabetes RISS Accuchecks Hypoglycemia protocol lantus 10u HS Lisinopril 2.5 mg PO daily CAD Aspirin 81 mg PO daily HTN continue lisinopril 2.5mg PO daily continue to monitor Prophylaxis SCDs VTE c/i due to anemia miralax daily Case discussed with attending physician Management per Dr. Ly
[2018-03-01] MEDS ORDERED: Glucagon Recombinant 1 mg Inj IM PRN (16:24)
[2018-03-01] MEDS ORDERED: Dextrose 50% SYRINGE Inj (50 ml) IVP PRN (16:24)
[2018-03-01] MEDS ORDERED: (Lantus) Insulin Glargine, Recombinant SC SCH (22:00)
--- NOTE | 2018-03-01 23:53 | CARD ---
APPROVED REPORT Date of service: 02/28/2018 EKG Measurement Heart [id number] <Conclusion> Normal sinus rhythm ST & T wave abnormality, consider anterolateral ischemia Abnormal ECG
[2018-03-02 00:28] VITALS: O2SAT 96
--- NOTE | 2018-03-02 07:04 | CP.PCM.PN ---
Subjective - Date & Time of Evaluation Date of Evaluation: 03/02/18 Time of Evaluation: 08:00 - Subjective Subjective: PGY 3 medicine progress note for Dr. Ly: Patient was seen and examined at bedside this morning. She states that she is feeling better today. She denies chest pain, SOB, palpitations, or pain. She is eating well today. She states she would be happy to go home today. No new complaints. Objective - Vital Signs/Intake and Output Vital Signs (last 24 hours): Temp Pulse Resp BP Pulse Ox 98.4 F 89 20 103/61 96 03/01/18 23:00 03/01/18 23:35 03/01/18 23:00 03/01/18 23:00 03/01/18 23:35 - Medications Medications: Current Medications Aspirin (Aspirin Chewable) 81 mg PO DAILY [facility] Last Admin: 03/01/18 10:17 Dose: 81 mg Dextrose (Dextrose 50% Inj) 0 ml IVP .STAT PRN; Protocol PRN Reason: Hypoglycemia Protocol Dextrose (Glutose 15) 0 gm PO .ONCE PRN; Protocol PRN Reason: Hypoglycemia Protocol Glucagon (Glucagen Diagnostic Kit) 0 mg IM .STAT PRN; Protocol PRN Reason: Hypoglycemia Protocol Dextrose (Dextrose 5% In Water 1000 Ml) 1,000 mls @ 0 mls/hr IV .Q0M PRN; Protocol; Per Protocol PRN Reason: Hypoglycemia Protocol Insulin Aspart (Novolog) 0 unit SC [facility] PRN Reason: Protocol Last Admin: 03/01/18 21:18 Dose: Not Given Insulin Glargine (Lantus) 10 unit SC HS [facility] Last Admin: 03/01/18 21:23 Dose: 10 units Lisinopril (Zestril) 2.5 mg PO DAILY [facility] Last Admin: 03/01/18 10:18 Dose: 2.5 mg Multivitamins (Hexavitamin) 1 tab PO DAILY [facility] Last Admin: 03/01/18 10:17 Dose: 1 tab Oxycodone/Acetaminophen (Percocet 5/325 Mg Tab) 1 tab PO Q4H PRN PRN Reason: Pain, moderate (4-7) Stop: 03/03/18 22:09 Last Admin: 03/01/18 00:50 Dose: 1 tab Polyethylene Glycol (Miralax) 17 gm PO BID [facility] Last Admin: 03/01/18 17:24 Dose: Not Given - Labs Labs: 02/28/18 20:46 02/28/18 20:46 PT 13.7 SECONDS (9.7-12.2) H 02/28/18 20:46 INR 1.3 02/28/18 20:46 APTT 24 SECONDS (21-34) 02/28/18 20:46 - Constitutional Appears: No Acute Distress - Head Exam Head Exam: ATRAUMATIC, NORMAL INSPECTION - Eye Exam Eye Exam: EOMI, PERRL - ENT Exam ENT Exam: Mucous Membranes Moist - Respiratory Exam Respiratory Exam: Rales, NORMAL BREATHING PATTERN. absent: Respiratory Distress Additional comments: minimal, improved - Cardiovascular Exam Cardiovascular Exam: REGULAR RHYTHM, +S1, +S2 - GI/Abdominal Exam GI & Abdominal Exam: Soft, Normal Bowel Sounds. 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 Adames Diabetes RISS Accuchecks Hypoglycemia protocol lantus 10u HS Lisinopril 2.5 mg PO daily for renal protection CAD Aspirin 81 mg PO daily HTN continue lisinopril 2.5mg PO daily continue to monitor Prophylaxis SCDs VTE c/i due to anemia miralax daily Patient is stable for discharge home today. Patient is to following with with Dr. Kayla Adames in his office next week. She is to call and make an appointment. She is also to follow up with her primary care doctor or Dr. Ly within one week for post discharge care. She is to resume all of her home medications. She is to return to the emergency room if symptoms return. All instructions explained to the patient and she agrees. Case discussed with attending physician Management per Dr. Ly
[2018-03-02 07:27] LABS: BASO # 0.1 K/uL (0.0-0.2); BASO % 1.3 % (0.0-2.0); EOS # 0.3 K/uL (0.0-0.7); EOS % 5.4 % (0.0-4.0); LYMPH # 1.3 K/uL (1.0-4.3); LYMPH % 24.6 % (20.0-40.0); MEAN CORPUSCULAR HGB CONC 34.7 g/dL (33.0-37.0); MEAN PLATELET VOLUME 9.4 fL (7.2-11.7); MONO # 0.4 K/uL (0.0-0.8); MONO % 7.5 % (0.0-10.0); NEUT # 3.2 K/uL (1.8-7.0); NEUT % 61.2 % (50.0-75.0); NRBC % 0.1 % (0.0-2.0); RBC 2.81 Mil/uL (3.80-5.20); WHITE BLOOD COUNT 5.2 K/uL (4.8-10.8)
[2018-03-02 07:31] LABS: RED CELL DISTRIBUTION WIDTH 16.7 % (11.5-14.5)
[2018-03-02 07:38] LABS: ALB/GLOB RATIO 1.1 (1.0-2.1); ALBUMIN 3.7 g/dL (3.5-5.0); CALCIUM 8.6 mg/dl (8.6-10.4)
[2018-03-02 08:12] VITALS: TEMP 98.1
--- NOTE | 2018-03-02 08:20 | HP ---
HISTORY OF PRESENT ILLNESS: The patient is an 87-year-old female who comes to the hospital with a chief complaint of fatigue, weakness, tiredness. The patient has a history of myelodysplastic syndrome. Came to the ER, advised admission. The patient was found to have severe anemia. The patient with a history of multiple transfusions. PHYSICAL EXAMINATION: GENERAL: The patient is awake, alert, and oriented. VITAL SIGNS: Temperature 98, pulse 90. HEENT: Within normal limits. NECK: Supple. LUNGS: Clear. CHEST: Symmetrical. HEART: Regular. ABDOMEN: Soft. EXTREMITIES: No edema. IMPRESSION: The patient suffers from severe anemia. The patient to get blood transfusion. Hematology consult. Gamal Ly MD
[2018-03-02] MEDS: (Novolog) Insulin Aspart, Recombinant 100 u/ml 10 ml vial SC SCH ×2 (09:02→12:29)
[2018-03-02] MEDS: POLYETHYLENE GLYCOL 3350 17 GM/Dose PACKET PO SCH (10:19)
[2018-03-02] MEDS: Multiple Vitamins Tab PO SCH (10:19)
--- NOTE | 2018-03-02 10:43 | CP.PCM.CON ---
<LucWai - Last Filed: 03/02/18 10:44> History of Present Illness - History of Present Illness History of Present Illness: Wai Calle DO PGY-1, Associate Media Planner Consult Note for Hematology/Oncology for Dr. Adames's Service This is a 87 y o female PMhx Myelodysplastic disease, Alzheimer's disease/ dementia, anemia, arthritis, bronchitis, DM, HTN, HLD, RA who presented on admission with c/o fatigue, weakness, and feeling tired x 2 days. Pt was found on admission to have Hgb 5.6, and thus was admitted for symptomatic anemia. Pt has hx of multiple transfusions secondary to her chronic diagnosis. Last transfusion prior to this pt's current admission was one month prior in Jan 2018 , when [place] [facility] [place] for consult was for this symptomatic anemia, low Hgb on admission, and hx of Myelodysplastic disease. Pt received 2 units PRBCs this admission, tolerated well with no side effects. Pt has hx of MediPort currently in place lateral to sternum on R side. Pt states that her symptoms from admission have completely resolved, denies any acute complaints, observed resting comfortably in bed. States she has been able to ambulate with PT without issues. Denies headache, dizziness, fever, chills, chest pain, sob, n /v/d/c, abd pain, urinary complaints, or other symptoms. PMhx: as described above PSurgHx: tonsillectomy Allergies: amoxicillin Current meds: ASA daily, Novolog, Insulin glargine 10 U schs, Lisinopril 2.5 mg daily, Percocet 1 tab q 4h prn, Miralax bid, MVT Fam hx: Per chart review, dad had hx hepatitis, brother had myelodysplastic syndrome now decreased, sister has myelodysplastic syndrome alive Soc hx: Denies smoking, alcohol, or illicit drug use; lives at home with daughter Review of Systems - Constitutional Constitutional: absent: Chills, Fatigue, Fever, Headache, Weakness - EENT Eyes: absent: Change in Vision - Cardiovascular Cardiovascular: absent: Chest Pain, Dyspnea on Exertion, Leg Edema, Palpitations - Respiratory Respiratory: absent: Cough, Dyspnea, Hemoptysis - Gastrointestinal Gastrointestinal: absent: Abdominal Pain, Constipation, Nausea, Vomiting - Musculoskeletal Musculoskeletal: absent: Abnormal Gait, Back Pain, Muscle Weakness, Myalgias - Hematologic/Lymphatic Hematologic: As Per HPI. absent: Easy Bleeding, Easy Bruising, Lymphadenopathy Past Patient History - Infectious Disease Hx of Infectious Diseases: None - Tetanus Immunizations Tetanus Immunization: Unknown - Past Medical History & Family History Past Medical History?: Yes - Past Social History Smoking Status: Never Smoked - CARDIAC Hx Hypercholesterolemia: Yes Hx Hypertension: Yes - PULMONARY Hx Bronchitis: Yes Hx Pneumonia: Yes - NEUROLOGICAL Hx Alzheimer's Disease: Yes Hx Dementia: Yes - HEENT Hx HEENT Problems: Yes Hx Cataracts: Yes (BOTH EYES) - RENAL Hx Chronic Kidney Disease: No - ENDOCRINE/METABOLIC Hx Endocrine Disorders: Yes Hx Diabetes Mellitus Type 2: Yes - HEMATOLOGICAL/ONCOLOGICAL Hx Anemia: Yes - INTEGUMENTARY Hx Dermatological Problems: No - MUSCULOSKELETAL/RHEUMATOLOGICAL Hx Arthritis: Yes Hx Rheumatoid Arthritis: Yes - GASTROINTESTINAL Hx Gastrointestinal Disorders: No - GENITOURINARY/GYNECOLOGICAL Hx Genitourinary Disorders: Yes (esbl /uti sepsis,SOME INCONTINENCY.WEARS PULLUPS.) - PSYCHIATRIC Hx Substance Use: No - SURGICAL HISTORY Hx Tonsillectomy: Yes - ANESTHESIA Hx Anesthesia: Yes Hx Anesthesia Reactions: No Hx Malignant Hyperthermia: No Meds Allergies/Adverse Reactions: Allergies Allergy/AdvReac Type Severity Reaction Status Date / Time amoxicillin Allergy Mild RASH Verified 12/31/17 17:00 - Medications Medications: Current Medications Aspirin (Aspirin Chewable) 81 mg PO DAILY [facility] Last Admin: 03/02/18 10:19 Dose: 81 mg Dextrose (Dextrose 50% Inj) 0 ml IVP .STAT PRN; Protocol PRN Reason: Hypoglycemia Protocol Dextrose (Glutose 15) 0 gm PO .ONCE PRN; Protocol PRN Reason: Hypoglycemia Protocol Glucagon (Glucagen Diagnostic Kit) 0 mg IM .STAT PRN; Protocol PRN Reason: Hypoglycemia Protocol Dextrose (Dextrose 5% In Water 1000 Ml) 1,000 mls @ 0 mls/hr IV .Q0M PRN; Protocol; Per Protocol PRN Reason: Hypoglycemia Protocol Insulin Aspart (Novolog) 0 unit SC [facility] PRN Reason: Protocol Last Admin: 03/02/18 09:02 Dose: 1 unit Insulin Glargine (Lantus) 10 unit SC HS [facility] Last Admin: 03/01/18 21:23 Dose: 10 units Lisinopril (Zestril) 2.5 mg PO DAILY [facility] Last Admin: 03/02/18 10:19 Dose: Not Given Multivitamins (Hexavitamin) 1 tab PO DAILY [facility] Last Admin: 03/02/18 10:19 Dose: 1 tab Oxycodone/Acetaminophen (Percocet 5/325 Mg Tab) 1 tab PO Q4H PRN PRN Reason: Pain, moderate (4-7) Stop: 03/03/18 22:09 Last Admin: 03/01/18 00:50 Dose: 1 tab Polyethylene Glycol (Miralax) 17 gm PO BID [facility] Last Admin: 03/02/18 10:19 Dose: 17 gm Physical Exam - Constitutional Appears: Non-toxic, No Acute Distress - Head Exam Head Exam: ATRAUMATIC, NORMAL INSPECTION - Eye Exam Eye Exam: EOMI, Normal appearance, PERRL - ENT Exam ENT Exam: Mucous Membranes Moist - Respiratory Exam Respiratory Exam: Clear to Auscultation Bilateral, NORMAL BREATHING PATTERN - Cardiovascular Exam Cardiovascular Exam: REGULAR RHYTHM, +S1, +S2 - GI/Abdominal Exam GI & Abdominal Exam: Normal Bowel Sounds, Soft. absent: Distended, Guarding, Rebound, Tenderness - Extremities Exam Extremities exam: Positive for: normal capillary refill, normal inspection, pedal pulses present - Neurological Exam Neurological exam: Alert, CN II-XII Intact Additional comments: Oriented x2 - Skin Skin Exam: Dry, Intact, Normal Color, Warm Results - Vital Signs Recent Vital Signs: Last Vital Signs Temp 98.1 F 03/02/18 08:00 Pulse 82 03/02/18 08:00 Resp 20 03/02/18 08:00 BP 113/54 L 03/02/18 08:00 Pulse Ox 96 03/02/18 08:00 - Labs Result Diagrams: 03/02/18 07:11 03/02/18 07:11 Labs: Laboratory Results - last 24 hr 03/01/18 03/01/18 03/01/18 11:41 16:55 21:12 WBC RBC Hgb Hct MCV MCH MCHC RDW Plt Count MPV Neut % (Auto) Lymph % (Auto) [place] % (Auto) Eos % (Auto) Baso % (Auto) Neut # (Auto) Lymph # (Auto) [place] # (Auto) Eos # (Auto) Baso # (Auto) Sodium Potassium Chloride Carbon Dioxide Anion Gap BUN Creatinine Est GFR ( Amer) Est GFR (Non-Af Amer) POC Glucose (mg/dL) 168 H 171 H 217 H Random Glucose Calcium Phosphorus Magnesium Total Bilirubin AST ALT Alkaline Phosphatase Total Protein Albumin Globulin Albumin/Globulin Ratio 03/02/18 03/02/18 03/02/18 06:08 07:11 07:11 WBC 5.2 RBC 2.81 L Hgb 9.0 L D Hct 25.9 L MCV 92.0 D MCH 32.0 H MCHC 34.7 RDW 16.7 H Plt Count 210 MPV 9.4 Neut % (Auto) 61.2 Lymph % (Auto) 24.6 [place] % (Auto) 7.5 Eos % (Auto) 5.4 H Baso % (Auto) 1.3 Neut # (Auto) 3.2 Lymph # (Auto) 1.3 [place] # (Auto) 0.4 Eos # (Auto) 0.3 Baso # (Auto) 0.1 Sodium 138 Potassium 4.3 Chloride 101 Carbon Dioxide 29 Anion Gap 12 BUN 36 H Creatinine 1.2 Est GFR ( Amer) 51 Est GFR (Non-Af Amer) 42 POC Glucose (mg/dL) 155 H Random Glucose 158 H Calcium 8.6 Phosphorus 3.7 Magnesium 1.9 Total Bilirubin 1.1 AST 25 ALT 28 Alkaline Phosphatase 68 Total Protein 7.1 Albumin 3.7 Globulin 3.5 Albumin/Globulin Ratio 1.1 Assessment & Plan - Assessment and Plan (Free Text) Assessment: This is a 87 y o female PMhx Myelodysplastic disease, Alzheimer's disease/ dementia, anemia, arthritis, bronchitis, DM, HTN, HLD, RA who presented on admission with c/o fatigue, weakness, and feeling tired x 2 days. Reason for consult was for symptomatic anemia, low Hgb on admission, and hx of Myelodysplastic disease. <Dann Adames - Last Filed: 03/02/18 23:04> Results - Vital Signs Recent Vital Signs: Last Vital Signs Temp 98.1 F 03/02/18 08:00 Pulse 80 03/02/18 10:18 Resp 20 03/02/18 08:00 BP 118/49 L 03/02/18 10:18 Pulse Ox 96 03/02/18 08:00 - Labs Result Diagrams: 03/02/18 07:11 03/02/18 07:11 Labs: Laboratory Results - last 24 hr 03/02/18 03/02/18 03/02/18 06:08 07:11 07:11 WBC 5.2 RBC 2.81 L Hgb 9.0 L D Hct 25.9 L MCV 92.0 D MCH 32.0 H MCHC 34.7 RDW 16.7 H Plt Count 210 MPV 9.4 Neut % (Auto) 61.2 Lymph % (Auto) 24.6 Payette % (Auto) 7.5 Eos % (Auto) 5.4 H Baso % (Auto) 1.3 Neut # (Auto) 3.2 Lymph # (Auto) 1.3 Payette # (Auto) 0.4 Eos # (Auto) 0.3 Baso # (Auto) 0.1 Sodium 138 Potassium 4.3 Chloride 101 Carbon Dioxide 29 Anion Gap 12 BUN 36 H Creatinine 1.2 Est GFR ( Amer) 51 Est GFR (Non-Af Amer) 42 POC Glucose (mg/dL) 155 H Random Glucose 158 H Calcium 8.6 Phosphorus 3.7 Magnesium 1.9 Total Bilirubin 1.1 AST 25 ALT 28 Alkaline Phosphatase 68 Total Protein 7.1 Albumin 3.7 Globulin 3.5 Albumin/Globulin Ratio 1.1 Stool Occult Blood 03/02/18 03/02/18 11:42 21:39 WBC RBC Hgb Hct MCV MCH MCHC RDW Plt Count MPV Neut % (Auto) Lymph % (Auto) [place]ette % (Auto) Eos % (Auto) Baso % (Auto) Neut # (Auto) Lymph # (Auto) [place]ette # (Auto) Eos # (Auto) Baso # (Auto) Sodium Potassium Chloride Carbon Dioxide Anion Gap BUN Creatinine Est GFR ( Amer) Est GFR (Non-Af Amer) POC Glucose (mg/dL) 302 H Random Glucose Calcium Phosphorus Magnesium Total Bilirubin AST ALT Alkaline Phosphatase Total Protein Albumin Globulin Albumin/Globulin Ratio Stool Occult Blood Negative Assessment & Plan - Assessment and Plan (Free Text) Assessment: Pt seen and examined, agree with Dr. Calle's consult note. 87 year old female with a history of 5q- MDS not on treatment, admitted with symptomatic anemia. Anemia secondary to MDS, no signs of blood loss, transfusion support PRN. Outpatient f/u. Thank you for this interesting consult.
[2018-03-02 13:28] VITALS: BP 118/49; PULSE 80
== END 2018-03-02 16:05 | disposition home or self-care (01) ==
LOC: C.ER 19:43 → SUPCPDRO 19:43 → C.9E 21:54 → C.5S 23:37
PROVIDERS: ADMIT Internal Medicine Pulmonary Disease; ATTEND Internal Medicine Pulmonary Disease
DX: C94.6 Myelodysplastic disease, not elsewhere classified (principal); D63.8 Anemia in other chronic diseases classified elsewhere; E11.9 Type 2 diabetes mellitus without complications; E78.5 Hyperlipidemia, unspecified; F02.80 Dementia in other diseases classified elsewhere, unspecified severity, without behavioral disturbance, psychotic disturbance, mood disturbance, and anxiety; G30.9 Alzheimer's disease, unspecified; I10 Essential (primary) hypertension; I25.10 Atherosclerotic heart disease of native coronary artery without angina pectoris
CPT/HCPCS: 36415; 36430; 71045; 80053; 82948; 83735; 84100; 84484; 85025; 85610; 85730; 86850; 86870; 86880; 86900; 86905; 86920; 86922; 93005; 97116; 97161; 99285; G0328; G0378; G8978; G8979; G8980; J1642; J1940; J7070; P9051

== ENCOUNTER 2018-03-17 00:36 | Inpatient (IN) | payer MEDICARE ==
[2018-03-17 00:36] VITALS: BMI 23.8
[2018-03-17] MEDS ORDERED: Sodium Chloride 0.9% 1,000 ML IV ONE (01:09)
[2018-03-17] MEDS ORDERED: Iohexol 240 (50 ml) PO ONE (01:10)
--- NOTE | 2018-03-17 01:31 | C.PDOC ---
History Of Present Illness 87 y/o female presents to the ED complaining of rectal bleeding and lower abdominal pain since yesterday. She was seen in [facility] for possible syncope prior to fall. The CT scan was negative. The patient denies any nausea, vomiting or diarrhea. Time Seen by Provider: 03/17/18 01:04 Chief Complaint (Nursing): GI Problem History Per: Patient History/Exam Limitations: no limitations Onset/Duration Of Symptoms: Days Current Symptoms Are (Timing): Still Present Location Of Pain/Discomfort: RLQ, LLQ Associated Symptoms: denies: Nausea, Vomiting, Diarrhea Last Bowel Movement: Today Recent travel outside of the [place]: No Past Medical History Reviewed: Historical Data, Nursing Documentation, Vital Signs Vital Signs: Last Vital Signs Temp 98.4 F 03/17/18 00:50 Pulse 87 03/17/18 00:50 Resp 20 03/17/18 00:50 BP 123/65 03/17/18 00:50 Pulse Ox 98 03/17/18 00:50 - Medical History PMH: Alzheimer's Disease, Anemia, Arthritis, Bronchitis, Dementia, Diabetes, HTN, Hypercholesterolemia, Malignancy (Myelodysplastic), Pneumonia, Rheumatoid Arthritis Denies: Chronic Kidney Disease Surgical History: Tonsillectomy - [facility] GAIT TRAINING/FUNCTIONAL AMBULATION TREATMENT (10/05/17) HOME MANAGEMENT TREATMENT (10/05/17) INSERT INFUSION DEV IN R INT JUGULAR VEIN, PERC (11/25/16) INSERTION OF VAD INTO CHEST SUBCU/FASCIA, OPEN APPROACH (11/25/16) INTRODUCE OF OTH THERAP SUBST INTO RESP TRACT, VIA OPENING (08/14/16) TRANSFUSE NONAUT RED BLOOD CELLS IN PERIPH VEIN, PERC (01/27/18) Family History: States: Unknown Family Hx - Social History Hx Alcohol Use: No Hx Substance Use: No - Immunization History Hx Tetanus Toxoid Vaccination: No Hx Influenza Vaccination: Yes (2016) Hx Pneumococcal Vaccination: Yes (2017) Review Of Systems Except As Marked, All Systems Reviewed And Found Negative. Constitutional: Negative for: Fever, Chills, Sweats Gastrointestinal: Positive for: Abdominal Pain (lower abdominal pain ), Other (Blood in stool ). Negative for: Nausea, Vomiting, Diarrhea, Rectal Pain Physical Exam - Physical Exam Appears: Well, Non-toxic, No Acute Distress Skin: Normal Color, Warm, Dry Head: Atraumatic, Normacephalic Eye(s): bilateral: PERRL, EOMI Ear(s): Bilateral: Normal Oral Mucosa: Moist Chest: Symmetrical Cardiovascular: Rhythm Regular, No Murmur Respiratory: Normal Breath Sounds, No Rales, No Rhonchi, No Wheezing Gastrointestinal/Abdominal: Soft, Tenderness (to b/ lower quadrants ), No Guarding, No Rebound Extremity: Normal ROM Extremity: Bilateral: Normal Color And Temperature, Normal ROM Neurological/Psych: Oriented x3, Normal Speech ED Course And Treatment - Laboratory Results Result Diagrams: 03/17/18 01:38 03/17/18 01:38 O2 Sat by Pulse Oximetry: 98 (RA) Pulse Ox Interpretation: Normal Medical Decision Making Medical Decision Making: Impression: 87 y/o female presents to the ED complaining of rectal bleeding and lower abdominal pain since yesterday. Experienced possible syncopal episode yesterday Plan: -Abd and Pelvis CT -CMP -LIpase -CBC -PTT -PT -IV Fluids -UA Disposition Discussed With : Gamal Ly Doctor Will See Patient In The: Hospital Counseled Patient/Family Regarding: Diagnosis - Disposition Disposition: HOSPITALIZED Disposition Time: 04:16 Condition: STABLE Forms: [facility] ([place]an) - POA Present On Arrival: None - Clinical Impression Clinical Impression: Rectal bleed, Colitis - PA / ELECTRONIC PUBLISHER / Resident Statement MD/DO has reviewed & agrees with the documentation as recorded. - Scribe Statement The provider has reviewed the documentation as recorded by the Scribe (Shirlene Easton) Provider Attestation: All medical record entries made by the Scribe were at my direction and personally dictated by me. I have reviewed the chart and agree that the record accurately reflects my personal performance of the history, physical exam, medical decision making, and the department course for this patient. I have also personally directed, reviewed, and agree with the discharge instructions and disposition.
[2018-03-17 01:42] LABS: BASO # 0.1 K/uL (0.0-0.2); EOS # 0.3 K/uL (0.0-0.7); LYMPH # 1.5 K/uL (1.0-4.3); MONO # 0.3 K/uL (0.0-0.8); RBC 2.52 Mil/uL (3.80-5.20)
[2018-03-17 01:48] LABS: BASO % 0.9 % (0.0-2.0); EOS % 4.2 % (0.0-4.0); HEMOGLOBIN 8.3 g/dL (11.0-16.0); LYMPH % 23.1 % (20.0-40.0); MEAN CELL VOLUME 94.9 fL (81.0-99.0); MEAN CORPUSCULAR HEMOGLOBIN 32.8 pg (27.0-31.0); MEAN CORPUSCULAR HGB CONC 34.6 g/dL (33.0-37.0); MEAN PLATELET VOLUME 10.1 fL (7.2-11.7); MONO % 4.4 % (0.0-10.0); NEUT # 4.4 K/uL (1.8-7.0); NEUT % 67.4 % (50.0-75.0); RED CELL DISTRIBUTION WIDTH 22.3 % (11.5-14.5); WHITE BLOOD COUNT 6.5 K/uL (4.8-10.8)
[2018-03-17 01:54] LABS: INR 1.3
[2018-03-17 02:14] LABS: ALB/GLOB RATIO 1.1 (1.0-2.1); ALBUMIN 4.1 g/dL (3.5-5.0); CALCIUM 9.1 mg/dl (8.6-10.4)
[2018-03-17 02:35] LABS: SQUAMOUS EPITHIAL 1 /hpf (0-5); URINE BACTERIA RARE (<OCC); URINE BILIRUBIN NEGATIVE (NEGATIVE); URINE BLOOD 1+ (NEGATIVE); URINE CLARITY Clear (Clear); URINE COLOR Yellow (YELLOW); URINE GLUCOSE (UA) 1+ mg/dL (Normal); URINE LEUKOCYTE ESTERASE 2+ Leu/uL (Negative); URINE PROTEIN NEGATIVE (NEGATIVE); URINE UROBILINOGEN NORMAL mg/dL (0.2-1.0)
[2018-03-17] MEDS ORDERED: Iodixanol 320 MG/ML 100 ML BOTTLE IV ONE (02:48)
--- NOTE | 2018-03-17 07:30 | CP.PCM.PN ---
Subjective - Date & Time of Evaluation Date of Evaluation: 03/17/18 Time of Evaluation: 09:10 - Subjective Subjective: PGY 3 Med Note- Dr. Ly's service 87 yo female with past medical history significant for Myelodysplastic disease, anemia, arthritis, bronchitis, DM, CAD, HTN, and rheumatoid arthritis presented to the ER within initial complaints of abdominal pain. Patient seen and examined in no acute distress. Patient states that she had abdominal pain yesterday. She states that she also later had a bowel movement . Upon going to the bathroom, patient noticed blood when wiping. Patient denies seeing leila profuse blood in the toilet bowl. Patient denies nausea, vomiting, diarrhea, chest pain, palpitations, hematemesis or current abdominal pain at this time. PMHX: as described above PSurgHx: tonsillectomy Fam Hx: Per chart review, dad had hx hepatitis, brother had myelodysplastic syndrome now decreased, sister has myelodysplastic syndrome alive Current meds: ASA daily, Novolog, Insulin glargine 10 U schs, Lisinopril 2.5 mg daily, Percocet 1 tab q 4h prn, Miralax bid, MVT Soc Hx: Denies smoking, alcohol, or illicit drug use; lives at home with daughter Allergies: amoxicillin Objective - Vital Signs/Intake and Output Vital Signs (last 24 hours): Temp Pulse Resp BP Pulse Ox 98.4 F 81 16 156/82 H 100 03/17/18 00:50 03/17/18 04:57 03/17/18 04:57 03/17/18 04:57 03/17/18 04:57 - Medications Medications: Current Medications Sodium Chloride (Sodium Chloride 0.9%) 1,000 mls @ 50 mls/hr IV .Q20H ONE Stop: 03/17/18 21:08 Last Admin: 03/17/18 01:43 Dose: 50 mls/hr - Labs Labs: 03/17/18 01:38 03/17/18 01:38 PT 14.0 SECONDS (9.7-12.2) H 03/17/18 01:46 INR 1.3 03/17/18 01:46 APTT 31 SECONDS (21-34) 03/17/18 01:46 - Constitutional Appears: Non-toxic, No Acute Distress - Head Exam Head Exam: ATRAUMATIC - Eye Exam Eye Exam: EOMI - ENT Exam ENT Exam: Mucous Membranes Moist - Neck Exam Neck Exam: Full ROM - Respiratory Exam Respiratory Exam: NORMAL BREATHING PATTERN - Cardiovascular Exam Cardiovascular Exam: +S1, +S2, Murmur - GI/Abdominal Exam GI & Abdominal Exam: Soft, Normal Bowel Sounds. absent: Distended, Firm, Guarding, Tenderness - Extremities Exam Extremities Exam: Full ROM - Neurological Exam Neurological Exam: Alert, Awake, Oriented x3 - Psychiatric Exam Psychiatric exam: Normal Affect, Normal Mood - Skin Skin Exam: Dry, Warm Additional comments: superficial vasculature noted on lower extremities Assessment and Plan - Assessment and Plan (Free Text) Assessment: Hematochezia Patient had one episode earlier. Consult to Dr. Saeed. F/U recommendations Positive FOBT Anemia likely due to myelodyspastic disease Hgb stable. Will transfuse if patient's Hgb falls below 7. Closely monitor Monitor BMs Myelodysplastic disease Per last admission (~2 weeks prior)- patient is not currently on active medication therapy however so- Patient does follow up with Dr. Adames outpatient Monitor Diabetes ISS Accuchecks Hypoglycemia protocol Lisinopril 2.5 mg PO daily for renal protection CAD Hold Aspirin 81 mg PO daily due to FOB positive HTN Continue lisinopril 2.5mg PO daily continue to monitor Prophylaxis SCDs VTE contrandicated due to positive fecal occult Case discussed with attending physician. Management per Dr. Ly
--- NOTE | 2018-03-17 07:48 | CT ---
Date of service: 03/17/2018 PROCEDURE: CT Abdomen and Pelvis with intravenous contrast HISTORY: Abdominal pain COMPARISON: None. TECHNIQUE: Multiple contiguous axial images were obtained through the abdomen and pelvis after administration of intravenous contrast material. Subsequently, sagittal and coronal reformatted images were obtained. Radiation dose: Total exam DLP = 234 mGy-cm. This CT exam was performed using one or more of the following dose reduction techniques: Automated exposure control, adjustment of the mA and/or kV according to patient size, and/or use of iterative reconstruction technique. FINDINGS: LOWER THORAX: Moderately enlarged heart. Atelectasis at the lung bases. LIVER: Unremarkable. No gross lesion or ductal dilatation. GALLBLADDER AND BILE DUCTS: Unremarkable. PANCREAS: Fatty atrophy of the pancreas. SPLEEN: Unremarkable. ADRENALS: Unremarkable. No mass. KIDNEYS AND URETERS: Unremarkable. No hydronephrosis. No solid mass. VASCULATURE: Atherosclerotic calcification and plaque in the aorta. BOWEL: Colonic diverticulosis. Diffuse thickening of the distal transverse, descending, and sigmoid colon consistent with an acute colitis. APPENDIX: Unremarkable. Normal appendix. PERITONEUM: Unremarkable. No free fluid. No free air. LYMPH NODES: Unremarkable. No enlarged lymph nodes. BLADDER: Unremarkable. REPRODUCTIVE: Unremarkable. BONES: Degenerative changes in the spine. OTHER FINDINGS: None. IMPRESSION: Colonic diverticulosis. Diffuse thickening of the distal transverse, descending, and sigmoid colon consistent with an acute colitis. Additional findings as above. These findings were preliminarily reported by Dr. Scooter Krishnamurthy at 4:03 a.m. on 03/17/2018 from [email or web address].
[2018-03-17] MEDS ORDERED: Phytonadione 10 mg/ml Inj (Adult) SC ONE (11:15)
[2018-03-18 08:51] LABS: BASO # 0.1 K/uL (0.0-0.2); EOS # 0.3 K/uL (0.0-0.7); EOS % 4.9 % (0.0-4.0); HEMOGLOBIN 7.1 g/dL (11.0-16.0); LYMPH # 1.4 K/uL (1.0-4.3); LYMPH % 24.4 % (20.0-40.0); MEAN CORPUSCULAR HEMOGLOBIN 32.8 pg (27.0-31.0); MEAN CORPUSCULAR HGB CONC 35.3 g/dL (33.0-37.0); MEAN PLATELET VOLUME 9.7 fL (7.2-11.7); MONO # 0.3 K/uL (0.0-0.8); MONO % 5.7 % (0.0-10.0); NEUT # 3.8 K/uL (1.8-7.0); NRBC % 1.7 % (0.0-2.0); RBC 2.17 Mil/uL (3.80-5.20); RED CELL DISTRIBUTION WIDTH 14.9 % (11.5-14.5); WHITE BLOOD COUNT 5.9 K/uL (4.8-10.8)
[2018-03-18 09:00] LABS: ALBUMIN 3.3 g/dL (3.5-5.0); CALCIUM 8.9 mg/dl (8.6-10.4)
--- NOTE | 2018-03-18 13:02 | PN ---
DATE: 03/18/2018 LOCATION: 566. SUBJECTIVE: This is an 87-year-old female seen and examined in rounds without any significant clinical changes or reported chest pain, palpitation or significant shortness of breath. The patient is seen initially on 03/17/2018 for GI consultation as requested by the admitting MD. Case discussed with the staff at length. The official CAT scan of the abdomen and pelvis report is seen. Most recent lab results showed hemoglobin of 8.3, hematocrit 23.9 with PT of 14, and today's blood glucose level is 226 with increased BUN, but normal creatinine. CEA level ordered and reported to be high 4.7. PHYSICAL EXAMINATION: GENERAL: An 87-year-old female. VITAL SIGNS: Afebrile with pulse of 80, respiratory rate 20 to 22, blood pressure of 120/60. HEENT: Showed pale, dry oral mucous membrane. Nonicteric sclerae. LUNGS: Few scattered crepitation. Decreased air entry at bases. HEART: Positive S1 and S2. ABDOMEN: Soft. Bowel sounds are present. No mass or organomegaly. No rebound tenderness or guarding. RECTAL: Positive tone, guaiac-positive stool. Trace of fresh blood is seen also. EXTREMITIES: With evidence of osteoarthritis with lower extremities mild edematous changes. No clubbing or cyanosis. NEUROLOGICAL: No reported new neurological deficits, sensory or motor. IMPRESSION: 1. Gastrointestinal bleeding, most likely lower versus, less likely upper; however, to rule out possible bleeding duodenal versus gastric ulcer, to rule out bleeding diverticula. 2. Elevated carcinoembryonic antigen level, to rule out occult gastrointestinal malignancy. 3. Anemia, most likely secondary to above, in addition to anemia secondary to chronic disease. 4. Multiple past medical history including but not limited to hypertension, diabetes mellitus, myelodysplastic syndrome with hyperlipidemia. 5. Known history of rheumatoid arthritis and reported history of Alzheimer's disease with dementia. The patient appeared to be somewhat alert and awake. 6. Past medical history of tonsillectomy. SUGGESTIONS: 1. Agree with your plan. 2. Blood transfusion to keep hemoglobin around 10 g percent. 3. Endoscopic evaluation of the upper GI tract when the patient is more stable clinically and then subsequently colonoscopy as needed, awaiting legal guardian consent. 4. Further recommendation to follow. It has to be mentioned that this case was discussed at length with the admitting MD immediately after my GI consultation on 03/17/2018. Marley Boss MD [facility] # [id number]
[2018-03-18] MEDS ORDERED: (Novolog) Insulin Aspart, Recombinant 100 u/ml 10 ml vial SC SCH (16:30)
[2018-03-18] MEDS: (Novolog) Insulin Aspart, Recombinant 100 u/ml 10 ml vial SC SCH ×2 (17:20→21:09)
[2018-03-18] MEDS: (Lantus) Insulin Glargine, Recombinant SC SCH (21:21)
[2018-03-19] MEDS: (Novolog) Insulin Aspart, Recombinant 100 u/ml 10 ml vial SC SCH ×4 (07:20→21:49)
[2018-03-19 08:20] LABS: BASO % 0.7 % (0.0-2.0); EOS # 0.3 K/uL (0.0-0.7); EOS % 4.7 % (0.0-4.0); LYMPH # 0.8 K/uL (1.0-4.3); LYMPH % 11.4 % (20.0-40.0); MEAN CELL VOLUME 92.7 fL (81.0-99.0); MEAN CORPUSCULAR HEMOGLOBIN 33.2 pg (27.0-31.0); MEAN CORPUSCULAR HGB CONC 35.8 g/dL (33.0-37.0); MEAN PLATELET VOLUME 9.8 fL (7.2-11.7); MONO # 0.4 K/uL (0.0-0.8); MONO % 6.2 % (0.0-10.0); NEUT # 5.4 K/uL (1.8-7.0); NRBC % 0.1 % (0.0-2.0); RBC 3.11 Mil/uL (3.80-5.20); RED CELL DISTRIBUTION WIDTH 15.2 % (11.5-14.5)
[2018-03-19 08:28] LABS: HEMOGLOBIN 10.3 g/dL (11.0-16.0)
[2018-03-19 08:44] LABS: ALB/GLOB RATIO 1.1 (1.0-2.1); ALBUMIN 3.7 g/dL (3.5-5.0); ALT/SGPT 24 U/L (9-52); AST/SGOT 17 U/L (14-36); BLOOD UREA NITROGEN 22 mg/dL (7-17); CALCIUM 8.8 mg/dl (8.6-10.4); GFR NON-AFRICAN AMERICAN 52
[2018-03-19] MEDS ORDERED: Influenza Vaccine 60 MCG/0.5 ML SYR (3 yr & up) IM ONE (10:00)
--- NOTE | 2018-03-19 14:09 | PN ---
DATE: 03/19/2018 LOCATION: 566. SUBJECTIVE: This is an 87-year-old female seen and examined in rounds with the staff on the floor without significant clinical changes, appeared to be for me awake, alert, and oriented, denied any rectal bleeding this morning, but generalized abdominal pain and weakness. The entire chart is reviewed including but not limited to the most recent lab and radiology study results, current and the previous medication list, current and the previous medical events. No reported chest pain, palpitation, significant shortness of breath, or hematemesis, and no reported chills or fever. The patient is post blood transfusion and today's lab only showed blood glucose level of 139. PHYSICAL EXAMINATION: GENERAL: An 87-year-old female. VITAL SIGNS: Afebrile, with pulse of 80, respiratory rate 20-22, blood pressure of 130/66. HEENT: Showed pale, dry oral mucous membranes. Nonicteric sclerae. LUNGS: Few scattered crepitations, decreased air entry at bases. HEART: Positive S1 and S2. ABDOMEN: Soft, with mild generalized tenderness. No mass or organomegaly. No rebound tenderness or guarding. RECTAL: The patient refused. EXTREMITIES: Without significant clubbing, cyanosis, or edema. NEUROLOGIC: No reported new neurological deficits, sensory or motor. IMPRESSION: 1. Gastrointestinal bleeding, upper versus lower. 2. Abnormal CAT scan of the abdomen and pelvis with diffuse diverticulosis and thickened mucosa of the colon. 3. Increased carcinoembryonic antigen level to rule out occult gastrointestinal malignancy. 4. To rule out gastric versus duodenal ulcer. 5. Anemia secondary to above most likely. 6. Multiple past medical history including diabetes mellitus, hypertension, myelodysplastic syndrome, hyperlipidemia, rheumatoid arthritis. 7. Reported history of Alzheimer disease. The patient appears to be more awake, alert, and oriented during my physical examination today. SUGGESTIONS: 1. Continue current management. 2. Repeat lab results including H and H. 3. The patient for endoscopic evaluation of the GI tract when she is stable clinically, awaiting official legal consent from the legal guardian. Marley Boss MD [facility] # [id number]
--- NOTE | 2018-03-19 19:59 | CON ---
DATE: 03/17/[address] Boss to Dr. Gamal Ly. I was called for GI consultation by the admitting medical team. The patient is seen and fully examined in the presence of the medical staff on 03/17/2018. Entire chart is reviewed including but not limited to the most recent lab and radiology study results, current and previous medication list, current and previous medical events as well as allergy to medication list. Case discussed with Dr. Ly at length. HISTORY OF PRESENT ILLNESS: This is an 87 years old female who was admitted to the hospital with recurrent complaint of abdominal pain, rectal bleeding, nausea, dyspepsia with presyncopal episode, but no reported hematemesis, no reported chest pain, palpitation, chills or fever. It has to be mentioned that the patient had recurrent episode of nausea and vomiting prior to her admission with diarrhea, mixed with bloody mucus bowel movement. PAST MEDICAL HISTORY: Including but not limited to; 1. Diabetes mellitus. 2. Peptic ulcer disease. 3. Hypertension. 4. Bronchial asthma with bronchitis. 5. Hyperlipidemia. 6. Reported rheumatoid arthritis. 7. Myelodysplastic syndrome. 8. Status post tonsillectomy by history. It has to be mentioned that no recent history of colonoscopy for the last several years as per daughter's statement. ALLERGIES TO MEDICATIONS: UNCLEAR. CURRENT MEDICATIONS: Post admission medication list is reviewed. FAMILY HISTORY: Noncontributory. Initial blood workup post admission showed, hemoglobin of 8.3 hematic 23.9. Blood glucose level of 221. PHYSICAL EXAMINATION: GENERAL: An 87 years old female appeared to be for me awake, alert, oriented at the time of the physical examination despite it was mentioned the patient may have elements of dementia with Alzheimer's disease. VITAL SIGNS: The patient is afebrile with pulse of 84, respiratory rate 20-22, blood pressure of 130/62. HEENT: Showed pale dry oral mucous membrane. Nonicteric sclerae. LUNGS: Few scattered crepitation. Decreased air entry at bases. HEART: Positive S1 and S2. ABDOMEN: Soft with generalized tenderness, but mainly in the midepigastric and left and right lower quadrant area. No masses or organomegaly. No rebound tenderness or guarding. RECTAL: Positive tone, trace of fresh and old blood clot. EXTREMITIES: Without significant clubbing, cyanosis or edema. NEUROLOGIC: No reported new neurological deficits, sensory or motor. IMPRESSION: 1. Gastrointestinal bleeding, upper versus lower. 2. Anemia secondary to above and/or due to chronic disease. 3. To rule out occult gastrointestinal malignancy. 4. Multiple past medical history as mentioned above. 5. Poorly controlled diabetes mellitus. 6. To rule out diabetic gastroparesis, to rule out gastric versus duodenal ulcer. SUGGESTIONS: 1. Agree with your plan. 2. IV antibiotics. 3. Proton pump inhibitors. Cancer markers including CEA. 4. Keep n.p.o. until the patient is more stable clinically. 5. Blood transfusion to keep hemoglobin around 10 gm percent. Further recommendation to follow. Case is to be discussed with the legal guardian for consent for potential endoscopic evaluation of the GI tract. Marley Boss MD
[2018-03-19] MEDS: (Lantus) Insulin Glargine, Recombinant SC SCH (21:47)
[2018-03-20 07:27] LABS: BASO # 0.1 K/uL (0.0-0.2); EOS # 0.3 K/uL (0.0-0.7); EOS % 5.8 % (0.0-4.0); HEMOGLOBIN 9.9 g/dL (11.0-16.0); LYMPH # 1.1 K/uL (1.0-4.3); LYMPH % 22.3 % (20.0-40.0); MEAN CELL VOLUME 92.9 fL (81.0-99.0); MEAN CORPUSCULAR HEMOGLOBIN 32.8 pg (27.0-31.0); MEAN CORPUSCULAR HGB CONC 35.3 g/dL (33.0-37.0); MEAN PLATELET VOLUME 9.7 fL (7.2-11.7); MONO # 0.3 K/uL (0.0-0.8); MONO % 5.8 % (0.0-10.0); NEUT # 3.3 K/uL (1.8-7.0); NEUT % 65.1 % (50.0-75.0); NRBC % 0.1 % (0.0-2.0); RED CELL DISTRIBUTION WIDTH 15.6 % (11.5-14.5); WHITE BLOOD COUNT 5.1 K/uL (4.8-10.8)
[2018-03-20 07:42] LABS: ALBUMIN 3.6 g/dL (3.5-5.0)
--- NOTE | 2018-03-20 08:00 | HP ---
HISTORY OF PRESENT ILLNESS: The patient was admitted to the hospital with chief complaint of abdominal pain and rectal bleeding. The patient came to ER advised admission. The patient has history of chronic anemia, history of diabetes. PHYSICAL EXAMINATION: GENERAL: The patient is awake, alert and oriented. VITAL SIGNS: Temperature 98, pulse 90. HEENT: Within normal limits. NECK: Supple. CHEST: Symmetrical. HEART: Regular. ABDOMEN: Soft. EXTREMITIES: No edema. ASSESSMENT AND PLAN: The patient suffers from rectal bleeding. The patient to get bed rest. GI consult, monitor H and H. Gamal Ly MD
[2018-03-20] MEDS: (Novolog) Insulin Aspart, Recombinant 100 u/ml 10 ml vial SC SCH ×4 (08:30→21:47)
[2018-03-20] MEDS ORDERED: Propofol 10 mg/ml Inj (20 ML) ONE (10:49)
[2018-03-20] MEDS ORDERED: Peg-Electrolyte Oral Soln 4L (Golytely) PO ONE (13:00)
--- NOTE | 2018-03-20 14:25 | CP.PCM.PN ---
Subjective - Date & Time of Evaluation Date of Evaluation: 03/20/18 Time of Evaluation: 10:19 - Subjective Subjective: PGY2 Medicine Note for Dr. Ly Patient seen and examined this morning at bedside. No acute events overnight. Patient states that is feeling well and "everything is back to normal". She has no abdominal pain and has a normal bowel movement yesterday. She denies any diarrhea, nausea or vomiting. Patient is currently NPO for an EGD schedule for this morning. Objective - Vital Signs/Intake and Output Vital Signs (last 24 hours): Temp Pulse Resp BP Pulse Ox 97.1 F L 70 18 113/53 L 99 03/20/18 11:08 03/20/18 11:38 03/20/18 11:38 03/20/18 11:38 03/20/18 11:38 Intake and Output: 03/20/18 03/20/18 06:59 18:59 Intake Total 0 150 Balance 0 150 - Medications Medications: Current Medications Bisacodyl (Dulcolax) 10 mg PO ONCE ONE Stop: 03/20/18 17:01 Influenza Virus Vaccine (Fluzone Quad [id number]) 60 mcg IM .ONCE ONE Stop: 03/21/18 10:01 Insulin Aspart (Novolog) 0 unit SC [facility]; Protocol Last Admin: 03/20/18 12:30 Dose: 3 unit Insulin Glargine (Lantus) 10 unit SC [facility] Last Admin: 03/19/18 21:47 Dose: Not Given Lisinopril (Zestril) 2.5 mg PO DAILY [facility] Last Admin: 03/20/18 09:04 Dose: 2.5 mg Ondansetron HCl (Zofran Inj) 4 mg IVP Q6H [facility] Last Admin: 03/20/18 11:45 Dose: 4 mg Pantoprazole Sodium (Protonix Inj) 40 mg IVP DAILY [facility] Last Admin: 03/20/18 09:04 Dose: 40 mg - Labs Labs: 03/20/18 07:04 03/20/18 07:04 PT 14.0 SECONDS (9.7-12.2) H 03/17/18 01:46 INR 1.3 03/17/18 01:46 APTT 31 SECONDS (21-34) 03/17/18 01:46 - Constitutional Appears: Non-toxic, No Acute Distress - Head Exam Head Exam: ATRAUMATIC, NORMOCEPHALIC - Eye Exam Eye Exam: Normal appearance - ENT Exam ENT Exam: Mucous Membranes Moist - Neck Exam Neck Exam: absent: Lymphadenopathy - Respiratory Exam Respiratory Exam: Clear to Ausculation Bilateral, NORMAL BREATHING PATTERN. absent: Accessory Muscle Use, Rales, Rhonchi, Wheezes, Respiratory Distress - Cardiovascular Exam Cardiovascular Exam: REGULAR RHYTHM, +S1 - GI/Abdominal Exam GI & Abdominal Exam: Soft. absent: Firm, Guarding, Rigid, Tenderness - Extremities Exam Extremities Exam: absent: Calf Tenderness, Pedal Edema - Neurological Exam Neurological Exam: Alert, Awake, Oriented x3 - Psychiatric Exam Psychiatric exam: Normal Affect, Normal Mood - Skin Skin Exam: Dry, Warm Assessment and Plan - Assessment and Plan (Free Text) Plan: Hematochezia GI Consult, Dr. Saeed * Patient had EGD this morning * Pending official report, but reported gastritis only - no bleeding seen * Patient is for colonoscopy tomorrow morning * Liquid diet today, NPO past midnight. Positive FOBT Medications: * Protonix 40mg IVP q6h * Zofran 4mg IVP q6h prn Anemia Hgb stable at 9.9 Patient was transfused 2 units of pRBC over the weekend. Will transfuse if patient's Hgb falls below 7. Closely monitor Monitor BMs Myelodysplastic disease Per last admission (~2 weeks prior)- patient is not currently on active medication therapy however so- Patient does follow up with Dr. Adames outpatient Monitor Diabetes ISS Lantus 10units SC HS Accuchecks Hypoglycemia protocol Lisinopril 2.5 mg PO daily for renal protection CAD Hold Aspirin 81 mg PO daily due to FOB positive HTN Continue lisinopril 2.5mg PO daily continue to monitor Prophylaxis SCDs VTE contrandicated due to positive fecal occult All medical management per Dr. Aliyah Kumar Sacha PGY2
[2018-03-20] MEDS ORDERED: Bisacodyl 5mg EC Tab PO ONE (17:00)
[2018-03-20] MEDS: (Lantus) Insulin Glargine, Recombinant SC SCH (21:47)
[2018-03-21] MEDS: (Novolog) Insulin Aspart, Recombinant 100 u/ml 10 ml vial SC SCH ×4 (07:55→21:53)
[2018-03-21 08:03] LABS: BASO # 0.1 K/uL (0.0-0.2); BASO % 1.4 % (0.0-2.0); EOS # 0.3 K/uL (0.0-0.7); EOS % 7.7 % (0.0-4.0); HEMOGLOBIN 10.2 g/dL (11.0-16.0); LYMPH # 1.2 K/uL (1.0-4.3); LYMPH % 28.5 % (20.0-40.0); MEAN CELL VOLUME 94.2 fL (81.0-99.0); MEAN CORPUSCULAR HEMOGLOBIN 33.1 pg (27.0-31.0); MEAN CORPUSCULAR HGB CONC 35.2 g/dL (33.0-37.0); MEAN PLATELET VOLUME 9.7 fL (7.2-11.7); MONO # 0.3 K/uL (0.0-0.8); MONO % 6.6 % (0.0-10.0); NEUT # 2.4 K/uL (1.8-7.0); NEUT % 55.8 % (50.0-75.0); NRBC % 0.1 % (0.0-2.0); RBC 3.09 Mil/uL (3.80-5.20); RED CELL DISTRIBUTION WIDTH 16.4 % (11.5-14.5); WHITE BLOOD COUNT 4.3 K/uL (4.8-10.8)
[2018-03-21 08:35] LABS: ALBUMIN 3.7 g/dL (3.5-5.0); CALCIUM 9.1 mg/dl (8.6-10.4)
[2018-03-21] MEDS ORDERED: Lactated Ringer's 1,000 ML IV ONE (08:55)
[2018-03-21] MEDS ORDERED: Propofol 10 mg/ml Inj (20 ML) ONE (08:59)
[2018-03-21] MEDS ORDERED: Glucagon Recombinant 1 mg Inj ONE (09:08)
[2018-03-21] MEDS ORDERED: Influenza Vaccine 60 MCG/0.5 ML SYR (3 yr & up) IM ONE (10:00)
--- NOTE | 2018-03-21 15:19 | CP.PCM.PN ---
Subjective - Date & Time of Evaluation Date of Evaluation: 03/21/18 Time of Evaluation: 10:11 - Subjective Subjective: PGY2 Medicine Note for Dr. Ly Patient seen and examined this morning at bedside. No acute events overnight. Patient states that she has no abdominal pain and is feeling well. She is currently NPO for Colonoscopy later this morning. She denies any diarrhea, nausea, vomiting, chest pain or shortness of breath. Objective - Vital Signs/Intake and Output Vital Signs (last 24 hours): Temp Pulse Resp BP Pulse Ox 97.5 F L 70 19 154/70 H 97 03/21/18 10:22 03/21/18 10:22 03/21/18 10:22 03/21/18 10:22 03/21/18 10:22 Intake and Output: 03/21/18 03/21/18 06:59 18:59 Intake Total 600 400 Balance 600 400 - Medications Medications: Current Medications Insulin Aspart (Novolog) 0 unit SC [facility]; Protocol Last Admin: 03/21/18 12:30 Dose: 4 unit Insulin Glargine (Lantus) 10 unit SC [facility] Last Admin: 03/20/18 21:47 Dose: Not Given Lisinopril (Zestril) 2.5 mg PO DAILY [facility] Last Admin: 03/21/18 10:25 Dose: 2.5 mg Ondansetron HCl (Zofran Inj) 4 mg IVP Q6H [facility] Last Admin: 03/21/18 10:30 Dose: 4 mg Pantoprazole Sodium (Protonix Inj) 40 mg IVP DAILY [facility] Last Admin: 03/21/18 10:25 Dose: 40 mg - Labs Labs: 03/21/18 07:47 03/21/18 07:47 PT 14.0 SECONDS (9.7-12.2) H 03/17/18 01:46 INR 1.3 03/17/18 01:46 APTT 31 SECONDS (21-34) 03/17/18 01:46 - Additional Findings Additional findings: - Constitutional Appears: Non-toxic, No Acute Distress - Head Exam Head Exam: ATRAUMATIC, NORMOCEPHALIC - Eye Exam Eye Exam: Normal appearance - ENT Exam ENT Exam: Mucous Membranes Moist - Neck Exam Neck Exam: absent: Lymphadenopathy - Respiratory Exam Respiratory Exam: Clear to Ausculation Bilateral, NORMAL BREATHING PATTERN. absent: Accessory Muscle Use, Rales, Rhonchi, Wheezes, Respiratory Distress - Cardiovascular Exam Cardiovascular Exam: REGULAR RHYTHM, +S1 - GI/Abdominal Exam GI & Abdominal Exam: Soft. absent: Firm, Guarding, Rigid, Tenderness - Extremities Exam Extremities Exam: absent: Calf Tenderness, Pedal Edema - Neurological Exam Neurological Exam: Alert, Awake, Oriented x3 - Psychiatric Exam Psychiatric exam: Normal Affect, Normal Mood - Skin Skin Exam: Dry, Warm Assessment and Plan - Assessment and Plan (Free Text) Plan: Hematochezia GI Consult, Dr. Saeed * Patient had EGD this morning * EGD showed gastritis only - no bleeding seen * Colonoscopy showed diverticulosis, internal hemorrhoids and fecal material. No bleeding seen. * Liquid diet * f/u additional recs Positive FOBT Medications: * Protonix 40mg IVP q6h * Zofran 4mg IVP q6h prn Anemia Hgb stable Patient was transfused 2 units of pRBC over the weekend. Will transfuse if patient's Hgb falls below 7. Closely monitor Monitor BMs Myelodysplastic disease Per last admission (~2 weeks prior)- patient is not currently on active medication therapy however so- Patient does follow up with Dr. Adames outpatient Monitor Diabetes ISS Lantus 10units SC HS Accuchecks Hypoglycemia protocol Lisinopril 2.5 mg PO daily for renal protection CAD Hold Aspirin 81 mg PO daily due to FOB positive HTN Continue lisinopril 2.5mg PO daily continue to monitor Prophylaxis SCDs VTE contrandicated due to positive fecal occult DISPO: f/u GI recs. Possible discharge tomorrow depending on GI recommendations. All medical management per Dr. Aliyah Kumar Sacha PGY2
[2018-03-21 17:11] VITALS: RESP 20
[2018-03-21] MEDS: (Lantus) Insulin Glargine, Recombinant SC SCH (22:01)
[2018-03-22] MEDS: (Novolog) Insulin Aspart, Recombinant 100 u/ml 10 ml vial SC SCH ×2 (07:52→12:12)
[2018-03-22 08:23] VITALS: BP 107/44; PULSE 63; TEMP 97.8; O2SAT 99
[2018-03-22 09:09] LABS: BASO # 0.1 K/uL (0.0-0.2); BASO % 1.6 % (0.0-2.0); EOS # 0.3 K/uL (0.0-0.7); EOS % 5.8 % (0.0-4.0); HEMOGLOBIN 10.3 g/dL (11.0-16.0); LYMPH # 1.3 K/uL (1.0-4.3); LYMPH % 27.5 % (20.0-40.0); MEAN CELL VOLUME 93.6 fL (81.0-99.0); MEAN CORPUSCULAR HEMOGLOBIN 32.8 pg (27.0-31.0); MEAN CORPUSCULAR HGB CONC 35.1 g/dL (33.0-37.0); MEAN PLATELET VOLUME 9.9 fL (7.2-11.7); MONO # 0.3 K/uL (0.0-0.8); MONO % 6.9 % (0.0-10.0); NEUT # 2.7 K/uL (1.8-7.0); NEUT % 58.2 % (50.0-75.0); NRBC % 0.1 % (0.0-2.0); RBC 3.14 Mil/uL (3.80-5.20); RED CELL DISTRIBUTION WIDTH 16.7 % (11.5-14.5); WHITE BLOOD COUNT 4.6 K/uL (4.8-10.8)
[2018-03-22 09:11] LABS: ALB/GLOB RATIO 1.1 (1.0-2.1); CALCIUM 9.5 mg/dl (8.6-10.4)
[2018-03-22] MEDS ORDERED: Influenza Vaccine 60 MCG/0.5 ML SYR (3 yr & up) IM ONE (10:00)
--- NOTE | 2018-03-22 11:28 | CP.PCM.PN ---
Subjective - Date & Time of Evaluation Date of Evaluation: 03/22/18 Time of Evaluation: 07:00 - Subjective Subjective: PGY2 Medicine Note for Dr. Ly Patient seen and examined this morning at bedside. No acute events overnight. Patient states that she has no abdominal pain and is feeling well. She has not had a bowel movement since colonoscopy yesterday. She denies any diarrhea, nausea, vomiting, chest pain or shortness of breath. Objective - Vital Signs/Intake and Output Vital Signs (last 24 hours): Temp Pulse Resp BP Pulse Ox 97.8 F 63 20 107/44 L 99 03/22/18 08:22 03/22/18 08:22 03/22/18 08:22 03/22/18 08:22 03/22/18 08:22 Intake and Output: 03/22/18 03/22/18 06:59 18:59 Intake Total 300 Balance 300 - Medications Medications: Current Medications Insulin Aspart (Novolog) 0 unit SC [facility]; Protocol Last Admin: 03/22/18 07:52 Dose: Not Given Insulin Glargine (Lantus) 10 unit SC [facility] Last Admin: 03/21/18 22:01 Dose: 10 units Lisinopril (Zestril) 2.5 mg PO DAILY [facility] Last Admin: 03/22/18 10:47 Dose: 2.5 mg Ondansetron HCl (Zofran Inj) 4 mg IVP Q6H [facility] Last Admin: 03/22/18 10:47 Dose: Not Given Pantoprazole Sodium (Protonix Inj) 40 mg IVP DAILY [facility] Last Admin: 03/22/18 10:47 Dose: 40 mg - Labs Labs: 03/22/18 08:50 03/22/18 08:50 PT 14.0 SECONDS (9.7-12.2) H 03/17/18 01:46 INR 1.3 03/17/18 01:46 APTT 31 SECONDS (21-34) 03/17/18 01:46 - Additional Findings Additional findings: - Constitutional Appears: Non-toxic, No Acute Distress - Head Exam Head Exam: ATRAUMATIC, NORMOCEPHALIC - Eye Exam Eye Exam: Normal appearance - ENT Exam ENT Exam: Mucous Membranes Moist - Neck Exam Neck Exam: absent: Lymphadenopathy - Respiratory Exam Respiratory Exam: Clear to Ausculation Bilateral, NORMAL BREATHING PATTERN. absent: Accessory Muscle Use, Rales, Rhonchi, Wheezes, Respiratory Distress - Cardiovascular Exam Cardiovascular Exam: REGULAR RHYTHM, +S1 - GI/Abdominal Exam GI & Abdominal Exam: Soft. absent: Firm, Guarding, Rigid, Tenderness - Extremities Exam Extremities Exam: absent: Calf Tenderness, Pedal Edema - Neurological Exam Neurological Exam: Alert, Awake, Oriented x3 - Psychiatric Exam Psychiatric exam: Normal Affect, Normal Mood - Skin Skin Exam: Dry, Warm Assessment and Plan - Assessment and Plan (Free Text) Assessment: Hematochezia GI Consult, Dr. Saeed * Patient had EGD this morning * EGD showed gastritis only - no bleeding seen * Colonoscopy showed diverticulosis, internal hemorrhoids and fecal material. No bleeding seen. Positive FOBT Medications: * Protonix 40mg IVP q6h * Zofran 4mg IVP q6h prn Anemia Hgb stable Patient was transfused 2 units of pRBC over the weekend. Will transfuse if patient's Hgb falls below 7. Closely monitor Monitor BMs Myelodysplastic disease Per last admission (~2 weeks prior)- patient is not currently on active medication therapy however so- Patient does follow up with Dr. Adames outpatient Monitor Diabetes ISS Lantus 10units SC HS Accuchecks Hypoglycemia protocol Lisinopril 2.5 mg PO daily for renal protection CAD Hold Aspirin 81 mg PO daily due to FOB positive HTN Continue lisinopril 2.5mg PO daily continue to monitor Prophylaxis SCDs VTE contrandicated due to positive fecal occult DISPO: Patient stable for discharge. Patient will follow up with GI as an outpatient. All medical management per Dr. Ly
--- NOTE | 2018-03-22 19:12 | PN ---
DATE: 03/22/2018 LOCATION: 563, bed B. SUBJECTIVE: This is an 87-year-old female, seen and examined in rounds without significant clinical changes, reported active bleeding with much less abdominal pain, improving clinically without chest pain, palpitations, shortness of breath,chills, or fever, had one bowel movement post colonoscopy. The entire chart is reviewed including but not limited to the most recent lab and radiology study results, current and the previous medication list, current and the previous medical events, and today's lab showed hemoglobin 10.3, hematocrit 29.4, with white blood cells of 4.6, but normal platelet counts, with BUN 22, creatinine 1.4, blood glucose level 235 with normal liver function test. IMPRESSION: 1. Diverticulosis. 2. Left-sided colitis with spastic colon as well as internal hemorrhoids by colonoscopy. 3. Esophagitis, hiatus hernia with erosive gastritis by recent upper endoscopy. 4. Anemia, most likely secondary to above. 5. Abnormal CAT scan of the abdomen and pelvis. 6. Multiple past medical history including diabetes mellitus, hypertension, hyperlipidemia, rheumatoid arthritis with myelodysplastic syndrome. 7. Reported history of Alzheimer's. SUGGESTIONS: 1. Continue current management. 2. The patient will need colonoscopy after more aggressive preparation, otherwise close observation to follow. Marley Boss MD
--- NOTE | 2018-03-27 06:38 | DS ---
The patient is an 87-year-old female, admitted to the hospital with a chief complaint of weakness, fatigue. Patient has severe anemia. She had bleeding. The patient to bed rest, supportive care. Endoscopy gastritis. The patient received blood transfusion and improved, discharged, to be followed as an outpatient for severe chronic anemia and lower GI bleeding. Gamal Ly MD
== END 2018-03-22 14:15 | disposition home or self-care (01) | DRG 378 ==
LOC: C.ER 00:36 → C.3T 04:18 → C.9E 05:15 → C.5S 06:37
PROVIDERS: ADMIT Internal Medicine Pulmonary Disease; ATTEND Internal Medicine Pulmonary Disease
PROC: 30233N1 Transfusion of Nonautologous Red Blood Cells into Peripheral Vein, Percutaneous Approach (ICD-10-PCS; 2018-03-18)
PROC: 0DB68ZX Excision of Stomach, Via Natural or Artificial Opening Endoscopic, Diagnostic (ICD-10-PCS; 2018-03-20)
PROC: 0DBM8ZX Excision of Descending Colon, Via Natural or Artificial Opening Endoscopic, Diagnostic (ICD-10-PCS; principal; 2018-03-21 08:55)
DX: K92.2 Gastrointestinal hemorrhage, unspecified (principal); K51.50 Left sided colitis without complications; D62 Acute posthemorrhagic anemia; I25.10 Atherosclerotic heart disease of native coronary artery without angina pectoris; I10 Essential (primary) hypertension; R55 Syncope and collapse; K64.8 Other hemorrhoids; K21.0 Gastro-esophageal reflux disease with esophagitis; K57.30 Diverticulosis of large intestine without perforation or abscess without bleeding; K44.9 Diaphragmatic hernia without obstruction or gangrene; E11.649 Type 2 diabetes mellitus with hypoglycemia without coma; D46.9 Myelodysplastic syndrome, unspecified; E78.5 Hyperlipidemia, unspecified; F02.80 Dementia in other diseases classified elsewhere, unspecified severity, without behavioral disturbance, psychotic disturbance, mood disturbance, and anxiety; G30.9 Alzheimer's disease, unspecified; J45.909 Unspecified asthma, uncomplicated; K29.60 Other gastritis without bleeding

== ENCOUNTER 2018-04-19 17:12 | Observation (INO) | payer MEDICARE ==
[2018-04-19 17:20] VITALS: BMI 22.6
--- NOTE | 2018-04-19 17:35 | C.PDOC ---
History Of Present Illness 87 year old female with a history of dementia, myelodysplastic, and colitis was sent to the ED by Dr. Hernández for recurrent anemia. Denies GI bleed and any other associated symptoms. HPI limited due to dementia. LIMITED DUE TO DEMENTIA 87 Y/O FEMALE WITH HISTORY OF DEMENTIA PRESENTS TO ED STATING "I FEEL FINE". PATIENT REFERRED BY DR HERNÁNDEZ FOR RECURRENT ANEMIA. HO MYELODYSPLASTIC , COLITIS. NO OTHER ASSOC SX, NO GI BLEED ROS LIMITED EXAM NAD HEENT +CONJ PALLOR REMAINDER NEG Time Seen by Provider: 04/19/18 17:31 Chief Complaint (Nursing): Abnormal Labs History Per: Patient History/Exam Limitations: clinical condition Onset/Duration Of Symptoms: Days Current Symptoms Are (Timing): Still Present Past Medical History Reviewed: Historical Data, Nursing Documentation, Vital Signs Vital Signs: Last Vital Signs Temp 98.6 F 04/19/18 17:20 Pulse 84 04/19/18 17:20 Resp 20 04/19/18 17:20 BP 167/76 H 04/19/18 17:20 Pulse Ox 100 04/19/18 17:20 - Medical History PMH: Alzheimer's Disease, Anemia, Arthritis, Bronchitis, Dementia, Diabetes, HTN, Hypercholesterolemia, Malignancy (Myelodysplastic), Pneumonia, Rheumatoid Arthritis Surgical History: Tonsillectomy - [facility] Procedures EXCISION OF DESCENDING COLON, ENDO, DIAGN (03/17/18) EXCISION OF STOMACH, ENDO, DIAGN (03/17/18) GAIT TRAINING/FUNCTIONAL AMBULATION TREATMENT (10/05/17) HOME MANAGEMENT TREATMENT (10/05/17) INSERT INFUSION DEV IN R INT JUGULAR VEIN, PERC (11/25/16) INSERTION OF VAD INTO CHEST SUBCU/FASCIA, OPEN APPROACH (11/25/16) INTRODUCE OF OTH THERAP SUBST INTO RESP TRACT, VIA OPENING (08/14/16) TRANSFUSE NONAUT RED BLOOD CELLS IN PERIPH VEIN, PERC (03/17/18) Family History: States: No Known Family Hx - Social History Hx Alcohol Use: No Hx Substance Use: No - Immunization History Hx Tetanus Toxoid Vaccination: No Hx Influenza Vaccination: No (2016) Hx Pneumococcal Vaccination: Yes (2016) Review Of Systems Review Of Systems: ROS cannot be obtained secondary to pt's inabilty to answer questions. (limited.) Constitutional: Negative for: Fever, Chills Gastrointestinal: Negative for: Nausea, Vomiting, Abdominal Pain, Hematochezia, Hematemesis Genitourinary: Negative for: Vaginal Bleeding Skin: Negative for: Rash Physical Exam - Physical Exam Appears: Non-toxic, No Acute Distress Skin: Warm, Dry Head: Atraumatic, Normacephalic Eye(s): bilateral: PERRL, EOMI, Conjunctiva Pale Oral Mucosa: Moist Neck: Supple Cardiovascular: Rhythm Regular Respiratory: Normal Breath Sounds, No Rales, No Rhonchi, No Wheezing Gastrointestinal/Abdominal: Soft, No Tenderness, No Guarding, No Rebound Extremity: No Pedal Edema, Capillary Refill (<2 seconds) Neurological/Psych: Oriented x3, Normal Speech ED Course And Treatment - Laboratory Results Result Diagrams: 04/19/18 17:49 04/19/18 17:49 ECG: Interpreted By Me, Viewed By Me ECG Rhythm: Sinus Rhythm Rate From EC (BPM) O2 Sat by Pulse Oximetry: 100 (RA) Pulse Ox Interpretation: Normal - Other Rad CXR X-Ray: Viewed By Me, Read By Radiologist Interpretation: FINDINGS: Right-sided central venous catheter terminates in the right atrium. LUNGS: The lungs are well inflated and clear. PLEURA: No pneumothorax or pleural effusion. CARDIOVASCULAR: Mild cardiomegaly. No aortic atherosclerotic calcifications present. OSSEOUS STRUCTURES: Within normal limits for the patient's age. VISUALIZED UPPER ABDOMEN: Normal. OTHER FINDINGS: None. IMPRESSION: No acute findings. - Physician Consult Information Time Consulting Physician Contacted: 18:06 Physician Contacted: Gamal Ly Outcome Of Conversation: WILL ADMIT Progress - Re-Evaluation Re-evaluation Note: 04/19/18 18:[address] HERNÁNDEZ 04/19/18 18:49 D/W DR HERNÁNDEZ ADVISES 2 UNITS PRBC - Data Reviewed Data Reviewed: Lab, Diagnostic imaging, EKG, Old records Medical Decision Making Medical Decision Making: Plan: -Blood sent. -EKG 6:06pm Spoke with Dr. Ly regarding patient's case. 6:48pm Spoke with Dr. Hernández regarding patient's case. Disposition Counseled Patient/Family Regarding: Studies Performed, Diagnosis - Disposition Disposition: HOSPITALIZED Disposition Time: 18:06 Condition: SERIOUS - POA Present On Arrival: None - Clinical Impression Clinical Impression: Symptomatic anemia, Myelodysplastic syndrome - Scribe Statement The provider has reviewed the documentation as recorded by the Keaton Justice All medical record entries made by the Keaton were at my direction and personally dictated by me. I have reviewed the chart and agree that the record accurately reflects my personal performance of the history, physical exam, medical decision making, and the department course for this patient. I have also personally directed, reviewed, and agree with the discharge instructions and disposition.
[2018-04-19 17:53] LABS: BASO % 0.4 % (0.0-2.0); EOS # 0.3 K/uL (0.0-0.7); EOS % 4.7 % (0.0-4.0); LYMPH # 1.5 K/uL (1.0-4.3); LYMPH % 27.7 % (20.0-40.0); MEAN CELL VOLUME 94.9 fL (81.0-99.0); MEAN CORPUSCULAR HEMOGLOBIN 33.4 pg (27.0-31.0); MEAN CORPUSCULAR HGB CONC 35.1 g/dL (33.0-37.0); MEAN PLATELET VOLUME 10.1 fL (7.2-11.7); MONO # 0.3 K/uL (0.0-0.8); MONO % 5.6 % (0.0-10.0); NEUT # 3.4 K/uL (1.8-7.0); NEUT % 61.6 % (50.0-75.0); RBC 2.17 Mil/uL (3.80-5.20); RED CELL DISTRIBUTION WIDTH 21.4 % (11.5-14.5); WHITE BLOOD COUNT 5.5 K/uL (4.8-10.8)
[2018-04-19 17:54] LABS: HEMOGLOBIN 7.2 g/dL (11.0-16.0)
--- NOTE | 2018-04-19 18:20 | RAD ---
Date of service: 04/19/2018 PROCEDURE: CHEST RADIOGRAPH, 1 VIEW HISTORY: MED CLEAR COMPARISON: 02/28/2018 FINDINGS: Right-sided central venous catheter terminates in the right atrium. LUNGS: The lungs are well inflated and clear. PLEURA: No pneumothorax or pleural effusion. CARDIOVASCULAR: Mild cardiomegaly. No aortic atherosclerotic calcifications present. OSSEOUS STRUCTURES: Within normal limits for the patient's age. VISUALIZED UPPER ABDOMEN: Normal. OTHER FINDINGS: None. IMPRESSION: No acute findings.
[2018-04-19 18:21] LABS: BLOOD UREA NITROGEN 33 mg/dL (7-17); GFR NON-AFRICAN AMERICAN 52
[2018-04-19 19:05] LABS: SQUAMOUS EPITHIAL 1 /hpf (0-5); URINE BACTERIA FEW (<OCC); URINE BILIRUBIN NEGATIVE (NEGATIVE); URINE BLOOD NEGATIVE (NEGATIVE); URINE CLARITY Clear (Clear); URINE COLOR Yellow (YELLOW); URINE GLUCOSE (UA) NORMAL (Normal); URINE PROTEIN NEGATIVE (NEGATIVE); URINE UROBILINOGEN NORMAL mg/dL (0.2-1.0)
[2018-04-19 19:13] LABS: URINE LEUKOCYTE ESTERASE 2+ Leu/uL (Negative)
[2018-04-19] MEDS ORDERED: Dextrose 50% SYRINGE Inj (50 ml) IV PRN (20:06)
[2018-04-19] MEDS ORDERED: Glucagon Recombinant 1 mg Inj IM PRN (20:16)
[2018-04-19] MEDS: Sucralfate 1 gm/10 ml Oral Susp UD PO SCH (22:46)
[2018-04-19] MEDS: (Novolog) Insulin Aspart, Recombinant 100 u/ml 10 ml vial SC SCH (22:47)
--- NOTE | 2018-04-20 06:52 | CP.PCM.PN ---
Subjective - Date & Time of Evaluation Date of Evaluation: 04/20/18 Time of Evaluation: 06:52 - Subjective Subjective: PGY2- Progress note for Dr. Hale Patient is an 87 year old female with a PMH of dementia, myelodysplastic syndrome, and recurrent anemia, who was sent in by Dr. Adames for anemia. Patent was seen and examined at bedside in no acute distress. Patient has no complaints and reports shes feeling well. Patient denies chest pain, palpitations, dyspnea, cough, nausea, vomiting, fevers, headaches, abdominal pain, diarrhea, constipation, blood in stool, and dysuria. Patient is alert and oriented to person, place, president, but not time. Of note, patient is poor historian. PMH: DM, HTN, dementia, myelodysplastic syndrome, and recurrent anemia SurgHx: denies FamHx: denies SocHx: denies Allergies: PCN (unknown reaction) Medications: "medication for BP and DM" Objective - Vital Signs/Intake and Output Vital Signs (last 24 hours): Temp Pulse Resp BP Pulse Ox 98.0 F 88 20 117/67 100 04/20/18 06:44 04/20/18 06:44 04/20/18 06:44 04/20/18 06:44 04/19/18 23:34 Intake and Output: 04/19/18 04/20/18 18:59 06:59 Intake Total 0 Balance 0 - Medications Medications: Current Medications Aspirin (Ecotrin) 81 mg PO DAILY [facility] Dextrose (Dextrose 50% Inj) 0 ml IV STAT PRN; Protocol PRN Reason: Hypoglycemia Protocol Dextrose (Glutose 15) 0 gm PO ONCE PRN; Protocol PRN Reason: Hypoglycemia Protocol Glucagon (Glucagen Diagnostic Kit) 0 mg IM STAT PRN; Protocol PRN Reason: Hypoglycemia Protocol Dextrose (Dextrose 5% In Water 1000 Ml) 1,000 mls @ 0 mls/hr IV .Q0M PRN; Protocol PRN Reason: Hypoglycemia Protocol Insulin Aspart (Novolog) 0 unit SC [facility]; Protocol Last Admin: 04/19/18 22:47 Dose: Not Given Lisinopril (Zestril) 2.5 mg PO DAILY [facility] Sucralfate (Carafate Oral Susp) 1 gm PO ACHS [facility] Last Admin: 04/19/18 22:46 Dose: 1 gm - Labs Labs: 04/19/18 17:49 04/19/18 17:49 - Constitutional Appears: No Acute Distress - Head Exam Head Exam: NORMAL INSPECTION - Eye Exam Eye Exam: EOMI, Normal appearance - ENT Exam ENT Exam: Mucous Membranes Moist - Respiratory Exam Respiratory Exam: Clear to Ausculation Bilateral, NORMAL BREATHING PATTERN. absent: Rales, Rhonchi, Wheezes, Respiratory Distress - Cardiovascular Exam Cardiovascular Exam: REGULAR RHYTHM, +S1, +S2 - GI/Abdominal Exam GI & Abdominal Exam: Soft, Normal Bowel Sounds. absent: Distended, Firm, Guard ing, Tenderness - Extremities Exam Extremities Exam: Normal Inspection. absent: Pedal Edema, Tenderness - Neurological Exam Neurological Exam: Alert, Awake. absent: Oriented x3 - Psychiatric Exam Psychiatric exam: Normal Affect, Normal Mood - Skin Skin Exam: Dry, Intact, Normal Color, Warm Additional comments: Port placed in right chest Assessment and Plan - Assessment and Plan (Free Text) Plan: Anemia - Likely secondary to MDS - Dr. Adames, patients outpatient heme/onc, consulted; help appreciated - Transfused 2 units. - Continue to monitor MDS - Continue outpatient management per Dr. Adames DM - Accuchecks, hypoglycemic protocol - ISS - Continue to monitor HTN - Continue home medication: Lisinopril 2.5mg PO daily - Continue to monitor All management and orders per Dr. Hale. Patient is stable for discharge to home after completion of transfusion per Dr. Hale. Patient must follow up with PMD, Dr. Hale, and heme/onc, Dr. Adames, within 1 week of discharge. Patient must continue all medications.
[2018-04-20] MEDS: (Novolog) Insulin Aspart, Recombinant 100 u/ml 10 ml vial SC SCH ×4 (08:28→22:11)
[2018-04-20] MEDS: Sucralfate 1 gm/10 ml Oral Susp UD PO SCH ×4 (08:28→21:24)
[2018-04-20] MEDS ORDERED: Influenza Vaccine 60 MCG/0.5 ML SYR (3 yr & up) IM ONE (10:00)
--- NOTE | 2018-04-20 12:11 | CARD ---
APPROVED REPORT Date of service: 04/19/2018 EKG Measurement Heart [id number] <Conclusion> Normal sinus rhythm with sinus arrhythmia T wave abnormality, consider lateral ischemia Abnormal ECG
[2018-04-20 14:26] LABS: BASO # 0.1 K/uL (0.0-0.2); BASO % 0.7 % (0.0-2.0); EOS # 0.1 K/uL (0.0-0.7); EOS % 1.8 % (0.0-4.0); HEMOGLOBIN 8.7 g/dL (11.0-16.0); LYMPH # 0.6 K/uL (1.0-4.3); MEAN CORPUSCULAR HEMOGLOBIN 31.7 pg (27.0-31.0); MEAN CORPUSCULAR HGB CONC 34.5 g/dL (33.0-37.0); MONO # 0.4 K/uL (0.0-0.8); NEUT # 5.8 K/uL (1.8-7.0); NEUT % 82.5 % (50.0-75.0); PLATELET COUNT 202 K/uL (130-400); RBC 2.75 Mil/uL (3.80-5.20); RED CELL DISTRIBUTION WIDTH 15.9 % (11.5-14.5)
[2018-04-20 14:32] LABS: MEAN CELL VOLUME 91.8 fL (81.0-99.0)
[2018-04-20 15:04] LABS: BANDS 2 % (0-2); EOSINOPHIL 3 % (0-4); LYMPHOCYTE 5 % (20-40); MONOCYTE 5 % (0-10); NEUTROPHIL 85 % (50-75); TOTAL CELLS COUNTED 100
[2018-04-20 15:05] LABS: ANISOCYTOSIS SLIGHT; PLATELET ESTIMATE NORMAL (NORMAL)
[2018-04-20 15:07] LABS: HYPOCHROMIC SLIGHT
[2018-04-20 17:25] VITALS: RESP 20
--- NOTE | 2018-04-20 19:25 | CP.PCM.CON ---
History of Present Illness - History of Present Illness History of Present Illness: 87 year old female with a history of MDS (5q-), admitted with symptomatic anemia. She was found to hav a hgb of 7/7 in my office and sent to the hospital. In the hospital she was found to have a hgb of 7.2 and is s/p 2U PRBC. The patient has been off treatment as her daughter reports she was requiring more transfusions while on treatment but began a trial of weekly Procrit. She denies abnormal bleeding and bruising She does admit to some fatigue but states she feels okay. Past medical history: MDS Past surgical history: None Family history: Denies hematologic and oncologic problems Social history: Denies tobacco, alcohol, and illicit drug use. Allergies: Amoxicillin Review of systems: All remaining review of systems including HEENT, cardiovascular, respiratory, gastrointestinal, genitourinary, musculoskeletal, dermatologic, neurologic, and psychiatric are negative unless mentioned in the HPI. Past Patient History - Infectious Disease Hx of Infectious Diseases: None - Tetanus Immunizations Tetanus Immunization: Unknown - Past Medical History & Family History Past Medical History?: Yes - Past Social History Smoking Status: Never Smoked - CARDIAC Hx Hypercholesterolemia: Yes Hx Hypertension: Yes - PULMONARY Hx Bronchitis: Yes Hx Pneumonia: Yes - NEUROLOGICAL Hx Alzheimer's Disease: Yes Hx Dementia: Yes - HEENT Hx HEENT Problems: Yes Hx Cataracts: Yes (BOTH EYES) - RENAL Hx Chronic Kidney Disease: No - ENDOCRINE/METABOLIC Hx Endocrine Disorders: Yes Hx Diabetes Mellitus Type 2: Yes - HEMATOLOGICAL/ONCOLOGICAL Hx Anemia: Yes - INTEGUMENTARY Hx Dermatological Problems: No - MUSCULOSKELETAL/RHEUMATOLOGICAL Hx Arthritis: Yes Hx Rheumatoid Arthritis: Yes - GASTROINTESTINAL Hx Gastrointestinal Disorders: No - GENITOURINARY/GYNECOLOGICAL Hx Genitourinary Disorders: Yes (esbl /uti sepsis,SOME INCONTINENCY.WEARS PULLUPS.) - PSYCHIATRIC Hx Substance Use: No - SURGICAL HISTORY Hx Tonsillectomy: Yes - ANESTHESIA Hx Anesthesia: Yes Hx Anesthesia Reactions: No Hx Malignant Hyperthermia: No Meds Allergies/Adverse Reactions: Allergies Allergy/AdvReac Type Severity Reaction Status Date / Time amoxicillin Allergy Mild RASH Verified 04/19/18 17:18 - Medications Medications: Current Medications Aspirin (Ecotrin) 81 mg PO DAILY [facility] Last Admin: 04/20/18 09:26 Dose: 81 mg Dextrose (Dextrose 50% Inj) 0 ml IV STAT PRN; Protocol PRN Reason: Hypoglycemia Protocol Dextrose (Glutose 15) 0 gm PO ONCE PRN; Protocol PRN Reason: Hypoglycemia Protocol Glucagon (Glucagen Diagnostic Kit) 0 mg IM STAT PRN; Protocol PRN Reason: Hypoglycemia Protocol Dextrose (Dextrose 5% In Water 1000 Ml) 1,000 mls @ 0 mls/hr IV .Q0M PRN; Protocol PRN Reason: Hypoglycemia Protocol Insulin Aspart (Novolog) 0 unit SC [facility]; Protocol Last Admin: 04/20/18 17:24 Dose: 1 unit Lisinopril (Zestril) 2.5 mg PO DAILY [facility] Last Admin: 04/20/18 09:26 Dose: 2.5 mg Sucralfate (Carafate Oral Susp) 1 gm PO ACHS [facility] Last Admin: 04/20/18 17:24 Dose: 1 gm Physical Exam - Head Exam Head Exam: ATRAUMATIC - Eye Exam Eye Exam: Normal appearance - ENT Exam ENT Exam: Mucous Membranes Dry - Respiratory Exam Respiratory Exam: NORMAL BREATHING PATTERN - Cardiovascular Exam Cardiovascular Exam: +S1, +S2 - GI/Abdominal Exam GI & Abdominal Exam: Normal Bowel Sounds - Extremities Exam Extremities exam: Positive for: normal inspection - Neurological Exam Neurological exam: Oriented x3 - Psychiatric Exam Psychiatric exam: Normal Affect, Normal Mood - Skin Skin Exam: Warm Results - Vital Signs Recent Vital Signs: Last Vital Signs Temp 98.7 F 04/20/18 18:08 Pulse 74 04/20/18 18:08 Resp 20 04/20/18 18:08 BP 107/65 04/20/18 18:08 Pulse Ox 96 04/20/18 16:33 - Labs Result Diagrams: 04/20/18 14:05 04/19/18 17:49 Labs: Laboratory Results - last 24 hr 04/19/18 04/19/18 04/20/18 18:06 20:46 06:17 WBC RBC Hgb Hct MCV MCH MCHC RDW Plt Count MPV Neut % (Auto) Lymph % (Auto) [place] % (Auto) Eos % (Auto) Baso % (Auto) Neut # (Auto) Lymph # (Auto) [place] # (Auto) Eos # (Auto) Baso # (Auto) Neutrophils % (Manual) Band Neutrophils % Lymphocytes % (Manual) Monocytes % (Manual) Eosinophils % (Manual) Platelet Estimate Hypochromasia (manual) Anisocytosis (manual) POC Glucose (mg/dL) 168 H 160 H Blood Type O POSITIVE Antibody Screen Positive Antibody Identification Anti E 04/20/18 04/20/18 04/20/18 11:05 14:05 16:21 WBC 7.0 RBC 2.75 L Hgb 8.7 L Hct 25.3 L MCV 91.8 D MCH 31.7 H MCHC 34.5 RDW 15.9 H Plt Count 202 MPV 10.0 Neut % (Auto) 82.5 H Lymph % (Auto) 9.0 L [place] % (Auto) 6.0 Eos % (Auto) 1.8 Baso % (Auto) 0.7 Neut # (Auto) 5.8 Lymph # (Auto) 0.6 L [place] # (Auto) 0.4 Eos # (Auto) 0.1 Baso # (Auto) 0.1 Neutrophils % (Manual) 85 H Band Neutrophils % 2 Lymphocytes % (Manual) 5 L Monocytes % (Manual) 5 Eosinophils % (Manual) 3 Platelet Estimate Normal Hypochromasia (manual) Slight Anisocytosis (manual) Slight POC Glucose (mg/dL) 290 H 195 H Blood Type Antibody Screen Antibody Identification Assessment & Plan (1) Symptomatic anemia Assessment and Plan: secondary to MDS s/p 2U PRBC repeat CBC in AM Status: Acute (2) Myelodysplastic syndrome Assessment and Plan: 5q- was on decitabine but was stopped as pt flt she was requiring more transfusions on this therapy recently started on weekly procrit transfusion support PRN Thank you for this interesting consult. Status: Chronic Priority: Medium
[2018-04-21 07:07] LABS: HEMOGLOBIN 9.5 g/dL (11.0-16.0); MEAN CELL VOLUME 91.2 fL (81.0-99.0); MEAN CORPUSCULAR HEMOGLOBIN 31.9 pg (27.0-31.0); MEAN PLATELET VOLUME 10.1 fL (7.2-11.7); RBC 2.98 Mil/uL (3.80-5.20); RED CELL DISTRIBUTION WIDTH 15.3 % (11.5-14.5); WHITE BLOOD COUNT 4.5 K/uL (4.8-10.8)
[2018-04-21] MEDS: Sucralfate 1 gm/10 ml Oral Susp UD PO SCH ×2 (07:37→11:51)
[2018-04-21 08:17] VITALS: TEMP 98; O2SAT 95
[2018-04-21] MEDS: (Novolog) Insulin Aspart, Recombinant 100 u/ml 10 ml vial SC SCH ×2 (08:27→12:25)
[2018-04-21 09:27] VITALS: BP 123/53; PULSE 77
--- NOTE | 2018-04-21 11:17 | CP.PCM.PN ---
Subjective - Date & Time of Evaluation Date of Evaluation: 04/21/18 Time of Evaluation: 11:12 - Subjective Subjective: Patient was discharged yesterday, however, family member did not pick patient up. Family member scheduled to pick patient up this morning. Patients hemoglobin improved to 9.5, vitals are stable. Patient has no complaints and feels well. Objective - Vital Signs/Intake and Output Vital Signs (last 24 hours): Temp Pulse Resp BP Pulse Ox 98 F 77 20 123/53 L 95 04/21/18 08:16 04/21/18 09:27 04/21/18 08:16 04/21/18 09:27 04/21/18 08:16 Intake and Output: 04/21/18 04/21/18 06:59 18:59 Intake Total 445 Balance 445 - Medications Medications: Current Medications Aspirin (Ecotrin) 81 mg PO DAILY [facility] Last Admin: 04/21/18 09:26 Dose: 81 mg Dextrose (Dextrose 50% Inj) 0 ml IV STAT PRN; Protocol PRN Reason: Hypoglycemia Protocol Dextrose (Glutose 15) 0 gm PO ONCE PRN; Protocol PRN Reason: Hypoglycemia Protocol Glucagon (Glucagen Diagnostic Kit) 0 mg IM STAT PRN; Protocol PRN Reason: Hypoglycemia Protocol Dextrose (Dextrose 5% In Water 1000 Ml) 1,000 mls @ 0 mls/hr IV .Q0M PRN; Protocol PRN Reason: Hypoglycemia Protocol Insulin Aspart (Novolog) 0 unit SC [facility]; Protocol Last Admin: 04/21/18 08:27 Dose: 1 unit Lisinopril (Zestril) 2.5 mg PO DAILY [facility] Last Admin: 04/21/18 09:26 Dose: Not Given Sucralfate (Carafate Oral Susp) 1 gm PO [facility] Last Admin: 04/21/18 07:37 Dose: 1 gm - Labs Labs: 04/21/18 06:50 04/19/18 17:49 Assessment and Plan - Assessment and Plan (Free Text) Plan: Anemia - Likely secondary to MDS - Dr. Adames, patients outpatient heme/onc, consulted; help appreciated - Transfused 2 units. - Continue to monitor MDS - Continue outpatient management per Dr. Adames DM - Accuchecks, hypoglycemic protocol - ISS - Continue to monitor HTN - Continue home medication: Lisinopril 2.5mg PO daily - Continue to monitor All management and orders per Dr. Ly. Patient is stable for discharge to home.. Patient must follow up with PMD, Dr. Ly, and heme/onc, Dr. Adames, within 1 week of discharge. Patient must continue all medications.
--- NOTE | 2018-04-21 22:39 | CP.PCM.PN ---
Subjective - Date & Time of Evaluation Date of Evaluation: 04/21/18 Time of Evaluation: 09:00 - Subjective Subjective: Feeling better. Objective - Vital Signs/Intake and Output Vital Signs (last 24 hours): Temp Pulse Resp BP Pulse Ox 98 F 77 20 123/53 L 95 04/21/18 08:16 04/21/18 09:27 04/21/18 08:16 04/21/18 09:27 04/21/18 08:16 - Labs Labs: 04/21/18 06:50 04/19/18 17:49 - Head Exam Head Exam: ATRAUMATIC - Eye Exam Eye Exam: Normal appearance - ENT Exam ENT Exam: Mucous Membranes Dry - Respiratory Exam Respiratory Exam: NORMAL BREATHING PATTERN - Cardiovascular Exam Cardiovascular Exam: +S1, +S2 - GI/Abdominal Exam GI & Abdominal Exam: Normal Bowel Sounds Assessment and Plan (1) Symptomatic anemia Assessment & Plan: secondary to MDS s/p PRBC transfusion Status: Acute (2) Myelodysplastic syndrome Assessment & Plan: s/p transfusion outpatient Procrit Status: Chronic
== END 2018-04-21 14:46 | disposition home or self-care (01) ==
LOC: C.ER 17:12 → C.5S 18:07
PROVIDERS: ADMIT Internal Medicine Pulmonary Disease; ATTEND Internal Medicine Pulmonary Disease
DX: D50.0 Iron deficiency anemia secondary to blood loss (chronic) (principal); D46.9 Myelodysplastic syndrome, unspecified; F02.80 Dementia in other diseases classified elsewhere, unspecified severity, without behavioral disturbance, psychotic disturbance, mood disturbance, and anxiety; G30.9 Alzheimer's disease, unspecified; I10 Essential (primary) hypertension; E11.9 Type 2 diabetes mellitus without complications; E78.00 Pure hypercholesterolemia, unspecified; K52.9 Noninfective gastroenteritis and colitis, unspecified; M06.9 Rheumatoid arthritis, unspecified; Z87.01 Personal history of pneumonia (recurrent)
CPT/HCPCS: 36415; 36430; 71045; 80048; 81001; 82948; 85025; 85027; 86850; 86870; 86900; 86920; 86922; 93005; 97116; 97162; 99283; G0378; G8978; G8979; J1642; P9051

== ENCOUNTER 2018-05-16 12:29 | Inpatient (IN) | payer MEDICARE ==
[2018-05-16 12:29] VITALS: BMI 22.6
--- NOTE | 2018-05-16 13:30 | C.PDOC ---
History Of Present Illness 87 y/o female brought in by family for evaluation s/p syncopal episode that occurred around 10:30 this morning. Daughter at bedside states the patient was eating breakfast when she suddenly stared at the daughter, fainted, and develo ped generalized twitching throughout her shoulders and upper extremities. Daughter reports patient has had fainting spells in the past, and she was able to catch the patient before she fell. She notes this lasted a few seconds, after which patient appeared to be sleeping for 20-30 minutes. Patient then complained of feeling drowsy and dizzy (described as room spinning). Additionally daughter notes the patient has been coughing since last night. Otherwise she denies any fevers, head trauma, tongue bite, incontinence, or other injury. She also denies any chest pain, SOB, abdominal pain, dark or bloody stools, or rash. Daughter notes the patient had some slurred speech during her drowsy period, which has now returned to normal. She denies any focal weakness, numbness, visual loss, facial droop, or other new deficit. PMD- Dr. Gamal Ly Hem/onc- Dr. Dann Adames Time Seen by Provider: 05/16/18 13:29 Chief Complaint (Nursing): Syncope History Per: Family (Daughter at bedside) History/Exam Limitations: no limitations Onset/Duration Of Symptoms: Mins Current Symptoms Are (Timing): Better Number Of Syncopal Episodes: 1 Seizure Or Post-ictal Symptoms: Generalized Seizure Activity, Post-ictal Period Fall Associated With With Symptoms: Yes, No Injury As Result Of Fall Past Medical History Reviewed: Historical Data, Nursing Documentation, Vital Signs Vital Signs: Last Vital Signs Temp 98.4 F 05/16/18 12:33 Pulse 85 05/16/18 12:33 Resp 18 05/16/18 12:33 BP 171/75 H 05/16/18 12:33 Pulse Ox 100 05/16/18 12:33 - Medical History PMH: Alzheimer's Disease, Anemia, Arthritis, Bronchitis, Dementia, Diabetes, HTN, Hypercholesterolemia, Malignancy (Myelodysplastic), Pneumonia, Rheumatoid Arthritis Denies: Chronic Kidney Disease Surgical History: Tonsillectomy - [facility] Procedures EXCISION OF DESCENDING COLON, ENDO, DIAGN (03/17/18) EXCISION OF STOMACH, ENDO, DIAGN (03/17/18) GAIT TRAINING/FUNCTIONAL AMBULATION TREATMENT (10/05/17) HOME MANAGEMENT TREATMENT (10/05/17) INSERT INFUSION DEV IN R INT JUGULAR VEIN, PERC (11/25/16) INSERTION OF VAD INTO CHEST SUBCU/FASCIA, OPEN APPROACH (11/25/16) INTRODUCE OF OTH THERAP SUBST INTO RESP TRACT, VIA OPENING (08/14/16) TRANSFUSE NONAUT RED BLOOD CELLS IN PERIPH VEIN, PERC (03/17/18) Family History: States: Unknown Family Hx - Social History Hx Alcohol Use: No Hx Substance Use: No - Immunization History Hx Tetanus Toxoid Vaccination: No Hx Influenza Vaccination: No (2017) Hx Pneumococcal Vaccination: Yes (2017) Review Of Systems Constitutional: Negative for: Fever, Chills Eyes: Negative for: Vision Change Cardiovascular: Negative for: Chest Pain, Palpitations Respiratory: Positive for: Cough. Negative for: Shortness of Breath Gastrointestinal: Negative for: Abdominal Pain, Melena, Hematochezia Skin: Negative for: Rash, Lesions Neurological: Positive for: Change in Speech (slurred after syncope, now at baseline), Seizures (questionable generalized shaking and syncopal episode), Dizziness (room spinning). Negative for: Weakness, Numbness, Incoordination, Confusion, Altered Mental Status Physical Exam - Physical Exam Appears: Non-toxic, No Acute Distress Skin: Warm, Dry, Pale Head: Normacephalic Eye(s): bilateral: Normal Inspection, PERRL, EOMI Oral Mucosa: Moist Neck: Trachea Midline, Supple, Other (No meningeal signs- negative kernig's and brudzinskis) Chest: Symmetrical Cardiovascular: Rhythm Regular, Other (no rub) Respiratory: No Rales, No Rhonchi, No Wheezing Gastrointestinal/Abdominal: Soft, No Tenderness, No Distention Extremity: Bilateral: Normal Color And Temperature Pulses: Left Dorsalis Pedis: Normal, Right Dorsalis Pedis: Normal Neurological/Psych: Oriented x3 ED Course And Treatment - Laboratory Results Result Diagrams: 05/16/18 14:13 05/16/18 14:13 O2 Sat by Pulse Oximetry: 100 (RA) Pulse Ox Interpretation: Normal Medical Decision Making Medical Decision Makin yr old female w/ hx of leukemia, anemia p/w syncopal episode this AM with ?seizure like activity. No tongue biting or enuresis however. No BALLESTEROS or fall or trauma- pt was caught by family member. No unilateral weakness. Normal neuro exam bedside. No dark or bloody stool. Dry cough for some days, but no urinary complaints or GI or Complaints. Impression: Syncope vs. Seizure Initial Plan: --EKG --CT Head --Chest x-ray --CMP --Magnesium --Troponin I --CBC --PTT/PT --UA --Blood type/screen 1450 labs: moderately anemic to 8.5 pending additional labs and imaging UA negative EK, NSR, NO STEMI 1513 XRAY: umremarkable 1543 CT:unremarkable pt in [facility] appreciate consult w/ Dr. Ly: to admit to his service pt in [facility], agreeable to plan Disposition - Disposition Disposition Time: 15:44 Condition: GOOD Forms: [facility] (Czech) - Clinical Impression Clinical Impression: Syncope - Scribe Statement The provider has reviewed the documentation as recorded by the Scribe (Meredith sheffield) Meredith Hernandez Provider Attestation: All medical record entries made by the Scribe were at my direction and personally dictated by me. I have reviewed the chart and agree that the record accurately reflects my personal performance of the history, physical exam, medical decision making, and the department course for this patient. I have also personally directed, reviewed, and agree with the discharge instructions and disposition.
[2018-05-16 14:23] LABS: SQUAMOUS EPITHIAL 1 /hpf (0-5); URINE BACTERIA RARE (<OCC); URINE BILIRUBIN NEGATIVE (NEGATIVE); URINE BLOOD NEGATIVE (NEGATIVE); URINE CLARITY Clear (Clear); URINE COLOR Yellow (YELLOW); URINE GLUCOSE (UA) NORMAL (Normal); URINE LEUKOCYTE ESTERASE TRACE Leu/uL (Negative); URINE PROTEIN NEGATIVE (NEGATIVE); URINE UROBILINOGEN NORMAL mg/dL (0.2-1.0)
[2018-05-16 14:24] LABS: BASO # 0.1 K/uL (0.0-0.2); BASO % 1.3 % (0.0-2.0); EOS # 0.4 K/uL (0.0-0.7); EOS % 4.4 % (0.0-4.0); HEMOGLOBIN 8.6 g/dL (11.0-16.0); LYMPH # 0.9 K/uL (1.0-4.3); LYMPH % 11.2 % (20.0-40.0); MEAN CORPUSCULAR HEMOGLOBIN 32.5 pg (27.0-31.0); MEAN CORPUSCULAR HGB CONC 34.6 g/dL (33.0-37.0); MEAN PLATELET VOLUME 10.3 fL (7.2-11.7); MONO # 0.3 K/uL (0.0-0.8); NEUT # 6.3 K/uL (1.8-7.0); NEUT % 79.1 % (50.0-75.0); RBC 2.64 Mil/uL (3.80-5.20); RED CELL DISTRIBUTION WIDTH 15.8 % (11.5-14.5)
[2018-05-16 14:26] LABS: INR 1.2; MEAN CELL VOLUME 93.8 fL (81.0-99.0); PROTHROMBIN TIME 13.2 SECONDS (9.7-12.2)
[2018-05-16 14:42] LABS: ALB/GLOB RATIO 1.1 (1.0-2.1); ALBUMIN 4.5 g/dL (3.5-5.0); ALT/SGPT 34 U/L (9-52); AST/SGOT 38 U/L (14-36); BLOOD UREA NITROGEN 33 mg/dL (7-17); CALCIUM 9.3 mg/dl (8.6-10.4); GFR NON-AFRICAN AMERICAN 42
--- NOTE | 2018-05-16 14:42 | RAD ---
Date of service: 05/16/2018 HISTORY: cough COMPARISON: 04/19/2018 TECHNIQUE: Chest PA and lateral FINDINGS: LUNGS: No active pulmonary disease. PLEURA: No significant pleural effusion identified. No pneumothorax apparent. CARDIOVASCULAR: There is presence of aortic atherosclerotic calcification on x-ray. Mild cardiomegaly-similar no pulmonary vascular congestion. Right central venous catheter tip superior vena cava right atrial junction-similar OSSEOUS STRUCTURES: Severe osteopenia-inferred old healed fracture right humeral head neck junction VISUALIZED UPPER ABDOMEN: Normal. OTHER FINDINGS: None. IMPRESSION: No active disease. Other findings as above.
--- NOTE | 2018-05-16 15:39 | CT ---
Date of service: 05/16/2018 PROCEDURE: CT HEAD WITHOUT CONTRAST. HISTORY: dizzy COMPARISON: Noncontrast head CT performed 08/29/17 and 03/31/17 TECHNIQUE: Axial computed tomography images were obtained through the head/brain without intravenous contrast. Radiation dose: Total exam DLP = 1014.42 mGy-cm. This CT exam was performed using one or more of the following dose reduction techniques: Automated exposure control, adjustment of the mA and/or kV according to patient size, and/or use of iterative reconstruction technique. FINDINGS: Streak artifact limits evaluation of the skull base. HEMORRHAGE: No intracranial hemorrhage. BRAIN: Diffuse atrophy with prominence of the ventricles and sulci noted. No mass effect or edema. Dense intracranial atherosclerosis. Scattered periventricular and subcortical white matter hypodensities, which are nonspecific, but often seen with chronic microvascular ischemic disease. Please note that MRI with diffusion imaging is more sensitive in the detection of acute ischemic event. Persistent more confluent low attenuation within the posterior right parietal subcortical white matter suggestive of chronic ischemic change. Chronic appearing bilateral basal ganglia lacunar infarcts. Please note that MRI with diffusion imaging is more sensitive in the detection of acute ischemic event. VENTRICLES: No hydrocephalus. CALVARIUM: Unremarkable. PARANASAL SINUSES: Unremarkable as visualized. No significant inflammatory changes. MASTOID AIR CELLS: Unremarkable as visualized. No inflammatory changes. OTHER FINDINGS: None. IMPRESSION: No acute intracranial pathology appreciated. Nonspecific white matter changes. Posterior right parietal subcortical white matter confluent low attenuation re-identified suggestive of chronic ischemia. Chronic appearing bilateral basal ganglia lacunar infarcts.
[2018-05-16] MEDS ORDERED: Sodium Chloride 0.9% 1,000 ML ONE (16:54)
[2018-05-16] MEDS: Sodium Chloride 0.9% 1,000 ML IV SCH (16:56)
[2018-05-16] MEDS ORDERED: (Lantus) Insulin Glargine, Recombinant SC SCH (22:00)
[2018-05-16 22:29] VITALS: RESP 20
[2018-05-16] MEDS: (Novolog) Insulin Aspart, Recombinant 100 u/ml 10 ml vial SC SCH (22:29)
[2018-05-16 23:24] LABS: CK-MB 0.55 ng/mL (0.0-3.38)
[2018-05-17] MEDS ORDERED: guaiFENesin DM 200 mg-20 mg/10 ml UD PO STA (00:58)
--- NOTE | 2018-05-17 07:33 | CP.PCM.PN ---
Subjective - Date & Time of Evaluation Date of Evaluation: 05/17/18 Time of Evaluation: 08:00 - Subjective Subjective: Progress Note for Dr. Ly: Patient was seen and examined at bedside in the AM. Patient states she is feeling well. She states yesterday she felt dizziness which lasted for less than 20 minutes. She currently denies dizziness, lightheadedness, headache, chest pain, shortness of breath, nausea, vomiting, diarrhea, constipation, fever or chills. Objective - Vital Signs/Intake and Output Vital Signs (last 24 hours): Temp Pulse Resp BP Pulse Ox 99.1 F 84 20 117/48 L 97 05/16/18 23:50 05/17/18 04:00 05/16/18 23:50 05/16/18 23:50 05/16/18 23:50 - Medications Medications: Current Medications Aspirin (Ecotrin) 81 mg PO DAILY [facility] Enoxaparin Sodium (Lovenox) 40 mg SC DAILY [facility] Sodium Chloride (Sodium Chloride 0.9%) 1,000 mls @ 50 mls/hr IV .Q20H [facility] Last Admin: 05/16/18 16:56 Dose: 50 mls/hr Influenza Virus Vaccine (Fluzone Quad [id number]) 60 mcg IM .ONCE ONE Stop: 05/18/18 10:01 Insulin Aspart (Novolog) 0 unit SC [facility]; Protocol Last Admin: 05/16/18 22:29 Dose: Not Given Insulin Glargine (Lantus) 10 unit SC [facility] Last Admin: 05/16/18 22:38 Dose: 10 u Lisinopril (Zestril) 2.5 mg PO DAILY [facility] - Labs Labs: 05/16/18 14:13 05/16/18 14:13 PT 13.2 SECONDS (9.7-12.2) H 05/16/18 14:13 INR 1.2 05/16/18 14:13 APTT 23 SECONDS (21-34) 05/16/18 14:13 - Constitutional Appears: No Acute Distress - Head Exam Head Exam: ATRAUMATIC, NORMAL INSPECTION - Eye Exam Eye Exam: EOMI, Normal appearance - ENT Exam ENT Exam: Mucous Membranes Moist - Respiratory Exam Respiratory Exam: Clear to Ausculation Bilateral, NORMAL BREATHING PATTERN - Cardiovascular Exam Cardiovascular Exam: REGULAR RHYTHM, +S1, +S2 - GI/Abdominal Exam GI & Abdominal Exam: Soft, Normal Bowel Sounds. absent: Tenderness - Extremities Exam Extremities Exam: Normal Inspection - Neurological Exam Neurological Exam: Alert, Awake, CN II-XII Intact, Oriented x3 Neuro motor strength exam: Left Upper Extremity: 4, Right Upper Extremity: 4, Left Lower Extremity: 4, Right Lower Extremity: 4 - Psychiatric Exam Psychiatric exam: Normal Affect, Normal Mood - Skin Skin Exam: Normal Color Assessment and Plan - Assessment and Plan (Free Text) Assessment: 87 year old female with past medical history of diabetes, HTN, MDS and anemia was admitted 05/16/18 for dizziness. Dizziness - possibly secondary to MDS - ECHO (08/24/16): EF 63%(please see full report) - Chest Xray: negative - Head CT: Negative Chronic Anemia - Likely secondary to MDS - Continue outpatient management per Dr. Adames MDS - Continue outpatient management per Dr. Adames DM - Accuchecks, hypoglycemic protocol - ISS - Aspirin 81mg daily - Continue to monitor HTN - Continue home medication: Lisinopril 2.5mg PO daily - ECHO (08/24/16): EF 63%(please see full report) - Continue to monitor Alzheimer's Disease - Continue to monitor All management and orders per Dr. Ly. Patient is stable for discharge to home. Patient must follow up with PMD, Dr. Ly, and heme/onc, Dr. Adames, within 1 week of discharge. Patient must con tinue all medications.
[2018-05-17] MEDS ORDERED: Glucagon Recombinant 1 mg Inj IM PRN (07:38)
[2018-05-17] MEDS ORDERED: Dextrose 50% SYRINGE Inj (50 ml) IV PRN (07:38)
[2018-05-17] MEDS: (Novolog) Insulin Aspart, Recombinant 100 u/ml 10 ml vial SC SCH ×2 (08:06→12:24)
[2018-05-17 08:46] VITALS: BP 128/66; PULSE 87; TEMP 98; O2SAT 95
[2018-05-17 09:16] LABS: CK-MB 0.53 ng/mL (0.0-3.38)
[2018-05-17] MEDS ORDERED: Enoxaparin 40 mg Syringe SC SCH (10:00)
[2018-05-17] MEDS ORDERED: Influenza Vaccine 60 MCG/0.5 ML SYR (3 yr & up) IM ONE (12:00)
[2018-05-17] MEDS: Sodium Chloride 0.9% 1,000 ML IV SCH (12:18)
--- NOTE | 2018-05-17 23:48 | CARD ---
APPROVED REPORT Date of service: 05/16/2018 EKG Measurement Heart [id number] CT 170P40 [id number] <Conclusion> Normal sinus rhythm Septal infarct, age undetermined T wave abnormality, consider lateral ischemia Abnormal ECG
--- NOTE | 2018-05-18 07:56 | HP ---
HISTORY OF PRESENT ILLNESS: The patient is an 87-year-old female, who is complaining of dizziness and weakness. The patient came to the ER, advised admission. The patient denies loss of consciousness or chest pain. PHYSICAL EXAMINATION: GENERAL: The patient is awake, alert, and oriented. VITAL SIGNS: Temperature 98, pulse 90. HEENT: Within normal limits. NECK: Supple. CHEST: Symmetrical. HEART: Regular. ABDOMEN: Soft. EXTREMITIES: No edema. ASSESSMENT AND PLAN: Fatigue, tiredness, dizziness. The patient is on bedrest. Neuro checks. Gamal Ly MD
[2018-05-18] MEDS ORDERED: Influenza Vaccine 60 MCG/0.5 ML SYR (3 yr & up) IM ONE (10:00)
== END 2018-05-17 12:52 | disposition home or self-care (01) | DRG 812 ==
LOC: C.ER 12:29 → C.9E 15:45 → C.6T 19:58
PROVIDERS: ADMIT Internal Medicine Pulmonary Disease; ATTEND Internal Medicine Pulmonary Disease
DX: D46.9 Myelodysplastic syndrome, unspecified (principal); D64.9 Anemia, unspecified; R42 Dizziness and giddiness; R56.9 Unspecified convulsions; E11.9 Type 2 diabetes mellitus without complications; I10 Essential (primary) hypertension; M06.9 Rheumatoid arthritis, unspecified; G30.9 Alzheimer's disease, unspecified; F02.80 Dementia in other diseases classified elsewhere, unspecified severity, without behavioral disturbance, psychotic disturbance, mood disturbance, and anxiety; E78.00 Pure hypercholesterolemia, unspecified; Z79.82 Long term (current) use of aspirin; Z85.6 Personal history of leukemia

== ENCOUNTER 2018-05-24 15:33 | Observation (INO) | payer MEDICARE ==
[2018-05-24 15:33] VITALS: BMI 22.6
--- NOTE | 2018-05-24 16:46 | C.PDOC ---
History Of Present Illness 87 y/o female,w/PMhx of leukemia, presents to the ER for abnormal lab levels. Patient states that she was visiting yesterday. called her today because she had hemoglobin level 6.7 come to the ER.Patient is complaining of weakness, light-headedness and non-productive cough. She is eating and drinking normally. Patient is also complaining of mid-lower back pain which radiates to the right side.Denies having fever, chills, CP, SOB, nausea, and vomiting. Time Seen by Provider: 05/24/18 15:46 Chief Complaint (Nursing): Abnormal Labs History Per: Patient History/Exam Limitations: no limitations Onset/Duration Of Symptoms: Days Current Symptoms Are (Timing): Still Present Severity: Moderate Past Medical History Reviewed: Historical Data, Nursing Documentation, Vital Signs Vital Signs: Last Vital Signs Temp 97.9 F 05/24/18 16:09 Pulse 83 05/24/18 16:09 Resp 20 05/24/18 16:09 BP 172/75 H 05/24/18 16:09 Pulse Ox 100 05/24/18 16:09 - Medical History PMH: Alzheimer's Disease, Anemia, Arthritis, Bronchitis, Dementia, Diabetes, HTN, Hypercholesterolemia, Malignancy (Myelodysplastic), Pneumonia, Rheumatoid Arthritis Denies: Chronic Kidney Disease Surgical History: Tonsillectomy - [facility] Procedures EXCISION OF DESCENDING COLON, ENDO, DIAGN (03/17/18) EXCISION OF STOMACH, ENDO, DIAGN (03/17/18) GAIT TRAINING/FUNCTIONAL AMBULATION TREATMENT (10/05/17) HOME MANAGEMENT TREATMENT (10/05/17) INSERT INFUSION DEV IN R INT JUGULAR VEIN, PERC (11/25/16) INSERTION OF VAD INTO CHEST SUBCU/FASCIA, OPEN APPROACH (11/25/16) INTRODUCE OF OTH THERAP SUBST INTO RESP TRACT, VIA OPENING (08/14/16) TRANSFUSE NONAUT RED BLOOD CELLS IN PERIPH VEIN, PERC (03/17/18) Family History: States: No Known Family Hx - Social History Hx Alcohol Use: No Hx Substance Use: No - Immunization History Hx Tetanus Toxoid Vaccination: No Hx Influenza Vaccination: No (2016) Hx Pneumococcal Vaccination: Yes (2016) Review Of Systems Except As Marked, All Systems Reviewed And Found Negative. Constitutional: Positive for: Weakness. Negative for: Fever, Chills Cardiovascular: Negative for: Chest Pain Respiratory: Positive for: Cough. Negative for: Shortness of Breath Gastrointestinal: Negative for: Nausea, Vomiting Musculoskeletal: Positive for: Back Pain Neurological: Positive for: Other (light-headedness) Physical Exam - Physical Exam Appears: Non-toxic, No Acute Distress Skin: Warm, Dry, Pale Head: Atraumatic, Normacephalic Eye(s): bilateral: Normal Inspection Nose: Normal Oral Mucosa: Moist Throat: Normal, No Erythema, No Exudate Neck: Supple Chest: Symmetrical Cardiovascular: Rhythm Regular Respiratory: Normal Breath Sounds, No Rales, No Rhonchi, No Wheezing Gastrointestinal/Abdominal: Normal Exam, Soft, No Tenderness, No Guarding, No Rebound Back: Other (mild tenderness in lower thoracic spine) Neurological/Psych: Oriented x3, Normal Speech ED Course And Treatment - Laboratory Results Result Diagrams: 05/24/18 17:32 05/24/18 17:32 Lab Interpretation: Abnormal (Hgb 6.8, Hct 20.0, Plt 227, BUN 26, Cr 1.2 Glucose 146) O2 Sat by Pulse Oximetry: 100 (RA) Pulse Ox Interpretation: Normal - Radiology CXR: Viewed By Me, Read By Radiologist CXR Interpretation: Yes: No Acute Disease - Physician Consult Information Time Consulting Physician Contacted: 18:31 Physician Contacted: Gamal Ly Outcome Of Conversation: Patient to be admitted for blood transfusion Disposition - Disposition Disposition: HOSPITALIZED Disposition Time: 19:15 Condition: FAIR - POA Present On Arrival: None - Clinical Impression Clinical Impression: Myelodysplastic syndrome, Anemia - Scribe Statement The provider has reviewed the documentation as recorded by the Keaton Hale Provider Attestation: All medical record entries made by the Keaton were at my direction and personally dictated by me. I have reviewed the chart and agree that the record accurately reflects my personal performance of the history, physical exam, medical decision making, and the department course for this patient. I have also personally directed, reviewed, and agree with the discharge instructions and disposition.
[2018-05-24 17:42] LABS: BASO # 0.1 K/uL (0.0-0.2); EOS # 0.3 K/uL (0.0-0.7); HEMOGLOBIN 6.8 g/dL (11.0-16.0); LYMPH # 1.4 K/uL (1.0-4.3); LYMPH % 22.6 % (20.0-40.0); MEAN CORPUSCULAR HEMOGLOBIN 32.5 pg (27.0-31.0); MEAN CORPUSCULAR HGB CONC 33.9 g/dL (33.0-37.0); MEAN PLATELET VOLUME 10.1 fL (7.2-11.7); MONO # 0.3 K/uL (0.0-0.8); MONO % 5.2 % (0.0-10.0); NEUT # 4.1 K/uL (1.8-7.0); NEUT % 66.2 % (50.0-75.0); RBC 2.08 Mil/uL (3.80-5.20); RED CELL DISTRIBUTION WIDTH 21.4 % (11.5-14.5); WHITE BLOOD COUNT 6.2 K/uL (4.8-10.8)
[2018-05-24 17:55] LABS: MEAN CELL VOLUME 95.8 fL (81.0-99.0)
[2018-05-24 18:04] LABS: SQUAMOUS EPITHIAL 1 /hpf (0-5); URINE BILIRUBIN NEGATIVE (NEGATIVE); URINE BLOOD NEGATIVE (NEGATIVE); URINE CLARITY Clear (Clear); URINE COLOR Yellow (YELLOW); URINE GLUCOSE (UA) NORMAL (Normal); URINE LEUKOCYTE ESTERASE TRACE Leu/uL (Negative); URINE PROTEIN NEGATIVE (NEGATIVE)
[2018-05-24 18:05] LABS: ALB/GLOB RATIO 1.1 (1.0-2.1); ALBUMIN 4.1 g/dL (3.5-5.0); CALCIUM 9.6 mg/dl (8.6-10.4)
--- NOTE | 2018-05-24 18:15 | RAD ---
Date of service: 05/24/2018 PROCEDURE: CHEST RADIOGRAPH, 1 VIEW HISTORY: SOB COMPARISON: 05/16/2018 FINDINGS: Right-sided central venous catheter terminates at the cavoatrial junction. LUNGS: The lungs are well inflated and clear. PLEURA: No pneumothorax or pleural effusion. CARDIOVASCULAR: The heart is normal in size. Atherosclerotic aortic arch calcifications are present. OSSEOUS STRUCTURES: Within normal limits for the patient's age. VISUALIZED UPPER ABDOMEN: Normal. OTHER FINDINGS: None. IMPRESSION: No active pulmonary disease.
[2018-05-24] MEDS: (Novolog) Insulin Aspart, Recombinant 100 u/ml 10 ml vial SC SCH (21:56)
[2018-05-24] MEDS: (Lantus) Insulin Glargine, Recombinant SC SCH (21:58)
[2018-05-25] MEDS: (Novolog) Insulin Aspart, Recombinant 100 u/ml 10 ml vial SC SCH ×4 (08:03→23:26)
[2018-05-25] MEDS ORDERED: Home Med 1 UNIT (Insulin Lispro [Humalog Kwikpen U-100] 10 UNIT) SQ SCH (10:00)
--- NOTE | 2018-05-25 10:19 | CP.PCM.CON ---
History of Present Illness - History of Present Illness History of Present Illness: 87 year old female with a history of MDS (5q-), admitted with symptomatic anemia. She was found to have a hgb of 6.6 in my office and sent to the hospital. In the hospital she was found to have a hgb of 6.6 and is s/p 2U PRBC. The patient has been off treatment as her daughter reports she was requiring more transfusions while on treatment but began a trial of weekly Procrit. She denies abnormal bleeding and bruising She does admit to some fatigue but states she feels okay. Past medical history: MDS Past surgical history: None Family history: Denies hematologic and oncologic problems Social history: Denies tobacco, alcohol, and illicit drug use. Allergies: Amoxicillin Review of systems: All remaining review of systems including HEENT, cardiovascular, respiratory, gastrointestinal, genitourinary, musculoskeletal, dermatologic, neurologic, and psychiatric are negative unless mentioned in the HPI. Past Patient History - Infectious Disease Hx of Infectious Diseases: None - Tetanus Immunizations Tetanus Immunization: Unknown - Past Medical History & Family History Past Medical History?: Yes - Past Social History Smoking Status: Never Smoked - CARDIAC Hx Hypercholesterolemia: Yes Hx Hypertension: Yes - PULMONARY Hx Bronchitis: Yes Hx Pneumonia: Yes - NEUROLOGICAL Hx Alzheimer's Disease: Yes Hx Dementia: Yes - HEENT Hx HEENT Problems: Yes Hx Cataracts: Yes (BOTH EYES) - RENAL Hx Chronic Kidney Disease: No - ENDOCRINE/METABOLIC Hx Diabetes Mellitus Type 2: Yes - HEMATOLOGICAL/ONCOLOGICAL Hx Anemia: Yes - INTEGUMENTARY Hx Dermatological Problems: No - MUSCULOSKELETAL/RHEUMATOLOGICAL Hx Arthritis: Yes Hx Rheumatoid Arthritis: Yes - GASTROINTESTINAL Hx Gastrointestinal Disorders: No - GENITOURINARY/GYNECOLOGICAL Hx Genitourinary Disorders: Yes (esbl /uti sepsis,SOME INCONTINENCY.WEARS PULLUPS.) - PSYCHIATRIC Hx Substance Use: No - SURGICAL HISTORY Hx Tonsillectomy: Yes - ANESTHESIA Hx Anesthesia: Yes Hx Anesthesia Reactions: No Hx Malignant Hyperthermia: No Meds Allergies/Adverse Reactions: Allergies Allergy/AdvReac Type Severity Reaction Status Date / Time amoxicillin Allergy Mild RASH Verified 05/24/18 16:16 - Medications Medications: Current Medications Aspirin (Ecotrin) 81 mg PO DAILY [facility] Last Admin: 05/25/18 09:55 Dose: 81 mg Home Med (Insulin Lispro [Humalog Kwikpen U-100]) 10 unit SQ TID [facility] Last Admin: 05/25/18 10:04 Dose: Not Given Insulin Aspart (Novolog) 0 unit SC ACHS [facility]; Protocol Last Admin: 05/25/18 08:03 Dose: 1 units Insulin Glargine (Lantus) 10 unit SC HS [facility] Last Admin: 05/24/18 21:58 Dose: 10 units Lisinopril (Zestril) 2.5 mg PO DAILY [facility] Last Admin: 05/25/18 09:55 Dose: 2.5 mg Physical Exam - Head Exam Head Exam: ATRAUMATIC - Eye Exam Eye Exam: Normal appearance - ENT Exam ENT Exam: Mucous Membranes Dry - Respiratory Exam Respiratory Exam: NORMAL BREATHING PATTERN - Cardiovascular Exam Cardiovascular Exam: +S1, +S2 - GI/Abdominal Exam GI & Abdominal Exam: Normal Bowel Sounds - Extremities Exam Extremities exam: Positive for: normal inspection - Neurological Exam Neurological exam: Oriented x3 - Psychiatric Exam Psychiatric exam: Normal Affect, Normal Mood - Skin Skin Exam: Warm Results - Vital Signs Recent Vital Signs: Last Vital Signs Temp 98.4 F 05/25/18 07:00 Pulse 82 05/25/18 07:00 Resp 20 05/25/18 07:00 BP 115/65 05/25/18 07:00 Pulse Ox 94 L 05/25/18 08:23 - Labs Result Diagrams: 05/26/18 06:18 05/24/18 17:32 Labs: Laboratory Results - last 24 hr 05/24/18 05/24/18 05/24/18 17:32 17:32 17:32 WBC 6.2 RBC 2.08 L Hgb 6.8 L Hct 20.0 L MCV 95.8 D MCH 32.5 H MCHC 33.9 RDW 21.4 H Plt Count 227 MPV 10.1 Neut % (Auto) 66.2 Lymph % (Auto) 22.6 [place] % (Auto) 5.2 Eos % (Auto) 5.0 H Baso % (Auto) 1.0 Neut # (Auto) 4.1 Lymph # (Auto) 1.4 [place] # (Auto) 0.3 Eos # (Auto) 0.3 Baso # (Auto) 0.1 Sodium 137 Potassium 4.5 Chloride 97 L Carbon Dioxide 28 Anion Gap 16 BUN 26 H Creatinine 1.2 Est GFR ( Amer) 51 Est GFR (Non-Af Amer) 42 POC Glucose (mg/dL) Random Glucose 146 H Calcium 9.6 Total Bilirubin 0.4 AST 24 ALT 24 Alkaline Phosphatase 90 Total Protein 7.9 Albumin 4.1 Globulin 3.8 Albumin/Globulin Ratio 1.1 Urine Color Urine Clarity Urine pH Ur Specific [place] Urine Protein Urine Glucose (UA) Urine Ketones Urine Blood Urine Nitrate Urine Bilirubin Urine Urobilinogen Ur Leukocyte Esterase Urine WBC (Auto) Urine RBC (Auto) Ur Squamous Epith Cells Blood Type O POSITIVE Antibody Screen Positive Antibody Identification Anti E LAURIE, Poly Interpret Negative 05/24/18 05/24/18 05/25/18 17:39 21:21 06:05 WBC RBC Hgb Hct MCV MCH MCHC RDW Plt Count MPV Neut % (Auto) Lymph % (Auto) [place] % (Auto) Eos % (Auto) Baso % (Auto) Neut # (Auto) Lymph # (Auto) [place] # (Auto) Eos # (Auto) Baso # (Auto) Sodium Potassium Chloride Carbon Dioxide Anion Gap BUN Creatinine Est GFR ( Amer) Est GFR (Non-Af Amer) POC Glucose (mg/dL) 281 H 163 H Random Glucose Calcium Total Bilirubin AST ALT Alkaline Phosphatase Total Protein Albumin Globulin Albumin/Globulin Ratio Urine Color Yellow Urine Clarity Clear Urine pH 6.0 Ur Specific [place] 1.013 Urine Protein Negative Urine Glucose (UA) Normal Urine Ketones Negative Urine Blood Negative Urine Nitrate Negative Urine Bilirubin Negative Urine Urobilinogen 2.0 H Ur Leukocyte Esterase Trace Urine WBC (Auto) 3 Urine RBC (Auto) 1 Ur Squamous Epith Cells 1 Blood Type Antibody Screen Antibody Identification LAURIE, Poly Interpret Assessment & Plan (1) Anemia Assessment and Plan: secondary to MDS s/p 2U PRBC Status: Acute (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 Status: Acute
--- NOTE | 2018-05-25 10:53 | CP.PCM.PN ---
Subjective - Date & Time of Evaluation Date of Evaluation: 05/25/18 Time of Evaluation: 07:40 - Subjective Subjective: 87 yo female with past medical history significant for Myelodysplastic disease, anemia, arthritis, bronchitis, DM, CAD, HTN, and rheumatoid arthritis was sent in by Dr. Adames for anemia. Patient's blood work with Dr. Adames showed Hemog lobin of 6.7 and was complaining of lightheadedness and weakness. Patent was seen and examined at bedside in no acute distress. Patient has no complaints and reports shes feeling well currently. Patient denies chest pain, palpitations, dyspnea, cough, nausea, vomiting, fevers, headaches, abdominal pain, diarrhea, constipation, blood in stool, or urinary symptoms. PMHX: as described above PSurgHx: tonsillectomy Fam Hx: father with hepatitis, brother and sister with MDS Current meds: ASA daily, Novolog, Insulin glargine 10 U schs, Lisinopril 2.5 mg daily, Percocet 1 tab q 4h prn, Miralax bid Soc Hx: Denies smoking, alcohol, or illicit drug use; lives at home with daughter Allergies: amoxicillin Objective - Vital Signs/Intake and Output Vital Signs (last 24 hours): Temp Pulse Resp BP Pulse Ox 98.4 F 82 20 115/65 94 L 05/25/18 07:00 05/25/18 07:00 05/25/18 07:00 05/25/18 07:00 05/25/18 08:23 Intake and Output: 05/25/18 05/25/18 06:59 18:59 Intake Total 50 0 Balance 50 0 - Medications Medications: Current Medications Aspirin (Ecotrin) 81 mg PO DAILY [facility] Last Admin: 05/25/18 09:55 Dose: 81 mg Home Med (Insulin Lispro [Humalog Kwikpen U-100]) 10 unit SQ TID [facility] Last Admin: 05/25/18 10:04 Dose: Not Given Insulin Aspart (Novolog) 0 unit SC [facility]; Protocol Last Admin: 05/25/18 08:03 Dose: 1 units Insulin Glargine (Lantus) 10 unit SC HS [facility] Last Admin: 05/24/18 21:58 Dose: 10 units Lisinopril (Zestril) 2.5 mg PO DAILY [facility] Last Admin: 05/25/18 09:55 Dose: 2.5 mg - Labs Labs: 05/24/18 17:32 - Additional Findings Additional findings: - Constitutional Appears: No Acute Distress - Head Exam Head Exam: NORMAL INSPECTION - Eye Exam Eye Exam: EOMI, Conjunctival Pallor Bilaterally - ENT Exam ENT Exam: Mucous Membranes Moist - Respiratory Exam Respiratory Exam: Clear to Ausculation Bilateral, NORMAL BREATHING PATTERN. absent: Rales, Rhonchi, Wheezes, Respiratory Distress - Cardiovascular Exam Cardiovascular Exam: REGULAR RHYTHM, +S1, +S2 - GI/Abdominal Exam GI & Abdominal Exam: Soft, Normal Bowel Sounds. absent: Distended, Firm, Guarding, Tenderness - Extremities Exam Extremities Exam: Normal Inspection. absent: Pedal Edema, Tenderness - Neurological Exam Neurological Exam: Alert, Awake. absent: Oriented x3 - Psychiatric Exam Psychiatric exam: Normal Affect, Normal Mood - Skin Skin Exam: Dry, Intact, Normal Color, Warm Additional comments: Port placed in right chest Assessment and Plan - Assessment and Plan (Free Text) Assessment: Anemia - Likely secondary to MDS - Dr. Adames, patients outpatient heme/onc, consulted; help appreciated - PRB 2 units to be transfused - Follow up CBC MDS - Continue outpatient management per Dr. Adames DM - Accuchecks, hypoglycemic protocol - ISS - Continue to monitor HTN - Lisinopril 2.5mg PO - Continue to monitor Dispo: Discharge home after transfusions All management and orders per Dr. Ly
[2018-05-25] MEDS ORDERED: (Novolog) Insulin Aspart, Recombinant 100 u/ml 10 ml vial SC SCH (16:30)
[2018-05-25 17:21] VITALS: RESP 20
[2018-05-25] MEDS: (Lantus) Insulin Glargine, Recombinant SC SCH (23:26)
[2018-05-26 06:33] LABS: HEMOGLOBIN 9.2 g/dL (11.0-16.0); MEAN CELL VOLUME 91.8 fL (81.0-99.0); MEAN CORPUSCULAR HEMOGLOBIN 31.2 pg (27.0-31.0); RBC 2.95 Mil/uL (3.80-5.20); RED CELL DISTRIBUTION WIDTH 14.7 % (11.5-14.5)
--- NOTE | 2018-05-26 07:49 | CP.PCM.PN ---
Subjective - Date & Time of Evaluation Date of Evaluation: 05/26/18 Time of Evaluation: 07:45 - Subjective Subjective: Resident Progress Note for Dr. Ly Patient seen and examined at bedside. No acute complains overnight. Patient is resting at bedside comfortably. Patient denies fatigue, fever, chills, shortness of breath, chest pain, nausea, vomiting, and diarrhea. Objective - Vital Signs/Intake and Output Vital Signs (last 24 hours): Temp Pulse Resp BP Pulse Ox 98.2 F 77 20 139/67 95 05/26/18 04:00 05/26/18 04:00 05/26/18 04:00 05/26/18 04:00 05/26/18 04:00 - Medications Medications: Current Medications Aspirin (Ecotrin) 81 mg PO DAILY [facility] Last Admin: 05/25/18 09:55 Dose: 81 mg Insulin Aspart (Novolog) 0 unit SC ACHS [facility]; Protocol Last Admin: 05/25/18 23:26 Dose: Not Given Insulin Aspart (Novolog) 5 unit SC TIDAC [facility] Insulin Glargine (Lantus) 10 unit SC HS [facility] Last Admin: 05/25/18 23:26 Dose: Not Given Lisinopril (Zestril) 2.5 mg PO DAILY [facility] Last Admin: 05/25/18 09:55 Dose: 2.5 mg - Labs Labs: 05/26/18 06:18 05/24/18 17:32 - Additional Findings Additional findings: - Constitutional Appears: No Acute Distress - Head Exam Head Exam: NORMAL INSPECTION - Eye Exam Eye Exam: EOMI, Conjunctival Pallor Bilaterally - ENT Exam ENT Exam: Mucous Membranes Moist - Respiratory Exam Respiratory Exam: Clear to Ausculation Bilateral, NORMAL BREATHING PATTERN. absent: Rales, Rhonchi, Wheezes, Respiratory Distress - Cardiovascular Exam Cardiovascular Exam: REGULAR RHYTHM, +S1, +S2 - GI/Abdominal Exam GI & Abdominal Exam: Soft, Normal Bowel Sounds. absent: Distended, Firm, Guarding, Tenderness - Extremities Exam Extremities Exam: Normal Inspection. absent: Pedal Edema, Tenderness - Neurological Exam Neurological Exam: Alert, Awake. absent: Oriented x3 - Psychiatric Exam Psychiatric exam: Normal Affect, Normal Mood - Skin Skin Exam: Dry, Intact, Normal Color, Warm Additional comments: Port placed in right chest, clean and dry Assessment and Plan - Assessment and Plan (Free Text) Assessment: Anemia - Likely secondary to MDS - Dr. Adames, patients outpatient heme/onc, consulted; help appreciated - PRB 2 units transfused - AM Hgb 9.2 MDS - Continue outpatient management per Dr. Adames DM - Accuchecks, hypoglycemic protocol - ISS - Continue to monitor HTN - Lisinopril 2.5mg PO - Continue to monitor Dispo: Discharge home and outpatient Heme/onc follow up All management and orders per Dr. Ly
[2018-05-26 07:54] VITALS: BP 120/70; PULSE 75; TEMP 98.8; O2SAT 96
[2018-05-26] MEDS: (Novolog) Insulin Aspart, Recombinant 100 u/ml 10 ml vial SC SCH ×4 (08:14→12:26)
[2018-05-26] MEDS ORDERED: Sodium Chloride 0.9% 200 ML IV ONE (12:21)
--- NOTE | 2018-05-26 22:11 | CP.PCM.PN ---
Subjective - Date & Time of Evaluation Date of Evaluation: 05/26/18 Time of Evaluation: 09:00 - Subjective Subjective: Feeling better Objective - Vital Signs/Intake and Output Vital Signs (last 24 hours): Temp Pulse Resp BP Pulse Ox 98.8 F 75 20 120/70 96 05/26/18 07:00 05/26/18 07:00 05/26/18 07:00 05/26/18 07:00 05/26/18 07:00 - Labs Labs: 05/26/18 06:18 05/24/18 17:32 - Head Exam Head Exam: ATRAUMATIC - Eye Exam Eye Exam: Normal appearance - ENT Exam ENT Exam: Mucous Membranes Dry - Respiratory Exam Respiratory Exam: NORMAL BREATHING PATTERN - Cardiovascular Exam Cardiovascular Exam: +S1, +S2 - GI/Abdominal Exam GI & Abdominal Exam: Normal Bowel Sounds Assessment and Plan (1) Anemia Assessment & Plan: s/p 2u PRBC Status: Acute (2) MDS (myelodysplastic syndrome) with 5q deletion Assessment & Plan: outpatient treatment Status: Acute
== END 2018-05-26 13:15 | disposition home or self-care (01) ==
LOC: C.ER 15:33 → C.9E 19:16 → C.6T 20:23
PROVIDERS: ADMIT Internal Medicine Pulmonary Disease; ATTEND Internal Medicine Pulmonary Disease
DX: D46.C Myelodysplastic syndrome with isolated del(5q) chromosomal abnormality (principal); D63.8 Anemia in other chronic diseases classified elsewhere; E11.9 Type 2 diabetes mellitus without complications; I10 Essential (primary) hypertension; I25.10 Atherosclerotic heart disease of native coronary artery without angina pectoris; E78.00 Pure hypercholesterolemia, unspecified; F02.80 Dementia in other diseases classified elsewhere, unspecified severity, without behavioral disturbance, psychotic disturbance, mood disturbance, and anxiety; G30.9 Alzheimer's disease, unspecified; M06.9 Rheumatoid arthritis, unspecified; Z79.4 Long term (current) use of insulin; Z79.82 Long term (current) use of aspirin; Z79.899 Other long term (current) drug therapy; Z87.01 Personal history of pneumonia (recurrent)
CPT/HCPCS: 36415; 36430; 71045; 80053; 81001; 82948; 85025; 85027; 86850; 86870; 86880; 86900; 86920; 86922; 97116; 97162; 99284; G0328; G0378; G8978; G8979; J1642; P9051

== ENCOUNTER 2018-07-11 15:37 | Observation (INO) | payer MEDICARE ==
[2018-07-11 15:38] VITALS: BMI 22.6
[2018-07-11 16:57] LABS: BASO # 0.1 K/uL (0.0-0.2); BASO % 0.9 % (0.0-2.0); EOS # 0.1 K/uL (0.0-0.7); EOS % 1.2 % (0.0-4.0); LYMPH # 0.5 K/uL (1.0-4.3); LYMPH % 6.7 % (20.0-40.0); MEAN CORPUSCULAR HEMOGLOBIN 31.4 pg (27.0-31.0); MEAN CORPUSCULAR HGB CONC 34.1 g/dL (33.0-37.0); MEAN PLATELET VOLUME 10.5 fL (7.2-11.7); MONO # 0.2 K/uL (0.0-0.8); MONO % 2.8 % (0.0-10.0); NEUT # 6.7 K/uL (1.8-7.0); NEUT % 88.4 % (50.0-75.0); NRBC % 0.1 % (0.0-2.0); PLATELET COUNT 177 K/uL (130-400); RED CELL DISTRIBUTION WIDTH 14.8 % (11.5-14.5); WHITE BLOOD COUNT 7.6 K/uL (4.8-10.8)
[2018-07-11 17:00] LABS: SQUAMOUS EPITHIAL < 1 /hpf (0-5); URINE BILIRUBIN NEGATIVE (NEGATIVE); URINE BLOOD NEGATIVE (NEGATIVE); URINE CLARITY Clear (Clear); URINE COLOR Yellow (YELLOW); URINE GLUCOSE (UA) NORMAL (Normal); URINE LEUKOCYTE ESTERASE TRACE Leu/uL (Negative); URINE PROTEIN NEGATIVE (NEGATIVE); URINE UROBILINOGEN NORMAL mg/dL (0.2-1.0)
[2018-07-11 17:04] LABS: HEMOGLOBIN 7.5 g/dL (11.0-16.0)
--- NOTE | 2018-07-11 17:06 | C.PDOC ---
History Of Present Illness 87 y/o female presents to the ED for evaluation of chest pain. As per daughter, patient started chemotherapy yesterday with Dr. Kayla Adames. Thereafter patient developed chest pain. Of note, Dr. Adames also recently told patient that she will need a blood transfusion. Patient states at present she has no pain. On arrival, she appears pale. Time Seen by Provider: 07/11/18 16:15 Chief Complaint (Nursing): Chest Pain History Per: Patient History/Exam Limitations: no limitations Onset/Duration Of Symptoms: Hrs Current Symptoms Are (Timing): Still Present Quality: "Pain" Additional History Per: Family Past Medical History Reviewed: Historical Data, Nursing Documentation, Vital Signs Vital Signs: Last Vital Signs Temp 97.6 F 07/11/18 15:45 Pulse 75 07/11/18 16:20 Resp 17 07/11/18 15:45 BP 167/77 H 07/11/18 15:45 Pulse Ox 100 07/11/18 15:45 - Medical History PMH: Alzheimer's Disease, Anemia, Arthritis, Bronchitis, Dementia, Diabetes, HTN, Hypercholesterolemia, Malignancy (Myelodysplastic), Pneumonia, Rheumatoid Arthritis Denies: Chronic Kidney Disease Surgical History: Tonsillectomy - [facility] Procedures EXCISION OF DESCENDING COLON, ENDO, DIAGN (03/17/18) EXCISION OF STOMACH, ENDO, DIAGN (03/17/18) GAIT TRAINING/FUNCTIONAL AMBULATION TREATMENT (10/05/17) HOME MANAGEMENT TREATMENT (10/05/17) INSERT INFUSION DEV IN R INT JUGULAR VEIN, PERC (11/25/16) INSERTION OF VAD INTO CHEST SUBCU/FASCIA, OPEN APPROACH (11/25/16) INTRODUCE OF OTH THERAP SUBST INTO RESP TRACT, VIA OPENING (08/14/16) TRANSFUSE NONAUT RED BLOOD CELLS IN PERIPH VEIN, PERC (03/17/18) Family History: States: Unknown Family Hx - Social History Hx Alcohol Use: No Hx Substance Use: No - Immunization History Hx Tetanus Toxoid Vaccination: No Hx Influenza Vaccination: No Hx Pneumococcal Vaccination: Yes (2016) Review Of Systems Except As Marked, All Systems Reviewed And Found Negative. Constitutional: Negative for: Fever, Chills Cardiovascular: Positive for: Chest Pain. Negative for: Palpitations Respiratory: Negative for: Shortness of Breath Gastrointestinal: Negative for: Nausea, Vomiting, Diarrhea Skin: Positive for: Other (Pale) Neurological: Negative for: Confusion, Headache Physical Exam - Physical Exam Appears: Non-toxic, No Acute Distress Skin: Pale (very) Head: Atraumatic, Normacephalic Eye(s): bilateral: Normal Inspection, PERRL, EOMI Oral Mucosa: Moist Neck: Normal ROM Chest: Symmetrical, No Tenderness Cardiovascular: Rhythm Regular, No Murmur Respiratory: Normal Breath Sounds, No Rales, No Rhonchi, No Wheezing Gastrointestinal/Abdominal: Soft, No Tenderness, No Distention Extremity: Bilateral: Atraumatic, Normal Color And Temperature Neurological/Psych: Oriented x3, Normal Speech ED Course And Treatment - Laboratory Results Result Diagrams: 07/11/18 16:51 07/11/18 16:51 Lab Results: Urine Color Yellow (YELLOW) 07/11/18 16:51 Urine Clarity Clear (Clear) 07/11/18 16:51 Urine pH 5.0 (5.0-8.0) 07/11/18 16:51 Ur Specific [place] 1.013 (1.003-1.030) 07/11/18 16:51 Urine Protein Negative mg/dL (NEGATIVE) 07/11/18 16:51 Urine Glucose (UA) Normal mg/dL (Normal) 07/11/18 16:51 Urine Ketones Negative mg/dL (NEGATIVE) 07/11/18 16:51 Urine Blood Negative (NEGATIVE) 07/11/18 16:51 Urine Nitrate Negative (NEGATIVE) 07/11/18 16:51 Urine Bilirubin Negative (NEGATIVE) 07/11/18 16:51 Urine Urobilinogen Normal mg/dL (0.2-1.0) 07/11/18 16:51 Ur Leukocyte Esterase Trace Sandra/uL (Negative) 07/11/18 16:51 Urine WBC (Auto) 2 /hpf (0-5) 07/11/18 16:51 Ur Squamous Epith Cells < 1 /hpf (0-5) 07/11/18 16:51 ECG: Interpreted By Me, Viewed By Me ECG Rhythm: Sinus Rhythm Interpretation Of ECG: ST and T abnormalities in the lateral leads Rate From EC (bpm) O2 Sat by Pulse Oximetry: 100 (RA) Pulse Ox Interpretation: Normal Progress Note: EKG, CXR ordered. Labs sent for analysis and reviewed. Hemoglobin is 7.5. 17:[address] Adames, requests 2 units of blood be transfused. 1st unit will be initiated in the ED. Discussed with Dr. Ly, patient will be admitted to [facility] for chest pain and anemia. Disposition Counseled Patient/Family Regarding: Studies Performed, Diagnosis - Disposition Disposition: HOSPITALIZED Disposition Time: 17:55 Condition: FAIR Forms: [facility] (Romansh) - Clinical Impression Clinical Impression: Chest pain, Myelodysplastic syndrome, Symptomatic anemia - PA / OPTOMETRIC TECHNOLOGIST / Resident Statement MD/DO has reviewed & agrees with the documentation as recorded. - Scribe Statement The provider has reviewed the documentation as recorded by the Amauriibjeanette Hernandez All medical record entries made by the Amauriibjeanette were at my direction and personally dictated by me. I have reviewed the chart and agree that the record accurately reflects my personal performance of the history, physical exam, medical decision making, and the department course for this patient. I have also personally directed, reviewed, and agree with the discharge instructions and disposition. Decision To Admit - Pt Status Changed To: Hospital Disposition Of: Observation - . Bed Request Type: Telemetry Admitting Physician: Gamal Ly Patient Diagnosis: Chest pain, Myelodysplastic syndrome, Symptomatic anemia
[2018-07-11 17:13] LABS: ALB/GLOB RATIO 1.3 (1.0-2.1); ALBUMIN 4.6 g/dL (3.5-5.0)
[2018-07-11 17:17] LABS: INR 1.2; PROTHROMBIN TIME 12.8 SECONDS (9.7-12.2)
[2018-07-11 17:21] LABS: TROPONIN I 0.032 ng/mL (0.00-0.120)
--- NOTE | 2018-07-11 17:47 | RAD ---
Date of service: 07/11/2018 PROCEDURE: CHEST RADIOGRAPH, 1 VIEW HISTORY: chest pain COMPARISON: Chest radiograph dated 06/16/2018. FINDINGS: LUNGS: Stable chronic prominence of the bilateral interstitial markings. No focal consolidation. PLEURA: No pneumothorax or pleural fluid seen. CARDIOVASCULAR: Aortic atherosclerotic calcifications. Cardiomediastinal silhouette stably enlarged. OSSEOUS STRUCTURES: Unchanged. VISUALIZED UPPER ABDOMEN: Normal. OTHER FINDINGS: Right internal jugular access chest port, unchanged. IMPRESSION: No active disease.
[2018-07-11 18:39] LABS: BANDS 4 % (0-2); HYPOCHROMIC SLIGHT; LYMPHOCYTE 9 % (20-40); MICROCYTOSIS SLIGHT; MONOCYTE 3 % (0-10); NEUTROPHIL 84 % (50-75); OVALOCYTES SLIGHT; PLATELET ESTIMATE NORMAL (NORMAL); TOTAL CELLS COUNTED 100
[2018-07-11 18:40] LABS: GIANT PLATELETS PRESENT; LARGE PLATELETS PRESENT
[2018-07-11] MEDS ORDERED: (Lantus) Insulin Glargine, Recombinant SC ONE (22:56)
[2018-07-11] MEDS ORDERED: (Novolog) Insulin Aspart, Recombinant 100 u/ml 10 ml vial ONE (23:00)
[2018-07-11] MEDS: (Lantus) Insulin Glargine, Recombinant SC SCH ×2 (23:03→23:04)
[2018-07-11] MEDS: (Novolog) Insulin Aspart, Recombinant 100 u/ml 10 ml vial SC SCH (23:07)
--- NOTE | 2018-07-12 07:37 | CP.PCM.PN ---
Subjective - Date & Time of Evaluation Date of Evaluation: 07/12/18 Time of Evaluation: 07:00 - Subjective Subjective: PGY2- Progress Note for Dr. Ly Patient seen and examined at bedside and in no acute distress. Patient says she is feeling well. Patient has not had any chest pain since admission. Patient denies any shortness of breath, abdominal pain, nausea, vomiting, constipation, or diarrhea. Objective - Vital Signs/Intake and Output Vital Signs (last 24 hours): Temp Pulse Resp BP Pulse Ox 97.9 F 79 20 135/67 97 07/12/18 04:00 07/12/18 04:00 07/12/18 04:00 07/12/18 04:00 07/12/18 04:00 - Medications Medications: Current Medications Insulin Aspart (Novolog) 0 unit SC ACHS [facility]; Protocol Last Admin: 07/11/18 23:07 Dose: 3 unit Insulin Glargine (Lantus) 10 unit SC HS [facility] Last Admin: 07/11/18 23:03 Dose: 10 units Ondansetron HCl (Zofran Inj) 4 mg IVP Q8 PRN PRN Reason: nausea and vomiting Last Admin: 07/11/18 23:20 Dose: 4 mg - Labs Labs: 07/11/18 16:51 07/11/18 16:51 PT 12.8 SECONDS (9.7-12.2) H 07/11/18 16:51 INR 1.2 07/11/18 16:51 APTT 27 SECONDS (21-34) 07/11/18 16:51 - Constitutional Appears: Non-toxic, No Acute Distress - Head Exam Head Exam: ATRAUMATIC, NORMAL INSPECTION, NORMOCEPHALIC - ENT Exam ENT Exam: Mucous Membranes Moist - Respiratory Exam Respiratory Exam: Clear to Ausculation Bilateral, NORMAL BREATHING PATTERN. absent: Rales, Rhonchi, Wheezes, Stridor - Cardiovascular Exam Cardiovascular Exam: REGULAR RHYTHM, RRR, +S1, +S2 - GI/Abdominal Exam GI & Abdominal Exam: Soft, Normal Bowel Sounds. absent: Tenderness - Extremities Exam Extremities Exam: Full ROM, Normal Inspection. absent: Pedal Edema - Neurological Exam Neurological Exam: Alert, Awake, Oriented x3 - Psychiatric Exam Psychiatric exam: Normal Affect, Normal Mood - Skin Skin Exam: Intact, Pallor, Warm Assessment and Plan - Assessment and Plan (Free Text) Assessment: Anemia HgB on admission 7.5, transfused 2 u PRBCs f/u repeat CBC post transfusion Chest Pain resolved on admission Troponin I: .0320 EKG: sinus rhythm at 74bpm with nonspecific ST and T wave abnormalities in the lateral leads Myelodysplastic Syndrome seeing Dr. Adames for chemotherapy DMII ISS Insulin Glargine 10 u SC HS accuchecks ACHS HgA1C: 7.7 Prophylaxis SCDs no GI prophylaxis indicated Discussed with Dr. Ly
[2018-07-12] MEDS: (Novolog) Insulin Aspart, Recombinant 100 u/ml 10 ml vial SC SCH ×4 (08:03→21:17)
[2018-07-12 08:49] LABS: BASO % 0.3 % (0.0-2.0); EOS % 0.2 % (0.0-4.0); HEMOGLOBIN 7.3 g/dL (11.0-16.0); LYMPH # 0.7 K/uL (1.0-4.3); LYMPH % 7.9 % (20.0-40.0); MEAN CELL VOLUME 93.4 fL (81.0-99.0); MEAN CORPUSCULAR HEMOGLOBIN 30.9 pg (27.0-31.0); MEAN CORPUSCULAR HGB CONC 33.1 g/dL (33.0-37.0); MEAN PLATELET VOLUME 10.2 fL (7.2-11.7); MONO # 0.3 K/uL (0.0-0.8); MONO % 2.8 % (0.0-10.0); NEUT % 88.8 % (50.0-75.0); NRBC % 0.1 % (0.0-2.0); PLATELET COUNT 183 K/uL (130-400); RBC 2.36 Mil/uL (3.80-5.20); RED CELL DISTRIBUTION WIDTH 15.5 % (11.5-14.5)
[2018-07-12 09:53] LABS: ALB/GLOB RATIO 1.3 (1.0-2.1); ALBUMIN 4.3 g/dL (3.5-5.0); CALCIUM 9.2 mg/dl (8.6-10.4)
[2018-07-12 09:57] LABS: BANDS 7 % (0-2); LYMPHOCYTE 7 % (20-40); MONOCYTE 3 % (0-10); NEUTROPHIL 83 % (50-75); PLATELET ESTIMATE NORMAL (NORMAL); TOTAL CELLS COUNTED 100
[2018-07-12 09:58] LABS: ANISOCYTOSIS SLIGHT; LARGE PLATELETS PRESENT
[2018-07-12 12:15] VITALS: RESP 20
[2018-07-12 22:34] LABS: BASO % 0.6 % (0.0-2.0); EOS # 0.1 K/uL (0.0-0.7); EOS % 1.8 % (0.0-4.0); LYMPH # 1.4 K/uL (1.0-4.3); LYMPH % 19.4 % (20.0-40.0); MEAN CORPUSCULAR HEMOGLOBIN 30.7 pg (27.0-31.0); MONO # 0.4 K/uL (0.0-0.8); MONO % 5.7 % (0.0-10.0); NEUT # 5.1 K/uL (1.8-7.0); NEUT % 72.5 % (50.0-75.0); RBC 3.29 Mil/uL (3.80-5.20); RED CELL DISTRIBUTION WIDTH 15.6 % (11.5-14.5)
[2018-07-12] MEDS: (Lantus) Insulin Glargine, Recombinant SC SCH (22:34)
[2018-07-12 22:36] LABS: HEMOGLOBIN 10.1 g/dL (11.0-16.0)
--- NOTE | 2018-07-13 06:15 | HP ---
HISTORY OF PRESENT ILLNESS: An 87 year-old female who was admitted with chief complaint of severe anemia, weakness. The patient has a history of myelodysplastic syndrome. Anemia, possible blood transfusion. The patient came to the hospital, advised admission. PHYSICAL EXAMINATION: GENERAL: The patient is awake, alert and oriented. VITAL SIGNS: Temperature is 98 and pulse 90. HEENT: Within normal limits. NECK: Supple. CHEST: Symmetrical. HEART: Regular. ABDOMEN: Soft. EXTREMITIES: No edema. IMPRESSION AND PLAN: The patient suffers from myelodysplastic syndrome and severe anemia symptomatic. The patient get bed rest, blood transfusion, oncology consult. Gamal Ly MD
--- NOTE | 2018-07-13 07:13 | CP.PCM.PN ---
Subjective - Date & Time of Evaluation Date of Evaluation: 07/13/18 Time of Evaluation: 07:00 - Subjective Subjective: PGY2- Progress Note for Dr. Ly Patient seen and examined at bedside and in no acute distress. Patient says she is feeling well. Patient denies any dizziness, headache, chest pain, shortness of breath, abdominal pain, nausea, vomiting, constipation, or diarrhea. Patient received 2 u PRBCs yesterday which she tolerated well. Objective - Vital Signs/Intake and Output Vital Signs (last 24 hours): Temp Pulse Resp BP Pulse Ox 97.7 F 66 20 130/86 95 07/12/18 23:20 07/12/18 23:50 07/12/18 23:20 07/12/18 23:20 07/12/18 23:20 - Medications Medications: Current Medications Insulin Aspart (Novolog) 0 unit SC [facility]; Protocol Last Admin: 07/12/18 21:17 Dose: Not Given Insulin Glargine (Lantus) 10 unit SC [facility] Last Admin: 07/12/18 22:34 Dose: 10 units Ondansetron HCl (Zofran Inj) 4 mg IVP Q8 PRN PRN Reason: nausea and vomiting Last Admin: 07/11/18 23:20 Dose: 4 mg - Labs Labs: 07/12/18 22:30 07/12/18 08:31 PT 12.8 SECONDS (9.7-12.2) H 07/11/18 16:51 INR 1.2 07/11/18 16:51 APTT 27 SECONDS (21-34) 07/11/18 16:51 - Constitutional Appears: Non-toxic, No Acute Distress - Head Exam Head Exam: ATRAUMATIC, NORMAL INSPECTION, NORMOCEPHALIC - Eye Exam Eye Exam: EOMI, Normal appearance - ENT Exam ENT Exam: Mucous Membranes Moist - Respiratory Exam Respiratory Exam: Clear to Ausculation Bilateral, NORMAL BREATHING PATTERN - Cardiovascular Exam Cardiovascular Exam: REGULAR RHYTHM, RRR, +S1, +S2 - GI/Abdominal Exam GI & Abdominal Exam: Soft, Normal Bowel Sounds. absent: Tenderness - Neurological Exam Neurological Exam: Alert, Awake, Oriented x3 - Psychiatric Exam Psychiatric exam: Normal Affect, Normal Mood - Skin Skin Exam: Intact, Normal Color, Warm Assessment and Plan - Assessment and Plan (Free Text) Assessment: Anemia HgB on admission 7.5 then decreased to 7.3 transfused 2 u PRBCs H/H post transfusion: 10.1/ 30.6 Chest Pain resolved on admission Troponin I: .0320 EKG: sinus rhythm at 74bpm with nonspecific ST and T wave abnormalities in the lateral leads Myelodysplastic Syndrome seeing Dr. Adames for chemotherapy DMII ISS Insulin Glargine 10 u SC HS accuchecks ACHS HgA1C: 7.7 Prophylaxis SCDs no GI prophylaxis indicated Discussed with Dr. Ly Dispo: Patient stable for discharge. Patient will follow up with Dr. Adames and Dr. Ly as an outpatient.
[2018-07-13] MEDS: (Novolog) Insulin Aspart, Recombinant 100 u/ml 10 ml vial SC SCH ×2 (08:04→12:03)
[2018-07-13 08:19] VITALS: BP 140/73; TEMP 98.2; O2SAT 96
[2018-07-13 11:47] VITALS: PULSE 73
== END 2018-07-13 14:29 | disposition home or self-care (01) ==
LOC: C.ER 15:37 → C.9E 17:54 → C.6T 22:22
PROVIDERS: ADMIT Internal Medicine Pulmonary Disease; ATTEND Internal Medicine Pulmonary Disease
DX: D64.9 Anemia, unspecified (principal); D46.9 Myelodysplastic syndrome, unspecified; R07.9 Chest pain, unspecified; E11.9 Type 2 diabetes mellitus without complications; Z79.4 Long term (current) use of insulin; I10 Essential (primary) hypertension; G30.9 Alzheimer's disease, unspecified; F02.80 Dementia in other diseases classified elsewhere, unspecified severity, without behavioral disturbance, psychotic disturbance, mood disturbance, and anxiety; M06.9 Rheumatoid arthritis, unspecified
CPT/HCPCS: 36415; 36430; 71045; 80053; 80061; 81001; 82948; 83036; 83690; 83735; 84100; 84484; 85025; 85378; 85610; 85730; 86850; 86870; 86900; 86920; 86922; 96372; 96374; 99285; G0378; J2405; P9051

== ENCOUNTER 2018-07-19 13:55 | Inpatient (IN) | payer MEDICARE ==
[2018-07-19 13:55] VITALS: BMI 22.6
--- NOTE | 2018-07-19 14:55 | C.PDOC ---
History Of Present Illness 87 year old female presents to the ED after being sent by Dr. Dubois for evaluation right vulvar pain and swelling which developed over the past week. Patient reports she noticed some drainage from the site yesterday. She denies fever, chills, abdominal pain, dysuria, hematuria, or increased urinary frequency. Time Seen by Provider: 07/19/18 14:14 Chief Complaint (Nursing): Abnormal Skin Integrity History Per: Patient History/Exam Limitations: no limitations Onset/Duration Of Symptoms: Gradual, Other (one week ) Quality Of Symptoms: Painful, Swollen, Draining Additional History Per: Patient Past Medical History Reviewed: Historical Data, Nursing Documentation, Vital Signs Vital Signs: Last Vital Signs Temp 97.3 F L 07/19/18 13:59 Pulse 69 07/19/18 13:59 Resp 16 07/19/18 13:59 BP 134/73 07/19/18 13:59 Pulse Ox 96 07/19/18 13:59 - Medical History PMH: Alzheimer's Disease, Anemia, Arthritis, Bronchitis, Dementia, Diabetes, HTN, Hypercholesterolemia, Malignancy (Myelodysplastic), Pneumonia, Rheumatoid Arthritis Denies: Chronic Kidney Disease Surgical History: Tonsillectomy - [facility] Procedures EXCISION OF DESCENDING COLON, ENDO, DIAGN (03/17/18) EXCISION OF STOMACH, ENDO, DIAGN (03/17/18) GAIT TRAINING/FUNCTIONAL AMBULATION TREATMENT (10/05/17) HOME MANAGEMENT TREATMENT (10/05/17) INSERT INFUSION DEV IN R INT JUGULAR VEIN, PERC (11/25/16) INSERTION OF VAD INTO CHEST SUBCU/FASCIA, OPEN APPROACH (11/25/16) INTRODUCE OF OTH THERAP SUBST INTO RESP TRACT, VIA OPENING (08/14/16) TRANSFUSE NONAUT RED BLOOD CELLS IN PERIPH VEIN, PERC (03/17/18) Family History: States: Unknown Family Hx - Social History Hx Alcohol Use: No Hx Substance Use: No - Immunization History Hx Tetanus Toxoid Vaccination: No Hx Influenza Vaccination: No Hx Pneumococcal Vaccination: Yes (2016) Review Of Systems Constitutional: Negative for: Fever, Chills Skin: Positive for: Other (pain, swelling and drainage from right vulvar area ) Physical Exam - Physical Exam Appears: Non-toxic, No Acute Distress Skin: Normal Color, Warm, Dry Gastrointestinal/Abdominal: Soft, No Tenderness, No Distention, No Guarding, No Rebound Pelvic: No Vaginal Discharge, Other (right vulvar region: diffuse edema, tenderness, positive fluctuance, positive scant yellow oozing ) Extremity: Normal ROM, Capillary Refill (less than 2 seconds ) Neurological/Psych: Oriented x3, Normal Speech, Normal Cognition ED Course And Treatment - Laboratory Results Result Diagrams: 07/19/18 16:24 07/19/18 16:24 Lab Interpretation: No Acute Changes O2 Sat by Pulse Oximetry: 96 (on RA) Pulse Ox Interpretation: Normal Progress Note: Bloodwork ordered and reviewed. Case discussed with Dr. Dubois, who recommends to consult Dr. Christian. Case discussed with Dr. Christian, admi ssion recommend forOR I&D. Plan discussed with pt and family, agrees with plan. Disposition - Disposition Disposition: HOSPITALIZED Disposition Time: 15:15 Condition: STABLE - Clinical Impression Clinical Impression: Bartholin cyst - PA / DRUM PRINTER / Resident Statement MD/DO has reviewed & agrees with the documentation as recorded. - Scribe Statement The provider has reviewed the documentation as recorded by the Scribe (Glenna De) All medical record entries made by the Scribe were at my direction and personally dictated by me. I have reviewed the chart and agree that the record accurately reflects my personal performance of the history, physical exam, medical decision making, and the department course for this patient. I have also personally directed, reviewed, and agree with the discharge instructions and disposition.
[2018-07-19 16:27] LABS: BASO % 0.2 % (0.0-2.0); EOS # 0.2 K/uL (0.0-0.7); EOS % 2.4 % (0.0-4.0); HEMOGLOBIN 10.7 g/dL (11.0-16.0); LYMPH % 12.7 % (20.0-40.0); MEAN CELL VOLUME 94.6 fL (81.0-99.0); MEAN CORPUSCULAR HEMOGLOBIN 31.6 pg (27.0-31.0); MEAN CORPUSCULAR HGB CONC 33.4 g/dL (33.0-37.0); MEAN PLATELET VOLUME 10.3 fL (7.2-11.7); MONO # 0.2 K/uL (0.0-0.8); MONO % 2.4 % (0.0-10.0); NEUT # 6.3 K/uL (1.8-7.0); NEUT % 82.3 % (50.0-75.0); RBC 3.4 Mil/uL (3.80-5.20); RED CELL DISTRIBUTION WIDTH 15.8 % (11.5-14.5); WHITE BLOOD COUNT 7.6 K/uL (4.8-10.8)
[2018-07-19 16:41] LABS: INR 1.2; PROTHROMBIN TIME 12.8 SECONDS (9.7-12.2)
[2018-07-19 16:50] LABS: CALCIUM 8.7 mg/dl (8.6-10.4)
[2018-07-19 18:39] LABS: SQUAMOUS EPITHIAL 2 /hpf (0-5); URINE BACTERIA RARE (<OCC); URINE BILIRUBIN NEGATIVE (NEGATIVE); URINE BLOOD NEGATIVE (NEGATIVE); URINE CLARITY Clear (Clear); URINE COLOR Yellow (YELLOW); URINE GLUCOSE (UA) NORMAL (Normal); URINE LEUKOCYTE ESTERASE 2+ Leu/uL (Negative); URINE PROTEIN NEGATIVE (NEGATIVE); URINE UROBILINOGEN NORMAL mg/dL (0.2-1.0)
[2018-07-19] MEDS: Dextrose 5%/0.45% NS 1,000 ML IV SCH (19:00)
[2018-07-19] MEDS: (Novolog) Insulin Aspart, Recombinant 100 u/ml 10 ml vial SC SCH (21:50)
[2018-07-20] MEDS: Dextrose 5%/0.45% NS 1,000 ML IV SCH ×3 (04:45→17:48)
[2018-07-20] MEDS: (Novolog) Insulin Aspart, Recombinant 100 u/ml 10 ml vial SC SCH ×4 (08:59→22:28)
--- NOTE | 2018-07-20 09:05 | CP.PCM.PN ---
Subjective - Date & Time of Evaluation Date of Evaluation: 07/20/18 Time of Evaluation: 07:00 - Subjective Subjective: PGY2- Dr. Ly's Service Patient is an 87 y/o F with PMHx of Myelodysplastic Syndrome, hypertension, diabetes mellitus, dementia, anemia, and arthritis who presents for a right labial mass that developed over the past week. Patient says at rest there is not much pain, but it is very tender to touch. Patient noticed a little bit of drainage from the site yesterday. Patient has no other complaints and denies headache, chest pain, shortness of breath, abdominal pain, nausea, vomiting, constipation, or diarrhea. All: Amoxicillin PMHx: Myelodysplastic Syndrome, hypertension, diabetes mellitus, dementia, anemia, and arthritis PSurgHx: tonsillectomy Fam Hx: father with hepatitis, brother and sister with MDS Soc Hx: Denies smoking, alcohol, or drugs; lives at home with daughter Objective - Vital Signs/Intake and Output Vital Signs (last 24 hours): Temp Pulse Resp BP Pulse Ox 98.3 F 72 20 168/67 H 96 07/20/18 07:46 07/20/18 07:46 07/20/18 07:46 07/20/18 07:46 07/20/18 07:46 Intake and Output: 07/20/18 07/20/18 06:59 18:59 Intake Total 640 Balance 640 - Medications Medications: Current Medications Dextrose/Sodium Chloride (Dextrose 5%/0.45% Ns 1000 Ml) 1,000 mls @ 80 mls/hr IV .[id number] [facility] Last Admin: 07/20/18 04:45 Dose: Not Given Cefazolin Sodium 1,000 mg/ (Sodium Chloride) 100 mls @ 100 mls/hr IVPB Q8H [facility]; Protocol Last Admin: 07/20/18 01:29 Dose: 100 mls/hr Insulin Aspart (Novolog) 0 unit SC ACHS [facility]; Protocol Last Admin: 07/20/18 08:59 Dose: 3 units Lisinopril (Zestril) 2.5 mg PO DAILY [facility] - Labs Labs: 07/19/18 16:24 07/19/18 16:24 PT 12.8 SECONDS (9.7-12.2) H 07/19/18 16:24 INR 1.2 07/19/18 16:24 APTT 25 SECONDS (21-34) 07/19/18 16:24 - Constitutional Appears: Non-toxic, No Acute Distress - Head Exam Head Exam: ATRAUMATIC, NORMAL INSPECTION, NORMOCEPHALIC - Eye Exam Eye Exam: EOMI, Normal appearance - Respiratory Exam Respiratory Exam: Clear to Ausculation Bilateral, NORMAL BREATHING PATTERN. absent: Rales, Rhonchi, Wheezes, Respiratory Distress, Stridor - Cardiovascular Exam Cardiovascular Exam: REGULAR RHYTHM, RRR, +S1, +S2 - GI/Abdominal Exam GI & Abdominal Exam: Soft, Normal Bowel Sounds. absent: Tenderness - Exam External exam: Swelling (right labial erythematous swelling ) - Extremities Exam Extremities Exam: Normal Inspection. absent: Pedal Edema - Neurological Exam Neurological Exam: Alert, Awake, Oriented x3 - Psychiatric Exam Psychiatric exam: Normal Affect, Normal Mood Assessment and Plan - Assessment and Plan (Free Text) Assessment: Right Labial Abscess Dr. Christian consulted, help appreciated Dr. Solorio consulted, help appreciated Cefazolin 1000mg q8h UTI U/A: leuk est: 2+, WBC 11 Cefazolin 1000mg q8h Anemia HgB 10.7, stable continue to monitor Myelodysplastic Syndrome seeing Dr. Adames for chemotherapy DMII ISS Insulin Glargine 10 u SC HS hold because NPO accuchecks ACHS Prophylaxis SCDs no GI prophylaxis indicated Discussed with Dr. Ly
--- NOTE | 2018-07-20 10:44 | RAD ---
Date of service: 07/20/2018 HISTORY: preop COMPARISON: 07/11/2018 FINDINGS: LUNGS: No consolidation appreciated. A 7 mm nodular opacity projects over the left lower lung zone and left heart that is not appreciated on earlier studies. Summation of vascular anatomy seen on an versus interval left pulmonary nodule are considerations. Given the short interval time frame in the nonvisualized appearance-summation of shadows are believed more likely. PLEURA: No significant pleural effusion identified, no pneumothorax apparent. CARDIOVASCULAR: There is presence of aortic atherosclerotic calcification on x-ray. Mild cardiomegaly No significant appearing pulmonary venous congestion. A right internal jugular vein access catheter is in place tip right atrium-similar Mild prominence to the right [id number] with earlier studies. Clinical significance, if any is unclear OSSEOUS STRUCTURES: The deformity of the right humeral head/surgical neck junction is as before. VISUALIZED UPPER ABDOMEN: Normal. OTHER FINDINGS: None. IMPRESSION: Interval 7 mm nodular opacity projecting over the left lower lung zone and left heart. Summation of vascular anatomy seen on an versus interval left pulmonary nodule are considerations. Given the short interval time frame in the nonvisualized appearance-summation of shadows are believed more likely. Nevertheless diagnosis of exclusion is an interval pulmonary nodule or interval increase conspicuity of a left pulmonary neoplastic nodule. Clinical follow-up recommended.
[2018-07-20] MEDS ORDERED: Propofol 10 mg/ml Inj (20 ML) ONE (13:07)
[2018-07-20] MEDS ORDERED: Vancomycin 1 gm/D5W 200 ml 1 GM/200 ML BAG IVPB ONE (13:08)
[2018-07-20] MEDS ORDERED: Bacitracin Ointment 30 GM TUBE ONE (13:36)
[2018-07-20] MEDS ORDERED: Bupivacaine 0.25% 20 ML INJ IJ ONE (13:36)
[2018-07-20] MEDS ORDERED: ePHEDrine 50 mg/ml Inj ONE (13:38)
[2018-07-20] MEDS ORDERED: Lactated Ringer's 1,000 ML IV ONE (13:53)
[2018-07-20] MEDS: Vancomycin 1 gm/NS 200 ml 1 GM/200 ML BAG IVPB SCH (16:00)
--- NOTE | 2018-07-20 19:29 | CP.PCM.CON ---
History of Present Illness - History of Present Illness History of Present Illness: 87 year old female presents to the ED after being sent by Dr. Dubois for evaluation right vulvar pain and swelling which developed over the past week. Patient reports she noticed some drainage from the site yesterday. She denies fever, chills, abdominal pain, dysuria, hematuria, or increased urinary frequency. ID consulted for antibiotic management - Medical History PMH: Alzheimer's Disease, Anemia, Arthritis, Bronchitis, Dementia, Diabetes, HTN, Hypercholesterolemia, Malignancy (Myelodysplastic), Pneumonia, Rheumatoid Arthritis Denies: Chronic Kidney Disease Surgical History: Tonsillectomy - [facility] Procedures EXCISION OF DESCENDING COLON, ENDO, DIAGN (03/17/18) EXCISION OF STOMACH, ENDO, DIAGN (03/17/18) GAIT TRAINING/FUNCTIONAL AMBULATION TREATMENT (10/05/17) HOME MANAGEMENT TREATMENT (10/05/17) INSERT INFUSION DEV IN R INT JUGULAR VEIN, PERC (11/25/16) INSERTION OF VAD INTO CHEST SUBCU/FASCIA, OPEN APPROACH (11/25/16) INTRODUCE OF OTH THERAP SUBST INTO RESP TRACT, VIA OPENING (08/14/16) TRANSFUSE NONAUT RED BLOOD CELLS IN PERIPH VEIN, PERC (03/17/18) Review of Systems - Review of Systems All systems: reviewed and no additional remarkable complaints except - Constitutional Constitutional: As Per HPI - EENT Eyes: absent: As Per HPI, Blind Spots, Blurred Vision, Change in Vision, Decreased Night Vision, Diplopia, Discharge, Dry Eye, Exophthalmos, Floaters, Irritation, Itchy Eyes, Loss of Peripheral Vision, Pain, Photophobia, Requires Corrective Lenses, Sees Flashes, Spots in Vision, Tunnel Vision, Other Visual Disturbances, Loss of Vision, Other Ears: absent: As Per HPI, Decreased Hearing, Ear Discharge, Ear Pain, Tinnitus, Abnormal Hearing, Disequilibrium, Dizziness, Other Nose/Mouth/Throat: absent: As Per HPI, Epistaxis, Nasal Congestion, Nasal Discharge, Nasal Obstruction, Nasal Trauma, Nose Pain, Post Nasal Drip, Sinus Pain, Sinus Pressure, Bleeding Gums, Change in Voice, Dental Pain, Dry Mouth, Dy sphagia, Halitosis, Hoarsness, Lip Swelling, Mouth Lesions, Mouth Pain, Odynophagia, Sore Throat, Throat Swelling, Tongue Swelling, Facial Pain, Neck Pain, Neck Mass, Other - Breasts Breasts: absent: As Per HPI, Change in Shape, Mass, Pain, Nipple Discharge, Ni pple Inversion, Skin Changes, Swelling, Other - Cardiovascular Cardiovascular: absent: As Per HPI, Acrocyanosis, Chest Pain, Chest Pain at Rest, Chest Pain with Activity, Claudication, Diaphoresis, Dyspnea, Dyspnea on Exertion, Edema, Irregular Heart Rhythm, Pain Radiating to Arm/Neck/Jaw, Leg Edema, Leg Ulcers, Lightheadedness, Orthopnea, Palpitations, Paroxysmal Nocturnal Dyspnea, Pedal Edema, Radiating Pain, Rapid Heart Rate, Slow Heart Rate, Syncope, Other - Respiratory Respiratory: absent: As Per HPI, Cough, Dyspnea, Hemoptysis, Dyspnea on Exertion, Wheezing, Snoring, Stridor, Pain on Inspiration, Chest Congestion, Excessive Mucous Production, Change in Mucous Color, Pain with Coughing, Other - Gastrointestinal Gastrointestinal: absent: As Per HPI, Abdominal Pain, Belching, Bloating, Change in Bowel Habits, Change in Stool Character, Coffee Ground Emesis, Constipation, Cramping, Diarrhea, Dyspepsia, Dysphagia, Early Satiety, Excessive Flatus, Fecal Incontinence, Heartburn, Hematemesis, Hematochezia, Loose Stools, Melena, Nausea, Odynophagia, Temesmus, Vomiting, Other - Genitourinary Genitourinary: As Per HPI - Reproductive: Female Reproductive:Female: As Per HPI. absent: Amenorrhea, Amenorrhea/ Control, Currently Menstual, Cycle <21 Days, Cycle >35 Days, Cycle Variable, Menses 1-7 Days, Menses >/= 8 Days, Menses Variable, Cycle > 4 Weeks Between, No Menses for 6 Months, Heavy Menses, Light Menses, Normal Menses, Spotting Between Cycles, S/P Hysterectomy, Menopausal, Post Menopausal, Premenarche, Abnormal Vaginal Bleeding, Dysmenorrhea, Dyspareunia, Genital Lesions, Genital Pruritis, Pelvic Pain, Prolapse Symptoms, Sexual Dysfunction, Vaginal Discharge, Vaginal Dryness, Vaginal Odor, Vaginal Pruritis, Other - Menstruation Menstruation: absent: As Per HPI, Amenorrhea, Amenorrhea/ Control, Currently Menstual, Cycle <21 Days, Cycle >35 Days, Cycle Variable, Menses 1-7 Days, Menses >/= 8 Days, Menses Variable, Cycle > 4 Weeks Between, No Menses for 6 Months, Heavy Menses, Light Menses, Normal Menses, Spotting Between Cycles, S/P Hysterectomy, Menopausal, Post Menopausal, Premenarche, Abnormal Vaginal Bleeding, Dysmenorrhea, Other - Musculoskeletal Musculoskeletal: absent: As Per HPI, Abnormal Gait, Arthralgias, Atrophy, Back Pain, Deformity, Joint Swelling, Limited Range of Motion, Loss of Height, Muscle Cramps, Muscle Weakness, Myalgias, Neck Pain, Numbness, Radiating Pain into Limb, Stiffness, Tingling, Other - Integumentary Integumentary: As Per HPI, Skin Pain, Wounds - Neurological Neurological: absent: As Per HPI, Abnormal Gait, Abnormal Hearing, Abnormal Movements, Abnormal Speech, Behavioral Changes, Burning Sensations, Confusion, Convulsions, Disequilibrium, Dizziness, Numbness, Focal Weakness, Frequent Falls, Headaches, Lack of Coordination, Loss of Vision, Memory Loss, Paresthe lyla, Radicular Pain, Restless Legs, Sensory Deficit, Syncope, Tingling, Tremor, Vertigo, Weakness, Other Visual Disturbances, Other - Psychiatric Psychiatric: absent: As Per HPI, Abnormal Sleep Pattern, Anhedonia, Anxiety, Auditory Hallucinations, Behavioral Changes, Change in Appetite, Change in Libido, Confusion, Depression, Difficulty Concentrating, Hallucinations, Homicidal Ideation, Hopelessness, Irritability, Memory Loss, Mood Swings, Panic Attacks, Paranoia, Suicidal Ideation, Visual Hallucinations, Tactile Hallucinations, Other - Endocrine Endocrine: absent: As Per HPI, Change in Body Appearance, Change in Libido, Cold Intolorance, Deepening of Voice, Excessive Sweating, Fatigue, Flushing, Heat Intolorance, Increase in Ring/Shoe/Hat Size, Palpitations, Polydipsia, Polyphagia, Polyuria, Other - Hematologic/Lymphatic Hematologic: absent: As Per HPI, Easy Bleeding, Easy Bruising, Lymphadenopathy, Other Past Patient History - Infectious Disease Hx of Infectious Diseases: None - Tetanus Immunizations Tetanus Immunization: Unknown - Past Medical History & Family History Past Medical History?: Yes - Past Social History Smoking Status: Never Smoked - CARDIAC Hx Hypercholesterolemia: Yes Hx Hypertension: Yes - PULMONARY Hx Bronchitis: Yes Hx Pneumonia: Yes - NEUROLOGICAL Hx Alzheimer's Disease: Yes Hx Dementia: Yes - HEENT Hx HEENT Problems: Yes Hx Cataracts: Yes (BOTH EYES) - RENAL Hx Chronic Kidney Disease: No - ENDOCRINE/METABOLIC Hx Diabetes Mellitus Type 2: Yes - HEMATOLOGICAL/ONCOLOGICAL Hx Anemia: Yes - INTEGUMENTARY Hx Dermatological Problems: No - MUSCULOSKELETAL/RHEUMATOLOGICAL Hx Arthritis: Yes (SHOULDER, KNEE) Hx Rheumatoid Arthritis: Yes (SHOULDER) - GASTROINTESTINAL Hx Gastrointestinal Disorders: No - GENITOURINARY/GYNECOLOGICAL Hx Genitourinary Disorders: Yes (esbl /uti sepsis,SOME INCONTINENCY.WEARS PULLUPS.) - PSYCHIATRIC Hx Substance Use: No - SURGICAL HISTORY Hx Tonsillectomy: Yes - ANESTHESIA Hx Anesthesia: Yes Hx Anesthesia Reactions: No Hx Malignant Hyperthermia: No Meds Allergies/Adverse Reactions: Allergies Allergy/AdvReac Type Severity Reaction Status Date / Time amoxicillin Allergy Mild RASH Verified 07/19/18 14:03 - Medications Medications: Current Medications Enoxaparin Sodium (Lovenox) 30 mg SC DAILY [facility] Dextrose/Sodium Chloride (Dextrose 5%/0.45% Ns 1000 Ml) 1,000 mls @ 80 mls/hr IV .[id number] [facility] Last Admin: 07/20/18 17:48 Dose: 80 mls/hr Vancomycin/Sodium Chloride (Vancomycin 1 Gm/Ns 200 Ml) 1 gm in 200 mls @ 133.333 mls/hr IVPB Q12H [facility]; Protocol Stop: 07/25/18 16:01 Last Admin: 07/20/18 16:00 Dose: 133.333 mls/hr Insulin Aspart (Novolog) 0 unit SC ACHS [facility]; Protocol Last Admin: 07/20/18 12:10 Dose: Not Given Lisinopril (Zestril) 2.5 mg PO DAILY [facility] Last Admin: 07/20/18 11:24 Dose: 2.5 mg Physical Exam - Constitutional Appears: Non-toxic, No Acute Distress, Chronically Ill - Head Exam Head Exam: ATRAUMATIC, NORMAL INSPECTION, NORMOCEPHALIC - Eye Exam Eye Exam: EOMI, Normal appearance, PERRL Pupil Exam: NORMAL ACCOMODATION, PERRL - ENT Exam ENT Exam: Mucous Membranes Moist, Normal Exam - Neck Exam Neck exam: Positive for: Normal Inspection - Respiratory Exam Respiratory Exam: Clear to Auscultation Bilateral, NORMAL BREATHING PATTERN - Cardiovascular Exam Cardiovascular Exam: REGULAR RHYTHM - GI/Abdominal Exam GI & Abdominal Exam: Normal Bowel Sounds, Soft. absent: Tenderness - Rectal Exam Rectal Exam: NORMAL INSPECTION - Exam External exam: Swelling. absent: NORMAL EXTERNAL EXAM - Extremities Exam Extremities exam: Positive for: normal inspection - Back Exam Back exam: NORMAL INSPECTION - Neurological Exam Neurological exam: Alert, CN II-XII Intact, Normal Gait, Oriented x3, Reflexes Normal - Psychiatric Exam Psychiatric exam: Normal Affect, Normal Mood - Skin Skin Exam: Dry, Intact, Normal Color, Warm Results - Vital Signs Recent Vital Signs: Last Vital Signs Temp 97.3 F L 07/20/18 17:43 Pulse 75 07/20/18 17:43 Resp 20 07/20/18 17:43 BP 122/70 07/20/18 17:43 Pulse Ox 98 07/20/18 17:43 - Labs Result Diagrams: 07/22/18 06:36 07/22/18 06:36 Labs: Laboratory Results - last 24 hr 07/19/18 07/20/18 07/20/18 21:37 07:38 11:33 POC Glucose (mg/dL) 308 H 259 H 198 H Assessment & Plan (1) Bartholin cyst Status: Acute (2) Anemia Status: Acute - Assessment and Plan (Free Text) Assessment: allergy to PCN- s/p I and D wound care in progress await OR cultures started on Vanco need to monitor levels
--- NOTE | 2018-07-21 00:50 | OP ---
PROCEDURE DATE: 07/20/2018 PREOPERATIVE DIAGNOSIS: Infected right pelvic and labial mass with abscess. POSTOPERATIVE DIAGNOSIS: Infected right pelvic and labial mass with abscess. PROCEDURE PERFORMED: Excision of infected right labial mass with drainage of underlying labial and pelvic abscess. SURGEON: Young Christian MD ANESTHESIA: General. BLOOD LOSS: 20 mL. POSTOPERATIVE CONDITION: Stable. INDICATIONS FOR SURGERY: This is an 87-year-old female who presents with a large abscess of her right labial and pelvic region, who will now undergo operative incision and drainage. GROSS FINDINGS: There was an infected mass overlying the abscess which was removed. There was an underlying abscess extending into the pelvic space. There were no other abnormal findings. PROCEDURE: The patient was taken to the operating room. General anesthesia was administered. The patient was placed in a lithotomy position. The right groin and labial area was prepped and draped. A generous elliptical incision was made surrounding the infected mass. It was excised. The underlying abscess was drained and cultured. Bleeding was controlled using the Bovie. The wound was irrigated and debrided. Pelvic blood vessel was repaired. A partial tissue flap closure was performed at the periphery, and the central portion of wound was packed open with saline gauze. The patient tolerated the procedure well and returned to recovery room in stable condition. Young Christian MD
[2018-07-21 03:39] LABS: BASO # 0.1 K/uL (0.0-0.2); BASO % 1.2 % (0.0-2.0); EOS # 0.2 K/uL (0.0-0.7); EOS % 4.8 % (0.0-4.0); HEMOGLOBIN 8.8 g/dL (11.0-16.0); LYMPH # 0.8 K/uL (1.0-4.3); LYMPH % 16.3 % (20.0-40.0); MEAN CELL VOLUME 93.6 fL (81.0-99.0); MEAN CORPUSCULAR HEMOGLOBIN 31.8 pg (27.0-31.0); MEAN PLATELET VOLUME 10.1 fL (7.2-11.7); MONO # 0.1 K/uL (0.0-0.8); MONO % 3.1 % (0.0-10.0); NEUT # 3.5 K/uL (1.8-7.0); NEUT % 74.6 % (50.0-75.0); RBC 2.76 Mil/uL (3.80-5.20); RED CELL DISTRIBUTION WIDTH 15.3 % (11.5-14.5); WHITE BLOOD COUNT 4.6 K/uL (4.8-10.8)
[2018-07-21 04:00] LABS: ALB/GLOB RATIO 1.1 (1.0-2.1); ALBUMIN 3.1 g/dL (3.5-5.0); CALCIUM 7.9 mg/dl (8.6-10.4)
[2018-07-21] MEDS: Vancomycin 1 gm/NS 200 ml 1 GM/200 ML BAG IVPB SCH ×2 (04:57→16:30)
[2018-07-21] MEDS: Dextrose 5%/0.45% NS 1,000 ML IV SCH ×2 (05:45→18:15)
--- NOTE | 2018-07-21 06:09 | HP ---
HISTORY OF PRESENT ILLNESS: Ms. Mccarty is an 87-year-old, admitted to the hospital with complaint of pain in the vulvar area. The patient was found to have a vulvar abscess and advised admission. The patient had diabetes, hypertension, MDS. PHYSICAL EXAMINATION: GENERAL: The patient is awake, alert, and oriented. VITAL SIGNS: Temperature 98, pulse 90. HEENT: Within normal limits. NECK: Supple. CHEST: Symmetrical. HEART: Regular. ABDOMEN: Soft. EXTREMITIES: No edema. GENITOURINARY: There is a swelling over the right labia majora with tenderness. IMPRESSION: The patient suffers from labial and vulvar abscess. The patient is on intravenous antibiotics. Surgical consult. Gamal Ly MD
[2018-07-21] MEDS ORDERED: (Novolin R) Insulin Human Regular 100 units/ml vial SC SCH (07:30)
[2018-07-21] MEDS: (Novolog) Insulin Aspart, Recombinant 100 u/ml 10 ml vial SC SCH ×4 (08:07→21:46)
--- NOTE | 2018-07-21 09:34 | CP.PCM.PN ---
Subjective - Date & Time of Evaluation Date of Evaluation: 07/21/18 Time of Evaluation: 09:34 - Subjective Subjective: Progress Note for Dr. Ly Patient seen and examined at bedside. No acute events reported overnight. Patient is resting in bed comfortably. Patient is aware of her procedure with Dr. Christian later today. Patient denies fever, chills, shortness of breath, chest pain, abdominal pain, nausea, or vomiting. Objective - Vital Signs/Intake and Output Vital Signs (last 24 hours): Temp Pulse Resp BP Pulse Ox 98.1 F 76 20 103/60 95 07/21/18 08:00 07/21/18 08:00 07/21/18 08:00 07/21/18 08:00 07/21/18 08:00 Intake and Output: 07/21/18 07/21/18 06:59 18:59 Intake Total 680 Output Total 400 Balance 280 - Medications Medications: Current Medications Enoxaparin Sodium (Lovenox) 30 mg SC DAILY [facility] Dextrose/Sodium Chloride (Dextrose 5%/0.45% Ns 1000 Ml) 1,000 mls @ 80 mls/hr IV .[id number] [facility] Last Admin: 07/21/18 05:45 Dose: Not Given Vancomycin/Sodium Chloride (Vancomycin 1 Gm/Ns 200 Ml) 1 gm in 200 mls @ 133.333 mls/hr IVPB Q12H [facility]; Protocol Stop: 07/25/18 16:01 Last Admin: 07/21/18 04:57 Dose: 133.333 mls/hr Insulin Aspart (Novolog) 0 unit SC ACHS [facility]; Protocol Last Admin: 07/21/18 08:07 Dose: Not Given Lisinopril (Zestril) 2.5 mg PO DAILY [facility] Last Admin: 07/20/18 11:24 Dose: 2.5 mg - Labs Labs: 07/21/18 03:34 07/21/18 03:34 PT 12.8 SECONDS (9.7-12.2) H 07/19/18 16:24 INR 1.2 07/19/18 16:24 APTT 25 SECONDS (21-34) 07/19/18 16:24 - Additional Findings Additional findings: - Constitutional Appears: Non-toxic, No Acute Distress - Head Exam Head Exam: ATRAUMATIC, NORMAL INSPECTION, NORMOCEPHALIC - Eye Exam Eye Exam: EOMI, Normal appearance - Respiratory Exam Respiratory Exam: Clear to Ausculation Bilateral, NORMAL BREATHING PATTERN. absent: Rales, Rhonchi, Wheezes, Respiratory Distress, Stridor - Cardiovascular Exam Cardiovascular Exam: REGULAR RHYTHM, RRR, +S1, +S2 - GI/Abdominal Exam GI & Abdominal Exam: Soft, Normal Bowel Sounds. absent: Tenderness - Exam External exam: Swelling (right labial erythematous swelling ) - Extremities Exam Extremities Exam: Normal Inspection. absent: Pedal Edema - Neurological Exam Neurological Exam: Alert, Awake, Oriented x3 - Psychiatric Exam Psychiatric exam: Normal Affect, Normal Mood Assessment and Plan - Assessment and Plan (Free Text) Assessment: Right Labial Abscess Plan for OR this afternoon with Dr. Christian NPO Dr. Christian consulted, help appreciated Dr. Solorio consulted, help appreciated Vancomycin 1gm Q12h Wound culture from 07/20 shows Staph Aureus, Gram negative pelon UTI U/A: leuk est: 2+, WBC 11 Cefazolin 1000mg q8h (given 07/19) Nodular Opacity in Left Lung Preop Cxray: interval 7mm nodular opacity projecting over the left lower lung zone and left heart. Summation of vascular anatomy seen on versus interval left pulmonary nodule are considerations. Given the short interval time frame in the nonvisualized appearance- summation of shadows are believed more likely. 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 Ly
[2018-07-21] MEDS: Enoxaparin 30 mg Syringe SC SCH (11:24)
[2018-07-21] MEDS ORDERED: Propofol 10 mg/ml Inj (20 ML) ONE (14:20)
[2018-07-21] MEDS ORDERED: Etomidate 20 mg/10ml Inj IV ONE (14:21)
--- NOTE | 2018-07-21 19:14 | CP.PCM.PN ---
Subjective - Date & Time of Evaluation Date of Evaluation: 07/21/18 Time of Evaluation: 08:00 - Subjective Subjective: wound growing mixed aisha azactam added patient denies fever pain less Objective - Vital Signs/Intake and Output Vital Signs (last 24 hours): Temp Pulse Resp BP Pulse Ox 97.8 F 69 18 124/43 L 100 07/21/18 16:00 07/21/18 16:00 07/21/18 16:00 07/21/18 16:00 07/21/18 16:00 Intake and Output: 07/21/18 07/22/18 18:59 06:59 Intake Total 730 Output Total 525 Balance 205 - Medications Medications: Current Medications Enoxaparin Sodium (Lovenox) 30 mg SC DAILY [facility] Last Admin: 07/21/18 11:24 Dose: Not Given Dextrose/Sodium Chloride (Dextrose 5%/0.45% Ns 1000 Ml) 1,000 mls @ 80 mls/hr IV .[id number] [facility] Last Admin: 07/21/18 05:45 Dose: Not Given Vancomycin/Sodium Chloride (Vancomycin 1 Gm/Ns 200 Ml) 1 gm in 200 mls @ 133.333 mls/hr IVPB Q12H [facility]; Protocol Stop: 07/25/18 16:01 Last Admin: 07/21/18 16:30 Dose: 133.333 mls/hr Aztreonam 1 gm/ Sodium (Chloride) 100 mls @ 100 mls/hr IVPB Q8H [facility]; Protocol Insulin Aspart (Novolog) 0 unit SC ACHS [facility]; Protocol Last Admin: 07/21/18 16:49 Dose: 2 units Lisinopril (Zestril) 2.5 mg PO DAILY [facility] Last Admin: 07/21/18 11:24 Dose: Not Given - Labs Labs: 07/21/18 03:34 07/21/18 03:34 PT 12.8 SECONDS (9.7-12.2) H 07/19/18 16:24 INR 1.2 07/19/18 16:24 APTT 25 SECONDS (21-34) 07/19/18 16:24 - Constitutional Appears: Well - Head Exam Head Exam: ATRAUMATIC, NORMAL INSPECTION, NORMOCEPHALIC - Eye Exam Eye Exam: EOMI, Normal appearance, PERRL Pupil Exam: NORMAL ACCOMODATION, PERRL - ENT Exam ENT Exam: Mucous Membranes Moist, Normal Exam - Neck Exam Neck Exam: Full ROM, Normal Inspection. absent: Lymphadenopathy - Respiratory Exam Respiratory Exam: Clear to Ausculation Bilateral, NORMAL BREATHING PATTERN - Cardiovascular Exam Cardiovascular Exam: REGULAR RHYTHM, +S1, +S2. absent: Murmur - GI/Abdominal Exam GI & Abdominal Exam: Soft, Normal Bowel Sounds. absent: Tenderness - Rectal Exam Rectal Exam: NORMAL INSPECTION - Exam Exam: absent: NORMAL INSPECTION - Extremities Exam Extremities Exam: Full ROM, Normal Capillary Refill, Normal Inspection. absent: Joint Swelling, Pedal Edema - Back Exam Back Exam: NORMAL INSPECTION - Neurological Exam Neurological Exam: Alert, Awake, CN II-XII Intact, Normal Gait, Oriented x3 - Psychiatric Exam Psychiatric exam: Normal Affect, Normal Mood - Skin Skin Exam: Dry, Intact, Normal Color, Warm Assessment and Plan (1) Bartholin cyst Status: Acute (2) Anemia Status: Acute - Assessment and Plan (Free Text) Assessment: cont iv rx and wound care
[2018-07-21] MEDS: Aztreonam 1 GM in Sodium Chloride 0.9% 100 ML IVPB SCH (19:15)
--- NOTE | 2018-07-21 23:44 | OP ---
PROCEDURE DATE: 07/21/2018 PREOPERATIVE DIAGNOSIS: Labial and pelvic abscess. POSTOPERATIVE DIAGNOSIS: Labial and pelvic abscess. PROCEDURE PERFORMED: Change of packing, debridement, washout, re-drainage of labial and pelvic abscess. SURGEON: Young Christian MD ANESTHESIA: General. BLOOD LOSS: 20 mL. POSTOPERATIVE CONDITION: Stable. INDICATIONS FOR SURGERY: This is an 87-year-old female, brought back to the operating room for a staged procedure. There was a large abscess on her labial and pelvic region. She will now undergo change of the packing under anesthesia with debridement and a washout of the wound and preparation for possible closure prior to discharge. DESCRIPTION OF PROCEDURE: The patient was taken to the operating room and general anesthesia was administered. She was placed in a lithotomy position. The right groin and labial region were prepped and draped after the previous packing was removed. There was fairly vigorous bleeding with the packing being removed. The wound was explored, and isolated blood vessel was repaired. The wound was pulse irrigated with saline and Kantrex solution and aggressively debrided. Any remaining pelvic collections were drained and cultured. Partial tissue flap closure was performed at the periphery. Central portion of the wound was packed open with saline gauze. The patient tolerated the procedure well and returned to recovery room in stable condition. Young Christian MD
[2018-07-22] MEDS: Aztreonam 1 GM in Sodium Chloride 0.9% 100 ML IVPB SCH ×3 (02:53→21:17)
[2018-07-22] MEDS: Vancomycin 1 gm/NS 200 ml 1 GM/200 ML BAG IVPB SCH ×2 (04:22→16:19)
[2018-07-22 06:44] LABS: BASO # 0.1 K/uL (0.0-0.2); BASO % 1.4 % (0.0-2.0); EOS # 0.2 K/uL (0.0-0.7); EOS % 5.7 % (0.0-4.0); HEMOGLOBIN 8.6 g/dL (11.0-16.0); LYMPH % 23.5 % (20.0-40.0); MEAN CELL VOLUME 93.1 fL (81.0-99.0); MEAN CORPUSCULAR HEMOGLOBIN 31.4 pg (27.0-31.0); MEAN CORPUSCULAR HGB CONC 33.7 g/dL (33.0-37.0); MEAN PLATELET VOLUME 10.3 fL (7.2-11.7); MONO # 0.1 K/uL (0.0-0.8); MONO % 3.3 % (0.0-10.0); NEUT # 2.9 K/uL (1.8-7.0); NEUT % 66.1 % (50.0-75.0); RBC 2.73 Mil/uL (3.80-5.20); RED CELL DISTRIBUTION WIDTH 15.4 % (11.5-14.5); WHITE BLOOD COUNT 4.4 K/uL (4.8-10.8)
[2018-07-22 07:02] LABS: ALB/GLOB RATIO 1.2 (1.0-2.1); ALBUMIN 3.2 g/dL (3.5-5.0); ALT/SGPT 21 U/L (9-52); AST/SGOT 22 U/L (14-36); BLOOD UREA NITROGEN 21 mg/dL (7-17); CALCIUM 8.2 mg/dl (8.6-10.4); GFR NON-AFRICAN AMERICAN 52
[2018-07-22] MEDS: (Novolog) Insulin Aspart, Recombinant 100 u/ml 10 ml vial SC SCH ×3 (08:22→17:22)
[2018-07-22] MEDS: Enoxaparin 30 mg Syringe SC SCH (10:16)
[2018-07-22] MEDS: Dextrose 5%/0.45% NS 1,000 ML IV SCH (20:45)
[2018-07-23] MEDS: Vancomycin 1 gm/NS 200 ml 1 GM/200 ML BAG IVPB SCH (03:33)
[2018-07-23] MEDS: Aztreonam 1 GM in Sodium Chloride 0.9% 100 ML IVPB SCH ×2 (04:15→10:21)
[2018-07-23] MEDS: (Novolog) Insulin Aspart, Recombinant 100 u/ml 10 ml vial SC SCH ×4 (08:09→21:18)
[2018-07-23] MEDS: Enoxaparin 30 mg Syringe SC SCH (09:17)
--- NOTE | 2018-07-23 16:14 | CP.PCM.PN ---
Subjective - Date & Time of Evaluation Date of Evaluation: 07/23/18 Time of Evaluation: 09:00 - Subjective Subjective: awake alert afeb wound c/s + ESBL E Coli MRSA Objective - Vital Signs/Intake and Output Vital Signs (last 24 hours): Temp Pulse Resp BP Pulse Ox 97.9 F 84 20 117/56 L 97 07/23/18 16:02 07/23/18 16:02 07/23/18 16:02 07/23/18 16:02 07/23/18 16:02 Intake and Output: 07/23/18 07/23/18 06:59 18:59 Intake Total 1040 860 Output Total 600 400 Balance 440 460 - Medications Medications: Current Medications Enoxaparin Sodium (Lovenox) 30 mg SC DAILY [facility] Last Admin: 07/23/18 09:17 Dose: 30 mg Vancomycin/Sodium Chloride (Vancomycin 1 Gm/Ns 200 Ml) 1 gm in 200 mls @ 133.333 mls/hr IVPB Q12H [facility]; Protocol Stop: 07/25/18 16:01 Last Admin: 07/23/18 03:33 Dose: Not Given Meropenem 500 mg/ Sodium (Chloride) 100 mls @ 100 mls/hr IVPB Q8H [facility]; Protocol Insulin Aspart (Novolog) 0 unit SC ACHS [facility]; Protocol Last Admin: 07/23/18 12:13 Dose: 5 units Lisinopril (Zestril) 2.5 mg PO DAILY [facility] Last Admin: 07/23/18 09:17 Dose: 2.5 mg - Labs Labs: 07/22/18 06:36 07/22/18 06:36 PT 12.8 SECONDS (9.7-12.2) H 07/19/18 16:24 INR 1.2 07/19/18 16:24 APTT 25 SECONDS (21-34) 07/19/18 16:24 - Constitutional Appears: Non-toxic - Head Exam Head Exam: ATRAUMATIC, NORMAL INSPECTION, NORMOCEPHALIC - Eye Exam Eye Exam: EOMI, Normal appearance, PERRL Pupil Exam: NORMAL ACCOMODATION, PERRL - ENT Exam ENT Exam: Mucous Membranes Moist, Normal Exam - Neck Exam Neck Exam: Full ROM, Normal Inspection. absent: Lymphadenopathy - Respiratory Exam Respiratory Exam: Clear to Ausculation Bilateral, NORMAL BREATHING PATTERN - Cardiovascular Exam Cardiovascular Exam: REGULAR RHYTHM, +S1, +S2. absent: Murmur - GI/Abdominal Exam GI & Abdominal Exam: Soft, Normal Bowel Sounds. absent: Tenderness - Rectal Exam Rectal Exam: NORMAL INSPECTION - Exam Exam: absent: NORMAL INSPECTION - Extremities Exam Extremities Exam: Full ROM, Normal Capillary Refill, Normal Inspection. absent: Joint Swelling, Pedal Edema - Back Exam Back Exam: NORMAL INSPECTION - Neurological Exam Neurological Exam: Alert, Awake, CN II-XII Intact, Normal Gait, Oriented x3 - Psychiatric Exam Psychiatric exam: Normal Affect, Normal Mood - Skin Skin Exam: Dry, Intact, Normal Color, Warm Assessment and Plan (1) Bartholin cyst Status: Acute (2) Anemia Status: Acute - Assessment and Plan (Free Text) Assessment: allergy to PCN described as rash- many years ago Dtart Merrem for ESBL E Coli Vanco adjusted- Has MRSA ESBL wound
[2018-07-23] MEDS: Meropenem 500 MG in Sodium Chloride 0.9% 100 ML IVPB SCH (17:53)
[2018-07-24] MEDS: Meropenem 500 MG in Sodium Chloride 0.9% 100 ML IVPB SCH ×3 (00:54→18:08)
[2018-07-24 06:17] LABS: BASO % 1.2 % (0.0-2.0); EOS # 0.2 K/uL (0.0-0.7); EOS % 5.9 % (0.0-4.0); HEMOGLOBIN 8.1 g/dL (11.0-16.0); LYMPH # 0.8 K/uL (1.0-4.3); LYMPH % 27.5 % (20.0-40.0); MEAN CELL VOLUME 93.1 fL (81.0-99.0); MEAN CORPUSCULAR HEMOGLOBIN 32.3 pg (27.0-31.0); MEAN CORPUSCULAR HGB CONC 34.7 g/dL (33.0-37.0); MEAN PLATELET VOLUME 10.5 fL (7.2-11.7); MONO # 0.1 K/uL (0.0-0.8); MONO % 2.9 % (0.0-10.0); NEUT # 1.9 K/uL (1.8-7.0); NEUT % 62.5 % (50.0-75.0); NRBC % 0.2 % (0.0-2.0); RBC 2.52 Mil/uL (3.80-5.20); RED CELL DISTRIBUTION WIDTH 14.5 % (11.5-14.5)
[2018-07-24 06:44] LABS: ALB/GLOB RATIO 1.2 (1.0-2.1); ALBUMIN 3.3 g/dL (3.5-5.0); CALCIUM 8.8 mg/dl (8.6-10.4)
[2018-07-24] MEDS: (Novolog) Insulin Aspart, Recombinant 100 u/ml 10 ml vial SC SCH ×4 (08:42→21:49)
[2018-07-24] MEDS: Enoxaparin 30 mg Syringe SC SCH (10:58)
--- NOTE | 2018-07-24 11:15 | CP.PCM.PN ---
Subjective - Date & Time of Evaluation Date of Evaluation: 07/24/18 Time of Evaluation: 07:00 - Subjective Subjective: Progress Note for Dr. Ly Patient seen and examined at bedside. No acute events reported overnight. Patient is resting in bed comfortably. Patient is aware of her procedure with Dr. Christian later today. Patient denies fever, chills, shortness of breath, chest pain, abdominal pain, nausea, or vomiting. Objective - Vital Signs/Intake and Output Vital Signs (last 24 hours): Temp Pulse Resp BP Pulse Ox 98.1 F 75 20 126/71 95 07/24/18 07:47 07/24/18 07:47 07/24/18 07:47 07/24/18 07:47 07/24/18 07:47 Intake and Output: 07/24/18 07/24/18 06:59 18:59 Intake Total 100 300 Output Total 400 400 Balance -300 -100 - Medications Medications: Current Medications Enoxaparin Sodium (Lovenox) 30 mg SC DAILY [facility] Last Admin: 07/24/18 10:58 Dose: Not Given Vancomycin/Sodium Chloride (Vancomycin 1 Gm/Ns 200 Ml) 1 gm in 200 mls @ 133.333 mls/hr IVPB Q12H [facility]; Protocol Stop: 07/25/18 16:01 Last Admin: 07/23/18 03:33 Dose: Not Given Meropenem 500 mg/ Sodium (Chloride) 100 mls @ 100 mls/hr IVPB Q8H [facility]; Protocol Last Admin: 07/24/18 10:18 Dose: 100 mls/hr Insulin Aspart (Novolog) 0 unit SC ACHS [facility]; Protocol Last Admin: 07/24/18 08:42 Dose: Not Given Lisinopril (Zestril) 2.5 mg PO DAILY [facility] Last Admin: 07/24/18 10:59 Dose: Not Given - Labs Labs: 07/24/18 06:10 07/24/18 06:10 PT 12.8 SECONDS (9.7-12.2) H 07/19/18 16:24 INR 1.2 07/19/18 16:24 APTT 25 SECONDS (21-34) 07/19/18 16:24 - Additional Findings Additional findings: - Constitutional Appears: Non-toxic, No Acute Distress - Head Exam Head Exam: ATRAUMATIC, NORMAL INSPECTION, NORMOCEPHALIC - Eye Exam Eye Exam: EOMI, Normal appearance - Respiratory Exam Respiratory Exam: Clear to Ausculation Bilateral, NORMAL BREATHING PATTERN. absent: Rales, Rhonchi, Wheezes, Respiratory Distress, Stridor - Cardiovascular Exam Cardiovascular Exam: REGULAR RHYTHM, RRR, +S1, +S2 - GI/Abdominal Exam GI & Abdominal Exam: Soft, Normal Bowel Sounds. absent: Tenderness - Exam External exam: right labial wound, c/d/i - Extremities Exam Extremities Exam: Normal Inspection. absent: Pedal Edema - Neurological Exam Neurological Exam: Alert, Awake, Oriented x3 - Psychiatric Exam Psychiatric exam: Normal Affect, Normal Mood Assessment and Plan - Assessment and Plan (Free Text) Assessment: Right Labial Abscess s/p debridement on 07/20/18 NPO, OR for packing change today Dr. Christian consulted, help appreciated Dr. Solorio consulted, help appreciated Wound culture from 07/20 shows MRSA and ESBL E. Coli Vancomycin 1gm Q12h Meropenem 500mg q8h d/c Cefazolin 1000mg q8h (given 07/19- 07/20) UTI U/A: leuk est: 2+, WBC 11 on vanco and meropenem for MRSA and ESBL E Coli d/c Cefazolin 1000mg q8h (given 07/19- 07/20) Nodular Opacity in Left Lung Preop Cxray: interval 7mm nodular opacity projecting over the left lower lung zone and left heart. Summation of vascular anatomy seen on versus interval left pulmonary nodule are considerations. Given the short interval time frame in the nonvisualized appearance- summation of shadows are believed more likely. Nevertheless diagnosis of exclusion is an interval pulmonary nodule or interval increase conspicuity of a left pulmonary neoplastic nodule Anemia HgB 8.1, likely secondary to I&D and IVF continue to monitor Myelodysplastic Syndrome seeing Dr. Adames for chemotherapy DMII ISS accuchecks ACHS Lisinopril 2.5mg Prophylaxis SCDs Lovenox 30mg sc daily no GI prophylaxis indicated Dispo: continue IV antibiotics Discussed with Dr. Ly
[2018-07-24] MEDS ORDERED: Propofol 10 mg/ml Inj (20 ML) ONE (15:30)
[2018-07-24] MEDS ORDERED: HYDROmorphone 0.5 mg/0.5 ml ISec IVP PRN (15:46)
[2018-07-24] MEDS ORDERED: Bupivacaine 0.25% 20 ML INJ IJ ONE (15:49)
[2018-07-24] MEDS ORDERED: Bacitracin Ointment 30 GM TUBE ONE (15:58)
[2018-07-24] MEDS: Vancomycin 1 GM 1 GM/250 ML BAG IVPB SCH (19:35)
[2018-07-25] MEDS: Meropenem 500 MG in Sodium Chloride 0.9% 100 ML IVPB SCH ×3 (01:41→17:35)
[2018-07-25] MEDS: (Novolog) Insulin Aspart, Recombinant 100 u/ml 10 ml vial SC SCH ×5 (08:05→22:00)
[2018-07-25 08:20] LABS: BASO # 0.1 K/uL (0.0-0.2); BASO % 2.2 % (0.0-2.0); EOS # 0.1 K/uL (0.0-0.7); EOS % 4.7 % (0.0-4.0); HEMOGLOBIN 7.9 g/dL (11.0-16.0); LYMPH # 0.8 K/uL (1.0-4.3); LYMPH % 27.9 % (20.0-40.0); MEAN CELL VOLUME 93.3 fL (81.0-99.0); MEAN CORPUSCULAR HEMOGLOBIN 32.1 pg (27.0-31.0); MEAN CORPUSCULAR HGB CONC 34.4 g/dL (33.0-37.0); MEAN PLATELET VOLUME 10.5 fL (7.2-11.7); MONO # 0.1 K/uL (0.0-0.8); MONO % 2.9 % (0.0-10.0); NEUT # 1.8 K/uL (1.8-7.0); NEUT % 62.3 % (50.0-75.0); NRBC % 0.1 % (0.0-2.0); RBC 2.46 Mil/uL (3.80-5.20); RED CELL DISTRIBUTION WIDTH 14.3 % (11.5-14.5)
[2018-07-25 08:48] LABS: ALB/GLOB RATIO 1.2 (1.0-2.1); ALBUMIN 3.4 g/dL (3.5-5.0); CALCIUM 8.4 mg/dl (8.6-10.4)
[2018-07-25] MEDS: Enoxaparin 30 mg Syringe SC SCH (10:39)
--- NOTE | 2018-07-25 11:27 | CP.PCM.PN ---
Subjective - Date & Time of Evaluation Date of Evaluation: 07/25/18 Time of Evaluation: 08:00 - Subjective Subjective: afebrile on IV rx no new complaints Objective - Vital Signs/Intake and Output Vital Signs (last 24 hours): Temp Pulse Resp BP Pulse Ox 97.6 F 79 20 118/72 96 07/25/18 07:31 07/25/18 07:31 07/25/18 07:31 07/25/18 07:31 07/25/18 07:31 Intake and Output: 07/25/18 07/25/18 06:59 18:59 Intake Total 900 Balance 900 - Medications Medications: Current Medications Enoxaparin Sodium (Lovenox) 30 mg SC DAILY [facility] Last Admin: 07/25/18 10:39 Dose: 30 mg Meropenem 500 mg/ Sodium (Chloride) 100 mls @ 100 mls/hr IVPB Q8H [facility]; Protocol Last Admin: 07/25/18 11:04 Dose: 100 mls/hr Vancomycin HCl (Vancomycin 1gm In Normal Saline Addvantage) 1 gm in 250 mls @ 167 mls/hr IVPB Q24H [facility]; Protocol Last Admin: 07/24/18 19:35 Dose: 167 mls/hr Insulin Aspart (Novolog) 0 unit SC ACHS [facility]; Protocol Last Admin: 07/25/18 08:05 Dose: 3 units Lisinopril (Zestril) 2.5 mg PO DAILY [facility] Last Admin: 07/25/18 10:41 Dose: 2.5 mg - Labs Labs: 07/25/18 08:12 07/25/18 08:12 PT 12.8 SECONDS (9.7-12.2) H 07/19/18 16:24 INR 1.2 07/19/18 16:24 APTT 25 SECONDS (21-34) 07/19/18 16:24 - Constitutional Appears: Non-toxic, Chronically Ill - Head Exam Head Exam: NORMOCEPHALIC - Eye Exam Eye Exam: absent: Scleral icterus - ENT Exam ENT Exam: Mucous Membranes Dry - Neck Exam Neck Exam: absent: Lymphadenopathy - Respiratory Exam Respiratory Exam: Decreased Breath Sounds, Clear to Ausculation Bilateral - Cardiovascular Exam Cardiovascular Exam: REGULAR RHYTHM - GI/Abdominal Exam GI & Abdominal Exam: Distended, Soft - Rectal Exam Rectal Exam: Deferred - Exam Exam: NORMAL INSPECTION Assessment and Plan (1) Bartholin cyst Status: Acute (2) Anemia Status: Acute - Assessment and Plan (Free Text) Assessment: cont Vanco Merrem x 5 more days
[2018-07-25 14:13] LABS: BASO % 1.5 % (0.0-2.0); EOS # 0.1 K/uL (0.0-0.7); HEMOGLOBIN 7.6 g/dL (11.0-16.0); LYMPH # 0.8 K/uL (1.0-4.3); LYMPH % 32.4 % (20.0-40.0); MEAN CORPUSCULAR HGB CONC 34.4 g/dL (33.0-37.0); MONO # 0.1 K/uL (0.0-0.8); MONO % 3.6 % (0.0-10.0); NEUT # 1.4 K/uL (1.8-7.0); NEUT % 57.5 % (50.0-75.0); RBC 2.36 Mil/uL (3.80-5.20); RED CELL DISTRIBUTION WIDTH 14.6 % (11.5-14.5); WHITE BLOOD COUNT 2.4 K/uL (4.8-10.8)
--- NOTE | 2018-07-25 16:58 | CP.PCM.PN ---
Subjective - Date & Time of Evaluation Date of Evaluation: 07/25/18 Time of Evaluation: 10:55 - Subjective Subjective: Medicine Progress note ( Dr. Ly's service) Patient was seen and examined at bedside. Patient reports that she is doing well and denies any acute issues or complaints. Patient denies any symptoms of fever, chills, nausea, vomiting, chest pain, palpitations, shortness of breath, abdominal pain or abnormal vaginal discharge Objective - Vital Signs/Intake and Output Vital Signs (last 24 hours): Temp Pulse Resp BP Pulse Ox 97.9 F 74 20 122/73 96 07/25/18 15:48 07/25/18 15:48 07/25/18 15:48 07/25/18 15:48 07/25/18 15:48 Intake and Output: 07/25/18 07/25/18 06:59 18:59 Intake Total 900 400 Output Total 750 Balance 900 -350 - Medications Medications: Current Medications Enoxaparin Sodium (Lovenox) 30 mg SC DAILY [facility] Last Admin: 07/25/18 10:39 Dose: 30 mg Meropenem 500 mg/ Sodium (Chloride) 100 mls @ 100 mls/hr IVPB Q8H [facility]; Protocol Last Admin: 07/25/18 11:04 Dose: 100 mls/hr Vancomycin HCl (Vancomycin 1gm In Normal Saline Addvantage) 1 gm in 250 mls @ 167 mls/hr IVPB Q24H [facility]; Protocol Last Admin: 07/24/18 19:35 Dose: 167 mls/hr Insulin Aspart (Novolog) 0 unit SC ACHS [facility]; Protocol Last Admin: 07/25/18 11:45 Dose: 6 units Lisinopril (Zestril) 2.5 mg PO DAILY [facility] Last Admin: 07/25/18 10:41 Dose: 2.5 mg - Labs Labs: 07/25/18 14:00 07/25/18 08:12 PT 12.8 SECONDS (9.7-12.2) H 07/19/18 16:24 INR 1.2 07/19/18 16:24 APTT 25 SECONDS (21-34) 07/19/18 16:24 - Constitutional Appears: No Acute Distress - Head Exam Head Exam: ATRAUMATIC, NORMAL INSPECTION - Eye Exam Eye Exam: EOMI, Normal appearance - ENT Exam ENT Exam: Mucous Membranes Moist - Respiratory Exam Respiratory Exam: Clear to Ausculation Bilateral, NORMAL BREATHING PATTERN. absent: Prolonged Expiratory Phase, Rhonchi, Wheezes, Respiratory Distress - Cardiovascular Exam Cardiovascular Exam: REGULAR RHYTHM, +S1, +S2. absent: Murmur - GI/Abdominal Exam GI & Abdominal Exam: Soft, Normal Bowel Sounds. absent: Distended, Firm, Guarding, Rigid, Tenderness - Exam Additional comments: Right labial with packing - Extremities Exam Extremities Exam: absent: Pedal Edema - Neurological Exam Neurological Exam: Alert, Awake, Oriented x3 - Psychiatric Exam Psychiatric exam: Normal Affect - Skin Skin Exam: Normal Color Assessment and Plan (1) Abscess of right genital labia Assessment & Plan: s/p debridement on 07/20/18 Dr. Christian consulted, help appreciated Dr. Solorio consulted, help appreciated Wound culture from 07/20 shows MRSA and ESBL E. Coli Vancomycin 1gm Q12h Meropenem 500mg q8h d/c Cefazolin 1000mg q8h (given 07/19- 07/20) Status: Acute (2) Urinary tract infection Assessment & Plan: U/A: leuk est: 2+, WBC 11 on vanco and meropenem for MRSA and ESBL E Coli d/c Cefazolin 1000mg q8h (given 07/19- 07/20) Lactobacillus 1 tab PO BID Status: Acute (3) Abnormal CXR (chest x-ray) Assessment & Plan: Nodular Opacity in Left Lung Preop Cxray: interval 7mm nodular opacity projecting over the left lower lung zone and left heart. Summation of vascular anatomy seen on versus interval left pulmonary nodule are considerations. Given the short interval time frame in the nonvisualized appearance- summation of shadows are believed more likely. 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 Adames for chemotherapy Status: Acute (6) Diabetes mellitus Assessment & Plan: ISS accuchecks ACHS Lisinopril 2.5mg Status: Acute (7) Prophylactic measure Assessment & Plan: DVT: SCDs, Lovenox 30mg SC daily GI: Not indicated All plans and management discussed with Dr. Ly Status: Acute
[2018-07-25] MEDS: Vancomycin 1 GM 1 GM/250 ML BAG IVPB SCH (17:35)
[2018-07-25] MEDS: Lactobacillus Acidophilus 500 MU Cap PO SCH (20:23)
[2018-07-26] MEDS: Meropenem 500 MG in Sodium Chloride 0.9% 100 ML IVPB SCH ×3 (01:27→17:14)
[2018-07-26 07:31] LABS: BASO # 0.1 K/uL (0.0-0.2); BASO % 2.2 % (0.0-2.0); EOS # 0.1 K/uL (0.0-0.7); EOS % 4.3 % (0.0-4.0); LYMPH # 1.2 K/uL (1.0-4.3); LYMPH % 44.4 % (20.0-40.0); MEAN CELL VOLUME 92.4 fL (81.0-99.0); MEAN CORPUSCULAR HEMOGLOBIN 32.6 pg (27.0-31.0); MEAN CORPUSCULAR HGB CONC 35.3 g/dL (33.0-37.0); MEAN PLATELET VOLUME 10.4 fL (7.2-11.7); MONO # 0.1 K/uL (0.0-0.8); MONO % 3.2 % (0.0-10.0); NEUT # 1.2 K/uL (1.8-7.0); NEUT % 45.9 % (50.0-75.0); NRBC % 0.2 % (0.0-2.0); RBC 2.45 Mil/uL (3.80-5.20); RED CELL DISTRIBUTION WIDTH 14.4 % (11.5-14.5); WHITE BLOOD COUNT 2.6 K/uL (4.8-10.8)
[2018-07-26 07:41] LABS: ALB/GLOB RATIO 1.2 (1.0-2.1); ALBUMIN 3.5 g/dL (3.5-5.0); ALT/SGPT 71 U/L (9-52); AST/SGOT 77 U/L (14-36); BLOOD UREA NITROGEN 22 mg/dL (7-17); CALCIUM 8.9 mg/dl (8.6-10.4); GFR NON-AFRICAN AMERICAN 52
[2018-07-26] MEDS: (Novolog) Insulin Aspart, Recombinant 100 u/ml 10 ml vial SC SCH ×4 (08:42→22:00)
[2018-07-26] MEDS: Enoxaparin 30 mg Syringe SC SCH (11:23)
[2018-07-26] MEDS: Lactobacillus Acidophilus 500 MU Cap PO SCH ×2 (11:24→17:55)
--- NOTE | 2018-07-26 17:11 | CP.PCM.PN ---
Subjective - Date & Time of Evaluation Date of Evaluation: 07/26/18 Time of Evaluation: 07:00 - Subjective Subjective: Medicine Progress note ( Dr. Ly's service) Patient was seen and examined at bedside. Patient reports that she is doing well and denies any acute issues or complaints. Patient denies any symptoms of fever, chills, chest pain, palpitations, shortness of breath, abdominal pain, nausea, vomiting, constipation, or diarrhea. Objective - Vital Signs/Intake and Output Vital Signs (last 24 hours): Temp Pulse Resp BP Pulse Ox 98.1 F 67 20 137/69 99 07/26/18 15:00 07/26/18 15:00 07/26/18 15:00 07/26/18 15:00 07/26/18 15:00 Intake and Output: 07/26/18 07/26/18 06:59 18:59 Intake Total 890 Balance 890 - Medications Medications: Current Medications Enoxaparin Sodium (Lovenox) 30 mg SC DAILY [facility] Last Admin: 07/26/18 11:23 Dose: 30 mg Meropenem 500 mg/ Sodium (Chloride) 100 mls @ 100 mls/hr IVPB Q8H [facility]; Protocol Last Admin: 07/26/18 08:43 Dose: 100 mls/hr Vancomycin HCl (Vancomycin 1gm In Normal Saline Addvantage) 1 gm in 250 mls @ 167 mls/hr IVPB Q24H [facility]; Protocol Last Admin: 07/25/18 17:35 Dose: 167 mls/hr Insulin Aspart (Novolog) 0 unit SC ACHS [facility]; Protocol Last Admin: 07/26/18 12:16 Dose: 4 units Lactobacillus Acidophilus (Bacid Acidophilus) 1 cap PO BID [facility] Last Admin: 07/26/18 11:24 Dose: 1 cap Lisinopril (Zestril) 2.5 mg PO DAILY [facility] Last Admin: 07/26/18 11:24 Dose: 2.5 mg - Labs Labs: 07/26/18 07:04 07/26/18 07:04 PT 12.8 SECONDS (9.7-12.2) H 07/19/18 16:24 INR 1.2 07/19/18 16:24 APTT 25 SECONDS (21-34) 07/19/18 16:24 - Additional Findings Additional findings: - Constitutional Appears: No Acute Distress - Head Exam Head Exam: ATRAUMATIC, NORMAL INSPECTION - Eye Exam Eye Exam: EOMI, Normal appearance - ENT Exam ENT Exam: Mucous Membranes Moist - Respiratory Exam Respiratory Exam: Clear to Ausculation Bilateral, NORMAL BREATHING PATTERN. absent: Prolonged Expiratory Phase, Rhonchi, Wheezes, Respiratory Distress - Cardiovascular Exam Cardiovascular Exam: REGULAR RHYTHM, +S1, +S2. absent: Murmur - GI/Abdominal Exam GI & Abdominal Exam: Soft, Normal Bowel Sounds. absent: Distended, Firm, Guarding, Rigid, Tenderness - Exam Additional comments: Right labial wound with packing - Extremities Exam Extremities Exam: absent: Pedal Edema - Neurological Exam Neurological Exam: Alert, Awake, Oriented x3 - Psychiatric Exam Psychiatric exam: Normal Affect - Skin Skin Exam: Normal Color Assessment and Plan - Assessment and Plan (Free Text) Assessment: (1) Abscess of right genital labia Assessment & Plan: s/p debridement on 07/20/18 Dr. Christian consulted, help appreciated Dr. Solorio consulted, help appreciated Wound culture from 07/20 shows MRSA and ESBL E. Coli Vancomycin 1gm Q12h (last dose to be given on 07/30/18) Meropenem 500mg q8h (last dose to be given on 07/30/18) d/c Cefazolin 1000mg q8h (given 07/19- 07/20) Status: Acute (2) Urinary tract infection Assessment & Plan: U/A: leuk est: 2+, WBC 11 on vanco and meropenem for MRSA and ESBL E Coli (last dose to be given on 07/30/18) d/c Cefazolin 1000mg q8h (given 07/19- 07/20) Lactobacillus 1 tab PO BID Status: Acute (3) Abnormal CXR (chest x-ray) Assessment & Plan: Nodular Opacity in Left Lung Preop Cxray: interval 7mm nodular opacity projecting over the left lower lung zone and left heart. Summation of vascular anatomy seen on versus interval left pulmonary nodule are considerations. Given the short interval time frame in the nonvisualized appearance- summation of shadows are believed more likely. Nevertheless diagnosis of exclusion is an interval pulmonary nodule or interval increase conspicuity of a left pulmonary neoplastic nodule Status: Acute (4) Anemia Assessment & Plan: H/H: 02/08.6 Continue to monitor with am labs Status: Acute (5) MDS (myelodysplastic syndrome) with 5q deletion Assessment & Plan: seeing Dr. Adames for chemotherapy Status: Acute (6) Diabetes mellitus Assessment & Plan: ISS accuchecks ACHS Lisinopril 2.5mg Status: Acute (7) Prophylactic measure Assessment & Plan: DVT: SCDs, Lovenox 30mg SC daily GI: Not indicated Status: Acute All plans and management discussed with Dr. Ly
--- NOTE | 2018-07-26 19:23 | CP.PCM.PN ---
Subjective - Date & Time of Evaluation Date of Evaluation: 07/26/18 Time of Evaluation: 10:00 - Subjective Subjective: comfortable IV Rx renewed Objective - Vital Signs/Intake and Output Vital Signs (last 24 hours): Temp Pulse Resp BP Pulse Ox 98.1 F 67 20 137/69 99 07/26/18 15:00 07/26/18 15:00 07/26/18 15:00 07/26/18 15:00 07/26/18 15:00 - Medications Medications: Current Medications Enoxaparin Sodium (Lovenox) 30 mg SC DAILY [facility] Last Admin: 07/26/18 11:23 Dose: 30 mg Meropenem 500 mg/ Sodium (Chloride) 100 mls @ 100 mls/hr IVPB Q8H [facility]; Protocol Last Admin: 07/26/18 17:14 Dose: 100 mls/hr Vancomycin HCl (Vancomycin 1gm In Normal Saline Addvantage) 1 gm in 250 mls @ 167 mls/hr IVPB Q24H [facility]; Protocol Last Admin: 07/25/18 17:35 Dose: 167 mls/hr Insulin Aspart (Novolog) 0 unit SC ACHS [facility]; Protocol Last Admin: 07/26/18 17:19 Dose: 4 units Lactobacillus Acidophilus (Bacid Acidophilus) 1 cap PO BID [facility] Last Admin: 07/26/18 17:55 Dose: 1 cap Lisinopril (Zestril) 2.5 mg PO DAILY [facility] Last Admin: 07/26/18 11:24 Dose: 2.5 mg - Labs Labs: 07/26/18 07:04 07/26/18 07:04 PT 12.8 SECONDS (9.7-12.2) H 07/19/18 16:24 INR 1.2 07/19/18 16:24 APTT 25 SECONDS (21-34) 07/19/18 16:24 - Constitutional Appears: Non-toxic, Chronically Ill - Head Exam Head Exam: NORMOCEPHALIC - Eye Exam Eye Exam: absent: Scleral icterus - ENT Exam ENT Exam: Mucous Membranes Dry - Neck Exam Neck Exam: absent: Lymphadenopathy, Thyromegaly - Respiratory Exam Respiratory Exam: Decreased Breath Sounds - Cardiovascular Exam Cardiovascular Exam: REGULAR RHYTHM - GI/Abdominal Exam GI & Abdominal Exam: Distended, Soft - Rectal Exam Rectal Exam: Deferred - Exam Exam: NORMAL INSPECTION - Extremities Exam Extremities Exam: absent: Pedal Edema - Back Exam Back Exam: absent: CVA tenderness (L), CVA tenderness (R) - Neurological Exam Neurological Exam: Alert, Awake, Oriented x3 - Psychiatric Exam Psychiatric exam: Depressed Assessment and Plan (1) Bartholin cyst Status: Acute (2) Anemia Status: Acute - Assessment and Plan (Free Text) Assessment: cont iv rx and wound care
[2018-07-26] MEDS: Vancomycin 1 GM 1 GM/250 ML BAG IVPB SCH (19:29)
[2018-07-27] MEDS: Meropenem 500 MG in Sodium Chloride 0.9% 100 ML IVPB SCH ×3 (00:33→17:31)
[2018-07-27 07:31] LABS: BASO % 1.4 % (0.0-2.0); EOS # 0.1 K/uL (0.0-0.7); EOS % 3.9 % (0.0-4.0); HEMOGLOBIN 7.6 g/dL (11.0-16.0); MEAN CELL VOLUME 92.9 fL (81.0-99.0); MEAN CORPUSCULAR HEMOGLOBIN 32.2 pg (27.0-31.0); MEAN CORPUSCULAR HGB CONC 34.7 g/dL (33.0-37.0); MEAN PLATELET VOLUME 10.3 fL (7.2-11.7); MONO # 0.1 K/uL (0.0-0.8); MONO % 3.5 % (0.0-10.0); NEUT # 0.9 K/uL (1.8-7.0); NEUT % 45.2 % (50.0-75.0); NRBC % 0.1 % (0.0-2.0); RBC 2.36 Mil/uL (3.80-5.20); RED CELL DISTRIBUTION WIDTH 14.3 % (11.5-14.5); WHITE BLOOD COUNT 2.1 K/uL (4.8-10.8)
[2018-07-27 07:45] LABS: ALB/GLOB RATIO 1.2 (1.0-2.1); ALBUMIN 3.4 g/dL (3.5-5.0); ALT/SGPT 73 U/L (9-52); AST/SGOT 62 U/L (14-36); BLOOD UREA NITROGEN 22 mg/dL (7-17); CALCIUM 8.3 mg/dl (8.6-10.4); GFR NON-AFRICAN AMERICAN 59
[2018-07-27] MEDS: (Novolog) Insulin Aspart, Recombinant 100 u/ml 10 ml vial SC SCH ×4 (08:32→21:39)
[2018-07-27] MEDS: Enoxaparin 30 mg Syringe SC SCH (09:01)
[2018-07-27] MEDS: Lactobacillus Acidophilus 500 MU Cap PO SCH ×2 (09:46→18:22)
--- NOTE | 2018-07-27 11:22 | CP.PCM.PN ---
Subjective - Date & Time of Evaluation Date of Evaluation: 07/27/18 Time of Evaluation: 07:00 - Subjective Subjective: PGY2- Progress Note for Dr. Ly Patient was seen and examined at bedside. Patient reports that she is doing well and denies any acute issues or complaints. Patient denies any symptoms of fever, chills, chest pain, palpitations, shortness of breath, abdominal pain, nausea, vomiting, constipation, or diarrhea. Objective - Vital Signs/Intake and Output Vital Signs (last 24 hours): Temp Pulse Resp BP Pulse Ox 98.6 F 98 H 20 148/75 95 07/27/18 07:59 07/27/18 07:59 07/27/18 07:59 07/27/18 07:59 07/27/18 07:59 Intake and Output: 07/27/18 07/27/18 06:59 18:59 Intake Total 940 Output Total 700 Balance 240 - Medications Medications: Current Medications Enoxaparin Sodium (Lovenox) 30 mg SC DAILY [facility] Last Admin: 07/27/18 09:01 Dose: 30 mg Meropenem 500 mg/ Sodium (Chloride) 100 mls @ 100 mls/hr IVPB Q8H [facility]; Protocol Last Admin: 07/27/18 08:32 Dose: 100 mls/hr Vancomycin HCl (Vancomycin 1gm In Normal Saline Addvantage) 1 gm in 250 mls @ 167 mls/hr IVPB Q24H [facility]; Protocol Last Admin: 07/26/18 19:29 Dose: 167 mls/hr Insulin Aspart (Novolog) 0 unit SC ACHS [facility]; Protocol Insulin Glargine (Lantus) 10 unit SC HS [facility] Lactobacillus Acidophilus (Lactobacillus) 1 cap PO BID [facility] Last Admin: 07/27/18 09:46 Dose: 1 cap Lisinopril (Zestril) 2.5 mg PO DAILY [facility] Last Admin: 07/27/18 09:01 Dose: 2.5 mg - Labs Labs: 07/27/18 07:19 07/27/18 07:19 PT 12.8 SECONDS (9.7-12.2) H 07/19/18 16:24 INR 1.2 07/19/18 16:24 APTT 25 SECONDS (21-34) 07/19/18 16:24 - Additional Findings Additional findings: - Additional Findings Additional findings: - Constitutional Appears: No Acute Distress - Head Exam Head Exam: ATRAUMATIC, NORMAL INSPECTION - Eye Exam Eye Exam: EOMI, Normal appearance - ENT Exam ENT Exam: Mucous Membranes Moist - Respiratory Exam Respiratory Exam: Clear to Ausculation Bilateral, NORMAL BREATHING PATTERN. a bsent: Prolonged Expiratory Phase, Rhonchi, Wheezes, Respiratory Distress - Cardiovascular Exam Cardiovascular Exam: REGULAR RHYTHM, +S1, +S2. absent: Murmur - GI/Abdominal Exam GI & Abdominal Exam: Soft, Normal Bowel Sounds. absent: Distended, Firm, Guarding, Rigid, Tenderness - Exam Additional comments: Right labial wound with packing - Extremities Exam Extremities Exam: absent: Pedal Edema - Neurological Exam Neurological Exam: Alert, Awake, Oriented x3 - Psychiatric Exam Psychiatric exam: Normal Affect - Skin Skin Exam: Normal Color Assessment and Plan - Assessment and Plan (Free Text) Assessment: (1) Abscess of right genital labia Assessment & Plan: s/p debridement on 07/20/18 Dr. Christian consulted, help appreciated Dr. Solorio consulted, help appreciated Wound culture from 07/20 shows MRSA and ESBL E. Coli Vancomycin 1gm Q12h (last dose to be given on 07/30/18) Meropenem 500mg q8h (last dose to be given on 07/30/18) Lactobacillus 1 tab PO BID d/c Cefazolin 1000mg q8h (given 07/19- 07/20) Status: Acute (2) Urinary tract infection Assessment & Plan: U/A: leuk est: 2+, WBC 11 on vanco and meropenem for MRSA and ESBL E Coli (last dose to be given on 07/30/18) d/c Cefazolin 1000mg q8h (given 07/19- 07/20) Lactobacillus 1 tab PO BID Status: Acute (3) Abnormal CXR (chest x-ray) Assessment & Plan: Nodular Opacity in Left Lung Preop Cxray: interval 7mm nodular opacity projecting over the left lower lung zone and left heart. Summation of vascular anatomy seen on versus interval left pulmonary nodule are considerations. Given the short interval time frame in the nonvisualized appearance- summation of shadows are believed more likely. Nevertheless diagnosis of exclusion is an interval pulmonary nodule or interval increase conspicuity of a left pulmonary neoplastic nodule Status: Acute (4) Anemia Assessment & Plan: H/H: 7.12/09 transfuse 2 u prbcs (07/27/18) Continue to monitor with am labs Status: Acute (5) MDS (myelodysplastic syndrome) with 5q deletion Assessment & Plan: seeing Dr. Adames for chemotherapy Status: Acute (6) Diabetes mellitus Assessment & Plan: ISS increased to medium accuchecks ACHS Lisinopril 2.5mg restarted home med Glargine 10 u sc HS (on 07/27/18) Status: Acute (7) Prophylactic measure Assessment & Plan: DVT: SCDs, Lovenox 30mg SC daily GI: Not indicated Status: Acute All plans and management discussed with Dr. Ly
[2018-07-27] MEDS: Vancomycin 1 GM 1 GM/250 ML BAG IVPB SCH (17:32)
--- NOTE | 2018-07-27 19:42 | CP.PCM.PN ---
Subjective - Date & Time of Evaluation Date of Evaluation: 07/27/18 Time of Evaluation: 10:00 - Subjective Subjective: vanco level elevated i was not called switch to zyvox/merrem check vanco leval and creat in am Objective - Vital Signs/Intake and Output Vital Signs (last 24 hours): Temp Pulse Resp BP Pulse Ox 98.0 F 86 20 121/64 94 L 07/27/18 16:24 07/27/18 16:24 07/27/18 16:24 07/27/18 16:24 07/27/18 16:24 Intake and Output: 07/27/18 07/28/18 18:59 06:59 Intake Total 400 Balance 400 - Medications Medications: Current Medications Enoxaparin Sodium (Lovenox) 30 mg SC DAILY [facility] Last Admin: 07/27/18 09:01 Dose: 30 mg Meropenem 500 mg/ Sodium (Chloride) 100 mls @ 100 mls/hr IVPB Q8H [facility]; Protocol Last Admin: 07/27/18 17:31 Dose: 100 mls/hr Linezolid (Zyvox 600mg/300ml D5w) 600 mg in 300 mls @ 200 mls/hr IVPB Q12H [facility]; Protocol Insulin Aspart (Novolog) 0 unit SC ACHS [facility]; Protocol Last Admin: 07/27/18 16:30 Dose: 4 unit Insulin Glargine (Lantus) 10 unit SC HS [facility] Lactobacillus Acidophilus (Lactobacillus) 1 cap PO BID [facility] Last Admin: 07/27/18 18:22 Dose: 1 cap Lisinopril (Zestril) 2.5 mg PO DAILY [facility] Last Admin: 07/27/18 09:01 Dose: 2.5 mg - Labs Labs: 07/27/18 07:19 07/27/18 07:19 PT 12.8 SECONDS (9.7-12.2) H 07/19/18 16:24 INR 1.2 07/19/18 16:24 APTT 25 SECONDS (21-34) 07/19/18 16:24 Assessment and Plan (1) Bartholin cyst Status: Acute (2) Anemia Status: Acute
[2018-07-27] MEDS ORDERED: Linezolid 600 mg in D5W 300 ml 600 MG/300 ML BAG IVPB SCH (19:45)
[2018-07-27] MEDS: Linezolid 600 mg in D5W 300 ml 600 MG/300 ML BAG IVPB SCH (20:00)
[2018-07-27] MEDS: (Lantus) Insulin Glargine, Recombinant SC SCH (21:38)
[2018-07-28] MEDS: Meropenem 500 MG in Sodium Chloride 0.9% 100 ML IVPB SCH ×3 (01:37→17:15)
[2018-07-28] MEDS: Linezolid 600 mg in D5W 300 ml 600 MG/300 ML BAG IVPB SCH ×2 (08:05→20:00)
[2018-07-28] MEDS: (Novolog) Insulin Aspart, Recombinant 100 u/ml 10 ml vial SC SCH ×4 (08:06→21:57)
[2018-07-28 08:23] LABS: BASO % 1.2 % (0.0-2.0); EOS # 0.1 K/uL (0.0-0.7); EOS % 4.5 % (0.0-4.0); HEMOGLOBIN 8.8 g/dL (11.0-16.0); LYMPH # 0.7 K/uL (1.0-4.3); LYMPH % 32.2 % (20.0-40.0); MEAN CORPUSCULAR HEMOGLOBIN 31.4 pg (27.0-31.0); MEAN CORPUSCULAR HGB CONC 34.6 g/dL (33.0-37.0); MEAN PLATELET VOLUME 10.8 fL (7.2-11.7); MONO # 0.1 K/uL (0.0-0.8); MONO % 5.6 % (0.0-10.0); NEUT # 1.2 K/uL (1.8-7.0); NEUT % 56.5 % (50.0-75.0); RBC 2.8 Mil/uL (3.80-5.20); RED CELL DISTRIBUTION WIDTH 13.7 % (11.5-14.5); WHITE BLOOD COUNT 2.1 K/uL (4.8-10.8)
[2018-07-28 08:38] LABS: MEAN CELL VOLUME 90.9 fL (81.0-99.0)
[2018-07-28 08:40] LABS: ALB/GLOB RATIO 1.2 (1.0-2.1); ALBUMIN 3.5 g/dL (3.5-5.0); ALT/SGPT 82 U/L (9-52); AST/SGOT 62 U/L (14-36); BLOOD UREA NITROGEN 16 mg/dL (7-17); CALCIUM 8.3 mg/dl (8.6-10.4); GFR NON-AFRICAN AMERICAN 59
--- NOTE | 2018-07-28 09:09 | CP.PCM.PN ---
Subjective - Date & Time of Evaluation Date of Evaluation: 07/28/18 Time of Evaluation: 09:06 - Subjective Subjective: Progress Note for Dr. Ly Patient seen and examined at bedside. Patient received her 1st unit of PRBC overnight. Patient has no acute complaints. She denies having of dizziness, fever, chills, chest pain, palpitations, shortness of breath, abdominal pain, nausea, vomiting, constipation, or diarrhea. Objective - Vital Signs/Intake and Output Vital Signs (last 24 hours): Temp Pulse Resp BP Pulse Ox 98.7 F 90 20 176/76 H 95 07/28/18 07:00 07/28/18 07:00 07/28/18 07:00 07/28/18 07:00 07/28/18 07:00 Intake and Output: 07/28/18 07/28/18 06:59 18:59 Intake Total 1989 Balance 1989 - Medications Medications: Current Medications Enoxaparin Sodium (Lovenox) 30 mg SC DAILY [facility] Last Admin: 07/27/18 09:01 Dose: 30 mg Meropenem 500 mg/ Sodium (Chloride) 100 mls @ 100 mls/hr IVPB Q8H [facility]; Protocol Last Admin: 07/28/18 01:37 Dose: 100 mls/hr Linezolid (Zyvox 600mg/300ml D5w) 600 mg in 300 mls @ 200 mls/hr IVPB Q12H [facility]; Protocol Last Admin: 07/28/18 08:05 Dose: 200 mls/hr Insulin Aspart (Novolog) 0 unit SC ACHS [facility]; Protocol Last Admin: 07/28/18 08:06 Dose: 3 unit Insulin Glargine (Lantus) 10 unit SC HS [facility] Last Admin: 07/27/18 21:38 Dose: 10 units Lactobacillus Acidophilus (Lactobacillus) 1 cap PO BID [facility] Last Admin: 07/27/18 18:22 Dose: 1 cap Lisinopril (Zestril) 2.5 mg PO DAILY [facility] Last Admin: 07/27/18 09:01 Dose: 2.5 mg - Labs Labs: 07/28/18 08:20 07/28/18 08:20 PT 12.8 SECONDS (9.7-12.2) H 07/19/18 16:24 INR 1.2 07/19/18 16:24 APTT 25 SECONDS (21-34) 07/19/18 16:24 - Additional Findings Additional findings: - Constitutional Appears: No Acute Distress - Head Exam Head Exam: ATRAUMATIC, NORMAL INSPECTION - Eye Exam Eye Exam: EOMI, Normal appearance - ENT Exam ENT Exam: Mucous Membranes Moist - Respiratory Exam Respiratory Exam: Clear to Ausculation Bilateral, NORMAL BREATHING PATTERN. absent: Prolonged Expiratory Phase, Rhonchi, Wheezes, Respiratory Distress - Cardiovascular Exam Cardiovascular Exam: REGULAR RHYTHM, +S1, +S2. absent: Murmur - GI/Abdominal Exam GI & Abdominal Exam: Soft, Normal Bowel Sounds. absent: Distended, Firm, Guarding, Rigid, Tenderness - Exam Additional comments: Right labial wound healing well, no signs of drainage or discharge, no erythema, non tender - Extremities Exam Extremities Exam: absent: Pedal Edema - Neurological Exam Neurological Exam: Alert, Awake, Oriented x3 - Psychiatric Exam Psychiatric exam: Normal Affect - Skin Skin Exam: Normal Color Assessment and Plan - Assessment and Plan (Free Text) Assessment: Abscess of right genital labia Assessment & Plan: s/p debridement on 07/20/18 Dr. Christian consulted, help appreciated Dr. Solorio consulted, help appreciated Wound culture from 07/20 shows MRSA and ESBL E. Coli Zyvox 600mg Q12 (started 07/27) Meropenem 500mg q8h (last dose to be given on 07/30/18) Lactobacillus 1 tab PO BID d/c Vancomycin 1gm Q12h (07/24-07/27) d/c Cefazolin 1000mg q8h (given 07/19- 07/20) Continue antibiotics until 07/30 per ID Status: Acute Anemia Assessment & Plan: H/H: 8.8/25.4 today s/p 1u prbc (07/27/18) Continue to monitor with am labs Status: Acute Urinary tract infection Assessment & Plan: U/A: leuk est: 2+, WBC 11 on Zyvox and meropenem for MRSA and ESBL E Coli (last dose to be given on 07/30/18) d/c Cefazolin 1000mg q8h (given 07/19- 07/20) Lactobacillus 1 tab PO BID Status: Acute Abnormal CXR (chest x-ray) Assessment & Plan: Nodular Opacity in Left Lung Preop Cxray: interval 7mm nodular opacity projecting over the left lower lung zone and left heart. Summation of vascular anatomy seen on versus interval left pulmonary nodule are considerations. Given the short interval time frame in the nonvisualized appearance- summation of shadows are believed more likely. Nevertheless diagnosis of exclusion is an interval pulmonary nodule or interval increase conspicuity of a left pulmonary neoplastic nodule Status: Acute MDS (myelodysplastic syndrome) with 5q deletion Assessment & Plan: seeing Dr. Adames for chemotherapy Status: Acute Diabetes mellitus Assessment & Plan: ISS increased to medium accuchecks ACHS Lisinopril 2.5mg restarted home med Glargine 10 u sc HS (on 07/27/18) Status: Acute Prophylactic measure Assessment & Plan: DVT: SCDs, Lovenox 30mg SC daily GI: Not indicated Status: Acute Continue all antibiotics until 07/30 per ID All plans and management discussed with Dr. Ly
[2018-07-28] MEDS: Enoxaparin 30 mg Syringe SC SCH (09:42)
[2018-07-28] MEDS: Lactobacillus Acidophilus 500 MU Cap PO SCH ×2 (09:42→17:15)
--- NOTE | 2018-07-28 19:06 | CP.PCM.PN ---
Subjective - Date & Time of Evaluation Date of Evaluation: 07/28/18 Time of Evaluation: 08:00 - Subjective Subjective: stable s/p transfusion for d/c in am Objective - Vital Signs/Intake and Output Vital Signs (last 24 hours): Temp Pulse Resp BP Pulse Ox 97.9 F 79 20 147/73 95 07/28/18 16:00 07/28/18 16:00 07/28/18 16:00 07/28/18 16:00 07/28/18 16:00 Intake and Output: 07/28/18 07/29/18 18:59 06:59 Intake Total 700 Balance 700 - Medications Medications: Current Medications Enoxaparin Sodium (Lovenox) 30 mg SC DAILY [facility] Last Admin: 07/28/18 09:42 Dose: 30 mg Meropenem 500 mg/ Sodium (Chloride) 100 mls @ 100 mls/hr IVPB Q8H [facility]; Protocol Last Admin: 07/28/18 17:15 Dose: 100 mls/hr Linezolid (Zyvox 600mg/300ml D5w) 600 mg in 300 mls @ 200 mls/hr IVPB Q12H [facility]; Protocol Last Admin: 07/28/18 08:05 Dose: 200 mls/hr Insulin Aspart (Novolog) 0 unit SC ACHS [facility]; Protocol Last Admin: 07/28/18 16:30 Dose: 3 unit Insulin Glargine (Lantus) 10 unit SC HS [facility] Last Admin: 07/27/18 21:38 Dose: 10 units Lactobacillus Acidophilus (Lactobacillus) 1 cap PO BID [facility] Last Admin: 07/28/18 17:15 Dose: 1 cap Lisinopril (Zestril) 2.5 mg PO DAILY [facility] Last Admin: 07/28/18 09:42 Dose: 2.5 mg - Labs Labs: 07/28/18 08:20 07/28/18 08:20 PT 12.8 SECONDS (9.7-12.2) H 07/19/18 16:24 INR 1.2 07/19/18 16:24 APTT 25 SECONDS (21-34) 07/19/18 16:24 - Constitutional Appears: Non-toxic, Chronically Ill - Head Exam Head Exam: NORMOCEPHALIC - Eye Exam Eye Exam: absent: Scleral icterus - ENT Exam ENT Exam: Mucous Membranes Dry - Neck Exam Neck Exam: absent: Lymphadenopathy - Respiratory Exam Respiratory Exam: Decreased Breath Sounds - Cardiovascular Exam Cardiovascular Exam: REGULAR RHYTHM - GI/Abdominal Exam GI & Abdominal Exam: Distended - Rectal Exam Rectal Exam: Deferred - Exam Exam: NORMAL INSPECTION Assessment and Plan (1) Bartholin cyst Status: Acute (2) Anemia Status: Acute - Assessment and Plan (Free Text) Assessment: to complete rx in am
[2018-07-28] MEDS: (Lantus) Insulin Glargine, Recombinant SC SCH (21:56)
[2018-07-29] MEDS: Meropenem 500 MG in Sodium Chloride 0.9% 100 ML IVPB SCH ×3 (01:26→16:40)
[2018-07-29 07:22] LABS: BASO % 1.4 % (0.0-2.0); EOS # 0.1 K/uL (0.0-0.7); EOS % 5.3 % (0.0-4.0); HEMOGLOBIN 8.8 g/dL (11.0-16.0); LYMPH # 1.2 K/uL (1.0-4.3); LYMPH % 47.9 % (20.0-40.0); MEAN CELL VOLUME 89.7 fL (81.0-99.0); MEAN CORPUSCULAR HEMOGLOBIN 31.4 pg (27.0-31.0); MEAN CORPUSCULAR HGB CONC 34.9 g/dL (33.0-37.0); MEAN PLATELET VOLUME 9.8 fL (7.2-11.7); MONO # 0.1 K/uL (0.0-0.8); MONO % 4.5 % (0.0-10.0); NEUT % 40.9 % (50.0-75.0); NRBC % 0.1 % (0.0-2.0); RBC 2.82 Mil/uL (3.80-5.20); RED CELL DISTRIBUTION WIDTH 13.7 % (11.5-14.5); WHITE BLOOD COUNT 2.4 K/uL (4.8-10.8)
[2018-07-29] MEDS: (Novolog) Insulin Aspart, Recombinant 100 u/ml 10 ml vial SC SCH ×4 (07:57→21:51)
[2018-07-29] MEDS: Linezolid 600 mg in D5W 300 ml 600 MG/300 ML BAG IVPB SCH ×2 (08:29→21:05)
[2018-07-29 09:57] LABS: ALB/GLOB RATIO 1.2 (1.0-2.1); ALBUMIN 3.6 g/dL (3.5-5.0); ALT/SGPT 97 U/L (9-52); AST/SGOT 78 U/L (14-36); BLOOD UREA NITROGEN 17 mg/dL (7-17); CALCIUM 8.8 mg/dl (8.6-10.4); GFR NON-AFRICAN AMERICAN 52
[2018-07-29] MEDS: Lactobacillus Acidophilus 500 MU Cap PO SCH ×2 (10:01→17:17)
[2018-07-29] MEDS: Enoxaparin 30 mg Syringe SC SCH (10:01)
[2018-07-29] MEDS: (Lantus) Insulin Glargine, Recombinant SC SCH (22:07)
[2018-07-30] MEDS: Meropenem 500 MG in Sodium Chloride 0.9% 100 ML IVPB SCH ×3 (01:18→17:04)
[2018-07-30] MEDS: (Novolog) Insulin Aspart, Recombinant 100 u/ml 10 ml vial SC SCH ×4 (08:45→21:33)
[2018-07-30] MEDS: Linezolid 600 mg in D5W 300 ml 600 MG/300 ML BAG IVPB SCH ×2 (09:06→19:32)
[2018-07-30] MEDS: Lactobacillus Acidophilus 500 MU Cap PO SCH ×2 (10:26→17:05)
[2018-07-30] MEDS: Enoxaparin 30 mg Syringe SC SCH (10:26)
[2018-07-30] MEDS: (Lantus) Insulin Glargine, Recombinant SC SCH (21:33)
[2018-07-31] MEDS: Meropenem 500 MG in Sodium Chloride 0.9% 100 ML IVPB SCH ×3 (00:43→18:00)
[2018-07-31] MEDS: (Novolog) Insulin Aspart, Recombinant 100 u/ml 10 ml vial SC SCH ×4 (08:09→22:16)
[2018-07-31] MEDS: Linezolid 600 mg in D5W 300 ml 600 MG/300 ML BAG IVPB SCH ×2 (08:25→19:10)
[2018-07-31] MEDS: Enoxaparin 30 mg Syringe SC SCH (09:02)
[2018-07-31] MEDS: Lactobacillus Acidophilus 500 MU Cap PO SCH ×2 (09:03→17:25)
[2018-07-31 10:22] VITALS: RESP 20
--- NOTE | 2018-07-31 10:39 | CP.PCM.PN ---
Subjective - Date & Time of Evaluation Date of Evaluation: 07/31/18 Time of Evaluation: 10:40 - Subjective Subjective: Progress note. Attending: Dr. Ly. Pt seen and examined at bedside. No acute distress. No events overnight. No complaints today. Objective - Vital Signs/Intake and Output Vital Signs (last 24 hours): Temp Pulse Resp BP Pulse Ox 97.7 F 84 20 145/78 96 07/31/18 08:00 07/31/18 08:00 07/31/18 08:00 07/31/18 08:00 07/31/18 08:00 Intake and Output: 07/31/18 07/31/18 06:59 18:59 Intake Total 510 Balance 510 - Medications Medications: Current Medications Enoxaparin Sodium (Lovenox) 30 mg SC DAILY [facility] Last Admin: 07/31/18 09:02 Dose: 30 mg Meropenem 500 mg/ Sodium (Chloride) 100 mls @ 100 mls/hr IVPB Q8H [facility]; Protocol Last Admin: 07/31/18 09:04 Dose: 100 mls/hr Linezolid (Zyvox 600mg/300ml D5w) 600 mg in 300 mls @ 200 mls/hr IVPB Q12H [facility]; Protocol Last Admin: 07/31/18 08:25 Dose: 200 mls/hr Insulin Aspart (Novolog) 0 unit SC ACHS [facility]; Protocol Last Admin: 07/31/18 08:09 Dose: Not Given Insulin Glargine (Lantus) 10 unit SC HS [facility] Last Admin: 07/30/18 21:33 Dose: 10 units Lactobacillus Acidophilus (Lactobacillus) 1 cap PO BID [facility] Last Admin: 07/31/18 09:03 Dose: 1 cap Lisinopril (Zestril) 2.5 mg PO DAILY [facility] Last Admin: 07/31/18 09:03 Dose: 2.5 mg - Labs Labs: 07/29/18 07:02 07/29/18 07:02 PT 12.8 SECONDS (9.7-12.2) H 07/19/18 16:24 INR 1.2 07/19/18 16:24 APTT 25 SECONDS (21-34) 07/19/18 16:24 - Constitutional Appears: Non-toxic, No Acute Distress - Head Exam Head Exam: ATRAUMATIC, NORMAL INSPECTION, NORMOCEPHALIC - Eye Exam Eye Exam: EOMI - ENT Exam ENT Exam: Mucous Membranes Moist - Neck Exam Neck Exam: Full ROM, Normal Inspection - Respiratory Exam Respiratory Exam: NORMAL BREATHING PATTERN. absent: Respiratory Distress - Cardiovascular Exam Cardiovascular Exam: +S1, +S2 - GI/Abdominal Exam GI & Abdominal Exam: Soft, Normal Bowel Sounds. absent: Tenderness - Exam Exam: absent: NORMAL INSPECTION Additional comments: right labial wound, healing well, no erythema, abscess, drainage - Extremities Exam Extremities Exam: Full ROM, Normal Inspection - Neurological Exam Neurological Exam: Alert, Awake - Psychiatric Exam Psychiatric exam: Normal Affect, Normal Mood - Skin Skin Exam: Dry, Intact, Normal Color, Warm Assessment and Plan - Assessment and Plan (Free Text) Assessment: 1. Labial abscess s/p debridement on 07/20/18 Dr. Christian consulted, help appreciated Dr. Solorio consulted, help appreciated Wound culture from 07/20 shows MRSA and ESBL E. Coli Zyvox 600 mg Q12 hrs (started 07/27) Meropenem 500 mg q 8 hrs (last dose to be given on 07/30/18) Lactobacillus 1 tab PO BID d/c Vancomycin 1gm Q12h (07/24-07/27) d/c Cefazolin 1000mg q8h (given 07/19- 07/20) 2. Anemia s/p 1 unit of packed red blood cells (07/27/18) Continue to monitor with am labs 2. Neutropenia/leukopenia -likely secondary to myelodysplastic syndrome -neutropenic precautions -hematology/oncology consult. Dr. Adames. recs appreciated. 3. Urinary tract infection U/A: leuk est: 2+, WBC 11 on Zyvox and meropenem for MRSA and ESBL E Coli (last dose to be given on ) d/c Cefazolin 1000mg q8h (given 07/19- 07/20) Lactobacillus 1 tab PO BID 4. Abnormal CXR (chest x-ray) Nodular Opacity in Left Lung Pre- op CXR: interval 7mm nodular opacity projecting over the left lower lung zone and left heart. Summation of vascular anatomy seen on versus interval left pulmonary nodule are considerations. Given the short interval time frame in the nonvisualized appearance- summation of shadows are believed more likely. Nevertheless diagnosis of exclusion is an interval pulmonary nodule or interval increase conspicuity of a left pulmonary neoplastic nodule 5. Myelodysplastic syndrome seeing Dr. Adames for chemotherapy 6. Diabetes mellitus ISS increased to medium accuchecks ACHS Lisinopril 2.5mg restarted home med Glargine 10 u sc HS (on 07/27/18) 7. GI/DVT DVT: SCDs, Lovenox 30mg SC daily GI: Not indicated Continue all antibiotics until 07/30 per ID
[2018-07-31 11:07] LABS: BASO % 1.6 % (0.0-2.0); EOS # 0.1 K/uL (0.0-0.7); EOS % 6.1 % (0.0-4.0); HEMOGLOBIN 8.4 g/dL (11.0-16.0); LYMPH # 0.9 K/uL (1.0-4.3); MEAN CELL VOLUME 89.8 fL (81.0-99.0); MEAN CORPUSCULAR HEMOGLOBIN 31.9 pg (27.0-31.0); MEAN CORPUSCULAR HGB CONC 35.5 g/dL (33.0-37.0); MEAN PLATELET VOLUME 10.3 fL (7.2-11.7); MONO # 0.1 K/uL (0.0-0.8); MONO % 4.6 % (0.0-10.0); NEUT # 0.6 K/uL (1.8-7.0); NEUT % 35.7 % (50.0-75.0); NRBC % 0.1 % (0.0-2.0); RBC 2.65 Mil/uL (3.80-5.20); RED CELL DISTRIBUTION WIDTH 14.2 % (11.5-14.5)
[2018-07-31 11:19] LABS: WHITE BLOOD COUNT 1.8 K/uL (4.8-10.8)
[2018-07-31 11:49] LABS: ALB/GLOB RATIO 1.2 (1.0-2.1); ALBUMIN 3.4 g/dL (3.5-5.0); CALCIUM 8.5 mg/dl (8.6-10.4)
--- NOTE | 2018-07-31 21:09 | CP.PCM.CON ---
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 The patient is well known to me and has required repeat PRBC transfusions in the past. She had been receiving Procrit treatments in the past. She denies abnormal bleeding and bruising She does admit to some fatigue but states she feels okay. Past medical history: MDS Past surgical history: None Family history: Denies hematologic and oncologic problems Social history: Denies tobacco, alcohol, and illicit drug use. Allergies: Amoxicillin Review of systems: All remaining review of systems including HEENT, cardiovascular, respiratory, gastrointestinal, genitourinary, musculoskeletal, dermatologic, neurologic, and psychiatric are negative unless mentioned in the HPI. Past Patient History - Infectious Disease Hx of Infectious Diseases: None - Tetanus Immunizations Tetanus Immunization: Unknown - Past Medical History & Family History Past Medical History?: Yes - Past Social History Smoking Status: Never Smoked - CARDIAC Hx Hypercholesterolemia: Yes Hx Hypertension: Yes - PULMONARY Hx Bronchitis: Yes Hx Pneumonia: Yes - NEUROLOGICAL Hx Alzheimer's Disease: Yes Hx Dementia: Yes - HEENT Hx HEENT Problems: Yes Hx Cataracts: Yes (BOTH EYES) - RENAL Hx Chronic Kidney Disease: No - ENDOCRINE/METABOLIC Hx Diabetes Mellitus Type 2: Yes - HEMATOLOGICAL/ONCOLOGICAL Hx Anemia: Yes - INTEGUMENTARY Hx Dermatological Problems: No - MUSCULOSKELETAL/RHEUMATOLOGICAL Hx Arthritis: Yes (SHOULDER, KNEE) Hx Rheumatoid Arthritis: Yes (SHOULDER) - GASTROINTESTINAL Hx Gastrointestinal Disorders: No - GENITOURINARY/GYNECOLOGICAL Hx Genitourinary Disorders: Yes (esbl /uti sepsis,SOME INCONTINENCY.WEARS PULLUPS.) - PSYCHIATRIC Hx Substance Use: No - SURGICAL HISTORY Hx Tonsillectomy: Yes - ANESTHESIA Hx Anesthesia: Yes Hx Anesthesia Reactions: No Hx Malignant Hyperthermia: No Meds Allergies/Adverse Reactions: Allergies Allergy/AdvReac Type Severity Reaction Status Date / Time amoxicillin Allergy Mild RASH Verified 07/19/18 14:03 - Medications Medications: Current Medications Enoxaparin Sodium (Lovenox) 30 mg SC DAILY [facility] Last Admin: 07/31/18 09:02 Dose: 30 mg Meropenem 500 mg/ Sodium (Chloride) 100 mls @ 100 mls/hr IVPB Q8H [facility]; Protocol Last Admin: 07/31/18 09:04 Dose: 100 mls/hr Linezolid (Zyvox 600mg/300ml D5w) 600 mg in 300 mls @ 200 mls/hr IVPB Q12H [facility]; Protocol Last Admin: 07/31/18 19:10 Dose: 200 mls/hr Insulin Aspart (Novolog) 0 unit SC ACHS [facility]; Protocol Last Admin: 07/31/18 17:25 Dose: 4 unit Insulin Glargine (Lantus) 10 unit SC HS [facility] Last Admin: 07/30/18 21:33 Dose: 10 units Lactobacillus Acidophilus (Lactobacillus) 1 cap PO BID [facility] Last Admin: 07/31/18 17:25 Dose: 1 cap Lisinopril (Zestril) 2.5 mg PO DAILY [facility] Last Admin: 07/31/18 09:03 Dose: 2.5 mg Physical Exam - Head Exam Head Exam: ATRAUMATIC - Eye Exam Eye Exam: Normal appearance - ENT Exam ENT Exam: Mucous Membranes Dry - Respiratory Exam Respiratory Exam: NORMAL BREATHING PATTERN - Cardiovascular Exam Cardiovascular Exam: +S1, +S2 - GI/Abdominal Exam GI & Abdominal Exam: Normal Bowel Sounds - Extremities Exam Extremities exam: Positive for: pedal edema - Neurological Exam Neurological exam: Oriented x3 - Psychiatric Exam Psychiatric exam: Normal Affect, Normal Mood - Skin Skin Exam: Warm Results - Vital Signs Recent Vital Signs: Last Vital Signs Temp 97.7 F 07/31/18 16:07 Pulse 85 07/31/18 16:07 Resp 20 07/31/18 16:07 BP 119/68 07/31/18 16:07 Pulse Ox 95 07/31/18 16:07 - Labs Result Diagrams: 08/01/18 08:12 08/01/18 08:12 Labs: Laboratory Results - last 24 hr 07/30/18 07/31/18 07/31/18 21:01 03:30 07:30 WBC RBC Hgb Hct MCV MCH MCHC RDW Plt Count MPV Neut % (Auto) Lymph % (Auto) [place] % (Auto) Eos % (Auto) Baso % (Auto) Neut # (Auto) Lymph # (Auto) [place] # (Auto) Eos # (Auto) Baso # (Auto) Differential Comment Sodium Potassium Chloride Carbon Dioxide Anion Gap BUN Creatinine Est GFR ( Amer) Est GFR (Non-Af Amer) POC Glucose (mg/dL) 310 H 104 103 Random Glucose Calcium Phosphorus Magnesium Total Bilirubin AST ALT Alkaline Phosphatase Total Protein Albumin Globulin Albumin/Globulin Ratio 07/31/18 07/31/18 07/31/18 10:54 10:54 11:09 WBC 1.8 L* RBC 2.65 L Hgb 8.4 L Hct 23.8 L MCV 89.8 MCH 31.9 H MCHC 35.5 RDW 14.2 Plt Count 45 L MPV 10.3 Neut % (Auto) 35.7 L Lymph % (Auto) 52.0 H [place] % (Auto) 4.6 Eos % (Auto) 6.1 H Baso % (Auto) 1.6 Neut # (Auto) 0.6 L Lymph # (Auto) 0.9 L [place] # (Auto) 0.1 Eos # (Auto) 0.1 Baso # (Auto) 0.0 Differential Comment Sodium 130 L Potassium 4.4 Chloride 95 L Carbon Dioxide 30 Anion Gap 10 BUN 25 H Creatinine 1.2 Est GFR ( Amer) 51 Est GFR (Non-Af Amer) 42 POC Glucose (mg/dL) 189 H Random Glucose 221 H D Calcium 8.5 L Phosphorus 4.1 Magnesium 1.8 Total Bilirubin 0.9 AST 50 H D ALT 86 H Alkaline Phosphatase 87 Total Protein 6.1 L Albumin 3.4 L Globulin 2.7 Albumin/Globulin Ratio 1.2 07/31/18 16:36 WBC RBC Hgb Hct MCV MCH MCHC RDW Plt Count MPV Neut % (Auto) Lymph % (Auto) [place] % (Auto) Eos % (Auto) Baso % (Auto) Neut # (Auto) Lymph # (Auto) [place] # (Auto) Eos # (Auto) Baso # (Auto) Differential Comment Sodium Potassium Chloride Carbon Dioxide Anion Gap BUN Creatinine Est GFR ( Amer) Est GFR (Non-Af Amer) POC Glucose (mg/dL) 281 H Random Glucose Calcium Phosphorus Magnesium Total Bilirubin AST ALT Alkaline Phosphatase Total Protein Albumin Globulin Albumin/Globulin Ratio Assessment & Plan (1) Pancytopenia Assessment and Plan: secondary to MDS transfusion support PRN Status: Acute (2) Myelodysplastic syndrome Assessment and Plan: 5q- on outpatient decitabine Thank you for this interesting consult. Status: Chronic Priority: Medium
[2018-07-31] MEDS: (Lantus) Insulin Glargine, Recombinant SC SCH (22:16)
[2018-08-01] MEDS: Meropenem 500 MG in Sodium Chloride 0.9% 100 ML IVPB SCH ×3 (00:50→17:18)
[2018-08-01] MEDS: (Novolog) Insulin Aspart, Recombinant 100 u/ml 10 ml vial SC SCH ×4 (07:45→21:52)
[2018-08-01] MEDS: Linezolid 600 mg in D5W 300 ml 600 MG/300 ML BAG IVPB SCH ×2 (07:58→19:02)
[2018-08-01 08:20] LABS: BASO % 1.8 % (0.0-2.0); EOS # 0.1 K/uL (0.0-0.7); EOS % 5.5 % (0.0-4.0); HEMOGLOBIN 8.8 g/dL (11.0-16.0); LYMPH # 1.1 K/uL (1.0-4.3); LYMPH % 53.6 % (20.0-40.0); MEAN CELL VOLUME 89.5 fL (81.0-99.0); MEAN CORPUSCULAR HEMOGLOBIN 31.4 pg (27.0-31.0); MEAN CORPUSCULAR HGB CONC 35.1 g/dL (33.0-37.0); MONO # 0.1 K/uL (0.0-0.8); MONO % 3.6 % (0.0-10.0); NEUT # 0.7 K/uL (1.8-7.0); NEUT % 35.5 % (50.0-75.0); NRBC % 0.1 % (0.0-2.0); RBC 2.8 Mil/uL (3.80-5.20); RED CELL DISTRIBUTION WIDTH 13.7 % (11.5-14.5); WHITE BLOOD COUNT 2.1 K/uL (4.8-10.8)
[2018-08-01 08:33] LABS: ALB/GLOB RATIO 1.2 (1.0-2.1); ALBUMIN 3.9 g/dL (3.5-5.0)
[2018-08-01] MEDS: Enoxaparin 30 mg Syringe SC SCH (09:18)
[2018-08-01] MEDS: Lactobacillus Acidophilus 500 MU Cap PO SCH ×2 (09:19→17:18)
--- NOTE | 2018-08-01 13:26 | CP.PCM.PN ---
Subjective - Date & Time of Evaluation Date of Evaluation: 08/01/18 Time of Evaluation: 13:20 - Subjective Subjective: Progress note. Attending: Dr. Ly. Pt seen and examined at bedside. No acute distress. No events overnight. No fevers, chills, vomiting, diarrhea. Objective - Vital Signs/Intake and Output Vital Signs (last 24 hours): Temp Pulse Resp BP Pulse Ox 97.8 F 81 20 125/70 96 08/01/18 07:53 08/01/18 07:53 08/01/18 07:53 08/01/18 07:53 08/01/18 07:53 Intake and Output: 08/01/18 08/01/18 06:59 18:59 Intake Total 1290 Balance 1290 - Medications Medications: Current Medications Enoxaparin Sodium (Lovenox) 30 mg SC DAILY [facility] Last Admin: 08/01/18 09:18 Dose: 30 mg Meropenem 500 mg/ Sodium (Chloride) 100 mls @ 100 mls/hr IVPB Q8H [facility]; Protocol Last Admin: 08/01/18 09:22 Dose: 100 mls/hr Linezolid (Zyvox 600mg/300ml D5w) 600 mg in 300 mls @ 200 mls/hr IVPB Q12H [facility]; Protocol Last Admin: 08/01/18 07:58 Dose: 200 mls/hr Insulin Aspart (Novolog) 0 unit SC ACHS [facility]; Protocol Last Admin: 08/01/18 11:46 Dose: 4 unit Insulin Glargine (Lantus) 10 unit SC HS [facility] Last Admin: 07/31/18 22:16 Dose: 10 units Lactobacillus Acidophilus (Lactobacillus) 1 cap PO BID [facility] Last Admin: 08/01/18 09:19 Dose: 1 cap Lisinopril (Zestril) 2.5 mg PO DAILY [facility] Last Admin: 08/01/18 09:19 Dose: 2.5 mg - Labs Labs: 08/01/18 08:12 08/01/18 08:12 PT 12.8 SECONDS (9.7-12.2) H 07/19/18 16:24 INR 1.2 07/19/18 16:24 APTT 25 SECONDS (21-34) 07/19/18 16:24 - Constitutional Appears: Non-toxic, No Acute Distress - Head Exam Head Exam: ATRAUMATIC, NORMAL INSPECTION, NORMOCEPHALIC - Eye Exam Eye Exam: EOMI - ENT Exam ENT Exam: Mucous Membranes Moist - Neck Exam Neck Exam: Full ROM, Normal Inspection - Respiratory Exam Respiratory Exam: NORMAL BREATHING PATTERN. absent: Respiratory Distress - Cardiovascular Exam Cardiovascular Exam: +S1, +S2 - GI/Abdominal Exam GI & Abdominal Exam: Soft, Normal Bowel Sounds. absent: Tenderness - Extremities Exam Extremities Exam: Full ROM, Normal Inspection - Back Exam Back Exam: NORMAL INSPECTION - Neurological Exam Neurological Exam: Alert, Awake, CN II-XII Intact - Psychiatric Exam Psychiatric exam: Normal Affect, Normal Mood - Skin Skin Exam: Dry, Intact, Normal Color, Warm Assessment and Plan - Assessment and Plan (Free Text) Assessment: 1. Labial abscess s/p debridement on 07/20/18 Dr. Christian consulted, help appreciated Dr. Solorio consulted, help appreciated Wound culture from 07/20 shows MRSA and ESBL E. Coli Zyvox 600 mg Q12 hrs (started 07/27) Meropenem 500 mg q 8 hrs (last dose to be given on 07/30/18) Lactobacillus 1 tab PO BID d/c Vancomycin 1gm Q12h (07/24-07/27) d/c Cefazolin 1000mg q8h (given 07/19- 07/20) 2. Anemia s/p 1 unit of packed red blood cells (07/27/18) Continue to monitor with am labs 2. Neutropenia/leukopenia -likely secondary to myelodysplastic syndrome -neutropenic precautions -hematology/oncology consult. Dr. Adames. recs appreciated. 3. Urinary tract infection U/A: leuk est: 2+, WBC 11 on Zyvox and meropenem for MRSA and ESBL E Coli (last dose to be given on 07/30/18) d/c Cefazolin 1000mg q8h (given 07/19- 07/20) Lactobacillus 1 tab PO BID 4. Abnormal CXR (chest x-ray) Nodular Opacity in Left Lung Pre- op CXR: interval 7mm nodular opacity projecting over the left lower lung zone and left heart. Summation of vascular anatomy seen on versus interval left pulmonary nodule are considerations. Given the short interval time frame in the nonvisualized appearance- summation of shadows are believed more likely. Nevertheless diagnosis of exclusion is an interval pulmonary nodule or interval increase conspicuity of a left pulmonary neoplastic nodule 5. Myelodysplastic syndrome seeing Dr. Adames for chemotherapy previously dx with 5q deletion 6. Diabetes mellitus ISS increased to medium accuchecks ACHS Lisinopril 2.5mg restarted home med Glargine 10 u sc HS (on 07/27/18) 7. GI/DVT DVT: SCDs, Lovenox 30mg SC daily GI: Not indicated discussed with Dr. Ly.
--- NOTE | 2018-08-01 17:56 | CP.PCM.PN ---
Subjective - Date & Time of Evaluation Date of Evaluation: 08/01/18 Time of Evaluation: 15:00 - Subjective Subjective: Feels tired Objective - Vital Signs/Intake and Output Vital Signs (last 24 hours): Temp Pulse Resp BP Pulse Ox 98.0 F 87 20 134/71 95 08/01/18 16:40 08/01/18 16:40 08/01/18 16:40 08/01/18 16:40 08/01/18 16:40 Intake and Output: 08/01/18 08/01/18 06:59 18:59 Intake Total 1290 650 Balance 1290 650 - Medications Medications: Current Medications Enoxaparin Sodium (Lovenox) 30 mg SC DAILY [facility] Last Admin: 08/01/18 09:18 Dose: 30 mg Meropenem 500 mg/ Sodium (Chloride) 100 mls @ 100 mls/hr IVPB Q8H [facility]; Protocol Last Admin: 08/01/18 17:18 Dose: 100 mls/hr Linezolid (Zyvox 600mg/300ml D5w) 600 mg in 300 mls @ 200 mls/hr IVPB Q12H [facility]; Protocol Last Admin: 08/01/18 07:58 Dose: 200 mls/hr Insulin Aspart (Novolog) 0 unit SC ACHS [facility]; Protocol Last Admin: 08/01/18 17:18 Dose: 3 unit Insulin Glargine (Lantus) 10 unit SC HS [facility] Last Admin: 07/31/18 22:16 Dose: 10 units Lactobacillus Acidophilus (Lactobacillus) 1 cap PO BID [facility] Last Admin: 08/01/18 17:18 Dose: 1 cap Lisinopril (Zestril) 2.5 mg PO DAILY [facility] Last Admin: 08/01/18 09:19 Dose: 2.5 mg - Labs Labs: 08/01/18 08:12 08/01/18 08:12 PT 12.8 SECONDS (9.7-12.2) H 07/19/18 16:24 INR 1.2 07/19/18 16:24 APTT 25 SECONDS (21-34) 07/19/18 16:24 - Head Exam Head Exam: ATRAUMATIC - Eye Exam Eye Exam: Normal appearance - ENT Exam ENT Exam: Mucous Membranes Dry - Respiratory Exam Respiratory Exam: NORMAL BREATHING PATTERN - Cardiovascular Exam Cardiovascular Exam: +S1, +S2 - GI/Abdominal Exam GI & Abdominal Exam: Normal Bowel Sounds - Psychiatric Exam Psychiatric exam: Normal Affect, Normal Mood - Skin Skin Exam: Warm Assessment and Plan (1) Pancytopenia Assessment & Plan: secondary to MDS transfusion support PRN Status: Acute (2) Myelodysplastic syndrome Assessment & Plan: outpatient treatment Status: Chronic
[2018-08-01] MEDS: (Lantus) Insulin Glargine, Recombinant SC SCH (21:52)
[2018-08-02] MEDS: Meropenem 500 MG in Sodium Chloride 0.9% 100 ML IVPB SCH ×2 (01:11→08:34)
[2018-08-02 07:08] LABS: BASO % 1.3 % (0.0-2.0); EOS # 0.1 K/uL (0.0-0.7); EOS % 5.4 % (0.0-4.0); HEMOGLOBIN 8.3 g/dL (11.0-16.0); LYMPH # 1.2 K/uL (1.0-4.3); LYMPH % 55.8 % (20.0-40.0); MEAN CORPUSCULAR HEMOGLOBIN 30.8 pg (27.0-31.0); MEAN CORPUSCULAR HGB CONC 34.3 g/dL (33.0-37.0); MEAN PLATELET VOLUME 10.2 fL (7.2-11.7); MONO # 0.1 K/uL (0.0-0.8); MONO % 3.2 % (0.0-10.0); NEUT # 0.7 K/uL (1.8-7.0); NEUT % 34.3 % (50.0-75.0); NRBC % 0.2 % (0.0-2.0); RBC 2.68 Mil/uL (3.80-5.20); WHITE BLOOD COUNT 2.2 K/uL (4.8-10.8)
[2018-08-02 07:13] LABS: ALB/GLOB RATIO 1.2 (1.0-2.1); ALBUMIN 3.8 g/dL (3.5-5.0); CALCIUM 8.8 mg/dl (8.6-10.4)
[2018-08-02] MEDS: (Novolog) Insulin Aspart, Recombinant 100 u/ml 10 ml vial SC SCH ×2 (07:15→11:59)
--- NOTE | 2018-08-02 07:28 | CP.PCM.PN ---
Subjective - Date & Time of Evaluation Date of Evaluation: 08/02/18 Time of Evaluation: 07:21 - Subjective Subjective: Progress note for Dr. Ly Patient was seen and examined at bedside in no acute distress. Patient reports feeling well and has no complaints today. ROS otherwise negative. Objective - Vital Signs/Intake and Output Vital Signs (last 24 hours): Temp Pulse Resp BP Pulse Ox 98.4 F 83 20 124/70 95 08/02/18 00:00 08/02/18 00:00 08/02/18 00:00 08/02/18 00:00 08/02/18 00:00 Intake and Output: 08/02/18 08/02/18 06:59 18:59 Intake Total 1190 Balance 1190 - Medications Medications: Current Medications Enoxaparin Sodium (Lovenox) 30 mg SC DAILY [facility] Last Admin: 08/01/18 09:18 Dose: 30 mg Meropenem 500 mg/ Sodium (Chloride) 100 mls @ 100 mls/hr IVPB Q8H [facility]; Protocol Last Admin: 08/02/18 01:11 Dose: 100 mls/hr Linezolid (Zyvox 600mg/300ml D5w) 600 mg in 300 mls @ 200 mls/hr IVPB Q12H [facility]; Protocol Last Admin: 08/01/18 19:02 Dose: 200 mls/hr Insulin Aspart (Novolog) 0 unit SC ACHS [facility]; Protocol Last Admin: 08/02/18 07:15 Dose: Not Given Insulin Glargine (Lantus) 10 unit SC HS [facility] Last Admin: 08/01/18 21:52 Dose: 10 units Lactobacillus Acidophilus (Lactobacillus) 1 cap PO BID [facility] Last Admin: 08/01/18 17:18 Dose: 1 cap Lisinopril (Zestril) 2.5 mg PO DAILY [facility] Last Admin: 08/01/18 09:19 Dose: 2.5 mg - Labs Labs: 08/01/18 08:12 08/02/18 06:38 PT 12.8 SECONDS (9.7-12.2) H 07/19/18 16:24 INR 1.2 07/19/18 16:24 APTT 25 SECONDS (21-34) 07/19/18 16:24 - Constitutional Appears: No Acute Distress - Head Exam Head Exam: ATRAUMATIC, NORMAL INSPECTION - Eye Exam Eye Exam: EOMI, Normal appearance - ENT Exam ENT Exam: Mucous Membranes Moist - Respiratory Exam Respiratory Exam: Clear to Ausculation Bilateral, NORMAL BREATHING PATTERN. absent: Rales, Rhonchi, Wheezes, Respiratory Distress - Cardiovascular Exam Cardiovascular Exam: REGULAR RHYTHM, +S1, +S2 - GI/Abdominal Exam GI & Abdominal Exam: Soft, Normal Bowel Sounds. absent: Tenderness - Neurological Exam Neurological Exam: Alert, Awake, Oriented x3 - Psychiatric Exam Psychiatric exam: Normal Affect, Normal Mood - Skin Skin Exam: Dry, Intact, Normal Color, Warm Assessment and Plan - Assessment and Plan (Free Text) Plan: Labial abscess - s/p debridement on 07/20/18 - Dr. Christian consulted, help appreciated - Dr. Solorio consulted, help appreciated - Wound culture from 07/20 shows MRSA and ESBL E. Coli - Zyvox 600 mg Q12 hrs (started 07/27) - Meropenem 500 mg q 8 hrs (last dose to be given on 07/30/18) - Lactobacillus 1 tab PO BID - d/c Vancomycin 1gm Q12h (07/24-07/27) - d/c Cefazolin 1000mg q8h (given 07/19- 07/20) Anemia - s/p 1 unit of packed red blood cells (07/27/18) - Continue to monitor with am labs Neutropenia/leukopenia - likely secondary to myelodysplastic syndrome - neutropenic precautions - hematology/oncology consult. Dr. Adames. recs appreciated. Urinary tract infection - U/A: leuk est: 2+, WBC 11 - On Zyvox and meropenem for MRSA and ESBL E Coli (last dose to be given on 07/30/18) - d/c Cefazolin 1000mg q8h (given 07/19- 07/20) - Lactobacillus 1 tab PO BID Abnormal Chest Xray - Nodular Opacity in Left Lung - Pre- op CXR: interval 7mm nodular opacity projecting over the left lower lung zone and left heart. Summation of vascular anatomy seen on versus interval left pulmonary nodule are considerations. Given the short interval time frame in the nonvisualized appearance- summation of shadows are believed more likely. Nevertheless diagnosis of exclusion is an interval pulmonary nodule or interval increase conspicuity of a left pulmonary neoplastic nodule Myelodysplastic syndrome - Seeing Dr. Adames for chemotherapy - previously Dx with 5q deletion Diabetes mellitus - ISS (medium) - Accuchecks ACHS - Lisinopril 2.5mg - Restarted home med Glargine 10u SC HS (on 07/27/18) GI/DVT - DVT: SCDs, Lovenox 30mg SC daily - GI: Not indicated Case discussed with Dr. Ly. Patient is stable for discharge to home per Dr. Ly. Patient must continue home medications. Patient should also continue taking probiotic, Lactobacillus, take 1 capsule twice per day. [Prescription sent electronically to patient's preferred pharmacy.] Patient must follow up with Dr. Ly and Dr. Adames within one week of discharge. If symptoms worsen or reoccur, patient should return to the nearest emergency room.
[2018-08-02] MEDS: Linezolid 600 mg in D5W 300 ml 600 MG/300 ML BAG IVPB SCH (07:56)
[2018-08-02 08:10] VITALS: BP 124/70; PULSE 83; TEMP 98.4; O2SAT 95
[2018-08-02] MEDS: Enoxaparin 30 mg Syringe SC SCH (09:13)
[2018-08-02] MEDS: Lactobacillus Acidophilus 500 MU Cap PO SCH (09:13)
--- NOTE | 2018-08-02 12:54 | CP.PCM.PN ---
Subjective - Date & Time of Evaluation Date of Evaluation: 08/02/18 Time of Evaluation: 12:00 - Subjective Subjective: No complaints. Objective - Vital Signs/Intake and Output Vital Signs (last 24 hours): Temp Pulse Resp BP Pulse Ox 98.4 F 83 20 124/70 95 08/02/18 00:00 08/02/18 00:00 08/02/18 00:00 08/02/18 00:00 08/02/18 00:00 Intake and Output: 08/02/18 08/02/18 06:59 18:59 Intake Total 1190 Balance 1190 - Medications Medications: Current Medications Enoxaparin Sodium (Lovenox) 30 mg SC DAILY [facility] Last Admin: 08/02/18 09:13 Dose: 30 mg Meropenem 500 mg/ Sodium (Chloride) 100 mls @ 100 mls/hr IVPB Q8H [facility]; Protocol Last Admin: 08/02/18 08:34 Dose: Not Given Linezolid (Zyvox 600mg/300ml D5w) 600 mg in 300 mls @ 200 mls/hr IVPB Q12H [facility]; Protocol Last Admin: 08/02/18 07:56 Dose: Not Given Insulin Aspart (Novolog) 0 unit SC ACHS [facility]; Protocol Last Admin: 08/02/18 11:59 Dose: Not Given Insulin Glargine (Lantus) 10 unit SC HS [facility] Last Admin: 08/01/18 21:52 Dose: 10 units Lactobacillus Acidophilus (Lactobacillus) 1 cap PO BID [facility] Last Admin: 08/02/18 09:13 Dose: 1 cap Lisinopril (Zestril) 2.5 mg PO DAILY [facility] Last Admin: 08/02/18 09:13 Dose: 2.5 mg - Labs Labs: 08/02/18 06:38 08/02/18 06:38 PT 12.8 SECONDS (9.7-12.2) H 07/19/18 16:24 INR 1.2 07/19/18 16:24 APTT 25 SECONDS (21-34) 07/19/18 16:24 - Head Exam Head Exam: ATRAUMATIC - Eye Exam Eye Exam: Normal appearance - ENT Exam ENT Exam: Mucous Membranes Dry - Respiratory Exam Respiratory Exam: NORMAL BREATHING PATTERN - GI/Abdominal Exam GI & Abdominal Exam: Normal Bowel Sounds Assessment and Plan (1) Pancytopenia Assessment & Plan: secondary to MDS transfusion support PRN Status: Acute (2) Myelodysplastic syndrome Assessment & Plan: outpatient treatment Status: Chronic
[2018-08-02] MEDS ORDERED: Pneumococcal 23-Valent Vaccine IM ONE (13:23)
--- NOTE | 2018-08-12 00:05 | OP ---
PROCEDURE DATE: 07/24/2018 PREOPERATIVE DIAGNOSIS: Open wound of the right pelvis. POSTOPERATIVE DIAGNOSIS: Open wound of the right pelvis. PROCEDURE PERFORMED: Debridement and closure, open wound of the right pelvis. SURGEON: Young Christian MD ANESTHESIA: General. BLOOD LOSS: 30 mL. POSTOPERATIVE CONDITION: Stable. INDICATIONS FOR SURGERY: This is a staged procedure. The patient had a large open wound of the right pelvis and now will undergo debridement and closure. DESCRIPTION OF PROCEDURE: The patient was taken to the operating room. General anesthesia was administered. The right pelvic area was prepped and draped. The previous packing was removed, and the pelvic space was aggressively debrided. Bleeding was controlled using the Bovie. Larger blood vessels were repaired. The wound was pulse irrigated with saline and Kantrex solution. Tissue flap closures were performed by widely mobilizing full thickness, making counterincisions, performing a 34 sq cm advancement flap closure using Monocryl, subcuticular Monocryl and the skin closed loosely with clips. The patient tolerated the procedure well and returned to recovery room in stable condition. Young Christian MD
== END 2018-08-02 14:10 | disposition home or self-care (01) | DRG 746 ==
LOC: C.ER 13:55 → C.9E 15:06 → UNDOADMOB 15:06 → C.3T 18:18 → C.9E 18:18 → C.3T 07-20 18:53 → OBSVTOIN 07-22 14:11 → C.9E 07-22 14:11 → INTOOBSV 07-23 07:52 → OBSVTOIN 07-23 07:52
PROVIDERS: ADMIT Internal Medicine Pulmonary Disease; ATTEND Internal Medicine Pulmonary Disease
PROC: 0U9M0ZX Drainage of Vulva, Open Approach, Diagnostic (ICD-10-PCS; principal; 2018-07-20 12:00)
PROC: 0U9M0ZZ Drainage of Vulva, Open Approach (ICD-10-PCS; 2018-07-21)
PROC: 0HDAXZZ Extraction of Inguinal Skin, External Approach (ICD-10-PCS; 2018-07-24)
DX: N76.4 Abscess of vulva (principal); D46.C Myelodysplastic syndrome with isolated del(5q) chromosomal abnormality; D61.818 Other pancytopenia; N39.0 Urinary tract infection, site not specified; N75.0 Cyst of Bartholin's gland; Z79.4 Long term (current) use of insulin; Z88.0 Allergy status to penicillin; I10 Essential (primary) hypertension; G30.9 Alzheimer's disease, unspecified; F02.80 Dementia in other diseases classified elsewhere, unspecified severity, without behavioral disturbance, psychotic disturbance, mood disturbance, and anxiety; E11.9 Type 2 diabetes mellitus without complications; M06.9 Rheumatoid arthritis, unspecified; E78.00 Pure hypercholesterolemia, unspecified